=== PATIENT | male | born 1940 | race Caucasian/White ===

== ENCOUNTER 2016-12-21 03:40 | Observation (INO) ==
[2016-12-21 04:02] LABS: Basophils % 0.5 %; Eosinophils # 0.1 K/mcL (0.0-0.6); Eosinophils % 1.2 %; Hematocrit 36.8 % (37.5-50.1); Hemoglobin 12.2 g/dL (12.9-16.9); Immature Granulocytes % 0.6 % (0-4); Lymphocytes # 1.6 K/mcL (0.6-4.6); Lymphocytes % 24.6 %; Mean Corpuscular HGB Conc 33.2 g/dL (31.6-35.5); Mean Corpuscular Hemoglobin 31.5 pg (28.0-33.3); Mean Corpuscular Volume 95.1 fL (83.0-100.0); Monocytes # 0.8 K/mcL (0.0-1.3); Monocytes % 12.6 %; Neutrophils # 3.9 K/mcL (1.6-8.9); Platelet Count 134 K/mcL (140-400); Red Blood Count 3.87 M/mcL (4.19-5.50); Red Cell Distribution Width 14.2 % (11.5-14.5); Segmented Neutrophils % 60.5 %
[2016-12-21 04:11] LABS: INR 1.1; Prothrombin Time 11.8 Seconds (9.4-12.1)
[2016-12-21 04:13] LABS: Activated Partial Thrombo Time 36.5 Seconds (26.0-36.0)
--- NOTE | 2016-12-21 04:13 | Emergency Department Note ---
Disposition Clinical Impression: Elevated troponin, Seizure Hypertension Qualifiers: Hypertension type: unspecified secondary hypertension Qualified Code(s): I15.9 - Secondary hypertension, unspecified Disposition: Admitted As Inpatient Condition: Fair Referrals: NO,PCP [Primary Care Provider] - General Adult HPI - General Chief complaint: ED Fall Stated complaint: Fall Time Seen by Provider: 12/21/16 03:48 Source: patient, EMS Mode of arrival: EMS Limitations: no limitations Nursing Notes Reviewed: Yes Vital Signs Reviewed: Yes - History of Present Illness HPI Narrative: 76 y/o male reports he had a seizure and hit his head. Known history of seizures and is on depakote and keppra. He says he has been having some urinary problems. According to EMS he was altered on their arrival but it has improved. This has happened numerous times in the past. He denies pain. He was incontinent of urine. Radiation: non-radiation Pain Scale: 0 Consistency: constant Improves with: nothing Worsens with: nothing Associated symptoms: Reports: denies other symptoms Treatments Prior to Arrival: none - Related Data Home Medications Medication Instructions Recorded Confirmed Acetaminophen [Tylenol] 650 mg PO Q8H PRN 11/10/15 06/18/16 Carbidopa/Levodopa 25/100 [Sinemet] 1 tab PO BID 11/10/15 06/18/16 Citalopram [CeleXA] 40 mg PO DAILY 11/10/15 06/18/16 Divalproex Sodium [Depakote] 500 mg PO BID 05/06/16 06/18/16 Omeprazole [PriLOSEC] 20 mg PO BID 05/06/16 06/18/16 Docusate [Colace] 200 mg PO DAILY PRN 06/18/16 06/18/16 Previous Rx's Medication Instructions Recorded Amlodipine [Norvasc] 10 mg PO DAILY tablet 11/16/15 Folic Acid 1 mg PO DAILY tablet 11/16/15 HydrALAZINE 25 mg PO Q6HR tablet 11/16/15 LevETIRAcetam [Keppra] 500 mg PO Q12HR #60 tablet 11/16/15 Vitamin B Complex/Vit C/Vit E 1 each PO DAILY tablet 11/16/15 [Stresstab] HYDROcodone/Acet 5/325 mg [[place] 1 tab PO Q6H PRN #20 tablet 06/20/16 5-325 mg] Tamsulosin [Flomax] 0.8 mg PO DAILY #60 capsule 06/20/16 OxyCODONE/APAP 5/325 [Percocet 1 each PO Q6HR PRN #15 tablet 10/31/16 5/325] Allergies Allergy/AdvReac Type Severity Reaction Status Date / Time No Known Allergies Allergy Verified 09/11/15 01:08 All systems ED: reviewed and negative except as stated. Constitutional: Denies: fever ENT ED: Denies: throat pain Cardiovascular: Denies: chest pain Respiratory: Denies: cough Gastrointestinal: Denies: abdominal pain, nausea, vomiting Genitourinary: Reports: frequency Musculoskeletal: Denies: back pain Integumentary: Denies: rash Neurological: Denies: headache Past Medical History - Past Medical History Medical history: Reports: arthritis, COPD, CVA, dementia, GERD, hyperlipidemia, hypertension, osteoporosis, renal disease, seizures, syncope, TIA, other Surgical history: Reports: cataract, prostatectomy, other Psychiatric history: Reports: anxiety, depression - Social History Smoking Status: Former smoker Smokeless Tobacco Status: No Alcohol use: Reports: none Drug use: Reports: none Physical Exam - General Limitations: no limitations General appearance: alert - Head Head exam: atraumatic - Eye Eye exam: Present: normal appearance, PERRL, EOMI - ENT ENT exam: normal exam, normal oropharynx - Neck Neck exam: Present: normal inspection - Chest Chest inspection: Present: normal inspection - Respiratory Respiratory exam: Present: normal lung sounds bilaterally. Absent: respiratory distress - Cardiovascular Cardiovascular exam: Present: regular rate, normal rhythm - Abdominal Exam Abdominal exam: Present: soft, Non-Tender - Extremities Exam Extremities exam: Present: normal inspection - Neurological Exam Neurological exam: Present: alert, oriented X3, CN II-XII intact, reflexes normal. Absent: motor sensory deficit - Skin Skin exam: Present: warm, dry Course Course Narrative: He has some mild dementia but is oriented x3. He has no drift. He has some mild slurred speech but that appears to be chronic. He is in no distress. - Reevaluation(s) Reevaluation #1: Troponin elevated but no CP or dyspnea. Markedly hypertensive. Gave 20mg of labetalol which brought his pressure down to [address] deviation on EKG. Called for admission secondary to elevated troponin. Accepted by servando Vital Signs Temperature 99.5 F 12/21/16 03:42 Pulse Rate 66 12/21/16 03:42 Respiratory Rate 18 12/21/16 03:42 Blood Pressure 216/122 12/21/16 03:42 O2 Sat by Pulse Oximetry 96 12/21/16 03:42 Temperature 99.5 F 12/21/16 03:42 Pulse Rate 69 12/21/16 05:50 Respiratory Rate 16 12/21/16 05:50 Blood Pressure 192/115 12/21/16 05:50 O2 Sat by Pulse Oximetry 95 12/21/16 05:50 Oxygen Delivery Oxygen Delivery Room Air Medical Decision Making - Medical Records Medical records reviewed: Yes I reviewed the patient's medical records. - Lab Data Lab results reviewed: Yes I reviewed the patient's lab results. Result diagrams: 12/21/16 03:53 12/21/16 03:53 Lab Results 12/21/16 12/21/16 12/21/16 Range/Units 03:43 03:53 03:53 WBC 6.4 (4.3-11.1) K/mcL RBC 3.87 L (4.19-5.50) M/mcL Hgb 12.2 L (12.9-16.9) g/dL Hct 36.8 L (37.5-50.1) % MCV 95.1 (83.0-100.0) fL MCH 31.5 (28.0-33.3) pg MCHC 33.2 (31.6-35.5) g/dL RDW 14.2 (11.5-14.5) % Plt Count 134 L (140-400) K/mcL MPV 10.0 (9.4-12.4) fL Immature Gran % 0.6 (0-4) % Seg Neutrophils % 60.5 % Lymphocytes % 24.6 % Monocytes % 12.6 % Eosinophils % 1.2 % Basophils % 0.5 % Neutrophils # 3.9 (1.6-8.9) K/mcL Lymphocytes # 1.6 (0.6-4.6) K/mcL Monocytes # 0.8 (0.0-1.3) K/mcL Eosinophils # 0.1 (0.0-0.6) K/mcL Basophils # 0.0 (0.0-0.2) K/mcL PT 11.8 (9.4-12.1) Seconds INR 1.1 APTT 36.5 H (26.0-36.0) Seconds Sodium (136-145) mEq/L Potassium (3.5-4.5) mEq/L Chloride (98-109) mEq/L Carbon Dioxide (19-29) mEq/L BUN (8-26) mg/dL Creatinine (0.72-1.25) mg/dL Est GFR ( Amer) (> 60) Est GFR (Non-Af Amer) (> 60) BUN/Creatinine Ratio (6-26) Glucose (70-99) mg/dL POC Glucose 123 H (58-89) Calculated Osmolality (280-300) Calcium (8.6-10.8) mg/dL Total Bilirubin (0.2-1.2) mg/dL Direct Bilirubin (0.0-0.5) mg/dL Indirect Bilirubin (0.0-1.2) mg/dL AST (5-34) Units/L ALT (0-55) Units/L Alkaline Phosphatase (38-126) Units/L Ammonia (18-72) mcmol/L Troponin I (0-0.03) ng/mL Serum Total Protein (6.0-8.3) g/dL Albumin (3.5-5.0) g/dL Globulin (2.4-3.5) g/dL Albumin/Globulin Ratio (1.1-2.2) TSH (0.350-4.840) mcIU/mL Urine Color (Yellow) Urine Clarity (Clear) Urine pH (5.0-8.0) pH Units Ur Specific [place] (1.010-1.025) Urine Protein (Neg-Trace) mg/dL Urine Glucose (UA) (Normal) mg/dL Urine Ketones (Negative) mg/dL Urine Blood (Negative) Urine Nitrite (Negative) Urine Bilirubin (Negative) Urine Urobilinogen (Normal) mg/dL Ur Leukocyte Esterase (Negative) Urine Microscopic RBC (0-3) per hpf Urine Microscopic WBC (0-3) per hpf Ur Squamous Epith Cells (None-Few) per lpf Urine Bacteria (None-Few) per hpf Hyaline Casts (None-Few) per lpf Ur Culture Indicated? (NO) Urine Opiates Screen (Stjdse=280) ng/mL Ur Barbiturates Screen (Lfteow=737) ng/mL Ur Phencyclidine Scrn (Cutoff=25) ng/mL Ur Amphetamines Screen (Fdzptg=7730) ng/mL U Benzodiazepines Scrn (Xoadms=577) ng/mL Urine Cocaine Screen (Cutoff= 300) ng/mL U Marijuana (THC) Screen (Cutoff = 50) ng/mL Ethyl Alcohol (0-10) mg/dL 12/21/16 12/21/16 12/21/16 Range/Units 03:53 03:53 03:53 WBC (4.3-11.1) K/mcL RBC (4.19-5.50) M/mcL Hgb (12.9-16.9) g/dL Hct (37.5-50.1) % MCV (83.0-100.0) fL MCH (28.0-33.3) pg MCHC (31.6-35.5) g/dL RDW (11.5-14.5) % Plt Count (140-400) K/mcL MPV (9.4-12.4) fL Immature Gran % (0-4) % Seg Neutrophils % % Lymphocytes % % Monocytes % % Eosinophils % % Basophils % % Neutrophils # (1.6-8.9) K/mcL Lymphocytes # (0.6-4.6) K/mcL Monocytes # (0.0-1.3) K/mcL Eosinophils # (0.0-0.6) K/mcL Basophils # (0.0-0.2) K/mcL PT (9.4-12.1) Seconds INR APTT (26.0-36.0) Seconds Sodium 143 (136-145) mEq/L Potassium 3.6 (3.5-4.5) mEq/L Chloride 106 (98-109) mEq/L Carbon Dioxide 26 (19-29) mEq/L BUN 27 H (8-26) mg/dL Creatinine 1.33 H (0.72-1.25) mg/dL Est GFR ( Amer) > 60 (> 60) Est GFR (Non-Af Amer) 52 L (> 60) BUN/Creatinine Ratio 20 (6-26) Glucose 128 H (70-99) mg/dL POC Glucose (58-89) Calculated Osmolality 303 H (280-300) Calcium 9.6 (8.6-10.8) mg/dL Total Bilirubin 0.5 (0.2-1.2) mg/dL Direct Bilirubin 0.3 (0.0-0.5) mg/dL Indirect Bilirubin 0.2 (0.0-1.2) mg/dL AST 19 (5-34) Units/L ALT 7 (0-55) Units/L Alkaline Phosphatase 68 (38-126) Units/L Ammonia 13 L (18-72) mcmol/L Troponin I 0.07 H* (0-0.03) ng/mL Serum Total Protein 6.8 (6.0-8.3) g/dL Albumin 3.4 L (3.5-5.0) g/dL Globulin 3.4 (2.4-3.5) g/dL Albumin/Globulin Ratio 1.0 L (1.1-2.2) TSH 4.457 (0.350-4.840) mcIU/mL Urine Color (Yellow) Urine Clarity (Clear) Urine pH (5.0-8.0) pH Units Ur Specific [place] (1.010-1.025) Urine Protein (Neg-Trace) mg/dL Urine Glucose (UA) (Normal) mg/dL Urine Ketones (Negative) mg/dL Urine Blood (Negative) Urine Nitrite (Negative) Urine Bilirubin (Negative) Urine Urobilinogen (Normal) mg/dL Ur Leukocyte Esterase (Negative) Urine Microscopic RBC (0-3) per hpf Urine Microscopic WBC (0-3) per hpf Ur Squamous Epith Cells (None-Few) per lpf Urine Bacteria (None-Few) per hpf Hyaline Casts (None-Few) per lpf Ur Culture Indicated? (NO) Urine Opiates Screen (Mmuuje=346) ng/mL Ur Barbiturates Screen (Iruewm=618) ng/mL Ur Phencyclidine Scrn (Cutoff=25) ng/mL Ur Amphetamines Screen (Stdsxt=9001) ng/mL U Benzodiazepines Scrn (Cgzchx=684) ng/mL Urine Cocaine Screen (Cutoff= 300) ng/mL U Marijuana (THC) Screen (Cutoff = 50) ng/mL Ethyl Alcohol < 10 (0-10) mg/dL 12/21/16 12/21/16 Range/Units 05:10 05:10 WBC (4.3-11.1) K/mcL RBC (4.19-5.50) M/mcL Hgb (12.9-16.9) g/dL Hct (37.5-50.1) % MCV (83.0-100.0) fL MCH (28.0-33.3) pg MCHC (31.6-35.5) g/dL RDW (11.5-14.5) % Plt Count (140-400) K/mcL MPV (9.4-12.4) fL Immature Gran % (0-4) % Seg Neutrophils % % Lymphocytes % % Monocytes % % Eosinophils % % Basophils % % Neutrophils # (1.6-8.9) K/mcL Lymphocytes # (0.6-4.6) K/mcL Monocytes # (0.0-1.3) K/mcL Eosinophils # (0.0-0.6) K/mcL Basophils # (0.0-0.2) K/mcL PT (9.4-12.1) Seconds INR APTT (26.0-36.0) Seconds Sodium (136-145) mEq/L Potassium (3.5-4.5) mEq/L Chloride (98-109) mEq/L Carbon Dioxide (19-29) mEq/L BUN (8-26) mg/dL Creatinine (0.72-1.25) mg/dL Est GFR ( Amer) (> 60) Est GFR (Non-Af Amer) (> 60) BUN/Creatinine Ratio (6-26) Glucose (70-99) mg/dL POC Glucose (58-89) Calculated Osmolality (280-300) Calcium (8.6-10.8) mg/dL Total Bilirubin (0.2-1.2) mg/dL Direct Bilirubin (0.0-0.5) mg/dL Indirect Bilirubin (0.0-1.2) mg/dL AST (5-34) Units/L ALT (0-55) Units/L Alkaline Phosphatase (38-126) Units/L Ammonia (18-72) mcmol/L Troponin I (0-0.03) ng/mL Serum Total Protein (6.0-8.3) g/dL Albumin (3.5-5.0) g/dL Globulin (2.4-3.5) g/dL Albumin/Globulin Ratio (1.1-2.2) TSH (0.350-4.840) mcIU/mL Urine Color Yellow (Yellow) Urine Clarity Clear (Clear) Urine pH 6.0 (5.0-8.0) pH Units Ur Specific [place] 1.025 (1.010-1.025) Urine Protein Trace (Neg-Trace) mg/dL Urine Glucose (UA) Normal (Normal) mg/dL Urine Ketones Negative (Negative) mg/dL Urine Blood Negative (Negative) Urine Nitrite Negative (Negative) Urine Bilirubin Small H (Negative) Urine Urobilinogen Normal (Normal) mg/dL Ur Leukocyte Esterase Negative (Negative) Urine Microscopic RBC 3-5 H (0-3) per hpf Urine Microscopic WBC 3-5 H (0-3) per hpf Ur Squamous Epith Cells Many H (None-Few) per lpf Urine Bacteria None Seen (None-Few) per hpf Hyaline Casts None Seen (None-Few) per lpf Ur Culture Indicated? NO (NO) Urine Opiates Screen Negative (Xcgwti=099) ng/mL Ur Barbiturates Screen Negative (Eqtylt=468) ng/mL Ur Phencyclidine Scrn Negative (Cutoff=25) ng/mL Ur Amphetamines Screen Negative (Veekrf=4585) ng/mL U Benzodiazepines Scrn Negative (Wbcgtn=532) ng/mL Urine Cocaine Screen Negative (Cutoff= 300) ng/mL U Marijuana (THC) Screen Negative (Cutoff = 50) ng/mL Ethyl Alcohol (0-10) mg/dL - Radiology Data Radiology results reviewed: Yes I reviewed the patient's radiology results. Chest X-Ray 12/21/16 03:50 IMPRESSION: No acute disease. D/ / Matias Ybarra MD / Matias Ybarra MD Interpreting Provider: Matias Ybarra MD Head CT 12/21/16 03:51 IMPRESSION: No acute intracranial abnormality. D/ / Matias Ybarra MD / Matias Ybarra MD Interpreting Provider: Matias Ybarra MD - EKG Data EKG #1 EKG attestation: Yes I reviewed and interpreted this EKG. EKG shows normal: sinus rhythm Rate: normal Rhythm: NSR [place]/QRS: normal When compared to previous EKG there are: no significant changes Interpretation: no acute changes Attestation Statement - Attestation Attestation: I, Praveen Levine MD, personally performed a history and physical exam of the patient and discussed their management with the resident. I reviewed the resident's note and agree with the documented findings, medical decision making , and plan of care. 76-year-old male presents to the emergency department by ambulance from home after he fell and hit his head on the floor. Patient states that he thinks he may have had a seizure that he does remember falling. He does not think he was unconscious. He complains of some pain in the back of his head. He does have a history of seizure disorder and is on medication. He lives alone. On examination the patient is a well-developed well-nourished elderly male in no acute distress. He is alert and oriented 3. There is no cyanosis or diaphoresis. Some tenderness palpation over the occipital scalp. No large hematomas noted. Breath sounds are clear and equal bilaterally. Heart regular rate and rhythm. Abdomen soft and nontender with normal bowel sounds. No gross focal neurological deficits noted. Labs reviewed. Elevated troponin noted. Patient denies any chest pain. Chest x-ray negative. Head CT negative. No acute changes on EKG. The hospitalist, Dr. Lundberg, was consulted and accepted admission of the patient.
[2016-12-21 04:20] LABS: Alanine Aminotransferase 7 Units/L (0-55); Albumin 3.4 g/dL (3.5-5.0); Alkaline Phosphatase 68 Units/L (38-126); Aspartate Amino Transferase 19 Units/L (5-34); BUN/Creatinine Ratio 20 (6-26); Bilirubin,Direct 0.3 mg/dL (0.0-0.5); Bilirubin,Indirect 0.2 mg/dL (0.0-1.2); Bilirubin,Total 0.5 mg/dL (0.2-1.2); Blood Urea Nitrogen 27 mg/dL (8-26); Calcium 9.6 mg/dL (8.6-10.8); Carbon Dioxide 26 mEq/L (19-29); Chloride 106 mEq/L (98-109); Ethanol < 10 mg/dL (0-10); Globulin 3.4 g/dL (2.4-3.5); Glucose 128 mg/dL (70-99); Osmolality,Calculated 303 (280-300); Potassium 3.6 mEq/L (3.5-4.5); Sodium 143 mEq/L (136-145); Total Protein 6.8 g/dL (6.0-8.3); eGFR For African Americans > 60 (> 60); eGFR For Non-African Americans 52 (> 60)
[2016-12-21 04:41] LABS: Thyroid Stimulating Hormone 4.457 mcIU/mL (0.350-4.840)
[2016-12-21] MEDS ORDERED: *HR* Labetalol 20 MG/4 ML SYRINGE IVP ONE ×2 (04:47→05:12)
[2016-12-21] MEDS ORDERED: Aspirin 325 MG TABLET PO ONE (04:55)
[2016-12-21 05:19] LABS: Bilirubin,Urine Small (Negative); Blood,Urine Negative (Negative); Clarity,Urine Clear (Clear); Color,Urine Yellow (Yellow); Glucose,Urine (UA) Normal (Normal); Ketones,Urine Negative (Negative); Leukocyte Esterase,Urine Negative (Negative); Nitrite,Urine Negative (Negative); Protein,Urine Trace mg/dL (Neg-Trace); Specific Gravity,Urine 1.025 (1.010-1.025); Urobilinogen,Urine Normal (Normal)
[2016-12-21 05:22] LABS: Bacteria,Urine None Seen per hpf (None-Few); Hyaline Casts,Urine None Seen per lpf (None-Few); Squamous Epithelial Cell,Urine Many per lpf (None-Few)
[2016-12-21 05:24] LABS: Amphetamine Screen,Urine Negative ng/mL (Cutoff=1000); Barbiturate Screen,Urine Negative ng/mL (Cutoff=200); Benzodiazepines Screen,Urine Negative ng/mL (Cutoff=200); Cannabinoid Screen,Urine Negative ng/mL (Cutoff = 50); Cocaine Screen,Urine Negative ng/mL (Cutoff= 300); Opiate Screen,Urine Negative ng/mL (Cutoff=300); Phencyclidine Screen,Urine Negative ng/mL (Cutoff=25)
[2016-12-21] MEDS ORDERED: *HR* Morphine 2 MG/ML SYRINGE IVP PRN (07:54)
[2016-12-21] MEDS ORDERED: Ondansetron 4 MG/2 ML VIAL IVP PRN (07:54)
[2016-12-21] MEDS ORDERED: Naloxone 0.4 MG/ML INJ IVP PRN (07:54)
[2016-12-21] MEDS ORDERED: Acetaminophen 325 MG TABLET PO PRN (07:54)
[2016-12-21] MEDS ORDERED: *HR* HYDROcodone/Acet 5/325 mg TABLET PO PRN (07:59)
--- NOTE | 2016-12-21 08:04 | Internal Med History&Physical ---
Date of Encounter: 12/21/16 Time of Encounter: 08:01 Assessment and Plan (1) Seizure Current visit: Yes Status: Acute Nonspecific seizure disorder Unclear whether the patient had a seizure or syncopal episode Continue Depakote, increased dose of Keppra from 500mg twice a day up to 1000 mg twice a day Neurology consult, seizure and fall precautions (2) Elevated troponin Current visit: Yes Status: Acute Likely secondary to demand ischemia Check another troponin, and aspirin, check a lipid panel (3) Hypertension Current visit: Yes Status: Acute Accelerated hypertension Continue hydralazine, may add lisinopril Qualifiers: Hypertension type: essential hypertension Qualified Code(s): I10 - Essential (primary) hypertension (4) Complaint of debility and malaise Current visit: No Status: Acute (5) Depression Current visit: No Status: Chronic Qualifiers: Depression Type: unspecified Qualified Code(s): F32.9 - Major depressive disorder, single episode, unspecified (6) Dyslipidemia Current visit: No Status: Chronic The patient will be admitted for observation. Famotidine for GI prophylaxis and subcutaneous heparin for DVT prophylaxis. He is a full code. Time spent on this admission 40 minutes. He is high risk for falling Internal Medicine - H&P: HPI Chief complaint: Possible seizure Admitted From: Emergency Dept History of present illness: Mr. Kennedy is a 76 year old male with a past medical history of a seizure disorder currently on Depakote and Keppra, hypertension, COPD not oxygen dependent, dementia, CVA. Patient came to the emergency room after falling earlier just morning, he is not sure about the time or how it happened he says that he felt dizzy and weak and he thinks he had a seizure as he was incontinent for urine. This episode was unwitnessed. Upon admission his EKG did not show any abnormalities but his troponin is 0.07. CT scan of the head does not show any intracranial abnormality, chest x-ray is unremarkable. The patient's blood pressure was extremely elevated at 193/106 although he denies any headache at the moment. Denies any other complaint at the moment Past Med Surg Social Fam HX - Past Medical History Medical history: arthritis, COPD (Not oxygen dependent), CVA, dementia, GERD, hyperlipidemia, hypertension, osteoporosis, renal disease, seizures, syncope, TIA, other (Traumatic brain injury, urinary retention, seizure disorder on Depakote and Keppra, constipation, movement disorder nonspecific) Psychiatric history: anxiety, depression - Past Surgical History Surgical History: cataract, prostatectomy, other (Urethral surgeries, last echocardiogram showed 60-65% ejection fraction and mild diastolic dysfunction) - Social History Smoking Status: Former smoker Smokeless Tobacco Status: No Alcohol use: none Drug use: none - Family History Father Family Member Ethnicity: Non- Living Status: Mother Living Status: - Additional Family History Additional family history: Denies any family history Internal Medicine - H&P: Meds Acetaminophen [Tylenol] 650 mg PO Q8H PRN 11/10/15 [History] Carbidopa/Levodopa 25/100 [Sinemet] 1 tab PO BID 11/10/15 [History] Citalopram [CeleXA] 40 mg PO DAILY 11/10/15 [History] Amlodipine [Norvasc] 10 mg PO DAILY tablet 11/16/15 [Rx] Folic Acid 1 mg PO DAILY tablet 11/16/15 [Rx] HydrALAZINE 25 mg PO Q6HR tablet 11/16/15 [Rx] LevETIRAcetam [Keppra] 500 mg PO Q12HR #60 tablet 11/16/15 [Rx] Vitamin B Complex/Vit C/Vit E [Stresstab] 1 each PO DAILY tablet 11/16/15 [Rx] Divalproex Sodium [Depakote] 500 mg PO BID 05/06/16 [History] Omeprazole [PriLOSEC] 20 mg PO BID 05/06/16 [History] Docusate [Colace] 200 mg PO DAILY PRN 06/18/16 [History] HYDROcodone/Acet 5/325 mg [[place] 5-325 mg] 1 tab PO Q6H PRN #20 tablet 06/20/16 [Rx] Tamsulosin [Flomax] 0.8 mg PO DAILY #60 capsule 06/20/16 [Rx] OxyCODONE/APAP 5/325 [Percocet 5/325] 1 each PO Q6HR PRN #15 tablet 10/31/16 [Rx ] Allergies No Known Allergies Allergy (Verified 09/11/15 01:08) All Systems PM: A 10-system review of systems was performed and is negative for pertinent findings except as documented above in the HPI. Review of systems: Denies any chest pain or shortness of breath. The patient is very hard of hearing and is a very poor historian. Other systems out of the 10 reviewed were negative - Constitutional Vitals: Temp Pulse Resp BP Pulse Ox 97.6 F 62 16 185/99 97 12/21/16 06:45 12/21/16 06:45 12/21/16 06:45 12/21/16 06:45 12/21/16 06:45 General appearance: Present: A&O X 3 - Head Head exam: Present: atraumatic, normocephalic Additional comments: Possible essential tremors - Eye Eye exam: Present: PERRL, conjuntiva pink, sclera anicteric Pupils: Present: PERRL - Neck Neck exam general surgery: Present: supple, trachea midline. Absent: lymphadenopathy - Respiratory Respiratory exam: Present: decreased breath sounds, CTAB. Absent: accessory muscle use, rales, rhonchi, wheezes - Cardiovascular Cardiovascular exam: Present: RRR, +S1, +S2. Absent: diastolic murmur, gallop, rubs, systolic murmur - GI/Abdominal GI/Abdominal exam: Present: normal bowel sounds, soft, no peritoneal signs. Absent: distended, tenderness - Extremities Exam Extremities exam: Present: warm, radial pulses palpable and symetrical. Absent : calf tenderness, cyanotic, pedal edema - Neurological Exam Neurological exam: Present: abnormal gait, CN II-XII intact, oriented X3, no focal deficits. Absent: pronater drift, facial droop, speech deficit - Skin Skin exam: Present: dry, intact Internal Med - H&P Results - Labs CBC & Chem 7: 12/21/16 03:53 12/21/16 03:53
[2016-12-21] MEDS ORDERED: Ipratropium/Albuterol Neb 3 ML IH PRN (08:10)
[2016-12-21] MEDS ORDERED: Famotidine 20 MG TABLET PO SCH (09:00)
[2016-12-21] MEDS: Carbidopa/Levodopa 25/100 TABLET PO SCH ×2 (09:48→20:23)
[2016-12-21] MEDS: Divalproex (12 HR) 500 MG TABLET PO SCH ×2 (09:48→20:23)
[2016-12-21] MEDS: Folic Acid 1 MG TABLET PO SCH (09:49)
[2016-12-21] MEDS: Lisinopril 20 MG TABLET PO SCH (09:49)
[2016-12-21] MEDS: amLODIPine 5 MG TABLET PO SCH (09:49)
[2016-12-21] MEDS: Aspirin 81 MG TAB.CHEW PO SCH (09:49)
[2016-12-21] MEDS: levETIRAcetam 250 MG TABLET PO SCH ×2 (09:53→17:43)
[2016-12-21] MEDS: 0.9 % Sodium Chloride 1,000 ML IVC SCH ×2 (09:53→23:48)
[2016-12-21] MEDS: hydrALAZINE 25 MG TABLET PO SCH ×3 (13:14→23:48)
[2016-12-21] MEDS: *HR* Heparin 5,000 UNIT/ML VIAL SQ SCH ×2 (16:14→23:47)
--- NOTE | 2016-12-21 17:37 | Neurology - Consult Note ---
Date of Encounter: 12/21/16 Time of Encounter: 17:32 Assessment and Plan (1) Seizure Current Visit: Yes Status: Acute I am not certain whether this gentleman had a breakthrough seizure, or whether there is some other underlying organic problem resulting in his acute mental status change. His labs and neuroimaging are all unimpressive. He was mildly dehydrated. He does not appear to have a urinary tract infection. There is no evidence of a central nervous system infectious process or vascular process. This is all due to progressing dementia. His son informs me that there were recent changes made to his antiepileptic regimen. Apparently his Keppra dosage was changed. I simply recommend that we go back to Keppra 1000 mg twice a day and have him follow-up with Dr. Ritchie after discharge. Unfortunately [facility]W is not available today. I do not feel that an EEG would be particularly helpful because he normally has a history of seizures. It may not be a bad idea to get social worker health services involved to see whether or not this gentleman might be better off in an extended care facility. I will reassess him tomorrow History of Present Illness HPI: Mr. Kennedy is a 76 year old male who has a history of dementia, psychiatric illness and seizure disorder who was admitted multiple admissions over the last year for seizures and other chronic illnesses. His son informs me that apparently his father had an episode of seizure while at home alone. He must have triggered his med-alert because apparently came to his home and got him and took him to the hospital. When his son arrived home he found the house disheveled. Then he did not know that his father had been taken to the hospital. He states his father still somewhat confused. The patient at this time is not able to give a reliable history of his own medical count. He follows some simple commands but for the most part babbles nonsensically. The patient cannot tell me exactly what happened. However he knows that he is in [facility]. He thought the month was August however. His valproic acid level was therapeutic at 79 upon admission. His son states that he sees Dr. Ritchie as an outpatient for seizures. Apparently Dr. Ritchie made some recent adjustments to his anti-epileptic medication regimen. Past Med Surg Social Fam HX - Past Medical History Medical history: arthritis, COPD (Not oxygen dependent), CVA, dementia, GERD, hyperlipidemia, hypertension, osteoporosis, renal disease, seizures, syncope, TIA, other (Traumatic brain injury, urinary retention, seizure disorder on Depakote and Keppra, constipation, movement disorder nonspecific) Psychiatric history: anxiety, depression - Past Surgical History Surgical History: cataract, prostatectomy, other (Urethral surgeries, last echocardiogram showed 60-65% ejection fraction and mild diastolic dysfunction) - Social History Smoking Status: Former smoker Smokeless Tobacco Status: No Alcohol use: none Drug use: none - Family History Father Family Member Ethnicity: Non- Living Status: Mother Living Status: Medications and Allergies Carbidopa/Levodopa 25/100 [Sinemet] 1 tab PO BID 11/10/15 [History] Citalopram [CeleXA] 40 mg PO DAILY 11/10/15 [History] Amlodipine [Norvasc] 10 mg PO DAILY tablet 11/16/15 [Rx] Folic Acid 1 mg PO DAILY tablet 11/16/15 [Rx] HydrALAZINE 25 mg PO Q6HR tablet 11/16/15 [Rx] Divalproex Sodium [Depakote] 500 mg PO TID 05/06/16 [History] Omeprazole [PriLOSEC] 20 mg PO BID 05/06/16 [History] HYDROcodone/Acet 5/325 mg [[place] 5-325 mg] 1 tab PO Q6H PRN #20 tablet 06/20/16 [Rx] Lactulose [Generlac] 15 ml PO BID PRN 12/21/16 [History] Phenytoin ER [Dilantin ER] 100 mg PO TID 12/21/16 [History] Tamsulosin [Flomax] 0.4 mg PO DAILY 12/21/16 [History] Valsartan [Diovan] 160 mg PO DAILY 12/21/16 [History] Vitamin B Complex/Vit C/Vit E [Stresstab] 1 tab PO DAILY 12/21/16 [History] Vitamin E Mixed [Vitamin E] 1,000 unit PO DAILY 12/21/16 [History] Allergies No Known Allergies Allergy (Verified 09/11/15 01:08) ROS unobtainable: due to mental status All Systems: A 10-system review of systems was performed and is negative for pertinent findings except as documented above in the HPI. Physical Examination - Vital Signs Vital Signs: Initial Vital Signs Temp Pulse Resp BP Pulse Ox 99.5 F 66 18 216/122 96 12/21/16 03:42 12/21/16 03:42 12/21/16 03:42 12/21/16 03:42 12/21/16 03:42 - Neurologic Detailed motor examination: grossly full strength in all extremities (No focal or lateralized deficits identified. I am not able to examine him and test his strength in the normal traditional manner.), full strength in all major muscle groups Detailed sensory examination: other (He withdraws from pain bilaterally) Mental Status Examination: Mental status assessment finds that Mr. Kennedy is somewhat somnolent. He is arousable and does make eye contact. However he is confused, as well as hard of hearing. This makes for a very difficult exchange. He is not able to give a valid history. He follows some simple commands. Otherwise, his cognitive condition is consistent with dementia. Cranial nerve examination: PERRL, corneal reflexes brisk symmetrically, mastication intact Results - Laboratory Findings CBC and BMP: 12/21/16 03:53 12/21/16 03:53 Abnormal lab findings: Abnormal lab results RBC 3.87 M/mcL (4.19-5.50) L 12/21/16 03:53 Hgb 12.2 g/dL (12.9-16.9) L 12/21/16 03:53 Hct 36.8 % (37.5-50.1) L 12/21/16 03:53 Plt Count 134 K/mcL (140-400) L 12/21/16 03:53 APTT 36.5 Seconds (26.0-36.0) H 12/21/16 03:53 BUN 27 mg/dL (8-26) H 12/21/16 03:53 Creatinine 1.33 mg/dL (0.72-1.25) H 12/21/16 03:53 Est GFR (Non-Af Amer) 52 (> 60) L 12/21/16 03:53 Glucose 128 mg/dL (70-99) H 12/21/16 03:53 POC Glucose 123 (58-89) H 12/21/16 03:43 Calculated Osmolality 303 (280-300) H 12/21/16 03:53 Ammonia 13 mcmol/L (18-72) L 12/21/16 03:53 Troponin I 0.07 ng/mL (0-0.03) H* 12/21/16 08:10 Albumin 3.4 g/dL (3.5-5.0) L 12/21/16 03:53 Albumin/Globulin Ratio 1.0 (1.1-2.2) L 12/21/16 03:53 Urine Bilirubin Small (Negative) H 12/21/16 05:10 Urine Microscopic RBC 3-5 per hpf (0-3) H 12/21/16 05:10 Urine Microscopic WBC 3-5 per hpf (0-3) H 12/21/16 05:10 Ur Squamous Epith Cells Many per lpf (None-Few) H 12/21/16 05:10 Consult Discharge Plan - Plan Referrals: NO,PCP [Non-Partnered Physician] -
[2016-12-22] MEDS: levETIRAcetam 250 MG TABLET PO SCH ×2 (05:41→18:15)
[2016-12-22] MEDS: hydrALAZINE 25 MG TABLET PO SCH ×3 (05:41→18:15)
[2016-12-22 07:27] LABS: Triglycerides 88 mg/dL (< 150)
[2016-12-22 08:17] LABS: BUN/Creatinine Ratio 19 (6-26); Blood Urea Nitrogen 20 mg/dL (8-26); Calcium 8.6 mg/dL (8.6-10.8); Carbon Dioxide 24 mEq/L (19-29); Chloride 109 mEq/L (98-109); Chol/HDL Ratio 3.1 (0-4.9); Cholesterol 127 mg/dL (< 200); Glucose 87 mg/dL (70-99); HDL Cholesterol 41 mg/dL (40-59); LDL Cholesterol,Calculated 68 mg/dL (0-99); Osmolality,Calculated 298 (280-300); Potassium 3.4 mEq/L (3.5-4.5); Sodium 143 mEq/L (136-145); eGFR For African Americans > 60 (> 60); eGFR For Non-African Americans > 60 (> 60)
--- NOTE | 2016-12-22 08:42 | Internal Med Progress Note ---
<Brennan Mckinnon - Last Filed: 12/22/16 11:51> Date of Encounter: 12/22/16 Time of Encounter: 08:42 - Assessment and plan (1) Seizure Current Visit: Yes Status: Acute Assessment and plan: Hx of seizure, at home, he is on dilantin and depakote, neuro consulted, recommended that we go back to keppra 1000 mg BID, f/u with Dr. Ritchie as outpt, EEG might not help us much at this point, seizure/aspiration precaution, PT/OT consulted as he lives along, difficult to take care himself, might benefit by going to ECF/SNF. (2) SHELBI (acute kidney injury) Current Visit: No Status: Acute Assessment and plan: Likey from dehydation, after IV fluid, it improved. (3) Elevated troponin Current Visit: Yes Status: Acute Assessment and plan: Likely demand ischemia in a setting of seizure. (4) Hypertension Current Visit: Yes Status: Acute Assessment and plan: Con't norvasc. Qualifiers: Hypertension type: essential hypertension Qualified Code(s): I10 - Essential (primary) hypertension (5) DVT prophylaxis Current Visit: No Status: Acute Assessment and plan: Heparin SQ. - Subjective Interval history: Pt seen and examined, A and Ox2, not oriented to time, has baseline dementia, poor historian, but answer questions and follow commands. - Constitutional Vitals: Temp Pulse Resp BP Pulse Ox 97.6 F 60 15 136/81 97 12/22/16 07:33 12/22/16 07:33 12/22/16 07:33 12/22/16 07:33 12/22/16 07:33 General appearance: Present: cooperative, A&O X 2, no acute distress, answers questions appropriately (somewhat) - Head Head exam: Present: atraumatic, normocephalic - Eye Eye exam: Present: PERRL, conjuntiva pink, sclera anicteric Pupils: Present: PERRL - Neck Neck exam general surgery: Present: supple, trachea midline. Absent: lymphadenopathy - Respiratory Respiratory exam: Present: CTAB. Absent: accessory muscle use, rales, rhonchi, wheezes - Cardiovascular Cardiovascular exam: Present: RRR, +S1, +S2. Absent: diastolic murmur, gallop, rubs, systolic murmur - GI/Abdominal GI/Abdominal exam: Present: normal bowel sounds, soft, no peritoneal signs. Absent: distended, tenderness - Extremities Exam Extremities exam: Present: warm, radial pulses palpable and symetrical. Absent : calf tenderness, cyanotic, pedal edema - Neurological Exam Neurological exam: Present: CN II-XII intact, no focal deficits, strengths equal and symetr throughout. Absent: oriented X3, pronater drift, facial droop , speech deficit - Skin Skin exam: Present: dry, intact Internal Medicine: Result - Labs CBC & Chem 7: 12/21/16 03:53 12/22/16 07:00 Labs: BMP 12/22/16 07:00 Sodium 143 Potassium 3.4 L Chloride 109 Carbon Dioxide 24 BUN 20 Creatinine 1.03 Glucose 87 Calcium 8.6 Cardiac Enzymes 12/21/16 Range/Units 08:10 Troponin I 0.07 H* (0-0.03) ng/mL - ABG Interpretation ABG results: PT/INR, D-dimer PT 11.8 Seconds (9.4-12.1) 12/21/16 03:53 Consult Discharge Plan - Plan Referrals: NO,PCP [Non-Partnered Physician] - <Tripp Jane - Last Filed: 12/22/16 17:49> Date of Encounter: 12/22/16 - Assessment and plan (1) Acute metabolic encephalopathy Current Visit: Yes Status: Acute Assessment and plan: Seizure versus other. Seems to be slowly improving. (2) Seizure Current Visit: Yes Status: Acute (3) Hypertension Current Visit: Yes Status: Acute Qualifiers: Hypertension type: essential hypertension Qualified Code(s): I10 - Essential (primary) hypertension (4) COPD (chronic obstructive pulmonary disease) Current Visit: No Status: Chronic Qualifiers: COPD type: emphysema Emphysema type: panlobular Qualified Code(s): J43.1 - Panlobular emphysema - Constitutional Vitals: Temp Pulse Resp BP Pulse Ox 97.5 F L 63 15 135/89 97 12/22/16 16:35 12/22/16 16:35 12/22/16 16:35 12/22/16 16:35 12/22/16 16:35 Internal Medicine: Result - Labs CBC & Chem 7: 12/21/16 03:53 12/22/16 07:00 Labs: BMP 12/22/16 07:00 Sodium 143 Potassium 3.4 L Chloride 109 Carbon Dioxide 24 BUN 20 Creatinine 1.03 Glucose 87 Calcium 8.6 - ABG Interpretation ABG results: PT/INR, D-dimer PT 11.8 Seconds (9.4-12.1) 12/21/16 03:53 - Attending Attestation I examined this patient and my medical decision-making was reviewed with the Resident Physician on 12/22/16. I agree with the documented findings, disposition and treatment plan as described except to the extent set forth below. Mr. Kennedy is currently in observation for acute encephalopathy and presumptive seizure. He remains moderate risk due to potential for worsening neurologic status. Mr. Kennedy says he feels OK. He is alert and conversant with me but disoriented to time. He denies CP or SOB. No further seizure episode. No GI symptoms. Exam Alert. Comfortable Heart reg Lungs with scattered rhonchi Abd soft No edema I/P 1. Acute metabolic encephalopathy - ? seizure versus other. Seems to be improving. 2. Seizure - Keppra restarted 3. SHELBI - resolved 4. HTN Further diagnoses and plan as above.
[2016-12-22] MEDS: Famotidine 20 MG TABLET PO SCH (09:13)
[2016-12-22] MEDS: Carbidopa/Levodopa 25/100 TABLET PO SCH ×2 (09:13→20:21)
[2016-12-22] MEDS: *HR* Heparin 5,000 UNIT/ML VIAL SQ SCH ×2 (09:13→16:23)
[2016-12-22] MEDS: Aspirin 81 MG TAB.CHEW PO SCH (09:14)
[2016-12-22] MEDS: amLODIPine 5 MG TABLET PO SCH (09:14)
[2016-12-22] MEDS: Divalproex (12 HR) 500 MG TABLET PO SCH ×2 (09:14→20:21)
[2016-12-22] MEDS: Lisinopril 20 MG TABLET PO SCH (09:14)
[2016-12-22] MEDS: Folic Acid 1 MG TABLET PO SCH (09:14)
--- NOTE | 2016-12-22 19:45 | Electrocardiograph Report ---
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
[2016-12-23] MEDS: *HR* Heparin 5,000 UNIT/ML VIAL SQ SCH ×4 (01:05→23:47)
[2016-12-23] MEDS: hydrALAZINE 25 MG TABLET PO SCH ×5 (01:05→23:47)
[2016-12-23 04:45] LABS: Magnesium 1.4 mg/dL (1.6-2.6)
[2016-12-23] MEDS: levETIRAcetam 250 MG TABLET PO SCH ×2 (06:15→18:20)
[2016-12-23] MEDS: Carbidopa/Levodopa 25/100 TABLET PO SCH ×2 (08:40→20:32)
[2016-12-23] MEDS: Lisinopril 20 MG TABLET PO SCH (08:40)
[2016-12-23] MEDS: Folic Acid 1 MG TABLET PO SCH (08:40)
[2016-12-23] MEDS: Divalproex (12 HR) 500 MG TABLET PO SCH ×2 (08:40→20:31)
[2016-12-23] MEDS: amLODIPine 5 MG TABLET PO SCH (08:40)
[2016-12-23] MEDS: Aspirin 81 MG TAB.CHEW PO SCH (08:41)
[2016-12-23] MEDS: Famotidine 20 MG TABLET PO SCH (08:41)
--- NOTE | 2016-12-23 09:12 | Neurology Progress Note ---
Date of Encounter: 12/23/16 Time of Encounter: 09:09 Assessment and Plan (1) Seizure Current Visit: Yes Status: Acute As stated in my note, I believe that the intermittent changes in mental status that Mr. Kennedy is experiencing more than likely multifactorial. He has a history of epilepsy, he has been tried on multiple different antiepileptic regimens without significant improvement in his underlying seizure disorder. A has a history of dementia and Parkinson's disease. He is on multiple different medications. He also have other chronic illnesses that may be known to intermittently affect his mental status. I believe that he would probably thrive better in an assisted living environment or nursing care facility. For now we will maintain his Keppra at 1000 twice a day and I would also maintain his valproate 500 twice a day. I will recommend having this gentleman follow up with Dr. Ritchie as an outpatient for further recommendations regarding long-term management of his other neurologic conditions. His neuroimaging is unchanged, and currently his metabolic profile does not reveal any likely causes for mental status changes. We will reevaluate him at your request. Subjective Interval history: The chart was reviewed, and the patient was seen and examined. He is currently sitting up in his bed reviewing the menu for lunch. He is not in any acute distress he is holding the pencil out difficulty. He seems to be back to his normal baseline function. At this juncture truly believe that his intermittent mental status changes are multifactorial. I cannot be absolutely certain that he is having epileptic seizures particularly since he has failed multiple different regimens, and combinations of antiepileptic therapy. However on the other hand he may just have refractory epilepsy. I also think that there are factors according to his underlying dementia, and Parkinson's disease which commonly cause fluctuating mental status changes. There are multiple medications that he is taking daily which may also influence his mental status, and he also has other underlying chronic illnesses. Ultimately I feel that he would probably be best to be placed in extended care facility or assisted living environment. Perhaps if someone was there to actually administer his medications might get better effect. Objective - Constitutional Vitals: Temp Pulse Resp BP Pulse Ox 97.8 F 64 16 149/100 96 12/23/16 08:00 12/23/16 08:00 12/23/16 08:00 12/23/16 08:00 12/23/16 08:00 - Neurological Exam Motor Examination: Present: grossly full strength in all extremities (No focal or lateralized deficits identified. 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, and trouble with short-term memory.) Cranial nerve examination: Present: PERRL, corneal reflexes brisk symmetrically , mastication intact Results - Laboratory Findings CBC and BMP: 12/21/16 03:53 12/23/16 03:32 Abnormal lab findings: Abnormal lab results RBC 3.87 M/mcL (4.19-5.50) L 12/21/16 03:53 Hgb 12.2 g/dL (12.9-16.9) L 12/21/16 03:53 Hct 36.8 % (37.5-50.1) L 12/21/16 03:53 Plt Count 134 K/mcL (140-400) L 12/21/16 03:53 APTT 36.5 Seconds (26.0-36.0) H 12/21/16 03:53 POC Glucose 123 (58-89) H 12/21/16 03:43 Magnesium 1.4 mg/dL (1.6-2.6) L 12/23/16 03:32 Ammonia 13 mcmol/L (18-72) L 12/21/16 03:53 Troponin I 0.07 ng/mL (0-0.03) H* 12/21/16 08:10 Albumin 3.4 g/dL (3.5-5.0) L 12/21/16 03:53 Albumin/Globulin Ratio 1.0 (1.1-2.2) L 12/21/16 03:53 Urine Bilirubin Small (Negative) H 12/21/16 05:10 Urine Microscopic RBC 3-5 per hpf (0-3) H 12/21/16 05:10 Urine Microscopic WBC 3-5 per hpf (0-3) H 12/21/16 05:10 Ur Squamous Epith Cells Many per lpf (None-Few) H 12/21/16 05:10 Consult Discharge Plan - Plan Referrals: Dilip Byrd DO [Primary Care Provider] - 12/30/16 12:00 pm
[2016-12-23] MEDS: Magnesium Oxide 400 MG TABLET PO SCH ×2 (10:27→20:31)
--- NOTE | 2016-12-23 15:47 | Discharge Summary ---
<Brennan Mckinnon - Last Filed: 12/23/16 15:41> Date of Encounter: 12/23/16 Time of Encounter: 15:42 - Discharge Diagnosis (1) Seizure Priority: Primary Status: Acute (2) SHELBI (acute kidney injury) Priority: Secondary Status: Acute (3) Elevated troponin Priority: Secondary Status: Acute (4) Hypertension Priority: Secondary Status: Acute Qualifiers: Hypertension type: essential hypertension Qualified Code(s): I10 - Essential (primary) hypertension (5) DVT prophylaxis Priority: Secondary Status: Acute - Discharge Medications Prescriptions: LevETIRAcetam [Keppra] 1,000 mg PO Q12HR #30 tablet Divalproex (12 HR) [Depakote (12 HR)] 500 mg PO BID #30 tablet.dr Segura Medications: Carbidopa/Levodopa 25/100 [Sinemet] 1 tab PO BID 11/10/15 [History] Citalopram [CeleXA] 40 mg PO DAILY 11/10/15 [History] Amlodipine [Norvasc] 10 mg PO DAILY tablet 11/16/15 [Rx] Folic Acid 1 mg PO DAILY tablet 11/16/15 [Rx] HydrALAZINE 25 mg PO Q6HR tablet 11/16/15 [Rx] Omeprazole [PriLOSEC] 20 mg PO BID 05/06/16 [History] HYDROcodone/Acet 5/325 mg [[place] 5-325 mg] 1 tab PO Q6H PRN #20 tablet 06/20/16 [Rx] Lactulose [Generlac] 15 ml PO BID PRN 12/21/16 [History] Tamsulosin [Flomax] 0.4 mg PO DAILY 12/21/16 [History] Valsartan [Diovan] 160 mg PO DAILY 12/21/16 [History] Vitamin B Complex/Vit C/Vit E [Stresstab] 1 tab PO DAILY 12/21/16 [History] Vitamin E Mixed [Vitamin E] 1,000 unit PO DAILY 12/21/16 [History] Divalproex (12 HR) [Depakote (12 HR)] 500 mg PO BID #30 tablet. 12/23/16 [Rx] LevETIRAcetam [Keppra] 1,000 mg PO Q12HR #30 tablet 12/23/16 [Rx] Allergies/Adverse Reactions: Allergies No Known Allergies Allergy (Verified 09/11/15 01:08) Date of admission: 12/21/16 05:58 Primary care physician: Praveena Lopez Consults: 12/21/16 06:50 Consult to Nutrition [CONS] Routine Comment: Consulting Provider: NUTRITION Reason for Dietary Consult: Supplemental Nutrition Consult to Waste Recycler [CONS] Routine Reason for SW Consult: Patient lives home alone and is 76. 12/21/16 08:10 Consult to Neurology [CONS] Routine Consulting Provider: [facility] Reason for Consult: seizures Call Completed: Yes 12/22/16 08:41 Consult to Physical Therapy [CONS] Routine Comment: Evaluate, develop and implement POC OT [Consult to Occupational Therapy] [CONS] Routine Comment: Evaluate, develop and implement POC Discharging clinician: Brennan Mckinnon Anticipated date of discharge: 12/23/16 - Patient Status Disposition: Home Health Service Condition: Fair Overall status at discharge: patient is progressing back to baseline - Discharge Instructions Instructions: Epilepsy (DC) Follow Up With: Dilip Byrd DO [Primary Care Provider] - 12/30/16 12:00 pm (F/u in a week for hospital d/c f/u.) George Ritchie MD [Partnered Physician] - 01/01/17 8:00 am () - Diet and Activity Activity: as per physical therapy, resume usual activities as tolerated Diet: low fat, low cholesterol Hospital course: Mr. Kennedy is a 76 year old male with history of seizure and parkinson's disease, brought to the ER after he had seizure at home, admitted for same reason, he sees Dr Ritchie as outpt, recently there was med change took place and unsure if pt was compliant with new regimen, neuro was consulted and recommended to put him back on keppra 1000mg PO BID and con't depakote(12 hr) 500 mg PO BID. No seizure activity was observed during hospital stay and he was on seizure precaution. Pt's initial SHELBI resolved with NS IV fluid and elevated troponin was plateaued, 2/2 demand ischemia in a setting of seizure. PT/OT saw pt and recommended HH with PT. Pt will f/u with his PCP and neurologist as outpt. - Time Spent with Patient Total time spent providing and/or coordinating discharge services: - Constitutional Vitals: Temp Pulse Resp BP Pulse Ox 98.2 F 60 16 125/80 95 12/23/16 15:03 12/23/16 15:03 12/23/16 15:03 12/23/16 15:03 12/23/16 15:03 General appearance: Present: cooperative, A&O X 2, no acute distress, answers questions appropriately (somewhat) - Head Head exam: Present: atraumatic, normocephalic - Eye Eye exam: Present: PERRL, conjuntiva pink, sclera anicteric Pupils: Present: PERRL - Neck Neck exam general surgery: Present: supple, trachea midline. Absent: lymphadenopathy - Respiratory Respiratory exam: Present: CTAB. Absent: accessory muscle use, rales, rhonchi, wheezes - Cardiovascular Cardiovascular exam: Present: RRR, +S2. Absent: diastolic murmur, gallop, JVD ( x ), rubs, systolic murmur - GI/Abdominal GI/Abdominal exam: Present: normal bowel sounds, soft, no peritoneal signs. Absent: distended, tenderness - Extremities Exam Extremities exam: Present: warm, radial pulses palpable and symetrical. Absent : calf tenderness, cyanotic, pedal edema - Neurological Exam Neurological exam: Present: CN II-XII intact, oriented X3, no focal deficits. Absent: pronater drift, facial droop, speech deficit - Skin Skin exam: Present: dry, intact <Tripp Jane - Last Filed: 12/23/16 17:26> Date of Encounter: 12/23/16 - Discharge Diagnosis (1) Acute metabolic encephalopathy Status: Acute (2) Seizure Status: Acute (3) Hypertension Status: Acute Qualifiers: Hypertension type: essential hypertension Qualified Code(s): I10 - Essential (primary) hypertension (4) COPD (chronic obstructive pulmonary disease) Priority: Secondary Status: Chronic Qualifiers: COPD type: emphysema Emphysema type: panlobular Qualified Code(s): J43.1 - Panlobular emphysema Date of admission: 12/21/16 05:58 Primary care physician: Praveena Lopez Consults: 12/21/16 06:50 Consult to Nutrition [CONS] Routine Comment: Consulting Provider: NUTRITION Reason for Dietary Consult: Supplemental Nutrition Consult to Waste Recycler [CONS] Routine Reason for SW Consult: Patient lives home alone and is 76. 12/21/16 08:10 Consult to Neurology [CONS] Routine Consulting Provider: [facility] Reason for Consult: seizures Call Completed: Yes 12/22/16 08:41 Consult to Physical Therapy [CONS] Routine Comment: Evaluate, develop and implement POC OT [Consult to Occupational Therapy] [CONS] Routine Comment: Evaluate, develop and implement POC Hospital course: Mr. Kennedy is a 76 year old male - Time Spent with Patient Total time spent providing and/or coordinating discharge services: 38min - Constitutional Vitals: Temp Pulse Resp BP Pulse Ox 98.2 F 60 16 125/80 95 12/23/16 15:03 12/23/16 15:03 12/23/16 15:03 12/23/16 15:03 12/23/16 15:03 - Attending Attestation I examined this patient and my medical decision-making was reviewed with the Resident Physician on 12/23/16. I agree with the documented findings, disposition and treatment plan as described except to the extent set forth below. Mr. Kennedy feels OK at this time. He has had no further episodes. PT/OT recommend home health care. Exam Alert. Comfortable. Heart reg Lungs clear at this time No edema Plan D/C home with [facility] Meds as per neuro recommendations Follow up with Dr. Ritchie and PCP as arranged.
--- NOTE | 2016-12-23 16:00 | Physician Discharge Referral ---
Home Health/Hosp Referral Info Transfer to: Home Health Attending Provider: Dr. Jane Provider in Charge Post Discharge: PCP - Diagnosis (1) Seizure Priority: Primary Status: Acute (2) SHELBI (acute kidney injury) Status: Acute (3) Elevated troponin Status: Acute (4) Hypertension Status: Acute (5) DVT prophylaxis Status: Acute - Respiratory Orders None Smoking Cessation: Smoking cessation has been advised. For more information, call the [employer] Quit Line at 5-095-KEAO-NOW. - Diet/Nutrition Diet/Nutrition Orders: Regular - Activity Activity Orders: Walker (fall precaution) - Services Needed Following services are medically necessary services: Nursing, Home Health Aide, Physical Therapy, Occupational Therapy - Transfer Medications Prescriptions: LevETIRAcetam [Keppra] 1,000 mg PO Q12HR #30 tablet Divalproex (12 HR) [Depakote (12 HR)] 500 mg PO BID #30 tablet.[address] Segura Medications: Carbidopa/Levodopa 25/100 [Sinemet] 1 tab PO BID 11/10/15 [History] Citalopram [CeleXA] 40 mg PO DAILY 11/10/15 [History] Amlodipine [Norvasc] 10 mg PO DAILY tablet 11/16/15 [Rx] Folic Acid 1 mg PO DAILY tablet 11/16/15 [Rx] HydrALAZINE 25 mg PO Q6HR tablet 11/16/15 [Rx] Omeprazole [PriLOSEC] 20 mg PO BID 05/06/16 [History] HYDROcodone/Acet 5/325 mg [[place] 5-325 mg] 1 tab PO Q6H PRN #20 tablet 06/20/16 [Rx] Lactulose [Generlac] 15 ml PO BID PRN 12/21/16 [History] Tamsulosin [Flomax] 0.4 mg PO DAILY 12/21/16 [History] Valsartan [Diovan] 160 mg PO DAILY 12/21/16 [History] Vitamin B Complex/Vit C/Vit E [Stresstab] 1 tab PO DAILY 12/21/16 [History] Vitamin E Mixed [Vitamin E] 1,000 unit PO DAILY 12/21/16 [History] Divalproex (12 HR) [Depakote (12 HR)] 500 mg PO BID #30 tablet. 12/23/16 [Rx] LevETIRAcetam [Keppra] 1,000 mg PO Q12HR #30 tablet 12/23/16 [Rx] Allergies/Adverse Reactions: Allergies No Known Allergies Allergy (Verified 09/11/15 01:08) Certification: Further, I certify that my clinical findings support that this patient is homebound (i.e. absences from home require considerable and taxing effort and are for medical reasons or taoist services or infrequently or short duration when for other reasons) because: pt having difficulty getting in/out of vehicle. Homebound Reason: Leaving home requires considerable and taxing effort due to condition Attestation: My signature below is to certify that this patient is under my care and that I, or nurse practitioner, or a physician's care management assistant working with me, has a face-to -face encounter with this patient.
[2016-12-24] MEDS: levETIRAcetam 250 MG TABLET PO SCH (05:46)
[2016-12-24] MEDS: hydrALAZINE 25 MG TABLET PO SCH (05:47)
--- NOTE | 2016-12-24 08:19 | Internal Med Progress Note ---
<Brennan Mckinnon - Last Filed: 12/24/16 13:51> Date of Encounter: 12/24/16 Time of Encounter: 08:19 - Assessment and plan (1) Seizure Status: Acute Assessment and plan: Hx of seizure, at home, he is on dilantin and depakote, neuro consulted, recommended that we go back to keppra 1000 mg BID, f/u with Dr. Ritchie as outpt, EEG might not help us much at this point, seizure/aspiration precaution, PT/OT consulted, recommended HH with PT, d/c to home today. (2) SHELBI (acute kidney injury) Status: Acute Assessment and plan: Likey from dehydation, after IV fluid, it improved. (3) Elevated troponin Status: Acute Assessment and plan: Likely demand ischemia in a setting of seizure. (4) Hypertension Status: Acute Assessment and plan: Con't norvasc. Qualifiers: Hypertension type: essential hypertension Qualified Code(s): I10 - Essential (primary) hypertension (5) DVT prophylaxis Status: Acute Assessment and plan: Heparin SQ. - Subjective Interval history: Pt seen and examined, A and Ox2, not oriented to time, has baseline dementia, poor historian, but answer questions and follow commands, he will go home today. - Constitutional Vitals: Temp Pulse Resp BP Pulse Ox 98.1 F 72 18 165/97 93 L 12/24/16 04:00 12/24/16 04:00 12/24/16 04:00 12/24/16 04:00 12/24/16 07:33 General appearance: Present: cooperative, A&O X 2, no acute distress, answers questions appropriately (somewhat) - Head Head exam: Present: atraumatic, normocephalic - Eye Eye exam: Present: PERRL, conjuntiva pink, sclera anicteric Pupils: Present: PERRL - Neck Neck exam general surgery: Present: supple, trachea midline. Absent: lymphadenopathy - Respiratory Respiratory exam: Present: CTAB. Absent: accessory muscle use, rales, rhonchi, wheezes - Cardiovascular Cardiovascular exam: Present: RRR, +S1, +S2. Absent: diastolic murmur, gallop, rubs, systolic murmur - GI/Abdominal GI/Abdominal exam: Present: normal bowel sounds, soft, no peritoneal signs. Absent: distended, tenderness - Extremities Exam Extremities exam: Present: warm, radial pulses palpable and symetrical. Absent : calf tenderness, cyanotic, pedal edema - Neurological Exam Neurological exam: Present: CN II-XII intact, oriented X3, no focal deficits. Absent: pronater drift, facial droop, speech deficit - Skin Skin exam: Present: dry, intact Internal Medicine: Result - Labs CBC & Chem 7: 12/21/16 03:53 12/23/16 03:32 - ABG Interpretation ABG results: PT/INR, D-dimer PT 11.8 Seconds (9.4-12.1) 12/21/16 03:53 Consult Discharge Plan - Plan Instructions: Epilepsy (DC) Referrals: Dilip Byrd DO [Primary Care Provider] - 12/30/16 12:00 pm (F/u in a week for hospital d/c f/u.) George Ritchie MD [Partnered Physician] - 01/01/17 8:00 am () Prescriptions: LevETIRAcetam [Keppra] 1,000 mg PO Q12HR #30 tablet Divalproex (12 HR) [Depakote (12 HR)] 500 mg PO BID #30 tablet. <Tripp Jane - Last Filed: 12/24/16 16:59> Date of Encounter: 12/24/16 - Assessment and plan (1) Acute metabolic encephalopathy Status: Acute (2) Seizure Status: Acute (3) Hypertension Status: Acute Qualifiers: Hypertension type: essential hypertension Qualified Code(s): I10 - Essential (primary) hypertension (4) COPD (chronic obstructive pulmonary disease) Status: Chronic Qualifiers: COPD type: emphysema Emphysema type: panlobular Qualified Code(s): J43.1 - Panlobular emphysema - Constitutional Vitals: Temp Pulse Resp BP Pulse Ox 97.6 F 66 18 111/75 95 12/24/16 08:21 12/24/16 08:21 12/24/16 08:21 12/24/16 08:21 12/24/16 08:21 Internal Medicine: Result - Labs CBC & Chem 7: 12/21/16 03:53 12/23/16 03:32 - ABG Interpretation ABG results: PT/INR, D-dimer PT 11.8 Seconds (9.4-12.1) 12/21/16 03:53 - Attending Attestation I examined this patient and my medical decision-making was reviewed with the Resident Physician on 12/24/16. I agree with the documented findings, disposition and treatment plan as described except to the extent set forth below. Mr. Kennedy did not have a ride home yesterday. He is doing OK and is ready to go home. Exam Alert. Comfortable Heart reg Lungs clear Abd soft Plan D/C this AM Follow up as arranged.
[2016-12-24 08:22] VITALS: BP 111/75
== END 2016-12-24 08:58 | disposition home health service (06) ==
LOC: 2NENU 03:40 → EMEROO 03:40 → 2NENU 06:25
PROVIDERS: ADMIT Pediatrics; ATTEND Internal Medicine

== ENCOUNTER 2017-03-07 13:58 | Observation (INO) ==
[2017-03-07 14:55] LABS: Basophils % 0.5 %; Eosinophils # 0.1 K/mcL (0.0-0.6); Eosinophils % 1.8 %; Hemoglobin 12.6 g/dL (12.9-16.9); Immature Granulocytes % 0.5 % (0-4); Immature Platelets 3.9 % (1.1-6.1); Lymphocytes # 1.8 K/mcL (0.6-4.6); Lymphocytes % 26.3 %; Mean Corpuscular HGB Conc 33.2 g/dL (31.6-35.5); Mean Corpuscular Hemoglobin 31.2 pg (28.0-33.3); Mean Corpuscular Volume 94.1 fL (83.0-100.0); Mean Platelet Volume 9.9 fL (9.4-12.4); Monocytes # 0.7 K/mcL (0.0-1.3); Monocytes % 10.2 %; Platelet Count 163 K/mcL (140-400); Red Blood Count 4.04 M/mcL (4.19-5.50); Red Cell Distribution Width 13.6 % (11.5-14.5); Segmented Neutrophils % 60.7 %
[2017-03-07 15:07] LABS: BUN/Creatinine Ratio 21 (6-26); Blood Urea Nitrogen 21 mg/dL (8-26); Calcium 9.4 mg/dL (8.6-10.8); Carbon Dioxide 26 mEq/L (19-29); Chloride 105 mEq/L (98-109); Glucose 91 mg/dL (70-99); Osmolality,Calculated 295 (280-300); Sodium 141 mEq/L (136-145); eGFR For African Americans > 60 (> 60); eGFR For Non-African Americans > 60 (> 60)
--- NOTE | 2017-03-07 15:09 | Emergency Department Note ---
Disposition Clinical Impression: Hypertensive urgency, Generalized weakness Disposition: Admitted As Inpatient Condition: Fair Time of Disposition: 19:17 Weakness HPI - General Chief complaint: ED Weakness Stated complaint: weak Source: patient Limitations: no limitations Nursing Notes Reviewed: Yes Vital Signs Reviewed: Yes - History of Present Illness HPI Narrative: Patient is a 76-year-old male complains of Pain Scale: 5 - Related Data Home Medications Medication Instructions Recorded Confirmed Carbidopa/Levodopa 25/100 [Sinemet] 1 tab PO BID 11/10/15 03/07/17 Citalopram [CeleXA] 40 mg PO DAILY 11/10/15 03/07/17 Omeprazole [PriLOSEC] 20 mg PO BID 05/06/16 03/07/17 Lactulose [Generlac] 15 ml PO BID PRN 12/21/16 03/07/17 Tamsulosin [Flomax] 0.4 mg PO DAILY 12/21/16 03/07/17 Valsartan [Diovan] 160 mg PO DAILY 12/21/16 03/07/17 Vitamin B Complex/Vit C/Vit E 1 tab PO DAILY 12/21/16 03/07/17 [Stresstab] Vitamin E Mixed [Vitamin E] 1,000 unit PO DAILY 12/21/16 03/07/17 Previous Rx's Medication Instructions Recorded Amlodipine [Norvasc] 10 mg PO DAILY tablet 11/16/15 Folic Acid 1 mg PO DAILY tablet 11/16/15 HydrALAZINE 25 mg PO Q6HR tablet 11/16/15 HYDROcodone/Acet 5/325 mg [[place] 1 tab PO Q6H PRN #20 tablet 06/20/16 5-325 mg] Divalproex (12 HR) [Depakote (12 500 mg PO BID #30 tablet. 12/23/16 HR)] LevETIRAcetam [Keppra] 1,000 mg PO Q12HR #30 tablet 12/23/16 Allergies Allergy/AdvReac Type Severity Reaction Status Date / Time No Known Allergies Allergy Verified 09/11/15 01:08 Past Medical History - Past Medical History Attestation: Yes The following information was validated with the patient. Source: patient Medical history: Reports: arthritis, COPD, CVA, dementia, GERD, hyperlipidemia, hypertension, osteoporosis, renal disease, seizures, syncope, TIA, other Surgical history: Reports: cataract, prostatectomy, other (Urethral surgeries, last echocardiogram showed 60-65% ejection fraction and mild diastolic dysfunction) Psychiatric history: Reports: anxiety, depression - Social History Smoking Status: Former smoker Smokeless Tobacco Status: No Alcohol use: Reports: none Drug use: Reports: none Physical Exam - General Limitations: no limitations General appearance: alert Course - Reevaluation(s) Reevaluation #1: Assessment: Subarachnoid hemorrhage, Hypertensive emergency, UTI, NPH, Exacerbation of chronic weakness symptoms, heart failure, acute exacerbation of renal disease. CT head, CT cervical, CBC, BMP, troponin, and chest x-ray, EKG, UA Time: 14:18 Reevaluation #2: Patient is having difficulty producing urine and agrees to straight catheter Time: 15:32 Reevaluation #3: ED evaluation complete: Patient's labs and urine are unremarkable for signs of infection or other abnormalities. Imaging of head neck and chest were unremarkable. Patient's blood pressure still elevated but patient states he has taken all of his medications as morning. Recheck blood pressure 197/131 with a MAP of 153. Patient's pulse 59. Mr. IV bolus of normal saline and hydralazine 10 mg. will recheck BP in 10 minutes Patient's been accepted for admission for hypertensive urgency. Time: 17:07 Additional Reevaluation(s): 1734, recheck blood pressure 198/110. ordered hydralazine 10mg redose 1804 hrs: 182/108, map = 133, patient received recent dose of hydralazine 10 mg 5 minutes ago. Updated Sade BURLAPPER about the administration of hydralazine and patient's current blood pressure levels. Patient is having up to floor for further evaluation and treatment. - Consultations Consultation #1: Dr. Brizuela has accepted for admission 1655 hrs Time: 16:55 Vital Signs Temperature 98.1 F 03/07/17 13:59 Pulse Rate 65 03/07/17 13:59 Respiratory Rate 18 03/07/17 13:59 Blood Pressure 209/126 03/07/17 13:59 O2 Sat by Pulse Oximetry 95 03/07/17 13:59 Temperature 97.8 F 03/09/17 07:10 Pulse Rate 68 03/09/17 07:10 Respiratory Rate 18 03/09/17 07:10 Blood Pressure 137/79 03/09/17 07:10 O2 Sat by Pulse Oximetry 99 03/09/17 07:10 Weakness - Medical Records Medical records reviewed: Yes I reviewed the patient's medical records. - Lab Data Lab results reviewed: Yes I reviewed the patient's lab results. Lab results narrative: Short CBC 03/07/17 Range/Units 14:47 WBC 6.7 (4.3-11.1) K/mcL Hgb 12.6 L (12.9-16.9) g/dL Hct 38.0 (37.5-50.1) % Plt Count 163 (140-400) K/mcL Neutrophils # 4.0 (1.6-8.9) K/mcL BMP 03/07/17 Range/Units 14:47 Sodium 141 (136-145) mEq/L Potassium 4.0 (3.5-4.5) mEq/L Chloride 105 (98-109) mEq/L Carbon Dioxide 26 (19-29) mEq/L BUN 21 (8-26) mg/dL Creatinine 1.02 (0.72-1.25) mg/dL Glucose 91 (70-99) mg/dL Calcium 9.4 (8.6-10.8) mg/dL Cardiac Enzymes 03/07/17 Range/Units 14:47 Troponin I 0.03 (0-0.03) ng/mL Urine 03/07/17 Range/Units 16:01 Urine Color Yellow (Yellow) Urine Clarity Clear (Clear) Urine pH 6.5 (5.0-8.0) pH Units Ur Specific [place] 1.023 (1.010-1.025) Urine Protein Negative (Neg-Trace) mg/dL Urine Glucose (UA) Normal (Normal) mg/dL Result diagrams: 03/09/17 03:46 03/09/17 03:46 Lab Results 03/07/17 03/07/17 03/07/17 Range/Units 14:47 14:47 14:47 WBC 6.7 (4.3-11.1) K/mcL RBC 4.04 L (4.19-5.50) M/mcL Hgb 12.6 L (12.9-16.9) g/dL Hct 38.0 (37.5-50.1) % MCV 94.1 (83.0-100.0) fL MCH 31.2 (28.0-33.3) pg MCHC 33.2 (31.6-35.5) g/dL RDW 13.6 (11.5-14.5) % Plt Count 163 (140-400) K/mcL MPV 9.9 (9.4-12.4) fL Immature Gran % 0.5 (0-4) % Seg Neutrophils % 60.7 % Lymphocytes % 26.3 % Monocytes % 10.2 % Eosinophils % 1.8 % Basophils % 0.5 % Neutrophils # 4.0 (1.6-8.9) K/mcL Lymphocytes # 1.8 (0.6-4.6) K/mcL Monocytes # 0.7 (0.0-1.3) K/mcL Eosinophils # 0.1 (0.0-0.6) K/mcL Basophils # 0.0 (0.0-0.2) K/mcL Immature Plt Fraction 3.9 (1.1-6.1) % Sodium 141 (136-145) mEq/L Potassium 4.0 (3.5-4.5) mEq/L Chloride 105 (98-109) mEq/L Carbon Dioxide 26 (19-29) mEq/L BUN 21 (8-26) mg/dL Creatinine 1.02 (0.72-1.25) mg/dL Est GFR ( Amer) > 60 (> 60) Est GFR (Non-Af Amer) > 60 (> 60) BUN/Creatinine Ratio 21 (6-26) Glucose 91 (70-99) mg/dL Calculated Osmolality 295 (280-300) Calcium 9.4 (8.6-10.8) mg/dL Troponin I 0.03 (0-0.03) ng/mL Urine Color (Yellow) Urine Clarity (Clear) Urine pH (5.0-8.0) pH Units Ur Specific [place] (1.010-1.025) Urine Protein (Neg-Trace) mg/dL Urine Glucose (UA) (Normal) mg/dL Urine Ketones (Negative) mg/dL Urine Blood (Negative) Urine Nitrite (Negative) Urine Bilirubin (Negative) Urine Urobilinogen (Normal) mg/dL Ur Leukocyte Esterase (Negative) Ur Culture Indicated? (NO) 03/07/17 Range/Units 16:01 WBC (4.3-11.1) K/mcL RBC (4.19-5.50) M/mcL Hgb (12.9-16.9) g/dL Hct (37.5-50.1) % MCV (83.0-100.0) fL MCH (28.0-33.3) pg MCHC (31.6-35.5) g/dL RDW (11.5-14.5) % Plt Count (140-400) K/mcL MPV (9.4-12.4) fL Immature Gran % (0-4) % Seg Neutrophils % % Lymphocytes % % Monocytes % % Eosinophils % % Basophils % % Neutrophils # (1.6-8.9) K/mcL Lymphocytes # (0.6-4.6) K/mcL Monocytes # (0.0-1.3) K/mcL Eosinophils # (0.0-0.6) K/mcL Basophils # (0.0-0.2) K/mcL Immature Plt Fraction (1.1-6.1) % Sodium (136-145) mEq/L Potassium (3.5-4.5) mEq/L Chloride (98-109) mEq/L Carbon Dioxide (19-29) mEq/L BUN (8-26) mg/dL Creatinine (0.72-1.25) mg/dL Est GFR ( Amer) (> 60) Est GFR (Non-Af Amer) (> 60) BUN/Creatinine Ratio (6-26) Glucose (70-99) mg/dL Calculated Osmolality (280-300) Calcium (8.6-10.8) mg/dL Troponin I (0-0.03) ng/mL Urine Color Yellow (Yellow) Urine Clarity Clear (Clear) Urine pH 6.5 (5.0-8.0) pH Units Ur Specific [place] 1.023 (1.010-1.025) Urine Protein Negative (Neg-Trace) mg/dL Urine Glucose (UA) Normal (Normal) mg/dL Urine Ketones Negative (Negative) mg/dL Urine Blood Negative (Negative) Urine Nitrite Negative (Negative) Urine Bilirubin Negative (Negative) Urine Urobilinogen Normal (Normal) mg/dL Ur Leukocyte Esterase Negative (Negative) Ur Culture Indicated? NO (NO) - Radiology Data Radiology results reviewed: Yes I reviewed the patient's radiology results. Chest X-Ray 03/07/17 14:19 IMPRESSION: No acute process. D/ / Malik Gaming MD / Malik Gaming MD Interpreting Provider: Malik Gaming MD Cervical Spine CT 03/07/17 14:26 IMPRESSION: No acute abnormality of the cervical spine. Diffuse degenerative changes of the cervical spine are again noted with minimal change compared to prior study. D/ / Alvarez Reich MD / Alvarez Reich MD Interpreting Provider: Alvarez Reich MD Head CT 03/07/17 14:26 IMPRESSION: No acute intracranial abnormality. D/ / Gopal Cho MD / Gopal Cho MD Interpreting Provider: Gopal Cho MD - EKG Data EKG attestation: Yes I reviewed and interpreted this EKG. EKG results narrative: EKG taken 03/07/2017 at 1412 hrs. shows a sinus rhythm at a rate of 60 beats a minute with no acute ST elevations or depressions, no QRS widening or QT prolongation. Attestation Statement - Attestation Attestation: I personally interviewed and examined this patient and my medical decision- making was reviewed with the ED Resident Physician, Dr. Abarca. I agree with the documented findings, disposition and treatment plan as described except to the extent set forth below. Pt is a 76 yo wm, who presents to the ER with c/o grad worsening gen weakness and frequent falls. Pt expressing concerns that he is unable to care for himself at home due to this gen weakness. Pt also c/o mild gen 2/10 LEONE, grad in onset, and not assocd with any visual changes, no focal weakness/numbness, no N/ V, no F/C, no other assocd sxs. Pt with elev BP on arrival, takes diovan for BP control. Pt states he is compliant with his meds. Pt placed on air sampling and monitoring, neuro exam wnl, no deificts appreciated. Speech clear. Workup initiated, and pt sent for CT brain. Upon return from CT, pt with ongoing 2/10 [place], stable neuro exam over time, and no worsening symptoms. Will attempt hydralazine for improvement of BP. Notified hospitalist regarding admission for HTN urgency and gen weakness. Otherwise labs and imaging unremarkable.
[2017-03-07 16:09] LABS: Bilirubin,Urine Negative (Negative); Blood,Urine Negative (Negative); Clarity,Urine Clear (Clear); Color,Urine Yellow (Yellow); Glucose,Urine (UA) Normal (Normal); Ketones,Urine Negative (Negative); Leukocyte Esterase,Urine Negative (Negative); Nitrite,Urine Negative (Negative); PH,Urine 6.5 pH Units (5.0-8.0); Protein,Urine Negative (Neg-Trace); Specific Gravity,Urine 1.023 (1.010-1.025); Urobilinogen,Urine Normal (Normal)
[2017-03-07] MEDS ORDERED: 0.9 % Sodium Chloride 1,000 ML IVC ONE (16:38)
[2017-03-07] MEDS ORDERED: Naloxone 0.4 MG/ML INJ IVP PRN (20:42)
[2017-03-07] MEDS ORDERED: Acetaminophen 325 MG TABLET PO PRN (20:42)
[2017-03-07] MEDS ORDERED: *HR* HYDROcodone/Acet 5/325 mg TABLET PO PRN (20:44)
[2017-03-07] MEDS ORDERED: Lactulose Oral Soln 20 GM/30 ML UDC PO PRN (20:44)
--- NOTE | 2017-03-07 20:54 | Internal Med History&Physical ---
Date of Encounter: 03/07/17 Time of Encounter: 20:51 Assessment and Plan (1) Hypertensive urgency Current visit: Yes Status: Acute 1 patient presented with blood pressure 200 systolic or diastolic. States he has been taking his medications. He was given hydralazine decrease in blood pressure. We will continue with hydralazine when necessary for systolic greater than 180 2 account with home medications cholestyramine maintain systolic less than 140 (2) Generalized weakness Current visit: Yes Status: Acute 1 patient has been experiencing increasing weakness and inability performing ADLs. Patient does have history of Parkinson's which could contribute to his weakened state he also has a history of epilepsy which she could be experiencing seizure activity., Seizure precautions He does use a walker to ambulate. We will have PT and OT evaluation 2 we will consult neurology concerning management Parkinson/seizure medications 3. Fall Precautions (3) Parkinson disease Current visit: Yes Status: Acute 1 we will continue with Parkinson's medications consult neurology 2 fall precautions 3 PT OT 4 consult surgery services for possible ECF placement (4) COPD (chronic obstructive pulmonary disease) Current visit: Yes Status: Chronic 1 presently not in exacerbation. Oxygen as needed to maintain Isabel grad 19% 2 bronchodilators as needed Qualifiers: COPD type: emphysema Emphysema type: unspecified Qualified Code(s): J43.9 - Emphysema, unspecified (5) Seizure disorder Current visit: No Status: Chronic 1. Patient unsure last seizure. We will place on seizure precautions 2 we will continue with Keppra and Depakote 3 Will obtain EEG 4 consult neurology (6) DVT prophylaxis Current visit: No Status: Acute 1 [facility] Internal Medicine - H&P: HPI Chief complaint: weakness Admitted From: Emergency Dept Plans for Post Hospital Care: Home History of present illness: Mr. Kennedy is a 76 year old male has not a history of epilepsy CK D hypertension Parkinson's COPD obstructive sleep apnea. According to patient he has been experiencing increasing weakness which is chronic however past few days he has felt more weak than usual. His also had a headache over the past few days in the occipital region she described as aching .He lives alone his son prepares his medications daily he does have a home health nurse that checks on him and he has physical therapy weekly. He denies any recent falls question about seizure activity he said I am not sure. Question with last seizure occurred again states I do not know. He denies any fevers chills nausea vomiting diarrhea chest pain. He presented to the ER above complaint. According to ER records CT of head was negative CT of neck with negative. Chest x-ray with no acute court-appointed process. Lab work was unremarkable. Upon arrival with the patient's blood pressure systolic 200 diastolic over 100. Patient was given hydralazine 3 times as well as IV fluid eventually did bring down patient's blood pressure. He was admitted for further work up evaluation. Presently patient denies any chest pain or shortness of breath. Presently denies any headache he is hemodynamically stable blood pressure is 160 /80 lungs sounds are clear heart sounds S1 and S2 no clicks rubs gallops murmurs noted. No seizure activity noted to no tremoring of hands I reviewed this case with who agrees with plan Past Med Surg Social Fam HX - Past Medical History Medical history: arthritis, COPD, CVA, dementia, GERD, hyperlipidemia, hypertension, osteoporosis, renal disease, seizures, syncope, TIA, other Psychiatric history: anxiety, depression - Past Surgical History Surgical History: cataract, prostatectomy, other (Urethral surgeries, last echocardiogram showed 60-65% ejection fraction and mild diastolic dysfunction) - Social History Smoking Status: Former smoker Smokeless Tobacco Status: No Alcohol use: none Drug use: none - Family History Father Family Member Ethnicity: Non- Living Status: Mother Living Status: Internal Medicine - H&P: Meds Carbidopa/Levodopa 25/100 [Sinemet] 1 tab PO BID 11/10/15 [History] Citalopram [CeleXA] 40 mg PO DAILY 11/10/15 [History] Amlodipine [Norvasc] 10 mg PO DAILY tablet 11/16/15 [Rx] Folic Acid 1 mg PO DAILY tablet 11/16/15 [Rx] HydrALAZINE 25 mg PO Q6HR tablet 11/16/15 [Rx] Omeprazole [PriLOSEC] 20 mg PO BID 05/06/16 [History] HYDROcodone/Acet 5/325 mg [[place] 5-325 mg] 1 tab PO Q6H PRN #20 tablet 06/20/16 [Rx] Lactulose [Generlac] 15 ml PO BID PRN 12/21/16 [History] Tamsulosin [Flomax] 0.4 mg PO DAILY 12/21/16 [History] Valsartan [Diovan] 160 mg PO DAILY 12/21/16 [History] Vitamin B Complex/Vit C/Vit E [Stresstab] 1 tab PO DAILY 12/21/16 [History] Vitamin E Mixed [Vitamin E] 1,000 unit PO DAILY 12/21/16 [History] Divalproex (12 HR) [Depakote (12 HR)] 500 mg PO BID #30 tablet. 12/23/16 [Rx] LevETIRAcetam [Keppra] 1,000 mg PO Q12HR #30 tablet 12/23/16 [Rx] Allergies No Known Allergies Allergy (Verified 09/11/15 01:08) All Systems PM: A 10-system review of systems was performed and is negative for pertinent findings except as documented above in the HPI. - Constitutional Constitutional: fatigue, weakness - EENT Eyes: blurry vision - Cardiovascular Cardiovascular ROS IM: no chest pain, no diaphoresis, no dyspnea, no lightheadedness, no palpitations, no syncope - Respiratory Respiratory: no cough, no dyspnea, no wheezing, no excessive phlegm production - Gastrointestinal Gastrointestinal: no abdominal pain, no diarrhea, no hematemesis, no hematochezia, no melena, no nausea, no vomiting - Musculoskeletal Musculoskeletal ROS IM: no numbness, no tingling - Integumentary Integumentary IM: no rash, no unusual bruising - Neurological Neurological ROS: no confusion, no convulsions, no focal weakness, no numbness, no tingling, no tremor(s) - Constitutional Vitals: Temp Pulse Resp BP Pulse Ox 97.6 F 78 15 161/98 93 03/07/17 19:34 03/07/17 19:34 03/07/17 19:34 03/07/17 19:34 03/07/17 19:34 General appearance: Present: A&O X 3, answers questions appropriately - Head Head exam: Present: atraumatic, normocephalic - Eye Eye exam: Present: PERRL, conjuntiva pink, sclera anicteric Pupils: Present: PERRL - Neck Neck exam general surgery: Present: supple, trachea midline. Absent: lymphadenopathy - Respiratory Respiratory exam: Present: CTAB. Absent: accessory muscle use, rales, rhonchi, wheezes - Cardiovascular Cardiovascular exam: Present: RRR, +S1, +S2. Absent: diastolic murmur, gallop, rubs, systolic murmur - GI/Abdominal GI/Abdominal exam: Present: normal bowel sounds, soft, no peritoneal signs. Absent: distended, tenderness - Extremities Exam Extremities exam: Present: warm, radial pulses palpable and symetrical. Absent : calf tenderness, cyanotic, pedal edema - Neurological Exam Neurological exam: Present: CN II-XII intact, oriented X3, no focal deficits. Absent: pronater drift, facial droop, speech deficit - Skin Skin exam: Present: dry, intact Internal Med - H&P Results - Labs CBC & Chem 7: 03/07/17 14:47 03/07/17 14:47 - Diagnostic Studies Other Images Additional comments: Chest X-Ray 03/07/17 14:19 IMPRESSION: No acute process. D/ / Malik Gaming MD / Malik Gaming MD Interpreting Provider: Malik Gaming MD Cervical Spine CT 03/07/17 14:26 IMPRESSION: No acute abnormality of the cervical spine. Diffuse degenerative changes of the cervical spine are again noted with minimal change compared to prior study. D/ / Alvarez Reich MD / Alvarez Reich MD Interpreting Provider: Alvarez Reich MD Head CT 03/07/17 14:26 IMPRESSION: No acute intracranial abnormality. D/ / Gopal Cho MD / Gopal Cho MD Interpreting Provider: Gopal Cho MD
[2017-03-07] MEDS: hydrALAZINE 25 MG TABLET PO SCH (22:09)
[2017-03-07] MEDS: Carbidopa/Levodopa 25/100 TABLET PO SCH (22:09)
[2017-03-07] MEDS: Divalproex (12 HR) 500 MG TABLET PO SCH (22:09)
[2017-03-07] MEDS ORDERED: *HR* Labetalol 20 MG/4 ML SYRINGE IVP ONE (23:58)
[2017-03-08] MEDS ORDERED: hydrALAZINE 25 MG TABLET PO SCH
[2017-03-08 03:48] LABS: Hematocrit 35.6 % (37.5-50.1); Hemoglobin 12.1 g/dL (12.9-16.9); Immature Granulocytes % 0.3 % (0-4); Lymphocytes % 27.5 %; Mean Corpuscular Volume 94.2 fL (83.0-100.0); Mean Platelet Volume 10.9 fL (9.4-12.4); Platelet Count 156 K/mcL (140-400); Red Blood Count 3.78 M/mcL (4.19-5.50); Segmented Neutrophils % 61.1 %
[2017-03-08 03:49] LABS: Basophils % 0.3 %; Eosinophils % 0.6 %; Lymphocytes # 1.8 K/mcL (0.6-4.6); Monocytes # 0.7 K/mcL (0.0-1.3); Monocytes % 10.2 %; Neutrophils # 4.1 K/mcL (1.6-8.9)
[2017-03-08 04:03] LABS: Magnesium 1.4 mg/dL (1.6-2.6)
[2017-03-08 04:08] LABS: BUN/Creatinine Ratio 17 (6-26); Blood Urea Nitrogen 20 mg/dL (8-26); Calcium 8.9 mg/dL (8.6-10.8); Carbon Dioxide 25 mEq/L (19-29); Chloride 105 mEq/L (98-109); Glucose 109 mg/dL (70-99); Osmolality,Calculated 293 (280-300); Potassium 3.6 mEq/L (3.5-4.5); Sodium 140 mEq/L (136-145); eGFR For African Americans > 60 (> 60); eGFR For Non-African Americans > 60 (> 60)
[2017-03-08 04:29] LABS: Thyroid Stimulating Hormone 4.632 mcIU/mL (0.350-4.840)
[2017-03-08] MEDS: levETIRAcetam 250 MG TABLET PO SCH ×2 (05:09→17:47)
[2017-03-08] MEDS: hydrALAZINE 25 MG TABLET PO SCH ×3 (05:09→17:44)
[2017-03-08] MEDS: *HR* Enoxaparin 40 MG/0.4 ML SYRINGE SQ SCH (05:11)
[2017-03-08] MEDS: Vitamin B Complex/Vit C/Vit E 1 EACH TABLET PO SCH (07:33)
[2017-03-08] MEDS: Valsartan 160 MG TABLET PO SCH (07:33)
[2017-03-08] MEDS: Carbidopa/Levodopa 25/100 TABLET PO SCH ×2 (07:33→22:00)
[2017-03-08] MEDS: Divalproex (12 HR) 500 MG TABLET PO SCH ×2 (07:34→22:00)
[2017-03-08] MEDS: Folic Acid 1 MG TABLET PO SCH (07:34)
[2017-03-08] MEDS: amLODIPine 5 MG TABLET PO SCH (07:34)
--- NOTE | 2017-03-08 11:46 | Neurology - Consult Note ---
Date of Encounter: 03/08/17 Time of Encounter: 11:44 Assessment and Plan (1) Debility Current Visit: No Status: Chronic This gentleman is unfortunately debilitated by several chronic conditions which include seizure disorder, and Parkinson's disease. I also suspect that there is an underlying dementia. CT scan of his head does reveal significant atrophy with compensatory ventricular dilatation. However he last saw Dr. Ritchie in his office on 02/14/2017. Dr. Nunes's note suggested at that time that he wanted to stop the Keppra and start him on phenytoin 100mg 3 times a day as well as maintain valproic acid 1,000 mg twice a day. We will therefore check labs on both of these and adjust his medications accordingly. Maintain sinemet at its current dosing. I see no evidence of any acute cerebral infarct or any other acute neurologic process. This gentleman stated that he lives alone. I would recommend social service technician consultation to investigate his home situation. The documentation in the history of HPI and plan were at least partially created by [employer] voice recognition technology by Dr. Smith. Errors in grammar, wording or other phrases may exist. If errors are found after the documentation signed, they will be addressed individually in the addendum section of this document when appropriate. History of Present Illness HPI: Mr. Kennedy is a 76 year old male who has a known history of seizures as well as Parkinson's disease is seen for neurologic examination secondary to "weakness " he is under the care of Dr. Ritchie my associate for both of these conditions. He was last seen by Dr. Ritchie in our office on 02/14/2017. At that time his note reflects that he wished to stop the Keppra, and maintain valproic acid as well as start phenytoin 100 mg 3 times a day. He is admitted through the ED with hypertensive emergency due to systolic blood pressures of greater than 200. Currently he is awake and alert mildly confused just probably his baseline. He is able to follow simple commands and answer simple questions but is not able to give explicit details surrounding the circumstances of his admission. He states that he does live alone. Past Med Surg Social Fam HX - Past Medical History Medical history: arthritis, COPD, CVA, dementia, GERD, hyperlipidemia, hypertension, osteoporosis, renal disease, seizures, syncope, TIA, other Psychiatric history: anxiety, depression - Past Surgical History Surgical History: cataract, prostatectomy, other - Social History Smoking Status: Former smoker Smokeless Tobacco Status: No Alcohol use: none Drug use: none - Family History Father History Unknown: Yes Family Member Ethnicity: Non- Living Status: Mother History Unknown: Yes Living Status: Medications and Allergies Carbidopa/Levodopa 25/100 [Sinemet] 1 tab PO BID 11/10/15 [History] Citalopram [CeleXA] 40 mg PO DAILY 11/10/15 [History] Amlodipine [Norvasc] 10 mg PO DAILY tablet 11/16/15 [Rx] Folic Acid 1 mg PO DAILY tablet 11/16/15 [Rx] HydrALAZINE 25 mg PO Q6HR tablet 11/16/15 [Rx] Omeprazole [PriLOSEC] 20 mg PO BID 05/06/16 [History] HYDROcodone/Acet 5/325 mg [[place] 5-325 mg] 1 tab PO Q6H PRN #20 tablet 06/20/16 [Rx] Lactulose [Generlac] 15 ml PO BID PRN 12/21/16 [History] Tamsulosin [Flomax] 0.4 mg PO DAILY 12/21/16 [History] Valsartan [Diovan] 160 mg PO DAILY 12/21/16 [History] Vitamin B Complex/Vit C/Vit E [Stresstab] 1 tab PO DAILY 12/21/16 [History] Vitamin E Mixed [Vitamin E] 1,000 unit PO DAILY 12/21/16 [History] Divalproex (12 HR) [Depakote (12 HR)] 500 mg PO BID #30 tablet. 12/23/16 [Rx] LevETIRAcetam [Keppra] 1,000 mg PO Q12HR #30 tablet 12/23/16 [Rx] Allergies No Known Allergies Allergy (Verified 09/11/15 01:08) All Systems: A 10-system review of systems was performed and is negative for pertinent findings except as documented above in the HPI. Review of Systems: A 10 point review of systems is consistent with a history of present illness, and otherwise negative. Physical Examination - Vital Signs Vital Signs: Initial Vital Signs Temp Pulse Resp BP Pulse Ox 98.1 F 65 18 209/126 95 03/07/17 13:59 03/07/17 13:59 03/07/17 13:59 03/07/17 13:59 04/07/17 13:59 - Exam Exam: Neurologic examination is performed and find follows. Cerebral-he is awake and alert. He is conversant. He follows simple commands and answer simple questions without difficulty. He is aware of the year, his location, he thought today was Friday but is actually Friday. He does know that he sees Dr. Ritchie. He has mild confusion which is probably his baseline. He is not encephalopathic. There is no nausea or aphasia. Cranial nerves-pupils are equal and reactive to light and accommodation, extraocular motility is intact, sensory to face is intact, mastication is intact , there is no facial asymmetry. Speech is somewhat stuttering. His voice is hypophonic. He is hard of hearing. Tongue protrudes midline. Motor exam-he has normal strength and bulk of the upper and lower extremities throughout. He does have resting tremors of both upper extremities. He does have mask facies. No focal or lateralized deficits are identified. Sensory exam-light touch and deep touch are symmetric throughout. Deep tendon reflexes-diminished throughout. No long tract signs are identified. Results - Laboratory Findings CBC and BMP: 03/08/17 03:16 03/08/17 03:16 Abnormal lab findings: Abnormal lab results RBC 3.78 M/mcL (4.19-5.50) L 03/08/17 03:16 Hgb 12.1 g/dL (12.9-16.9) L 03/08/17 03:16 Hct 35.6 % (37.5-50.1) L 03/08/17 03:16 Glucose 109 mg/dL (70-99) H 03/08/17 03:16 Magnesium 1.4 mg/dL (1.6-2.6) L 03/08/17 03:16 Troponin I 0.04 ng/mL (0-0.03) H* 03/08/17 03:16 Consult Discharge Plan - Plan Referrals: NO,PCP [Primary Care Provider] -
[2017-03-08 13:36] LABS: Valproate 56.44 mcg/mL (50-100)
[2017-03-08 14:04] LABS: Phenytoin (Dilantin) < 0.5 mcg/mL (10-20)
[2017-03-08] MEDS ORDERED: Magnesium Sulfate 2 GM in D5% in Water 100 ML IVPB ONE (15:14)
--- NOTE | 2017-03-08 15:18 | Internal Med Progress Note ---
Date of Encounter: 03/08/17 Time of Encounter: 10:45 - Assessment and plan (1) Hypertensive urgency Current Visit: No Status: Resolved Assessment and plan: -Resolved -Repeat BP:135/80 -currently asymptomatic will closely monitor BP and adjust medications as needed (2) Complaint of debility and malaise Current Visit: No Status: Acute Assessment and plan: Neurology consultation noted will adjust seizure medications as per their recommendation physical therapy eval requested oncology social work eval requested for placement (3) Electrolyte abnormality Current Visit: Yes Status: Acute Assessment and plan: hypomagnesemia Mg supplemented continue to monitor electrolytes and replace as needed (4) Seizure disorder Current Visit: No Status: Chronic Assessment and plan: plan as listed above (5) Parkinson disease Current Visit: Yes Status: Chronic Assessment and plan: continue home medications (6) DVT prophylaxis Current Visit: No Status: Acute Assessment and plan: Lovenox SQ (7) COPD (chronic obstructive pulmonary disease) Current Visit: Yes Status: Chronic Assessment and plan: not in acute exacerbation continue bronchodilator support as needed O2 supplementation as needed Qualifiers: COPD type: emphysema Emphysema type: unspecified Qualified Code(s): J43.9 - Emphysema, unspecified - Subjective Interval history: Patient seen and examined at bedside. Resting comfortably in bed and reports of having no discomfort at this time. - Constitutional Vitals: Temp Pulse Resp BP Pulse Ox 98.2 F 65 18 144/133 96 03/08/17 12:00 03/08/17 12:00 03/08/17 12:00 03/08/17 12:00 03/08/17 12:00 General appearance: Present: A&O X 3, answers questions appropriately - Head Head exam: Present: atraumatic, normocephalic - Eye Eye exam: Present: PERRL, conjuntiva pink, sclera anicteric - Respiratory Respiratory exam: Present: CTAB. Absent: accessory muscle use, rales, rhonchi, wheezes - Cardiovascular Cardiovascular exam: Present: RRR, +S1, +S2. Absent: diastolic murmur, gallop, rubs, systolic murmur - GI/Abdominal GI/Abdominal exam: Present: normal bowel sounds, soft, no peritoneal signs. Absent: distended, tenderness - Extremities Exam Extremities exam: Present: warm, radial pulses palpable and symetrical. Absent : calf tenderness, cyanotic, pedal edema - Neurological Exam Neurological exam: Present: alert, oriented X3 - Psychiatric Psychiatric exam: Present: normal affect, normal mood Internal Medicine: Result - Labs CBC & Chem 7: 03/08/17 03:16 03/08/17 03:16 Labs: Short CBC 03/08/17 Range/Units 03:16 WBC 6.7 (4.3-11.1) K/mcL Hgb 12.1 L (12.9-16.9) g/dL Hct 35.6 L (37.5-50.1) % Plt Count 156 (140-400) K/mcL Neutrophils # 4.1 (1.6-8.9) K/mcL BMP 03/08/17 03:16 Sodium 140 Potassium 3.6 Chloride 105 Carbon Dioxide 25 BUN 20 Creatinine 1.15 Glucose 109 H Calcium 8.9 Cardiac Enzymes 03/07/17 03/08/17 Range/Units 23:06 03:16 Troponin I 0.03 0.04 H* (0-0.03) ng/mL - VTE Documentation of Mechanical Device: Intermittent pneumatic compression device Consult Discharge Plan - Plan Referrals: NO,PCP [Primary Care Provider] -
[2017-03-08] MEDS ORDERED: Phenytoin 1,000 MG in SYRINGE 1 EACH IVPB ONE (21:17)
[2017-03-09] MEDS: hydrALAZINE 25 MG TABLET PO SCH ×5 (01:03→23:23)
[2017-03-09 04:50] LABS: Basophils % 0.3 %; Eosinophils % 0.3 %; Hematocrit 34.1 % (37.5-50.1); Hemoglobin 11.4 g/dL (12.9-16.9); Immature Granulocytes % 0.5 % (0-4); Lymphocytes # 1.6 K/mcL (0.6-4.6); Lymphocytes % 21.1 %; Mean Corpuscular HGB Conc 33.4 g/dL (31.6-35.5); Mean Corpuscular Hemoglobin 31.9 pg (28.0-33.3); Mean Corpuscular Volume 95.5 fL (83.0-100.0); Mean Platelet Volume 11.5 fL (9.4-12.4); Monocytes # 0.7 K/mcL (0.0-1.3); Monocytes % 8.8 %; Neutrophils # 5.1 K/mcL (1.6-8.9); Platelet Count 148 K/mcL (140-400); Red Blood Count 3.57 M/mcL (4.19-5.50); Red Cell Distribution Width 13.9 % (11.5-14.5)
[2017-03-09 05:04] LABS: BUN/Creatinine Ratio 20 (6-26); Blood Urea Nitrogen 26 mg/dL (8-26); Carbon Dioxide 28 mEq/L (19-29); Chloride 104 mEq/L (98-109); Glucose 121 mg/dL (70-99); Osmolality,Calculated 296 (280-300); Phosphorous 3.7 mg/dL (2.3-4.7); Potassium 4.3 mEq/L (3.5-4.5); Sodium 140 mEq/L (136-145); eGFR For African Americans > 60 (> 60); eGFR For Non-African Americans 54 (> 60)
[2017-03-09 05:12] LABS: Phenytoin (Dilantin) 7.1 mcg/mL (10-20)
[2017-03-09] MEDS: levETIRAcetam 250 MG TABLET PO SCH ×2 (06:02→17:30)
[2017-03-09] MEDS: Valsartan 160 MG TABLET PO SCH (07:44)
[2017-03-09] MEDS: Carbidopa/Levodopa 25/100 TABLET PO SCH ×2 (07:44→19:31)
[2017-03-09] MEDS: amLODIPine 5 MG TABLET PO SCH (07:45)
[2017-03-09] MEDS: Vitamin B Complex/Vit C/Vit E 1 EACH TABLET PO SCH (07:45)
[2017-03-09] MEDS: Folic Acid 1 MG TABLET PO SCH (07:45)
[2017-03-09] MEDS: Divalproex (12 HR) 500 MG TABLET PO SCH ×2 (07:45→19:30)
[2017-03-09] MEDS: *HR* Enoxaparin 40 MG/0.4 ML SYRINGE SQ SCH (07:45)
--- NOTE | 2017-03-09 13:15 | Internal Med Progress Note ---
Date of Encounter: 03/09/17 Time of Encounter: 12:35 - Assessment and plan (1) Hypertensive urgency Current Visit: No Status: Resolved Assessment and plan: -Resolved -currently asymptomatic will closely monitor BP and adjust medications as needed (2) Complaint of debility and malaise Current Visit: No Status: Acute Assessment and plan: Neurology consultation noted will adjust seizure medications as per their recommendation physical therapy eval requested social welfare clerk eval requested for placement (3) Electrolyte abnormality Current Visit: Yes Status: Acute Assessment and plan: resolved continue to monitor electrolytes and replace as needed (4) Seizure disorder Current Visit: No Status: Chronic Assessment and plan: plan as listed above (5) Parkinson disease Current Visit: Yes Status: Chronic Assessment and plan: continue home medications (6) DVT prophylaxis Current Visit: No Status: Acute Assessment and plan: Lovenox SQ (7) COPD (chronic obstructive pulmonary disease) Current Visit: Yes Status: Chronic Assessment and plan: not in acute exacerbation continue bronchodilator support as needed O2 supplementation as needed Qualifiers: COPD type: emphysema Emphysema type: unspecified Qualified Code(s): J43.9 - Emphysema, unspecified - Subjective Interval history: Patient seen and examined at bedside. Resting comfortably in bed and reports of having no discomfort at this time. Discharge pending PT eval and social work administrator consultation Given patient's chronic co-morbidities, patient is not a safe discharge to home as he lives alone. - Constitutional Vitals: Temp Pulse Resp BP Pulse Ox 97.6 F 68 18 144/78 96 03/09/17 11:55 03/09/17 11:55 03/09/17 11:55 03/09/17 11:55 03/09/17 11:55 General appearance: Present: A&O X 3, no acute distress, answers questions appropriately - Head Head exam: Present: atraumatic, normocephalic - Eye Eye exam: Present: normal appearance, conjuntiva pink, sclera anicteric - Respiratory Respiratory exam: Present: CTAB. Absent: accessory muscle use, rales, rhonchi, wheezes - Cardiovascular Cardiovascular exam: Present: RRR, +S1, +S2. Absent: diastolic murmur, gallop, rubs, systolic murmur - GI/Abdominal GI/Abdominal exam: Present: normal bowel sounds, soft, no peritoneal signs. Absent: distended, tenderness - Extremities Exam Extremities exam: Present: warm, radial pulses palpable and symetrical. Absent : calf tenderness, cyanotic, pedal edema - Neurological Exam Neurological exam: Present: alert, oriented X3 - Psychiatric Psychiatric exam: Present: normal affect, normal mood Internal Medicine: Result - Labs CBC & Chem 7: 03/09/17 03:46 03/09/17 03:46 Labs: Short CBC 03/09/17 Range/Units 03:46 WBC 7.4 (4.3-11.1) K/mcL Hgb 11.4 L (12.9-16.9) g/dL Hct 34.1 L (37.5-50.1) % Plt Count 148 (140-400) K/mcL Neutrophils # 5.1 (1.6-8.9) K/mcL BMP 03/09/17 03:46 Sodium 140 Potassium 4.3 Chloride 104 Carbon Dioxide 28 BUN 26 Creatinine 1.30 H Glucose 121 H Calcium 9.0 - VTE Documentation of Mechanical Device: Intermittent pneumatic compression device Consult Discharge Plan - Plan Referrals: NO,PCP [Primary Care Provider] -
--- NOTE | 2017-03-09 13:44 | Neurology Progress Note ---
Date of Encounter: 03/09/17 Time of Encounter: 13:41 Assessment and Plan (1) Debility Current Visit: No Status: Chronic As mentioned in my previous note Mr. Kennedy is debilitated by 2 chronic conditions from a neurologic perspective. He has seizure disorder, as well as Parkinson's disease with dementia. At this juncture however he is neurologically stable. I recommend maintaining his Dilantin at 100 mg 3 times a day, he will maintain his Sinemet and the valproate as they are currently. He should follow with Dr. Ritchie in his office after discharge. Reevaluate him at your request. Subjective Interval history: The chart was seen, patient was seen and examined. No further episodes of confusion or seizure activity. Apparently he became nauseated after the Dilantin infusion yesterday. His morning level was still a bit low at 7.1. However this should come up to normal with his maintenance dose. His valproate levels were normal. His neurologic examination is back to his baseline. He is currently awake and alert, follows commands and answers questions appropriately. He is in no acute distress. Objective - Constitutional Vitals: Temp Pulse Resp BP Pulse Ox 97.6 F 68 18 144/78 96 03/09/17 11:55 03/09/17 11:55 03/09/17 11:55 03/09/17 11:55 03/09/17 11:55 - Neurological Exam Additional comments: His back to his normal neurologic baseline. He does have some signs of parkinsonism. He is alert and oriented follows commands in that questions appropriately. No focal or lateralized deficit present on neurologic exam. No encephalopathy today. - VTE Documentation of Mechanical Device: Intermittent pneumatic compression device Results - Laboratory Findings CBC and BMP: 03/09/17 03:46 03/09/17 03:46 Abnormal lab findings: Abnormal lab results RBC 3.57 M/mcL (4.19-5.50) L 03/09/17 03:46 Hgb 11.4 g/dL (12.9-16.9) L 03/09/17 03:46 Hct 34.1 % (37.5-50.1) L 03/09/17 03:46 Creatinine 1.30 mg/dL (0.72-1.25) H 03/09/17 03:46 Est GFR (Non-Af Amer) 54 (> 60) L 03/09/17 03:46 Glucose 121 mg/dL (70-99) H 03/09/17 03:46 POC Glucose 112 (58-89) H 03/08/17 23:07 Troponin I 0.04 ng/mL (0-0.03) H* 03/08/17 03:16 Phenytoin 7.1 mcg/mL (10-20) L 03/09/17 03:46 Consult Discharge Plan - Plan Referrals: NO,PCP [Primary Care Provider] -
[2017-03-10] MEDS: hydrALAZINE 25 MG TABLET PO SCH ×2 (06:22→11:21)
[2017-03-10] MEDS: *HR* Enoxaparin 40 MG/0.4 ML SYRINGE SQ SCH (06:22)
[2017-03-10] MEDS: levETIRAcetam 250 MG TABLET PO SCH (06:22)
[2017-03-10] MEDS: Divalproex (12 HR) 500 MG TABLET PO SCH (07:55)
[2017-03-10] MEDS: amLODIPine 5 MG TABLET PO SCH (07:55)
[2017-03-10] MEDS: Valsartan 160 MG TABLET PO SCH (07:55)
[2017-03-10] MEDS: Vitamin B Complex/Vit C/Vit E 1 EACH TABLET PO SCH (07:55)
[2017-03-10] MEDS: Carbidopa/Levodopa 25/100 TABLET PO SCH (07:55)
[2017-03-10] MEDS: Folic Acid 1 MG TABLET PO SCH (07:56)
[2017-03-10 08:45] LABS: Basophils % 0.4 %; Eosinophils # 0.1 K/mcL (0.0-0.6); Eosinophils % 0.8 %; Hematocrit 37.1 % (37.5-50.1); Hemoglobin 11.9 g/dL (12.9-16.9); Immature Granulocytes % 0.4 % (0-4); Lymphocytes # 2.5 K/mcL (0.6-4.6); Lymphocytes % 28.9 %; Mean Corpuscular HGB Conc 32.1 g/dL (31.6-35.5); Mean Corpuscular Hemoglobin 30.7 pg (28.0-33.3); Mean Corpuscular Volume 95.6 fL (83.0-100.0); Mean Platelet Volume 10.6 fL (9.4-12.4); Monocytes # 0.8 K/mcL (0.0-1.3); Neutrophils # 5.2 K/mcL (1.6-8.9); Platelet Count 161 K/mcL (140-400); Red Blood Count 3.88 M/mcL (4.19-5.50); Red Cell Distribution Width 13.8 % (11.5-14.5); Segmented Neutrophils % 60.5 %
--- NOTE | 2017-03-10 08:49 | Electrocardiograph Report ---
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
[2017-03-10 08:52] LABS: BUN/Creatinine Ratio 19 (6-26); Blood Urea Nitrogen 22 mg/dL (8-26); Calcium 9.5 mg/dL (8.6-10.8); Carbon Dioxide 25 mEq/L (19-29); Chloride 103 mEq/L (98-109); Glucose 117 mg/dL (70-99); Magnesium 1.9 mg/dL (1.6-2.6); Osmolality,Calculated 290 (280-300); Phosphorous 2.4 mg/dL (2.3-4.7); Potassium 4.6 mEq/L (3.5-4.5); Sodium 138 mEq/L (136-145); eGFR For African Americans > 60 (> 60); eGFR For Non-African Americans > 60 (> 60)
[2017-03-10 11:38] VITALS: BP 130/85
--- NOTE | 2017-03-10 11:59 | Discharge Summary ---
Date of Encounter: 03/10/17 Time of Encounter: 11:57 - Discharge Diagnosis (1) Hypertensive urgency Priority: Primary Status: Resolved (2) Complaint of debility and malaise Priority: Primary Status: Acute (3) Electrolyte abnormality Priority: Secondary Status: Resolved (4) Seizure disorder Priority: Secondary Status: Chronic (5) Parkinson disease Priority: Secondary Status: Chronic (6) DVT prophylaxis Priority: Secondary Status: Acute (7) COPD (chronic obstructive pulmonary disease) Priority: Secondary Status: Chronic Qualifiers: COPD type: emphysema Emphysema type: unspecified Qualified Code(s): J43.9 - Emphysema, unspecified - Discharge Medications Prescriptions: Phenytoin [Dilantin] 100 mg PO Q8HR #60 tab.chew HYDROcodone/Acet 5/325 mg [[place] 5-325 mg] 1 tab PO Q6H PRN #20 tablet PRN Reason: Pain Home Medications: Carbidopa/Levodopa 25/100 [Sinemet] 1 tab PO BID 11/10/15 [History] Citalopram [CeleXA] 40 mg PO DAILY 11/10/15 [History] Amlodipine [Norvasc] 10 mg PO DAILY tablet 11/16/15 [Rx] Folic Acid 1 mg PO DAILY tablet 11/16/15 [Rx] HydrALAZINE 25 mg PO Q6HR tablet 11/16/15 [Rx] Omeprazole [PriLOSEC] 20 mg PO BID 05/06/16 [History] Lactulose [Generlac] 15 ml PO BID PRN 12/21/16 [History] Tamsulosin [Flomax] 0.4 mg PO DAILY 12/21/16 [History] Valsartan [Diovan] 160 mg PO DAILY 12/21/16 [History] Vitamin B Complex/Vit C/Vit E [Stresstab] 1 tab PO DAILY 12/21/16 [History] Vitamin E Mixed [Vitamin E] 1,000 unit PO DAILY 12/21/16 [History] Divalproex (12 HR) [Depakote (12 HR)] 500 mg PO BID #30 tablet. 12/23/16 [Rx] LevETIRAcetam [Keppra] 1,000 mg PO Q12HR #30 tablet 12/23/16 [Rx] HYDROcodone/Acet 5/325 mg [[place] 5-325 mg] 1 tab PO Q6H PRN #20 tablet 03/10/17 [Rx] Phenytoin [Dilantin] 100 mg PO Q8HR #60 tab.chew 03/10/17 [Rx] Allergies/Adverse Reactions: Allergies No Known Allergies Allergy (Verified 09/11/15 01:08) Date of admission: 03/07/17 18:00 Primary care physician: Praveena Lopez Consults: 03/07/17 20:44 Consult to Filament Tester [CONS] Routine Reason for SW Consult: discharge planning possible ECF placement 03/07/17 21:07 Consult to Neurology [CONS] Routine Consulting Provider: Neurology [facility] Reason for Consult: weakness, hx of parkinson,seizure Time Notified: 21:08 Call Completed: No 03/07/17 21:08 Consult to Physical Therapy [CONS] Routine Comment: Evaluate, develop and implement POC 03/07/17 21:09 Consult to Occupational Therapy [CONS] Routine Comment: Evaluate, develop and implement POC 03/10/17 10:20 Consult to Interpret Exam [CONS] Routine Consulting Provider: George Ritchie Consult to Interpret Exam: Interpret EEG Discharging clinician: Mojgan Bunch Anticipated date of discharge: 03/10/17 - Patient Status Disposition: Transfer SNF Condition: Good Functional capacity at discharge: uses cane/walker Overall status at discharge: patient is back to baseline - Discharge Instructions Instructions: Chronic Obstructive Pulmonary Disease (DC), Hypertensive Crisis ( DC) Follow Up With: NO,PCP [Non-Partnered Physician] - Dilip Byrd DO [Primary Care Provider] - (PT IS GOING TO ECF NO PCP APPOINTMENT IS NEEDED) Additional Instructions: Please follow up with neurology within 1 week after discharge from the hospital. Please follow up with your primary care physician within one week after discharge from the hospital. Phenytoin has been added to your home medications, please take this medication as prescribed. Please closely monitor your blood pressure and continue to take all medications as prescribed. Please resume all medications as prescribed by your primary care physician. - Diet and Activity Activity: as per physical therapy Diet: low salt diet Hospital course: Mr. Kennedy is a 76 year old male with past medical history of epilepsy, CKD, hypertension, Parkinson's disease, COPD who was admitted for generalized weakness and hypertensive urgency. It was unclear if patient was compliant with his home medication and given his debilitated status clinical social work therapist services were consulted for possible rehabilitation placement. Patient responded well to IV medications for his blood pressure control and then was restarted on his home medications for BP control. He was also followed by neurology and his home medications were reevaluated. Phenytoin was added to his home medications. Patient responded well to therapy and his blood pressure remained under appropriate controlled with his home medications. Physical therapy and social sciences professor were consulted. Patient has been accepted to rehabilitation facility. Patient is currently hemodynamically stable with blood pressure under control. He will be discharged to rehabilitation today with follow-up with his primary care physician and neurologist. Patient and family demonstrated understanding of his diagnoses and agreed with discharge care plan. - Time Spent with Patient Total time spent providing and/or coordinating discharge services: Less than 30 minutes - Constitutional Vitals: Temp Pulse Resp BP Pulse Ox 97.9 F 67 16 130/85 98 03/10/17 11:14 03/10/17 11:14 03/10/17 11:23 03/10/17 11:14 03/10/17 11:23 General appearance: Present: A&O X 3, no acute distress, answers questions appropriately - Head Head exam: Present: atraumatic, normocephalic - Eye Eye exam: Present: normal appearance, conjuntiva pink, sclera anicteric - Respiratory Respiratory exam: Present: CTAB. Absent: accessory muscle use, rales, rhonchi, wheezes - Cardiovascular Cardiovascular exam: Present: RRR, +S1, +S2. Absent: diastolic murmur, gallop, rubs, systolic murmur - GI/Abdominal GI/Abdominal exam: Present: normal bowel sounds, soft, no peritoneal signs. Absent: distended, tenderness - Extremities Exam Extremities exam: Present: warm, radial pulses palpable and symetrical. Absent : calf tenderness, cyanotic, pedal edema - Neurological Exam Neurological exam: Present: alert, oriented X3 - Psychiatric Psychiatric exam: Present: normal affect, normal mood - VTE Documentation of Mechanical Device: Intermittent pneumatic compression device
--- NOTE | 2017-03-10 12:05 | Physician Discharge Referral ---
ExtendedCare Referral Info Transfer To: F Provider in Charge after Transfer: PCP - Diagnosis (1) Hypertensive urgency Priority: Primary Status: Resolved (2) Complaint of debility and malaise Priority: Primary Status: Acute (3) Electrolyte abnormality Priority: Secondary Status: Resolved (4) Seizure disorder Priority: Secondary Status: Chronic (5) Parkinson disease Priority: Secondary Status: Chronic (6) DVT prophylaxis Priority: Secondary Status: Acute (7) COPD (chronic obstructive pulmonary disease) Priority: Secondary Status: Chronic - Transfer Medications Prescriptions: Phenytoin [Dilantin] 100 mg PO Q8HR #60 tab.chew HYDROcodone/Acet 5/325 mg [[place] 5-325 mg] 1 tab PO Q6H PRN #20 tablet PRN Reason: Pain Home Medications: Carbidopa/Levodopa 25/100 [Sinemet] 1 tab PO BID 11/10/15 [History] Citalopram [CeleXA] 40 mg PO DAILY 11/10/15 [History] Amlodipine [Norvasc] 10 mg PO DAILY tablet 11/16/15 [Rx] Folic Acid 1 mg PO DAILY tablet 11/16/15 [Rx] HydrALAZINE 25 mg PO Q6HR tablet 11/16/15 [Rx] Omeprazole [PriLOSEC] 20 mg PO BID 05/06/16 [History] Lactulose [Generlac] 15 ml PO BID PRN 12/21/16 [History] Tamsulosin [Flomax] 0.4 mg PO DAILY 12/21/16 [History] Valsartan [Diovan] 160 mg PO DAILY 12/21/16 [History] Vitamin B Complex/Vit C/Vit E [Stresstab] 1 tab PO DAILY 12/21/16 [History] Vitamin E Mixed [Vitamin E] 1,000 unit PO DAILY 12/21/16 [History] Divalproex (12 HR) [Depakote (12 HR)] 500 mg PO BID #30 tablet. 12/23/16 [Rx] LevETIRAcetam [Keppra] 1,000 mg PO Q12HR #30 tablet 12/23/16 [Rx] HYDROcodone/Acet 5/325 mg [[place] 5-325 mg] 1 tab PO Q6H PRN #20 tablet 03/10/17 [Rx] Phenytoin [Dilantin] 100 mg PO Q8HR #60 tab.chew 04/10/17 [Rx] Allergies/Adverse Reactions: Allergies No Known Allergies Allergy (Verified 09/11/15 01:08) - Respiratory Orders Smoking Cessation: Smoking cessation has been advised. For more information, call the [place] Tobacco Quit Line at 1-869-CVKE-NOW. - Treatments List/Other: Please follow up with neurology within 1 week after discharge from the hospital. Please follow up with your primary care physician within one week after discharge from the hospital. Phenytoin has been added to your home medications, please take this medication as prescribed. Please closely monitor your blood pressure and continue to take all medications as prescribed. Please resume all medications as prescribed by your primary care physician. CERTIFICATION: I certify that the transfer of the above named patient to an Extended Care Facility is necessary for the continuing treatment of the diagnosis listed. The above information is true and accurate reflection of patient's current condition. Confidential - Redisclosure prohibited without a patient's written consent.
--- NOTE | 2017-03-10 16:35 | EEG/EMG/Oth Biometrics Report ---
EEG Procedure Report Date of procedure: 03/10/17 EEG Procedure: Routine EEG Procedure Note: This is a report of a 21 channel bipolar and referential montage EEG. A posterior dominant rhythm of 7 Hz moderately low voltage theta frequency is identified symmetrically in the posterior head regions. This rhythm attenuates symmetrically with eye opening. Hyperventilation is not performed during recording. There is no sleep activity identified during the recording. Photic stimulation is performed and does not produce a driving response. The EKG rhythm strip reveals normal sinus rhythm at 66 beats per minute. Impressions: This EEG recording is abnormal and is reflective of a mild generalized encephalopathy. There is no evidence of epileptiform activity identified during the study. Comment: Etiologies to explain this interpretation might include toxic, metabolic, postictal, degenerative. Please correlate clinically. The documentation in the history of HPI and plan were at least partially created by [employer] voice recognition technology by Dr. Smith. Errors in grammar, wording or other phrases may exist. If errors are found after the documentation signed, they will be addressed individually in the addendum section of this document when appropriate.
== END 2017-03-10 13:12 ==
LOC: 3BNU 13:58 → EMEROO 13:58 → SUATTDRO 18:00 → 2NNU 18:15
PROVIDERS: ADMIT Internal Medicine; ATTEND Internal Medicine

== ENCOUNTER 2017-05-19 19:43 | Observation (INO) ==
--- NOTE | 2017-05-19 21:06 | Emergency Department Note ---
Disposition Clinical Impression: Inability to ambulate due to hip Hip pain Qualifiers: Laterality: left Qualified Code(s): M25.552 - Pain in left hip Disposition: Admitted As Inpatient Condition: Good General Adult HPI - General Chief complaint: ED Fall Stated complaint: left hip pain from possible fall x 3 days ago Time Seen by Provider: 05/19/17 20:54 Source: patient Mode of arrival: ambulatory Limitations: no limitations Nursing Notes Reviewed: Yes Vital Signs Reviewed: Yes - History of Present Illness HPI Narrative: 76-year-old male who reports that 3 days ago he had a mechanical fall while walking with his walker. He fell onto his left side. He denies hitting his head and had no loss of consciousness. A neighbor helped him get up and at that time he had no pain. He had no pain until today where he has had some intermittent shooting pain that has gone down his left leg. he denies any pain at the present time. He has been able to ambulate but occasionally has the shooting pain that goes down his left leg. He has a past medical history of seizure disorder, Parkinson's disease, depression, chronic pain, GERD, hypertension. He cannot find anything that makes the pain come on. Radiation: extremity Pain Severity: severe Pain Scale: 10 Consistency: now resolved Improves with: nothing Worsens with: nothing Associated symptoms: Reports: denies other symptoms Treatments Prior to Arrival: none - Related Data Home Medications Medication Instructions Recorded Confirmed Carbidopa/Levodopa 25/100 [Sinemet] 1 tab PO BID 11/10/15 05/19/17 Omeprazole [PriLOSEC] 20 mg PO BID 05/06/16 05/19/17 Tamsulosin [Flomax] 0.4 mg PO DAILY 12/21/16 05/19/17 Valsartan [Diovan] 160 mg PO DAILY 12/21/16 05/19/17 Vitamin B Complex/Vit C/Vit E 1 tab PO DAILY 12/21/16 05/19/17 [Stresstab] Vitamin E Mixed [Vitamin E] 1,000 unit PO DAILY 12/21/16 05/19/17 Acetaminophen [Tylenol Arthritis] 650 mg PO Q8H PRN 05/19/17 05/19/17 Divalproex (12 HR) [Depakote (12 1,000 mg PO BID 05/19/17 05/19/17 HR)] FLUoxetine HCl [Prozac] 40 mg PO DAILY 05/19/17 05/19/17 HydrALAZINE 25 mg PO TID 05/19/17 05/19/17 Previous Rx's Medication Instructions Recorded Amlodipine [Norvasc] 10 mg PO DAILY tablet 11/16/15 Folic Acid 1 mg PO DAILY tablet 11/16/15 levETIRAcetam [Keppra] 1,000 mg PO Q12HR #30 tablet 12/23/16 HYDROcodone/Acet 5/325 mg [[place] 1 tab PO Q6H PRN #20 tablet 03/10/17 5-325 mg] Phenytoin [Dilantin] 100 mg PO Q8HR #60 tab.chew 03/10/17 Allergies Allergy/AdvReac Type Severity Reaction Status Date / Time No Known Allergies Allergy Verified 09/11/15 01:08 All systems ED: reviewed and negative except as stated. Constitutional: Denies: fever Eyes: Denies: vision change ENT ED: Denies: throat pain Cardiovascular: Denies: chest pain Gastrointestinal: Denies: abdominal pain, nausea, vomiting Genitourinary: Denies: dysuria Musculoskeletal: Denies: back pain Integumentary: Denies: rash Neurological: Denies: headache Endocrine: Denies: fatigue Past Medical History - Past Medical History Medical history: Reports: arthritis, COPD, CVA, dementia, GERD, hyperlipidemia, hypertension, osteoporosis, renal disease, seizures, syncope, TIA, other Surgical history: Reports: cataract, prostatectomy, other (Urethral surgeries, last echocardiogram showed 60-65% ejection fraction and mild diastolic dysfunction) Psychiatric history: Reports: anxiety, depression - Social History Smoking Status: Former smoker Smokeless Tobacco Status: No Alcohol use: Reports: none Drug use: Reports: none Physical Exam - General Limitations: no limitations General appearance: alert, in no apparent distress - Head Head exam: atraumatic - Eye Eye exam: Present: normal appearance, PERRL - ENT ENT exam: normal exam, normal oropharynx - Neck Neck exam: Present: normal inspection - Chest Chest inspection: Present: normal inspection - Respiratory Respiratory exam: Present: normal lung sounds bilaterally. Absent: respiratory distress - Cardiovascular Cardiovascular exam: Present: regular rate, normal rhythm - Abdominal Exam Abdominal exam: Present: soft, Non-Tender - Extremities Exam Extremities exam: Present: normal inspection. Absent: tenderness, pedal edema - Neurological Exam Neurological exam: Present: alert - Skin Skin exam: Present: warm, dry Course Course Narrative: 76-year-old male with mechanical fall complaining of intermittent left hip pain. When he points to the pain appears to be more in the buttocks. There is no signs of trauma that I can find. He has no pain on palpation and he is unable to reproduce the pain. He is unable to ambulate. Negative straight leg raise. He has no pain on palpation of the lumbar spine. He has no saddle anesthesia. DTRs are intact in the lowers bilaterally. He has full sensation in bilateral legs and full muscle strength. He is not having any abdominal pain or shortness of breath. Pain on external/internal rotation of the hip. Xray is negative. Due to inability to ambulate, will admit. Accepted by Melinda Vital Signs Temperature 97.3 F L 05/19/17 19:45 Pulse Rate 97 05/19/17 19:45 Respiratory Rate 18 05/19/17 19:45 Blood Pressure 136/87 05/19/17 19:45 O2 Sat by Pulse Oximetry 97 05/19/17 19:45 Temperature 97.3 F L 05/19/17 19:45 Pulse Rate 97 05/19/17 19:45 Respiratory Rate 18 05/19/17 23:20 Blood Pressure 142/90 05/19/17 23:20 O2 Sat by Pulse Oximetry 97 05/19/17 19:45 Oxygen Delivery Oxygen Delivery Room Air Medical Decision Making - Medical Records Medical records reviewed: Yes I reviewed the patient's medical records. - Radiology Data Radiology results reviewed: Yes I reviewed the patient's radiology results. Attestation Statement - Attestation Attestation: I examined this patient and my medical decision-making was reviewed with the Resident Physician. I agree with the documented findings, disposition and treatment plan as described except to the extent set forth below. No shortening or rotational deformity of the hip. Internal and external rotation do not cause pain, but I can reproduce his severe pain with flexion of the left hip. Patient to be admitted for further evaluation including MRI, PT/ OT assessment, and analgesia.
[2017-05-19] MEDS ORDERED: *HR* OxyCODONE/APAP 5/325 TABLET PO ONE (21:10)
[2017-05-20] MEDS ORDERED: Naloxone 0.4 MG/ML INJ IVP PRN (03:50)
[2017-05-20] MEDS ORDERED: *HR* HYDROmorphone (PF) 1 MG/ML SYRINGE IVP PRN (03:50)
[2017-05-20] MEDS ORDERED: Acetaminophen 325 MG TABLET PO PRN (03:50)
--- NOTE | 2017-05-20 04:10 | Internal Med History&Physical ---
Date of Encounter: 05/20/17 Time of Encounter: 04:09 Assessment and Plan (1) Ambulatory dysfunction Current visit: Yes Status: Acute Likely due to pain in hte left hip / labral tear / tendinosis of the left gluteus medius. Will obtain orthopedic consultation / PT consult (2) Tendinopathy of left gluteus medius Current visit: Yes Status: Acute Pain relief; orthopedic consultation (3) Labral tear of left hip joint Current visit: Yes Status: Acute Orthopedic consultation; pain relief; rest Qualifiers: Encounter type: initial encounter Qualified Code(s): S73.192A - Other sprain of left hip, initial encounter (4) Avascular necrosis of bones of both hips Current visit: Yes Status: Chronic Orthopedic consultation (5) Seizure disorder Current visit: Yes Status: Chronic Continue home medications (6) Hypertension Current visit: Yes Status: Chronic Continue home medications Qualifiers: Hypertension type: essential hypertension Qualified Code(s): I10 - Essential (primary) hypertension (7) Parkinson disease Current visit: Yes Status: Chronic Continue home medications (8) Hip pain Current visit: Yes Status: Acute Possibly due to anterior superior left hip labral tear. Pain relief; Ortho consult Qualifiers: Laterality: left Qualified Code(s): M25.552 - Pain in left hip (9) DVT prophylaxis Current visit: Yes Status: Acute Heparin Internal Medicine - H&P: HPI Chief complaint: Left hip pain Admitted From: Emergency Dept Plans for Post Hospital Care: Home History of present illness: Mr. Kennedy is a 76 year old male With h/o COPD, Parkinsons disease, CVA, dementia, GERD, hypertension, osteoporosis, seizure disorder, s/p prostatectomy , prior echocardiogram showed 60-65% ejection fraction and mild diastolic dysfunction. 3 days ago apparently he lost balance and the fell backwards and landed on the left hip, from standing position. He denies loss of consciousness. Neighbor helped him and was feeling OK. He reports intermittent pain in the left hip/buttock area, which is sharp, moderate and worse on weight bearing and has difficulty ambulating. He denies chest pain, shortness of breath, palpitations, abdominal pain, nausea, vomiting. He has voiding problems , which is chronic. Denies hematuria, or bowel problems. He was evaluated in the emergency department and the extent of the left hip was negative for fracture. MRI of the left hip was done which showed avascular necrosis of both femoral heads; anterior superior left hip labral tear and left gluteus medius tendinosis. He is admitted to the hospitalist service for further management. Past Med Surg Social Fam HX - Past Medical History Medical history: arthritis, COPD, CVA, dementia, GERD, hyperlipidemia, hypertension, osteoporosis, renal disease, seizures, syncope, TIA, other Psychiatric history: anxiety, depression - Past Surgical History Surgical History: cataract, prostatectomy, other - Social History Smoking Status: Former smoker Smokeless Tobacco Status: No Alcohol use: none Drug use: none - Family History Father Family Member Ethnicity: Non- Living Status: Mother Living Status: Internal Medicine - H&P: Meds Carbidopa/Levodopa 25/100 [Sinemet] 1 tab PO BID 11/10/15 [History] Amlodipine [Norvasc] 10 mg PO DAILY tablet 11/16/15 [Rx] Folic Acid 1 mg PO DAILY tablet 11/16/15 [Rx] Omeprazole [PriLOSEC] 20 mg PO BID 05/06/16 [History] Tamsulosin [Flomax] 0.4 mg PO DAILY 12/21/16 [History] Valsartan [Diovan] 160 mg PO DAILY 12/21/16 [History] Vitamin B Complex/Vit C/Vit E [Stresstab] 1 tab PO DAILY 12/21/16 [History] Vitamin E Mixed [Vitamin E] 1,000 unit PO DAILY 12/21/16 [History] levETIRAcetam [Keppra] 1,000 mg PO Q12HR #30 tablet 12/23/16 [Rx] HYDROcodone/Acet 5/325 mg [[place] 5-325 mg] 1 tab PO Q6H PRN #20 tablet 03/10/17 [Rx] Phenytoin [Dilantin] 100 mg PO Q8HR #60 tab.chew 03/10/17 [Rx] Acetaminophen [Tylenol Arthritis] 650 mg PO Q8H PRN 05/19/17 [History] Divalproex (12 HR) [Depakote (12 HR)] 1,000 mg PO BID 05/19/17 [History] FLUoxetine HCl [Prozac] 40 mg PO DAILY 05/19/17 [History] HydrALAZINE 25 mg PO TID 05/19/17 [History] Allergies No Known Allergies Allergy (Verified 09/11/15 01:08) All Systems PM: A 10-system review of systems was performed and is negative for pertinent findings except as documented above in the HPI. - Constitutional Vitals: Temp Pulse Resp BP Pulse Ox 97.6 F 64 18 153/91 95 05/20/17 02:29 05/20/17 02:29 05/20/17 02:29 05/20/17 02:29 05/20/17 02:29 Exam: General: Not in acute distress at the time of my evaluation HEENT: Oral mucosa is moist. No conjunctival palor or scleral icterus. Lost vision in the right eye Neck: No obvious neck swellings Lungs: Clear to auscultation Cardiac: Regular rate and rhythm. No significant murmurs Abdomen: Soft, non tender. Bowel sounds present Genitourinary: No russell catheter Neurological: Alert and oriented. No gross localizing deficits Psych: Not aggressive or agitated Extremities: Tenderness in the left gluteal / lower lumbar area. no significant leg edema Skin: No generalized rash Internal Med - H&P Results - Impressions ITS Impressions Hip X-Ray 05/19/17 21:00 IMPRESSION: No acute osseous injury to the left hip. Degenerative disc and joint disease lower lumbar spine. D/ / 05/19/2017 21:47:59 Goldy Padilla MD / adal Interpreting Provider: Goldy Padilla MD Hip MRI 05/19/17 22:03 IMPRESSION: Evidence of chronic AVN of the bilateral hips, right greater than left. No significant marrow edema to suggest acute inflammatory process. No joint effusion. Mild left hip osteoarthritis with degeneration of the left hip were labrum as well as in the anterior superior left hip labral tear. No paralabral cyst. No acute fracture or dislocation of the left hip. Mild left hip gluteus medius tendinosis. D/ / Caleb Woodard MD / Caleb Woodard MD Interpreting Provider: Caleb Woodard MD
[2017-05-20 05:16] LABS: Hemoglobin 11.3 g/dL (12.9-16.9); Mean Corpuscular HGB Conc 34.2 g/dL (31.6-35.5); Mean Corpuscular Hemoglobin 31.5 pg (28.0-33.3); Mean Corpuscular Volume 91.9 fL (83.0-100.0); Mean Platelet Volume 10.3 fL (9.4-12.4); Platelet Count 179 K/mcL (140-400); Red Blood Count 3.59 M/mcL (4.19-5.50); Red Cell Distribution Width 13.7 % (11.5-14.5)
[2017-05-20 05:32] LABS: Alanine Aminotransferase 6 Units/L (0-55); Albumin 3.2 g/dL (3.5-5.0); Alkaline Phosphatase 81 Units/L (38-126); Aspartate Amino Transferase 21 Units/L (5-34); BUN/Creatinine Ratio 23 (6-26); Bilirubin,Total 0.3 mg/dL (0.2-1.2); Blood Urea Nitrogen 21 mg/dL (8-26); Calcium 8.7 mg/dL (8.6-10.8); Carbon Dioxide 28 mEq/L (19-29); Chloride 108 mEq/L (98-109); Globulin 3.2 g/dL (2.4-3.5); Glucose 170 mg/dL (70-99); Osmolality,Calculated 303 (280-300); Phosphorous 2.3 mg/dL (2.3-4.7); Sodium 143 mEq/L (136-145); Total Protein 6.4 g/dL (6.0-8.3); eGFR For African Americans > 60 (> 60); eGFR For Non-African Americans > 60 (> 60)
[2017-05-20] MEDS: levETIRAcetam 250 MG TABLET PO SCH ×2 (05:57→16:41)
[2017-05-20] MEDS: FLUoxetine 20 MG CAPSULE PO SCH (08:11)
[2017-05-20] MEDS: Vitamin B Complex/Vit C/Vit E 1 EACH TABLET PO SCH (08:11)
[2017-05-20] MEDS: amLODIPine 5 MG TABLET PO SCH (08:12)
[2017-05-20] MEDS: Carbidopa/Levodopa 25/100 TABLET PO SCH ×2 (08:12→20:11)
[2017-05-20] MEDS: Valsartan 160 MG TABLET PO SCH (08:13)
[2017-05-20] MEDS: Divalproex (12 HR) 500 MG TABLET PO SCH ×2 (08:13→20:11)
[2017-05-20] MEDS: Folic Acid 1 MG TABLET PO SCH (08:13)
[2017-05-20] MEDS: hydrALAZINE 25 MG TABLET PO SCH ×3 (08:13→20:10)
--- NOTE | 2017-05-20 11:03 | Event Note ---
Date of Encounter: 05/20/17 Time of Encounter: 09:05 Pt was seen and assessed at 0905 a.m. Pt is alert and oriented, [place]. He states that he fell at home due to "I lost my balance" at home 2 days prior to arrival. He denies SOB, dizziness, CP, syncope, states he simply lost his balance. Denies recent falls other than this episode. Pt states that he gets PT at home, but does not have home health, and states that he cannot get around without a walker. He states that his mobility has decreased and become more painful since fall and that he feels like he cannot get around at home. He states that he lives alone and relies on his son for transportation. Son works irregular hours and the pt states that he will be at his mercy for getting to and from appointments. I have consulted PT/OT and SS. I am concerned for his ability to get around, get meals, and get to and from the bathroom and bed without falling or increasing pain. I spoke with Dr. Pires who states that pt will need to follow up outpatient, an appointment has been made. Pt is aware. Pt is alert and oriented, interactive, pleasant, skin is p/w//d, resps are unlabored. S1S2 are heard, no murmurs, gallops, or clicks, Lungs are clear ant and post, without rales, ronchi, or wheezing. Abd is soft, rounded and non- tender. Pt has no pedal or ankle edema, peripheral pulses are present and +2 in ble and bue. Pt does have pain with extension of L leg. He feels that his pain is adequately controlled. Pt's side rails are padded. His VS are WNL and we will continue current pain medications and home medications as ordered. PT and OT consults are pending and will wait for recommendations.
[2017-05-20] MEDS: *HR* HYDROcodone/Acet 5/325 mg TABLET PO PRN (16:46)
[2017-05-20 23:10] LABS: Bilirubin,Urine Negative (Negative); Blood,Urine Negative (Negative); Clarity,Urine Clear (Clear); Color,Urine Yellow (Yellow); Glucose,Urine (UA) Normal (Normal); Ketones,Urine Negative (Negative); Leukocyte Esterase,Urine Negative (Negative); Nitrite,Urine Negative (Negative); Protein,Urine Negative (Neg-Trace); Specific Gravity,Urine 1.024 (1.010-1.025); Urobilinogen,Urine Normal (Normal)
[2017-05-20] MEDS ORDERED: Potassium Chloride 20 MEQ, Lidocaine 1% 2 ML in D5% in Water 250 ML IVPB ONE (23:42)
[2017-05-21] MEDS: levETIRAcetam 250 MG TABLET PO SCH ×2 (05:36→16:21)
[2017-05-21 05:52] LABS: Basophils % 0.6 %; Eosinophils # 0.1 K/mcL (0.0-0.6); Eosinophils % 2.3 %; Hematocrit 35.6 % (37.5-50.1); Immature Granulocytes % 0.4 % (0-4); Lymphocytes # 1.7 K/mcL (0.6-4.6); Lymphocytes % 35.7 %; Mean Corpuscular HGB Conc 33.7 g/dL (31.6-35.5); Mean Corpuscular Hemoglobin 31.4 pg (28.0-33.3); Mean Corpuscular Volume 93.2 fL (83.0-100.0); Mean Platelet Volume 10.4 fL (9.4-12.4); Monocytes # 0.5 K/mcL (0.0-1.3); Monocytes % 9.6 %; Neutrophils # 2.5 K/mcL (1.6-8.9); Platelet Count 205 K/mcL (140-400); Red Blood Count 3.82 M/mcL (4.19-5.50); Red Cell Distribution Width 13.9 % (11.5-14.5); Segmented Neutrophils % 51.4 %
[2017-05-21 05:58] LABS: BUN/Creatinine Ratio 21 (6-26); Blood Urea Nitrogen 19 mg/dL (8-26); Carbon Dioxide 25 mEq/L (19-29); Chloride 106 mEq/L (98-109); Glucose 149 mg/dL (70-99); Osmolality,Calculated 299 (280-300); Sodium 142 mEq/L (136-145); eGFR For African Americans > 60 (> 60); eGFR For Non-African Americans > 60 (> 60)
[2017-05-21 06:05] LABS: Potassium 3.1 mEq/L (3.5-4.5)
[2017-05-21] MEDS: *HR* HYDROcodone/Acet 5/325 mg TABLET PO PRN (06:36)
[2017-05-21] MEDS: Divalproex (12 HR) 500 MG TABLET PO SCH (08:51)
[2017-05-21] MEDS: Folic Acid 1 MG TABLET PO SCH (08:52)
[2017-05-21] MEDS: amLODIPine 5 MG TABLET PO SCH (08:52)
[2017-05-21] MEDS: hydrALAZINE 25 MG TABLET PO SCH ×2 (08:52→16:21)
[2017-05-21] MEDS: Valsartan 160 MG TABLET PO SCH (08:52)
[2017-05-21] MEDS: Vitamin B Complex/Vit C/Vit E 1 EACH TABLET PO SCH (08:53)
[2017-05-21] MEDS: Carbidopa/Levodopa 25/100 TABLET PO SCH (08:53)
[2017-05-21] MEDS: FLUoxetine 20 MG CAPSULE PO SCH (08:54)
[2017-05-21] MEDS ORDERED: Fluticasone Propionate Nasal 50 MCG/SPRAY BOTTLE NS SCH (09:00)
[2017-05-21] MEDS ORDERED: Loratadine 10 MG TABLET PO SCH (09:00)
[2017-05-21 15:40] VITALS: BP 155/86
--- NOTE | 2017-05-21 16:20 | Discharge Summary ---
Date of Encounter: 05/21/17 Time of Encounter: 08:30 - Discharge Diagnosis (1) Ambulatory dysfunction Priority: Primary Status: Acute Comments: Patient fell 3 days prior to arrival. He states that he lost his balance and fell backwards, landing on his left hip from a standing position. He reports intermittent pain in left hip buttock area which is sharp, moderate and worse with walking. He says he does have a walker that he uses at home. He also has home health and physical therapy at home. Patient had left hip MRI without contrast that showed evidence of chronic AVN bilateral hips. There is no significant marrow edema to suggest acute inflammatory process. He also has mild left hip with a generation as well as in the anterior superior left hip labral tear. There is no acute fracture or location of the left hip. Was also found to be mild left hip gluteus medius tendinosis. He was evaluated by PT and was recommended that the patient be discharged home with home health services with PT and OT services as well. Patient states that his son lives near him and he is completely reliant on his son for transportation and assistance. (2) Tendinopathy of left gluteus medius Priority: Secondary Status: Acute Comments: Plan as above. 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 Right greater than left. Continue PT/OT, ambulate with walker. (4) Labral tear of left hip joint Priority: Primary Status: Acute Comments: Plan as above. Qualifiers: Encounter type: initial encounter Qualified Code(s): S73.192A - Other sprain of left hip, initial encounter (5) DVT prophylaxis Priority: Secondary Status: Acute Comments: Heparin subcutaneous daily. - Discharge Medications Prescriptions: Docusate [Colace] 100 mg PO BID #60 capsule Loratadine [Claritin] 10 mg PO DAILY #30 tablet Polyethylene Glycol 3350 [MiraLAX Powder Bulk 17.9 Oz] 1 scoop PO DAILY #510 gm Home Medications: Carbidopa/Levodopa 25/100 [Sinemet] 1 tab PO BID 11/10/15 [History] Amlodipine [Norvasc] 10 mg PO DAILY tablet 11/16/15 [Rx] Folic Acid 1 mg PO DAILY tablet 11/16/15 [Rx] Omeprazole [PriLOSEC] 20 mg PO BID 06/06/16 [History] Tamsulosin [Flomax] 0.4 mg PO DAILY 12/21/16 [History] Valsartan [Diovan] 160 mg PO DAILY 12/21/16 [History] Vitamin B Complex/Vit C/Vit E [Stresstab] 1 tab PO DAILY 12/21/16 [History] Vitamin E Mixed [Vitamin E] 1,000 unit PO DAILY 12/21/16 [History] levETIRAcetam [Keppra] 1,000 mg PO Q12HR #30 tablet 12/23/16 [Rx] HYDROcodone/Acet 5/325 mg [[place] 5-325 mg] 1 tab PO Q6H PRN #20 tablet 03/10/17 [Rx] Phenytoin [Dilantin] 100 mg PO Q8HR #60 tab.chew 03/10/17 [Rx] Acetaminophen [Tylenol Arthritis] 650 mg PO Q8H PRN 05/19/17 [History] Divalproex (12 HR) [Depakote (12 HR)] 1,000 mg PO BID 05/19/17 [History] FLUoxetine HCl [Prozac] 40 mg PO DAILY 05/19/17 [History] HydrALAZINE 25 mg PO TID 05/19/17 [History] Docusate [Colace] 100 mg PO BID #60 capsule 05/21/17 [Rx] Loratadine [Claritin] 10 mg PO DAILY #30 tablet 05/21/17 [Rx] Polyethylene Glycol 3350 [MiraLAX Powder Bulk 17.9 Oz] 1 scoop PO DAILY #510 gm 05/21/17 [Rx] Allergies/Adverse Reactions: Allergies No Known Allergies Allergy (Verified 09/11/15 01:08) Date of admission: 05/19/17 22:55 Primary care physician: Praveena Lopez Consults: 05/20/17 04:14 Consult to Orthopedic Surgery [CONS] Routine Consulting Provider: Orthopedic and Sports Medicine Reason for Consult: anterior superior left hip labral tear; B/L AVN of hips Call Completed: No 05/20/17 10:57 Consult to Occupational Therapy [CONS] Routine Comment: Evaluate, develop and implement POC Reason for Consult: Evaluation Consult to Physical Therapy [CONS] Routine Comment: Evaluate, develop and implement POC Reason for Consult: Pt unable to walk without walker, does get home PT. Pt is unable to care for himself at home after recent fall and injury. Consult to Associate Property Manager [CONS] Routine Reason for SW Consult: discharge planning. Discharging clinician: Shannon Purcell Anticipated date of discharge: 05/21/17 - Patient Status Disposition: Home, Self-Care Functional capacity at discharge: independent ambulation Overall status at discharge: patient is back to baseline - Discharge Instructions Follow Up With: Brennan Alba DO [Partnered Physician] - 05/27/17 8:50 am Dilip Byrd DO [Primary Care Provider] - 05/27/17 3:30 pm Additional Instructions: Follow-up with her primary care physician in the next week to 10 days. Continue home health and physical therapy at home Continue your normal medications at home I have sent her prescriptions to your designated pharmacy Return to the emergency department as needed for any other problems or concerns Mixture the usual walker at home that you have assistance for safe transfer - Diet and Activity Activity: ambulate only with your walker, increase activity as tolerated Diet: advance to your usual diet Hospital course: Mr. Kennedy is a 76 year old male who presented to the emergency department on May 19 with complaint of left hip pain. He has a prior medical history of Parkinson's, hypertension, and seizure disorder. Patient states that he fell at home from standing onto his left hip. Since that time he has had pain. He reports that he lives alone and that he is totally dependent on his son for transportation and assistance around the home. Later in the visit it was discovered that he does have home health and he does have PT at home. These will be continued on discharge. Patient had an MRI of the left hip that showed evidence of chronic AVN bilateral hips, right greater than left. No suggestion of an acute inflammatory process with no joint effusion. He also has mild left hip OA with degeneration of left hip labrum and anterior superior left hip labral tear. There is no acute fracture or dislocation of left hip. It was also noted there is mild left hip gluteus medius tendinosis. Patient will go home with physical therapy and home health. Patient has been mildly hypokalemic. Potassium is 3.1. He has been getting 40 mEq of potassium by mouth daily. I will write an order for home health to recheck levels in 2 days. When I entered patient's room this morning, he was tearful and reported that he cannot breathe. He said that he put his call light on multiple times and no one has come to see him. He also reported that he had not had a bowel movement for 4-5 days. I gave him Claritin, which seemed to help his breathing. I will also send him a prescription for that. He also had a small loose bowel movement. I will send him home with Colace and MiraLAX. She states that he is feeling better. Vital signs are within normal limits. He is stable and appropriate for discharge. - Time Spent with Patient Total time spent providing and/or coordinating discharge services: Less than 30 minutes - Constitutional Vitals: Temp Pulse Resp BP Pulse Ox 97.8 F 73 14 155/86 96 05/21/17 15:37 05/21/17 15:37 05/21/17 15:37 05/21/17 15:37 05/21/17 15:37 General appearance: Present: A&O X 3, pleasant, no acute distress, answers questions appropriately - Head Head exam: Present: normal inspection - Eye Eye exam: Present: normal appearance, conjuntiva pink - ENT ENT exam: Present: mucous membranes moist, normal exam - Neck Neck exam general surgery: Present: normal inspection. Absent: lymphadenopathy , tenderness - Respiratory Respiratory exam: Present: CTAB. Absent: rales, rhonchi, stridor, wheezes - Cardiovascular Cardiovascular exam: Present: RRR, +S1, +S2. Absent: clicks, diastolic murmur, gallop, systolic murmur - GI/Abdominal GI/Abdominal exam: Present: normal bowel sounds, soft. Absent: distended, hepatomegaly, tenderness - Extremities Exam Extremities exam: Present: normal capillary refill, normal inspection, warm, radial pulses palpable and symetrical. Absent: pedal edema, tenderness - Neurological Exam Neurological exam: Present: alert, oriented X3, no focal deficits. Absent: facial droop, speech deficit - Skin Skin exam: Present: dry, intact, normal color, warm
--- NOTE | 2017-05-21 16:39 | Physician Discharge Referral ---
Home Health/Hosp Referral Info Provider in Charge Post Discharge: PCP - Diagnosis (1) Ambulatory dysfunction Priority: Primary Status: Acute (2) Tendinopathy of left gluteus medius Priority: Secondary Status: Acute (3) Avascular necrosis of bones of both hips Priority: Secondary Status: Chronic (4) Labral tear of left hip joint Priority: Secondary Status: Acute (5) DVT prophylaxis Priority: Secondary Status: Acute - Respiratory Orders Smoking Cessation: Smoking cessation has been advised. For more information, call the [place] Tobacco Quit Line at 7-060-ACFD-NOW. - Diet/Nutrition Diet/Nutrition Orders: Regular - Activity Activity Orders: Up ad mode, Walker Activity: List: Up ad mode with assistance and walker. - Services Needed Following services are medically necessary services: Nursing, Home Health Aide, Physical Therapy, Occupational Therapy Other Treatments: Pt will need a repeat potassium level drawn in 2-3 days. - Transfer Medications Prescriptions: Docusate [Colace] 100 mg PO BID #60 capsule Loratadine [Claritin] 10 mg PO DAILY #30 tablet Polyethylene Glycol 3350 [MiraLAX Powder Bulk 17.9 Oz] 1 scoop PO DAILY #510 gm Home Medications: Carbidopa/Levodopa 25/100 [Sinemet] 1 tab PO BID 11/10/15 [History] Amlodipine [Norvasc] 10 mg PO DAILY tablet 11/16/15 [Rx] Folic Acid 1 mg PO DAILY tablet 11/16/15 [Rx] Omeprazole [PriLOSEC] 20 mg PO BID 05/06/16 [History] Tamsulosin [Flomax] 0.4 mg PO DAILY 12/21/16 [History] Valsartan [Diovan] 160 mg PO DAILY 12/21/16 [History] Vitamin B Complex/Vit C/Vit E [Stresstab] 1 tab PO DAILY 12/21/16 [History] Vitamin E Mixed [Vitamin E] 1,000 unit PO DAILY 12/21/16 [History] levETIRAcetam [Keppra] 1,000 mg PO Q12HR #30 tablet 12/23/16 [Rx] HYDROcodone/Acet 5/325 mg [[place] 5-325 mg] 1 tab PO Q6H PRN #20 tablet 03/10/17 [Rx] Phenytoin [Dilantin] 100 mg PO Q8HR #60 tab.chew 03/10/17 [Rx] Acetaminophen [Tylenol Arthritis] 650 mg PO Q8H PRN 05/19/17 [History] Divalproex (12 HR) [Depakote (12 HR)] 1,000 mg PO BID 05/19/17 [History] FLUoxetine HCl [Prozac] 40 mg PO DAILY 05/19/17 [History] HydrALAZINE 25 mg PO TID 05/19/17 [History] Docusate [Colace] 100 mg PO BID #60 capsule 05/21/17 [Rx] Loratadine [Claritin] 10 mg PO DAILY #30 tablet 05/21/17 [Rx] Polyethylene Glycol 3350 [MiraLAX Powder Bulk 17.9 Oz] 1 scoop PO DAILY #510 gm 05/21/17 [Rx] Allergies/Adverse Reactions: Allergies No Known Allergies Allergy (Verified 09/11/15 01:08) Certification: Further, I certify that my clinical findings support that this patient is homebound (i.e. absences from home require considerable and taxing effort and are for medical reasons or shinto services or infrequently or short duration when for other reasons) because: Homebound Reason: Patient requires assistance of a person or device to safely leave home, Leaving home requires considerable and taxing effort due to condition Attestation: My signature below is to certify that this patient is under my care and that I, or nurse practitioner, or a physician's lpn or medical assistant working with me, has a face-to -face encounter with this patient.
== END 2017-05-21 17:30 | disposition home health service (06) ==
LOC: EMEROO 19:43 → 3BNU 19:43
PROVIDERS: ADMIT Nurse Practitioner Family; ATTEND Registered Nurse

== ENCOUNTER 2017-07-16 14:22 | Observation (INO) ==
--- NOTE | 2017-07-16 14:24 | Emergency Department Note ---
Disposition Clinical Impression: Constipation Disposition: Home, Self-Care Condition: Good Instructions: Constipation (ED), High Fiber Diet (ED) Reasons to Return/Additional Instructions: Please continue all medications as previously prescribed. Please eat a diet high in fiber. Please return to the ER if worsening of her symptoms or any concerns. Referrals: NONE,PCP [Primary Care Provider] - Forms: Work/School Release, ED Satisfaction Letter General Adult HPI - General Chief complaint: ED General Medical Stated complaint: constipation - Related Data Home Medications Medication Instructions Recorded Confirmed Carbidopa/Levodopa 25/100 [Sinemet] 1 tab PO BID 11/10/15 05/19/17 Omeprazole [PriLOSEC] 20 mg PO BID 05/06/16 05/19/17 Tamsulosin [Flomax] 0.4 mg PO DAILY 12/21/16 05/19/17 Valsartan [Diovan] 160 mg PO DAILY 12/21/16 05/19/17 Vitamin B Complex/Vit C/Vit E 1 tab PO DAILY 12/21/16 05/19/17 [Stresstab] Vitamin E Mixed [Vitamin E] 1,000 unit PO DAILY 12/21/16 05/19/17 Acetaminophen [Tylenol Arthritis] 650 mg PO Q8H PRN 05/19/17 05/19/17 Divalproex (12 HR) [Depakote (12 1,000 mg PO BID 05/19/17 05/19/17 HR)] FLUoxetine HCl [Prozac] 40 mg PO DAILY 05/19/17 05/19/17 HydrALAZINE 25 mg PO TID 05/19/17 05/19/17 Previous Rx's Medication Instructions Recorded Amlodipine [Norvasc] 10 mg PO DAILY tablet 11/16/15 Folic Acid 1 mg PO DAILY tablet 11/16/15 levETIRAcetam [Keppra] 1,000 mg PO Q12HR #30 tablet 12/23/16 HYDROcodone/Acet 5/325 mg [[place] 1 tab PO Q6H PRN #20 tablet 03/10/17 5-325 mg] Phenytoin [Dilantin] 100 mg PO Q8HR #60 tab.chew 03/10/17 Docusate [Colace] 100 mg PO BID #60 capsule 05/21/17 Loratadine [Claritin] 10 mg PO DAILY #30 tablet 05/21/17 Polyethylene Glycol 3350 [MiraLAX 1 scoop PO DAILY #510 gm 05/21/17 Powder Bulk 17.9 Oz] Allergies Allergy/AdvReac Type Severity Reaction Status Date / Time No Known Allergies Allergy Verified 07/16/17 14:23 Past Medical History - Past Medical History Medical history: Reports: arthritis, COPD, CVA, dementia, GERD, hyperlipidemia, hypertension, osteoporosis, renal disease, seizures, syncope, TIA, other Surgical history: Reports: cataract, prostatectomy, other Psychiatric history: Reports: anxiety, depression - Social History Smoking Status: Former smoker Smokeless Tobacco Status: No Alcohol use: Reports: none Drug use: Reports: none Course Vital Signs Temperature 97.8 F 07/16/17 14:33 Pulse Rate 62 07/16/17 14:33 Respiratory Rate 15 07/16/17 14:33 Blood Pressure 141/81 07/16/17 14:33 O2 Sat by Pulse Oximetry 93 07/16/17 14:33 Temperature 97.8 F 07/16/17 14:33 Pulse Rate 66 07/16/17 16:08 Respiratory Rate 16 07/16/17 16:15 Blood Pressure 174/101 07/16/17 16:15 O2 Sat by Pulse Oximetry 94 07/16/17 16:08 Oxygen Delivery Oxygen Delivery Room Air Attestation Statement - Attestation Attestation: I examined this patient and my medical decision-making was reviewed with the Resident Physician. I agree with the documented findings, disposition and treatment plan as described except to the extent set forth below. [id number] time provided Patient arrives from home by EMS. He is a somewhat poor historian. He complains of constipation. He also complains of urinary retention although he does have an indwelling Cisneros catheter with leg bag. Urine is evident within the leg bag collection appliance. 16:54: Social service has evaluated the patient and is concerned about his fall risk and home situation. This was prior to his discharge. The patient has some resources at home including a walker, home health care 2 days a week for bathing needs. We are awaiting the arrival of his son to discuss the patient's options
--- NOTE | 2017-07-16 14:28 | Emergency Department Note ---
Disposition Clinical Impression: Constipation Qualifiers: Constipation type: unspecified constipation type Qualified Code(s): K59.00 - Constipation, unspecified Disposition: Home, Self-Care Condition: Good Instructions: Constipation (ED), High Fiber Diet (ED) Reasons to Return/Additional Instructions: Please continue all medications as previously prescribed. Please eat a diet high in fiber. Please return to the ER if worsening of her symptoms or any concerns. Referrals: NONE,PCP [Primary Care Provider] - Forms: ED Satisfaction Letter, Work/School Release Time of Disposition: 15:47 General Adult HPI - General Chief complaint: ED General Medical Stated complaint: constipation Time Seen by Provider: 07/16/17 14:27 Source: patient, EMS Mode of arrival: EMS Limitations: no limitations Nursing Notes Reviewed: Yes Vital Signs Reviewed: Yes - History of Present Illness HPI Narrative: 76-year-old male presents to the ER via EMS with a chief complaint of constipation and urinary retention. Patient states that he has not had a normal bowel movement for several days. He does state that he did use the bathroom this morning. Prior history of constipation in the past. No history of obstruction that he is aware of. He also reports urinary retention although he does have a Cisneros catheter with urine in the collecting bag. Denies fevers nausea vomiting diarrhea or abdominal pain. Pt Subjective Complaint: Constipation Onset (ago): day(s) Radiation: non-radiation Improves with: nothing Worsens with: nothing Associated symptoms: Denies: chest pain, fever/chills, nausea/vomiting Treatments Prior to Arrival: none - Related Data Home Medications Medication Instructions Recorded Confirmed Carbidopa/Levodopa 25/100 [Sinemet] 1 tab PO BID 11/10/15 05/19/17 Omeprazole [PriLOSEC] 20 mg PO BID 05/06/16 05/19/17 Tamsulosin [Flomax] 0.4 mg PO DAILY 12/21/16 05/19/17 Valsartan [Diovan] 160 mg PO DAILY 12/21/16 05/19/17 Vitamin B Complex/Vit C/Vit E 1 tab PO DAILY 12/21/16 05/19/17 [Stresstab] Vitamin E Mixed [Vitamin E] 1,000 unit PO DAILY 12/21/16 05/19/17 Acetaminophen [Tylenol Arthritis] 650 mg PO Q8H PRN 05/19/17 05/19/17 Divalproex (12 HR) [Depakote (12 1,000 mg PO BID 05/19/17 05/19/17 HR)] FLUoxetine HCl [Prozac] 40 mg PO DAILY 05/19/17 05/19/17 HydrALAZINE 25 mg PO TID 05/19/17 05/19/17 Previous Rx's Medication Instructions Recorded Amlodipine [Norvasc] 10 mg PO DAILY tablet 11/16/15 Folic Acid 1 mg PO DAILY tablet 11/16/15 levETIRAcetam [Keppra] 1,000 mg PO Q12HR #30 tablet 12/23/16 HYDROcodone/Acet 5/325 mg [[place] 1 tab PO Q6H PRN #20 tablet 03/10/17 5-325 mg] Phenytoin [Dilantin] 100 mg PO Q8HR #60 tab.chew 03/10/17 Docusate [Colace] 100 mg PO BID #60 capsule 05/21/17 Loratadine [Claritin] 10 mg PO DAILY #30 tablet 05/21/17 Polyethylene Glycol 3350 [MiraLAX 1 scoop PO DAILY #510 gm 05/21/17 Powder Bulk 17.9 Oz] Allergies Allergy/AdvReac Type Severity Reaction Status Date / Time No Known Allergies Allergy Verified 07/16/17 14:23 All systems ED: reviewed and negative except as stated. Constitutional: Denies: fever Cardiovascular: Denies: chest pain Respiratory: Denies: dyspnea Gastrointestinal: Reports: constipation. Denies: abdominal pain, nausea, vomiting, diarrhea Genitourinary: Denies: dysuria, hematuria Past Medical History - Past Medical History Attestation: Yes The following information was validated with the patient. Source: patient Medical history: Reports: arthritis, COPD, CVA, dementia, GERD, hyperlipidemia, hypertension, osteoporosis, renal disease, seizures, syncope, TIA, other Surgical history: Reports: cataract, prostatectomy, other Psychiatric history: Reports: anxiety, depression - Social History Smoking Status: Former smoker Smokeless Tobacco Status: No Alcohol use: Reports: none Drug use: Reports: none Physical Exam - General Limitations: no limitations General appearance: alert, in no apparent distress - Head Head exam: atraumatic, normocephalic, normal inspection - Eye Eye exam: Present: normal appearance, EOMI - ENT ENT exam: normal exam - Neck Neck exam: Present: normal inspection, full ROM - Chest Chest inspection: Present: normal inspection, symmetric chest wall rise - Respiratory Respiratory exam: Present: normal lung sounds bilaterally - Cardiovascular Cardiovascular exam: Present: regular rate, normal rhythm, normal heart sounds - Abdominal Exam Abdominal exam: Present: soft, Non-Tender. Absent: tenderness, distention, guarding, rigidity - Extremities Exam Extremities exam: Present: normal inspection, full ROM - Expanded Upper Extremity Exam Shoulder exam: Present: normal inspection, full ROM Arm exam: Present: normal inspection, full ROM Elbow exam: Present: normal inspection, full ROM Forearm/Wrist exam: Present: normal inspection, full ROM Hand exam: Present: normal inspection, full ROM - Expanded Lower Extremity Exam Hip/Pelvis exam: Present: normal inspection, full ROM Upper leg exam: Present: normal inspection, full ROM Knee exam: Present: normal inspection, full ROM Lower leg exam: Present: normal inspection, full ROM Ankle exam: Present: normal inspection, full ROM Foot/toe exam: Present: normal inspection, full ROM - Neurological Exam Neurological exam: Present: alert, other (GCS 15. Nonfocal neurologic exam.) - Psychiatric Psychiatric exam: Present: normal affect, normal mood - Skin Skin exam: Present: warm, dry, intact, normal color Course Course Narrative: Patient seen and examined. Vital signs reviewed. He has urine in his Cisneros bag. Bedside ultrasound demonstrates his Cisneros is in his bladder. We will get an acute abdominal series for his constipation. - Reevaluation(s) Reevaluation #1: Patient's acute abdominal series does not demonstrate a large stool burden. Bedside ultrasound demonstrates appropriate placement of the Cisneros catheter. Vital Signs Temperature 97.8 F 07/16/17 14:33 Pulse Rate 62 07/16/17 14:33 Respiratory Rate 15 07/16/17 14:33 Blood Pressure 141/81 07/16/17 14:33 O2 Sat by Pulse Oximetry 93 07/16/17 14:33 Temperature 97.8 F 07/16/17 14:33 Pulse Rate 63 07/16/17 14:39 Respiratory Rate 15 07/16/17 14:39 Blood Pressure 141/87 07/16/17 14:39 O2 Sat by Pulse Oximetry 94 07/16/17 14:39 Oxygen Delivery Oxygen Delivery Room Air Medical Decision Making - [facility] Narrative Medical decision making narrative: 76-year-old male presents to the ER due to constipation and urinary retention. His Cisneros is in place and is draining urine. Acute abdominal series does not show any acute abnormality. Patient will be discharged home with follow-up with PCP as needed. - Radiology Data Radiology results reviewed: Yes I reviewed the patient's radiology results. Chest/Abdomen X-ray 07/16/17 14:27 IMPRESSION: Negative examination. No acute abnormality of the chest or abdomen. D/ / Herson Gordon MD / Herson Gordon MD Interpreting Provider: Herson Gordon MD
[2017-07-16] MEDS ORDERED: *HR* HYDROcodone/Acet 5/325 mg TABLET PO PRN (18:06)
[2017-07-16] MEDS ORDERED: Ondansetron 4 MG/2 ML VIAL IVP PRN (18:09)
[2017-07-16] MEDS ORDERED: *HR* Morphine 2 MG/ML SYRINGE IVP PRN (18:09)
[2017-07-16] MEDS ORDERED: Naloxone 0.4 MG/ML INJ IVP PRN (18:09)
[2017-07-16] MEDS ORDERED: Acetaminophen 325 MG TABLET PO PRN (18:09)
--- NOTE | 2017-07-16 18:15 | Internal Med History&Physical ---
Date of Encounter: 07/16/17 Time of Encounter: 18:13 Assessment and Plan (1) Complaint of debility and malaise Current visit: No Status: Acute Failure to thrive, severe generalized weakness CBC and complete metabolic panel pending, valproic acid level pending Order a UA, fall precautions Omeprazole for GI prophylaxis and subcutaneous heparin for DVT prophylaxis. The patient will be admitted for observation. Full code. Time spent on this admission 40 minutes. (2) Depression Current visit: No Status: Chronic Continue SSRI Qualifiers: Depression Type: major depressive disorder Active/Remission status: remission status unspecified Qualified Code(s): F32.9 - Major depressive disorder, single episode, unspecified (3) Constipation Current visit: No Status: Chronic Continue Colace, may use lactulose as needed Qualifiers: Constipation type: unspecified constipation type Qualified Code(s): K59.00 - Constipation, unspecified (4) Hypertensive urgency Current visit: No Status: Resolved Continue amlodipine and hydralazine Order hydralazine IV as needed, may add lisinopril (5) Seizure disorder Current visit: No Status: Chronic Continue Depakote and Keppra, confirm doses, possibly taking phenytoin, check phenytoin level (6) Memory loss or impairment Current visit: No Status: Chronic (7) COPD (chronic obstructive pulmonary disease) Current visit: No Status: Chronic No exacerbation Qualifiers: COPD type: emphysema Emphysema type: unspecified Qualified Code(s): J43.9 - Emphysema, unspecified (8) H/O traumatic brain injury Current visit: No Status: Chronic Internal Medicine - H&P: HPI Chief complaint: Severe weakness Admitted From: Emergency Dept History of present illness: Mr. Kennedy is a 76 year old male with a past medical history of seizure disorder apparently on Keppra, Depakote and possibly phenytoin, depression, COPD not oxygen dependent, CVA, diastolic dysfunction, the patient came to the emergency room complaining of constipation and urinary retention. He had a Cisneros catheter placed that was showing urine. X-ray and chest x-ray were taking did not show any acute cardiopulmonary disease or abnormalities/ constipation. The patient was going to be discharged by the ER physician but he was unable to walk due to severe weakness. No labs have been done yet, Depakote level was ordered and is pending. His blood pressure was 174/101. No urinalysis has been done either. Past Med Surg Social Fam HX - Past Medical History Medical history: arthritis, COPD (Not oxygen dependent), CVA, dementia, GERD, hyperlipidemia, hypertension, osteoporosis, renal disease, seizures (On Keppra, Depakote and possibly phenytoin), syncope, TIA, other (Urinary retention, movement disorder, diastolic CHF, bilateral avascular necrosis, osteoporosis, syncope, traumatic brain injury) Psychiatric history: anxiety, depression - Past Surgical History Surgical History: cataract, prostatectomy, other (Urethral surgery, last electrocardiogram shows an ejection fraction of 60-65% with mild diastolic dysfunction) - Social History Smoking Status: Former smoker Smokeless Tobacco Status: No Alcohol use: none Drug use: none - Family History Father Family Member Ethnicity: Non- Living Status: Mother Living Status: - Additional Family History Additional family history: The patient says he was adopted Internal Medicine - H&P: Meds Carbidopa/Levodopa 25/100 [Sinemet] 1 tab PO BID 11/10/15 [History] Amlodipine [Norvasc] 10 mg PO DAILY tablet 11/16/15 [Rx] Folic Acid 1 mg PO DAILY tablet 11/16/15 [Rx] Omeprazole [PriLOSEC] 20 mg PO BID 05/06/16 [History] Tamsulosin [Flomax] 0.4 mg PO DAILY 12/21/16 [History] Valsartan [Diovan] 160 mg PO DAILY 12/21/16 [History] Vitamin B Complex/Vit C/Vit E [Stresstab] 1 tab PO DAILY 12/21/16 [History] Vitamin E Mixed [Vitamin E] 1,000 unit PO DAILY 12/21/16 [History] levETIRAcetam [Keppra] 1,000 mg PO Q12HR #30 tablet 12/23/16 [Rx] HYDROcodone/Acet 5/325 mg [[place] 5-325 mg] 1 tab PO Q6H PRN #20 tablet 03/10/17 [Rx] Phenytoin [Dilantin] 100 mg PO Q8HR #60 tab.chew 03/10/17 [Rx] Acetaminophen [Tylenol Arthritis] 650 mg PO Q8H PRN 05/19/17 [History] Divalproex (12 HR) [Depakote (12 HR)] 1,000 mg PO BID 05/19/17 [History] FLUoxetine HCl [Prozac] 40 mg PO DAILY 05/19/17 [History] HydrALAZINE 25 mg PO TID 05/19/17 [History] Docusate [Colace] 100 mg PO BID #60 capsule 05/21/17 [Rx] Loratadine [Claritin] 10 mg PO DAILY #30 tablet 05/21/17 [Rx] Polyethylene Glycol 3350 [MiraLAX Powder Bulk 17.9 Oz] 1 scoop PO DAILY #510 gm 05/21/17 [Rx] No Known Allergies Allergy (Verified 07/16/17 14:23) All Systems PM: A 10-system review of systems was performed and is negative for pertinent findings except as documented above in the HPI. Review of systems: The patient is a very poor historian and is very hard of hearing. His son was present during the examination. Complains of severe weakness and lack of appetite at times. Other systems out of 10 reviewed were negative. Cramps at times - Constitutional Vitals: Temp Pulse Resp BP Pulse Ox 97.8 F 59 16 195/104 95 07/16/17 14:33 07/16/17 17:49 07/16/17 16:15 07/16/17 17:49 07/16/17 17:49 General appearance: Present: A&O X 3 - Head Head exam: Present: atraumatic, normocephalic Additional comments: Severe generalized weakness - Eye Eye exam: Present: PERRL, conjuntiva pink, sclera anicteric Pupils: Present: PERRL - Neck Neck exam general surgery: Present: supple, trachea midline. Absent: lymphadenopathy - Respiratory Respiratory exam: Present: CTAB. Absent: accessory muscle use, rales, rhonchi, wheezes - Cardiovascular Cardiovascular exam: Present: RRR, +S1, +S2. Absent: diastolic murmur, gallop, rubs, systolic murmur - GI/Abdominal GI/Abdominal exam: Present: normal bowel sounds, soft, no peritoneal signs. Absent: distended, tenderness - Extremities Exam Extremities exam: Present: warm, radial pulses palpable and symmetrical. Absent : calf tenderness, cyanotic, pedal edema - Neurological Exam Neurological exam: Present: CN II-XII intact, oriented X3, no focal deficits. Absent: pronater drift, facial droop, speech deficit - Skin Skin exam: Present: dry, intact Internal Med - H&P Results - Labs Labs: Labs pending - Impressions ITS Impressions Chest/Abdomen X-ray 07/16/17 14:27 IMPRESSION: Negative examination. No acute abnormality of the chest or abdomen. D/ / Herson Gordon MD / Herson Gordon MD Interpreting Provider: Herson Gordon MD
[2017-07-16] MEDS ORDERED: Ipratropium/Albuterol Neb 3 ML IH PRN (18:20)
[2017-07-16 18:31] LABS: Basophils % 0.6 %; Eosinophils # 0.1 K/mcL (0.0-0.6); Eosinophils % 1.9 %; Hematocrit 37.3 % (37.5-50.1); Hemoglobin 12.3 g/dL (12.9-16.9); Immature Granulocytes % 0.4 % (0-4); Lymphocytes # 1.6 K/mcL (0.6-4.6); Lymphocytes % 32.7 %; Mean Corpuscular Hemoglobin 31.3 pg (28.0-33.3); Mean Corpuscular Volume 94.9 fL (83.0-100.0); Monocytes # 0.5 K/mcL (0.0-1.3); Monocytes % 10.1 %; Neutrophils # 2.6 K/mcL (1.6-8.9); Platelet Count 175 K/mcL (140-400); Red Blood Count 3.93 M/mcL (4.19-5.50); Red Cell Distribution Width 13.2 % (11.5-14.5); Segmented Neutrophils % 54.3 %
[2017-07-16 18:44] LABS: Alanine Aminotransferase 8 Units/L (0-55); Albumin 3.2 g/dL (3.5-5.0); Alkaline Phosphatase 84 Units/L (38-126); Aspartate Amino Transferase 14 Units/L (5-34); BUN/Creatinine Ratio 30 (6-26); Bilirubin,Total 0.3 mg/dL (0.2-1.2); Blood Urea Nitrogen 25 mg/dL (8-26); Calcium 9.3 mg/dL (8.6-10.8); Carbon Dioxide 30 mEq/L (19-29); Chloride 102 mEq/L (98-109); Globulin 3.3 g/dL (2.4-3.5); Glucose 110 mg/dL (70-99); Osmolality,Calculated 293 (280-300); Sodium 139 mEq/L (136-145); Total Protein 6.5 g/dL (6.0-8.3); eGFR For African Americans > 60 (> 60); eGFR For Non-African Americans > 60 (> 60)
[2017-07-16 18:51] LABS: Phenytoin (Dilantin) 16.6 mcg/mL (10-20)
[2017-07-16 19:15] LABS: Valproate 34.55 mcg/mL (50-100)
[2017-07-16] MEDS ORDERED: Lactulose Oral Soln 20 GM/30 ML UDC PO SCH (21:00)
[2017-07-16] MEDS: Divalproex (12 HR) 500 MG TABLET PO SCH (21:30)
[2017-07-16] MEDS: Carbidopa/Levodopa 25/100 TABLET PO SCH (21:30)
[2017-07-16] MEDS: hydrALAZINE 25 MG TABLET PO SCH (21:30)
[2017-07-16] MEDS: 0.9 % Sodium Chloride 1,000 ML IVC SCH (21:31)
[2017-07-16] MEDS: *HR* Heparin 5,000 UNIT/ML VIAL SQ SCH (21:35)
[2017-07-16 23:09] LABS: Bilirubin,Urine Negative (Negative); Blood,Urine Moderate (Negative); Clarity,Urine Clear (Clear); Color,Urine Yellow (Yellow); Glucose,Urine (UA) Normal (Normal); Ketones,Urine Negative (Negative); Leukocyte Esterase,Urine Moderate (Negative); Nitrite,Urine Negative (Negative); PH,Urine 6.5 pH Units (5.0-8.0); Protein,Urine 30 mg/dL (Neg-Trace); Specific Gravity,Urine 1.025 (1.010-1.025); Urobilinogen,Urine Normal (Normal)
[2017-07-16 23:18] LABS: Bacteria,Urine None Seen per hpf (None-Few); Hyaline Casts,Urine None Seen per lpf (None-Few); Squamous Epithelial Cell,Urine Many per lpf (None-Few)
[2017-07-16] MEDS: Valsartan 160 MG TABLET PO SCH (23:35)
[2017-07-16] MEDS: amLODIPine 5 MG TABLET PO SCH (23:35)
[2017-07-17] MEDS: levETIRAcetam 250 MG TABLET PO SCH ×2 (05:21→16:38)
[2017-07-17] MEDS: *HR* Heparin 5,000 UNIT/ML VIAL SQ SCH ×3 (05:21→21:15)
[2017-07-17 05:26] LABS: Basophils % 0.6 %; Eosinophils # 0.2 K/mcL (0.0-0.6); Eosinophils % 3.1 %; Hematocrit 37.9 % (37.5-50.1); Hemoglobin 12.5 g/dL (12.9-16.9); Immature Granulocytes % 0.8 % (0-4); Immature Platelets 3.5 % (1.1-6.1); Lymphocytes # 1.8 K/mcL (0.6-4.6); Mean Corpuscular Hemoglobin 31.2 pg (28.0-33.3); Mean Corpuscular Volume 94.5 fL (83.0-100.0); Mean Platelet Volume 10.4 fL (9.4-12.4); Monocytes # 0.5 K/mcL (0.0-1.3); Monocytes % 8.9 %; Neutrophils # 2.7 K/mcL (1.6-8.9); Platelet Count 191 K/mcL (140-400); Red Blood Count 4.01 M/mcL (4.19-5.50); Red Cell Distribution Width 13.2 % (11.5-14.5); Segmented Neutrophils % 52.6 %
[2017-07-17 05:50] LABS: BUN/Creatinine Ratio 32 (6-26); Blood Urea Nitrogen 25 mg/dL (8-26); Carbon Dioxide 26 mEq/L (19-29); Chloride 103 mEq/L (98-109); Glucose 90 mg/dL (70-99); Magnesium 1.5 mg/dL (1.6-2.6); Osmolality,Calculated 288 (280-300); Phosphorous 2.8 mg/dL (2.3-4.7); Sodium 137 mEq/L (136-145); eGFR For African Americans > 60 (> 60); eGFR For Non-African Americans > 60 (> 60)
[2017-07-17 06:05] LABS: Potassium 3.7 mEq/L (3.5-4.5)
[2017-07-17] MEDS: Divalproex (12 HR) 500 MG TABLET PO SCH ×2 (08:17→21:14)
[2017-07-17] MEDS: Folic Acid 1 MG TABLET PO SCH (08:17)
[2017-07-17] MEDS: Magnesium Oxide 400 MG TABLET PO SCH ×2 (08:18→21:14)
[2017-07-17] MEDS: hydrALAZINE 25 MG TABLET PO SCH ×3 (08:18→21:14)
[2017-07-17] MEDS: amLODIPine 5 MG TABLET PO SCH (08:19)
[2017-07-17] MEDS: Valsartan 160 MG TABLET PO SCH (08:19)
[2017-07-17] MEDS: FLUoxetine 20 MG CAPSULE PO SCH (08:19)
[2017-07-17] MEDS: Carbidopa/Levodopa 25/100 TABLET PO SCH ×2 (08:20→21:14)
--- NOTE | 2017-07-17 08:23 | Internal Med Progress Note ---
Date of Encounter: 07/17/17 Time of Encounter: 08:21 - Assessment and plan (1) UTI (urinary tract infection) Current Visit: No Status: Ruled-out Assessment and plan: Severe Generalized weakness likely secondary to urinary tract infection Start Rocephin Await culture report Qualifiers: Urinary tract infection type: site unspecified Hematuria presence: with hematuria Qualified Code(s): N39.0 - Urinary tract infection, site not specified; R31.9 - Hematuria, unspecified (2) Accelerated hypertension Current Visit: Yes Status: Acute (3) Complaint of debility and malaise Current Visit: No Status: Acute Assessment and plan: Physical therapy evaluation, may benefit from rehabilitation (4) Depression Current Visit: No Status: Chronic Assessment and plan: Continue Prozac Qualifiers: Depression Type: major depressive disorder Active/Remission status: remission status unspecified Qualified Code(s): F32.9 - Major depressive disorder, single episode, unspecified (5) Constipation Current Visit: No Status: Chronic Assessment and plan: May add lactulose Qualifiers: Constipation type: unspecified constipation type Qualified Code(s): K59.00 - Constipation, unspecified (6) Seizure disorder Current Visit: No Status: Chronic Assessment and plan: Encouraged compliance with phenytoin, Keppra and valproic acid (7) Memory loss or impairment Current Visit: No Status: Chronic (8) COPD (chronic obstructive pulmonary disease) Current Visit: No Status: Chronic Assessment and plan: No exacerbation Qualifiers: COPD type: emphysema Emphysema type: unspecified Qualified Code(s): J43.9 - Emphysema, unspecified (9) H/O traumatic brain injury Current Visit: No Status: Chronic - Subjective Interval history: Still feeling very weak, denies any chest pain, shortness of breath, no abdominal pain, feels constipated. No fevers, no headaches - Constitutional Vitals: Temp Pulse Resp BP Pulse Ox 97.6 F 64 12 160/106 96 07/17/17 08:12 07/17/17 08:12 07/17/17 08:12 07/17/17 08:12 07/17/17 08:12 General appearance: Present: A&O X 3 Exam: Generalized weakness - Head Head exam: Present: atraumatic, normocephalic - Eye Eye exam: Present: PERRL, conjuntiva pink, sclera anicteric Pupils: Present: PERRL - Neck Neck exam general surgery: Present: supple, trachea midline. Absent: lymphadenopathy - Respiratory Respiratory exam: Present: decreased breath sounds, CTAB. Absent: accessory muscle use, rales, rhonchi, wheezes - Cardiovascular Cardiovascular exam: Present: RRR, +S1, +S2. Absent: diastolic murmur, gallop, rubs, systolic murmur - GI/Abdominal GI/Abdominal exam: Present: normal bowel sounds, soft, no peritoneal signs. Absent: distended, tenderness - Extremities Exam Extremities exam: Present: warm, radial pulses palpable and symmetrical. Absent : calf tenderness, cyanotic, pedal edema Additional comments: Cisneros catheter in place - Neurological Exam Neurological exam: Present: CN II-XII intact, oriented X3, no focal deficits. Absent: pronater drift, facial droop, speech deficit - Skin Skin exam: Present: dry, intact Internal Medicine: Result - Labs CBC & Chem 7: 07/17/17 04:20 07/17/17 04:20 Labs: Short CBC 07/17/17 Range/Units 04:20 WBC 5.2 (4.3-11.1) K/mcL Hgb 12.5 L (12.9-16.9) g/dL Hct 37.9 (37.5-50.1) % Plt Count 191 (140-400) K/mcL Neutrophils # 2.7 (1.6-8.9) K/mcL BMP 07/17/17 04:20 Sodium 137 Potassium 3.7 Chloride 103 Carbon Dioxide 26 BUN 25 Creatinine 0.79 Glucose 90 Calcium 9.0 Urine 07/16/17 Range/Units 22:58 Urine Color Yellow (Yellow) Urine Clarity Clear (Clear) Urine pH 6.5 (5.0-8.0) pH Units Ur Specific [place] 1.025 (1.010-1.025) Urine Protein 30 H (Neg-Trace) mg/dL Urine Glucose (UA) Normal (Normal) mg/dL Consult Discharge Plan - Plan Referrals: Dilip Byrd DO [Primary Care Provider] -
[2017-07-17] MEDS: Aspirin Enteric Coated 81 MG Tablet PO SCH (08:38)
[2017-07-17] MEDS: Lactulose Oral Soln 20 GM/30 ML UDC PO SCH (08:40)
[2017-07-17] MEDS ORDERED: *HR* LORazepam 0.5 MG TABLET PO PRN (15:20)
--- NOTE | 2017-07-17 15:26 | Electrocardiograph Report ---
[address] [address] Test Date: 2017-07-16 Pat Name: Mejia Kennedy Department: 104 Room: 3B41 Gender: M Education Director: : 1940 Requested By: Rafi Moulton Order Number: [id number] Reading MD: Kodi Sierra MD Measurements Intervals [place] Rate: 60 P: -9 DC: 165 QRS: -47 QRSD: 108 T: -4 QT: 420 QTc: 420 Interpretive Statements SINUS RHYTHM LEFT ANTERIOR FASCICULAR BLOCK Electronically Signed On 07-17-2017 15:24:20 EDT by Kodi Sierra MD
[2017-07-17] MEDS ORDERED: Lactulose Oral Soln 20 GM/30 ML UDC PO ONE (16:07)
[2017-07-17] MEDS: 0.9 % Sodium Chloride 1,000 ML IVC SCH (16:37)
[2017-07-18] MEDS: levETIRAcetam 250 MG TABLET PO SCH ×2 (05:41→17:25)
[2017-07-18] MEDS: *HR* Heparin 5,000 UNIT/ML VIAL SQ SCH ×3 (05:41→22:16)
--- NOTE | 2017-07-18 07:43 | Internal Med Progress Note ---
Date of Encounter: 07/18/17 Time of Encounter: 07:41 - Assessment and plan (1) UTI (urinary tract infection) Current Visit: No Status: Ruled-out Assessment and plan: Severe Generalized weakness likely secondary to urinary tract infection, culture is growing enterococcus Discontinue Rocephin and start ampicillin and sulbactam Await culture final report with sensitivity Qualifiers: Urinary tract infection type: site unspecified Hematuria presence: with hematuria Qualified Code(s): N39.0 - Urinary tract infection, site not specified; R31.9 - Hematuria, unspecified (2) Accelerated hypertension Current Visit: Yes Status: Acute Assessment and plan: Continue lisinopril, hydralazine, amlodipine Continue hydralazine IV as needed (3) Complaint of debility and malaise Current Visit: No Status: Acute Assessment and plan: Physical therapy evaluation, may benefit from rehabilitation (4) Depression Current Visit: No Status: Chronic Assessment and plan: Continue Prozac Qualifiers: Depression Type: major depressive disorder Active/Remission status: remission status unspecified Qualified Code(s): F32.9 - Major depressive disorder, single episode, unspecified (5) Constipation Current Visit: No Status: Chronic Assessment and plan: lactulose Qualifiers: Constipation type: unspecified constipation type Qualified Code(s): K59.00 - Constipation, unspecified (6) Seizure disorder Current Visit: No Status: Chronic Assessment and plan: Encouraged compliance with phenytoin, Keppra and valproic acid (7) Memory loss or impairment Current Visit: No Status: Chronic (8) COPD (chronic obstructive pulmonary disease) Current Visit: No Status: Chronic Assessment and plan: No exacerbation Qualifiers: COPD type: emphysema Emphysema type: unspecified Qualified Code(s): J43.9 - Emphysema, unspecified (9) H/O traumatic brain injury Current Visit: No Status: Chronic - Subjective Interval history: Feeling less weak, denies any chest pain, shortness of breath, no abdominal pain , feels constipated. 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 Absent: lymphadenopathy - Respiratory Respiratory exam: Present: CTAB. Absent: accessory muscle use, rales, rhonchi, wheezes - Cardiovascular Cardiovascular exam: Present: RRR, +S1, +S2. Absent: diastolic murmur, gallop, rubs, systolic murmur - GI/Abdominal GI/Abdominal exam: Present: normal bowel sounds, soft, no peritoneal signs. Absent: distended, tenderness - Extremities Exam Extremities exam: Present: warm, radial pulses palpable and symmetrical. Absent : calf tenderness, cyanotic, pedal edema Additional comments: Cisneros catheter in place - Neurological Exam Neurological exam: Present: CN II-XII intact, oriented X3, no focal deficits. Absent: pronater drift, facial droop, speech deficit - Skin Skin exam: Present: dry, intact Internal Medicine: Result - Labs CBC & Chem 7: 07/17/17 04:20 07/17/17 04:20 Consult Discharge Plan - Plan Referrals: Dilip Byrd DO [Primary Care Provider] - 07/25/17 12:00 pm
[2017-07-18] MEDS: Lactulose Oral Soln 20 GM/30 ML UDC PO SCH (08:11)
[2017-07-18] MEDS: hydrALAZINE 25 MG TABLET PO SCH ×3 (08:11→19:52)
[2017-07-18] MEDS: Valsartan 160 MG TABLET PO SCH (08:11)
[2017-07-18] MEDS: Carbidopa/Levodopa 25/100 TABLET PO SCH ×2 (08:12→19:52)
[2017-07-18] MEDS: Aspirin Enteric Coated 81 MG Tablet PO SCH (08:12)
[2017-07-18] MEDS: amLODIPine 5 MG TABLET PO SCH (08:12)
[2017-07-18] MEDS: Folic Acid 1 MG TABLET PO SCH (08:13)
[2017-07-18] MEDS: FLUoxetine 20 MG CAPSULE PO SCH (08:13)
[2017-07-18] MEDS: Divalproex (12 HR) 500 MG TABLET PO SCH ×2 (08:13→19:51)
[2017-07-18] MEDS: Magnesium Oxide 400 MG TABLET PO SCH ×2 (08:13→19:52)
[2017-07-18] MEDS: Ampicillin/Sulbactam 1,500 MG in 0.9 % Sodium Chloride Mini Bag 100 ML IVPB SCH ×3 (08:14→19:51)
[2017-07-18] MEDS: 0.9 % Sodium Chloride 1,000 ML IVC SCH ×2 (08:15→10:27)
[2017-07-18] MEDS ORDERED: Lactulose Oral Soln 20 GM/30 ML UDC PO ONE (18:32)
[2017-07-19] MEDS: Ampicillin/Sulbactam 1,500 MG in 0.9 % Sodium Chloride Mini Bag 100 ML IVPB SCH ×2 (00:29→06:21)
[2017-07-19] MEDS: *HR* Heparin 5,000 UNIT/ML VIAL SQ SCH (06:20)
[2017-07-19] MEDS: levETIRAcetam 250 MG TABLET PO SCH (06:20)
[2017-07-19] MEDS: 0.9 % Sodium Chloride 1,000 ML IVC SCH (06:20)
--- NOTE | 2017-07-19 07:40 | Discharge Summary ---
Date of Encounter: 07/19/17 Time of Encounter: 07:34 - Discharge Diagnosis (1) UTI (urinary tract infection) Priority: Primary Status: Ruled-out Comments: Severe Generalized weakness likely secondary to urinary tract infection with enterococcus Qualifiers: Urinary tract infection type: site unspecified Hematuria presence: with hematuria Qualified Code(s): N39.0 - Urinary tract infection, site not specified; R31.9 - Hematuria, unspecified (2) Accelerated hypertension Priority: Secondary Status: Acute (3) Complaint of debility and malaise Priority: Secondary Status: Acute (4) Depression Priority: Secondary Status: Chronic Qualifiers: Depression Type: major depressive disorder Active/Remission status: remission status unspecified Qualified Code(s): F32.9 - Major depressive disorder, single episode, unspecified (5) Constipation Priority: Secondary Status: Chronic Qualifiers: Constipation type: unspecified constipation type Qualified Code(s): K59.00 - Constipation, unspecified (6) Seizure disorder Priority: Secondary Status: Chronic (7) Memory loss or impairment Priority: Secondary Status: Chronic (8) COPD (chronic obstructive pulmonary disease) Priority: Secondary Status: Chronic Qualifiers: COPD type: emphysema Emphysema type: unspecified Qualified Code(s): J43.9 - Emphysema, unspecified (9) H/O traumatic brain injury Priority: Secondary Status: Chronic - Discharge Medications Prescriptions: Amoxicillin [Amoxil] 500 mg PO TID #18 capsule diazePAM [Valium] 5 mg PO BID PRN #20 PRN Reason: Anxiety HYDROcodone/Acet 5/325 mg [[place] 5-325 mg] 1 tab PO Q6H PRN #20 tablet PRN Reason: Pain Lactulose 20 gm PO DAILY 30 Days Home Medications: Carbidopa/Levodopa 25/100 [Sinemet] 1 tab PO BID 11/10/15 [History] Amlodipine [Norvasc] 10 mg PO DAILY tablet 11/16/15 [Rx] Folic Acid 1 mg PO DAILY tablet 11/16/15 [Rx] Omeprazole [PriLOSEC] 20 mg PO BID 05/06/16 [History] Tamsulosin [Flomax] 0.4 mg PO DAILY 12/21/16 [History] Valsartan [Diovan] 160 mg PO DAILY 12/21/16 [History] Vitamin B Complex/Vit C/Vit E [Stresstab] 1 tab PO DAILY 12/21/16 [History] Vitamin E Mixed [Vitamin E] 1,000 unit PO DAILY 12/21/16 [History] levETIRAcetam [Keppra] 1,000 mg PO Q12HR #30 tablet 12/23/16 [Rx] Phenytoin [Dilantin] 100 mg PO Q8HR #60 tab.chew 03/10/17 [Rx] Acetaminophen [Tylenol Arthritis] 650 mg PO Q8H PRN 05/19/17 [History] Divalproex (12 HR) [Depakote (12 HR)] 1,000 mg PO BID 05/19/17 [History] FLUoxetine HCl [Prozac] 40 mg PO DAILY 05/19/17 [History] HydrALAZINE 25 mg PO TID 05/19/17 [History] Loratadine [Claritin] 10 mg PO DAILY #30 tablet 05/21/17 [Rx] Polyethylene Glycol 3350 [MiraLAX Powder Bulk 17.9 Oz] 17 gm PO DAILY PRN [History] Sennosides [Senna] 8.6 mg PO BID PRN 07/16/17 [History] Amoxicillin [Amoxil] 500 mg PO TID #18 capsule 07/19/17 [Rx] Docusate [Colace] 100 mg PO BID 07/19/17 [Rx] HYDROcodone/Acet 5/325 mg [[place] 5-325 mg] 1 tab PO Q6H PRN #20 tablet 07/19/17 [Rx] Lactulose 20 gm PO DAILY 30 Days 07/19/17 [Rx] Lisinopril [Zestril] 10 mg PO DAILY #0 tab 07/19/17 [Rx] diazePAM [Valium] 5 mg PO BID PRN #20 07/19/17 [Rx] Allergies/Adverse Reactions: 3 Allergy/AdvReac Type Severity Reaction Status Date / Time No Known Allergies Allergy Verified 07/16/17 14:23 Date of admission: 07/16/17 18:52 Primary care physician: Praveena Lopez - Patient Status Disposition: Transfer SNF Condition: Fair - Discharge Instructions Follow Up With: Dilip Byrd DO [Primary Care Provider] - 07/25/17 12:00 pm Additional Instructions: Follow-up with primary care physician within the next 7 days, complete 6 more days of amoxicillin. Be compliant with anti-seizure medications - Diet and Activity Activity: increase activity as tolerated Diet: low fat, low cholesterol Hospital course: Mr. Kennedy is a 76 year old male with a past medical history of COPD (Not oxygen dependent), CVA, dementia, GERD, hyperlipidemia, hypertension, osteoporosis, renal disease, seizures (On Keppra, Depakote and possibly phenytoin), syncope, TIA, (Urinary retention, movement disorder, diastolic CHF , bilateral avascular necrosis, osteoporosis, syncope, traumatic brain injury), the patient came to the emergency room complaining of constipation and urinary retention. He had a Cisneros catheter placed that was showing dark urine. X-ray of the abdomen and chest x-ray were taken did not show any acute cardiopulmonary disease or abnormalities/ or constipation. The patient was going to be discharged by the ER physician but he was unable to walk due to severe weakness. His blood pressure was 174/101. Was found to have a UTI after being admitted to the floor and was started on Rocephin. Grew pansensitive enterococcus. Was switches to Ampicillin and sulbactam after enterococcus was found. 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 Absent: lymphadenopathy - Respiratory Respiratory exam: Present: CTAB. Absent: accessory muscle use, rales, rhonchi, wheezes - Cardiovascular Cardiovascular exam: Present: RRR, +S1, +S2. Absent: diastolic murmur, gallop, rubs, systolic murmur - GI/Abdominal GI/Abdominal exam: Present: normal bowel sounds, soft, no peritoneal signs. Absent: distended, tenderness - Extremities Exam Extremities exam: Present: warm, radial pulses palpable and symmetrical. Absent : calf tenderness, cyanotic, pedal edema Additional comments: Cisneros catheter in place - Neurological Exam Neurological exam: Present: CN II-XII intact, oriented X3, no focal deficits. Absent: pronater drift, facial droop, speech deficit - Skin Skin exam: Present: dry, intact
--- NOTE | 2017-07-19 07:53 | Physician Discharge Referral ---
[facility] Referral Info Transfer To: ECF Provider in Charge after Transfer: PCP Institutional Level of Care: Skilled - Diagnosis (1) UTI (urinary tract infection) Status: Ruled-out (2) Accelerated hypertension Status: Acute (3) Complaint of debility and malaise Status: Acute (4) Depression Status: Chronic (5) Constipation Status: Chronic (6) Seizure disorder Status: Chronic (7) Memory loss or impairment Status: Chronic (8) COPD (chronic obstructive pulmonary disease) Status: Chronic (9) H/O traumatic brain injury Status: Chronic - Transfer Medications Prescriptions: Amoxicillin [Amoxil] 500 mg PO TID #18 capsule diazePAM [Valium] 5 mg PO BID PRN #20 PRN Reason: Anxiety HYDROcodone/Acet 5/325 mg [[place] 5-325 mg] 1 tab PO Q6H PRN #20 tablet PRN Reason: Pain Lactulose 20 gm PO DAILY 30 Days Home Medications: Carbidopa/Levodopa 25/100 [Sinemet] 1 tab PO BID 11/10/15 [History] Amlodipine [Norvasc] 10 mg PO DAILY tablet 11/16/15 [Rx] Folic Acid 1 mg PO DAILY tablet 11/16/15 [Rx] Omeprazole [PriLOSEC] 20 mg PO BID 05/06/16 [History] Tamsulosin [Flomax] 0.4 mg PO DAILY 12/21/16 [History] Valsartan [Diovan] 160 mg PO DAILY 12/21/16 [History] Vitamin B Complex/Vit C/Vit E [Stresstab] 1 tab PO DAILY 12/21/16 [History] Vitamin E Mixed [Vitamin E] 1,000 unit PO DAILY 12/21/16 [History] levETIRAcetam [Keppra] 1,000 mg PO Q12HR #30 tablet 12/23/16 [Rx] Phenytoin [Dilantin] 100 mg PO Q8HR #60 tab.chew 03/10/17 [Rx] Acetaminophen [Tylenol Arthritis] 650 mg PO Q8H PRN 05/19/17 [History] Divalproex (12 HR) [Depakote (12 HR)] 1,000 mg PO BID 05/19/17 [History] FLUoxetine HCl [Prozac] 40 mg PO DAILY 05/19/17 [History] HydrALAZINE 25 mg PO TID 05/19/17 [History] Loratadine [Claritin] 10 mg PO DAILY #30 tablet 05/21/17 [Rx] Polyethylene Glycol 3350 [MiraLAX Powder Bulk 17.9 Oz] 17 gm PO DAILY PRN [History] Sennosides [Senna] 8.6 mg PO BID PRN 07/16/17 [History] Amoxicillin [Amoxil] 500 mg PO TID #18 capsule 07/19/17 [Rx] Docusate [Colace] 100 mg PO BID 07/19/17 [Rx] HYDROcodone/Acet 5/325 mg [[place] 5-325 mg] 1 tab PO Q6H PRN #20 tablet 07/19/17 [Rx] Lactulose 20 gm PO DAILY 30 Days 07/19/17 [Rx] Lisinopril [Zestril] 10 mg PO DAILY #0 tab 07/19/17 [Rx] diazePAM [Valium] 5 mg PO BID PRN #20 07/19/17 [Rx] Allergies/Adverse Reactions: 3 Allergy/AdvReac Type Severity Reaction Status Date / Time No Known Allergies Allergy Verified 07/16/17 14:23 - Respiratory Orders Smoking Cessation: Smoking cessation has been advised. For more information, call the [place] Tobacco Quit Line at 5-200-IJTQ-NOW. - Advance Directives Code Status: Full Code - Diet Orders Regular House Supplement per Dietary: Follow-up with primary care physician within the next 7 days, complete 6 more days of amoxicillin. Be compliant with anti-seizure medications CERTIFICATION: I certify that the transfer of the above named patient to an Extended Care Facility is necessary for the continuing treatment of the diagnosis listed. The above information is true and accurate reflection of patient's current condition. Confidential - Redisclosure prohibited without a patient's written consent.
[2017-07-19] MEDS: Divalproex (12 HR) 500 MG TABLET PO SCH (09:18)
[2017-07-19] MEDS: amLODIPine 5 MG TABLET PO SCH (09:25)
[2017-07-19] MEDS: Carbidopa/Levodopa 25/100 TABLET PO SCH (09:25)
[2017-07-19] MEDS: hydrALAZINE 25 MG TABLET PO SCH (09:25)
[2017-07-19] MEDS: Aspirin Enteric Coated 81 MG Tablet PO SCH (09:26)
[2017-07-19] MEDS: Magnesium Oxide 400 MG TABLET PO SCH (09:26)
[2017-07-19] MEDS: FLUoxetine 20 MG CAPSULE PO SCH (09:26)
[2017-07-19] MEDS: Lactulose Oral Soln 20 GM/30 ML UDC PO SCH (09:27)
[2017-07-19] MEDS: Folic Acid 1 MG TABLET PO SCH (09:27)
[2017-07-19] MEDS: Valsartan 160 MG TABLET PO SCH (09:27)
[2017-07-19 11:46] VITALS: BP 162/89
== END 2017-07-19 12:30 ==
LOC: EMEROO 14:22 → 3BNU 14:22
PROVIDERS: ADMIT Internal Medicine; ATTEND Internal Medicine

== ENCOUNTER 2018-01-14 13:41 | Observation (INO) ==
[2018-01-14] MEDS ORDERED: 0.9 % Sodium Chloride 1,000 ML IVC ONE (13:47)
--- NOTE | 2018-01-14 13:51 | Emergency Department Note ---
Disposition Clinical Impression: History of seizure Altered mental status Qualifiers: Altered mental status type: unspecified Qualified Code(s): R41.82 - Altered mental status, unspecified Fall Qualifiers: Encounter type: initial encounter Qualified Code(s): W19.XXXA - Unspecified fall, initial encounter UTI (urinary tract infection) Qualifiers: Urinary tract infection type: site unspecified Hematuria presence: without hematuria Qualified Code(s): N39.0 - Urinary tract infection, site not specified Disposition: Admitted As Inpatient Condition: Fair Referrals: Dilip Byrd DO [Primary Care Provider] - Forms: ED Satisfaction Letter Time of Disposition: 16:50 General Adult HPI - General Chief complaint: ED Fall Stated complaint: fall Time Seen by Provider: 01/14/18 13:45 Source: patient Mode of arrival: ambulatory Limitations: no limitations Nursing Notes Reviewed: Yes Vital Signs Reviewed: Yes - History of Present Illness HPI Narrative: 77-year-old male presents for evaluation from a nursing facility to altered mental status. Patient history is limited. Per EMS states that the patient had possible fall or seizure-like activity. Patient does have a history of seizures. She does not recall any events. Patient also has a history of dementia. Patient is denying any pain. Patient denying any nausea vomiting. No chest pain. Pain Scale: 0 - Related Data Home Medications Medication Instructions Recorded Confirmed Carbidopa/Levodopa 25/100 [Sinemet] 1 tab PO BID 11/10/15 01/14/18 Omeprazole [PriLOSEC] 20 mg PO DAILY 05/06/16 01/14/18 Tamsulosin [Flomax] 0.4 mg PO DAILY 12/21/16 01/14/18 Vitamin B Complex/Vit C/Vit E 1 tab PO DAILY 12/21/16 01/14/18 [Stresstab] Vitamin E Mixed [Vitamin E] 1,000 unit PO DAILY 12/21/16 01/14/18 Divalproex (12 HR) [Depakote (12 1,000 mg PO BID 05/19/17 01/14/18 HR)] FLUoxetine HCl [Prozac] 40 mg PO DAILY 05/19/17 01/14/18 HydrALAZINE 25 mg PO TID 05/19/17 01/14/18 Polyethylene Glycol 3350 [MiraLAX 17 gm PO DAILY PRN 07/16/17 01/14/18 Powder Bulk 17.9 Oz] Sennosides [Senna] 8.6 mg PO BID PRN 07/16/17 01/14/18 Acetaminophen [Tylenol] 650 mg PO Q8H PRN 01/14/18 01/14/18 DiphenhydraMINE [Benadryl] 50 mg IM Q6H PRN 01/14/18 01/14/18 LevETIRAcetam [Keppra] 1,000 mg PO Q12H 01/14/18 01/14/18 Lisinopril [Zestril] 20 mg PO DAILY 01/14/18 01/14/18 Losartan Potassium [Cozaar] 100 mg PO DAILY 01/14/18 01/14/18 MOM Conc [Milk of Magnesia Conc] 30 ml PO Q72H PRN 01/14/18 01/14/18 Previous Rx's Medication Instructions Recorded Amlodipine [Norvasc] 10 mg PO DAILY tablet 11/16/15 Folic Acid 1 mg PO DAILY tablet 11/16/15 Phenytoin [Dilantin] 100 mg PO Q8HR #60 tab.chew 03/10/17 Loratadine [Claritin] 10 mg PO DAILY #30 tablet 05/21/17 Docusate [Colace] 100 mg PO BID 07/19/17 HYDROcodone/Acet 5/325 mg [[place] 1 tab PO Q6H PRN #20 tablet 07/19/17 5-325 mg] Allergies Allergy/AdvReac Type Severity Reaction Status Date / Time No Known Allergies Allergy Verified 01/14/18 13:46 Limitations: ROS unobtainable due to patients medical condition Past Medical History - Past Medical History Source: patient Medical history: Reports: arthritis, COPD, CVA, dementia, GERD, hyperlipidemia, hypertension, osteoporosis, renal disease, seizures, syncope, TIA, other Surgical history: Reports: cataract, prostatectomy, other Psychiatric history: Reports: anxiety, depression - Social History Smoking Status: Former smoker Smokeless Tobacco Status: No Alcohol use: Reports: none Drug use: Reports: none Physical Exam - General Limitations: no limitations General appearance: alert, in no apparent distress - Head Head exam: atraumatic, normocephalic, normal inspection - Eye Eye exam: Present: normal appearance, PERRL, EOMI - ENT ENT exam: normal exam, mucous membranes moist - Neck Neck exam: Present: normal inspection, trachea midline - Chest Chest inspection: Present: normal inspection, symmetric chest wall rise - Respiratory Respiratory exam: Present: normal lung sounds bilaterally - Cardiovascular Cardiovascular exam: Present: regular rate, normal rhythm. Absent: systolic murmur - Abdominal Exam Abdominal exam: Present: soft, Non-Tender - Extremities Exam Extremities exam: Present: normal inspection - Back Exam Back exam: Present: normal inspection - Neurological Exam Neurological exam: Present: alert, CN II-XII intact. Absent: oriented X3 - Skin Skin exam: Present: warm, dry, intact, normal color Course Course Narrative: Seen and examined. Patient will get his labwork CT of the head and neck. Cardiopulmonary evaluation. Vital Signs Temperature 98.3 F 01/14/18 13:43 Pulse Rate 82 01/14/18 13:43 Respiratory Rate 20 01/14/18 13:43 Blood Pressure 177/117 01/14/18 13:43 O2 Sat by Pulse Oximetry 95 01/14/18 13:43 Temperature 98.3 F 01/14/18 13:43 Pulse Rate 78 01/14/18 16:03 Respiratory Rate 20 01/14/18 16:03 Blood Pressure 205/112 01/14/18 16:03 O2 Sat by Pulse Oximetry 98 01/14/18 16:03 Oxygen Delivery Oxygen Delivery Room Air Medical Decision Making - [facility] Narrative Medical decision making narrative: Patient presented from nursing facility after altered mental status. Patient possibly had an unwitnessed fall. Patient states he possibly had a seizure. Nursing staff report the patient was found lying in bed. Patient did have altered mental status. No witnessed seizures prehospital or during his emergency department stay. Patient is on several seizure medications. Patient does have a history dementia however uncertain of how progress the patient's dementia actually is. Patient had a nonfocal exam. Patient had CT of the head and neck which showed no acute abnormalities. Patient's labs also reveal no acute abnormalities. Patient is chronically anemic. Patient EKG and troponin shows no acute abnormality. Patient also was found to have a urinary tract infection. Patient was started on Rocephin. - Lab Data Lab results reviewed: Yes I reviewed the patient's lab results. Result diagrams: 01/14/18 14:00 01/14/18 14:00 Lab Results 02/14/18 02/14/18 02/14/18 Range/Units 13:51 13:51 14:00 WBC 7.1 (4.3-11.1) K/mcL RBC 3.78 L (4.19-5.50) M/mcL Hgb 11.9 L (12.9-16.9) g/dL Hct 36.3 L (37.5-50.1) % MCV 96.0 (83.0-100.0) fL MCH 31.5 (28.0-33.3) pg MCHC 32.8 (31.6-35.5) g/dL RDW 13.4 (11.5-14.5) % Plt Count 200 (140-400) K/mcL MPV 10.0 (9.4-12.4) fL Immature Gran % 0.3 (0-4) % Seg Neutrophils % 68.1 % Lymphocytes % 21.4 % Monocytes % 9.5 % Eosinophils % 0.1 % Basophils % 0.6 % Neutrophils # 4.8 (1.6-8.9) K/mcL Lymphocytes # 1.5 (0.6-4.6) K/mcL Monocytes # 0.7 (0.0-1.3) K/mcL Eosinophils # 0.0 (0.0-0.6) K/mcL Basophils # 0.0 (0.0-0.2) K/mcL PT (9.4-12.1) Seconds INR APTT (26.0-36.0) Seconds Carboxyhemoglobin (0-5) % Sodium (136-145) mEq/L Potassium (3.5-5.1) mEq/L Chloride (98-107) mEq/L Carbon Dioxide (23-29) mEq/L BUN (8-23) mg/dL Creatinine (0.70-1.30) mg/dL Est GFR ( Amer) (> 60) Est GFR (Non-Af Amer) (> 60) BUN/Creatinine Ratio (6-26) Glucose (70-105) mg/dL Calculated Osmolality (280-300) Lactic Acid (0.5-2.2) mmol/L Calcium (8.6-10.3) mg/dL Total Bilirubin (0.3-1.0) mg/dL Direct Bilirubin (0.0-0.2) mg/dL Indirect Bilirubin (0.0-1.2) mg/dL AST (13-39) Units/L ALT (7-52) Units/L Alkaline Phosphatase (34-104) Units/L Ammonia (16-53) mcmol/L Creatine Kinase (30-223) Units/L Troponin I (< 0.04) ng/mL Serum Total Protein (6.4-8.9) g/dL Albumin (3.5-5.7) g/dL Globulin (2.4-3.5) g/dL Albumin/Globulin Ratio (1.1-2.2) Ur Specimen Adequacy Urine Color [place] A (Yellow) Urine Clarity Cloudy A (Clear) Urine pH 5.5 (5.0-8.0) pH Units Ur Specific [place] 1.022 (1.010-1.025) Urine Protein 100 H (Neg-Trace) mg/dL Urine Glucose (UA) Normal (Normal) mg/dL Urine Ketones 15 H (Negative) mg/dL Urine Blood Negative (Negative) Urine Nitrite Negative (Negative) Urine Bilirubin Large H (Negative) Urine Urobilinogen 2.0 H (Normal) mg/dL Ur Leukocyte Esterase Moderate H (Negative) Urine Microscopic RBC 50-100 H (0-3) per hpf Urine Microscopic WBC TNTC H (0-3) per hpf Urine Bacteria Few (None-Few) per hpf Ur Culture Indicated? YES A (NO) Urine Opiates Screen Negative (Ditise=002) ng/mL Ur Barbiturates Screen Negative (Tntffp=485) ng/mL Phenytoin (10.0-20.0) mcg/mL Ur Phencyclidine Scrn Negative (Cutoff=25) ng/mL Ur Amphetamines Screen Negative (Ouquwq=4733) ng/mL U Benzodiazepines Scrn Negative (Wjktjs=914) ng/mL Urine Cocaine Screen Negative (Cutoff= 300) ng/mL U Marijuana (THC) Screen Negative (Cutoff = 50) ng/mL 01/14/18 01/14/18 01/14/18 Range/Units 14:00 14:00 14:00 WBC (4.3-11.1) K/mcL RBC (4.19-5.50) M/mcL Hgb (12.9-16.9) g/dL Hct (37.5-50.1) % MCV (83.0-100.0) fL MCH (28.0-33.3) pg MCHC (31.6-35.5) g/dL RDW (11.5-14.5) % Plt Count (140-400) K/mcL MPV (9.4-12.4) fL Immature Gran % (0-4) % Seg Neutrophils % % Lymphocytes % % Monocytes % % Eosinophils % % Basophils % % Neutrophils # (1.6-8.9) K/mcL Lymphocytes # (0.6-4.6) K/mcL Monocytes # (0.0-1.3) K/mcL Eosinophils # (0.0-0.6) K/mcL Basophils # (0.0-0.2) K/mcL PT 11.8 (9.4-12.1) Seconds INR 1.1 APTT 36.0 (26.0-36.0) Seconds Carboxyhemoglobin (0-5) % Sodium 141 (136-145) mEq/L Potassium 4.6 (3.5-5.1) mEq/L Chloride 104 (98-107) mEq/L Carbon Dioxide 26 (23-29) mEq/L BUN 40 H (8-23) mg/dL Creatinine 1.26 (0.70-1.30) mg/dL Est GFR ( Amer) > 60 (> 60) Est GFR (Non-Af Amer) 56 L (> 60) BUN/Creatinine Ratio 32 H (6-26) Glucose 113 H (70-105) mg/dL Calculated Osmolality 303 H (280-300) Lactic Acid (0.5-2.2) mmol/L Calcium 9.5 (8.6-10.3) mg/dL Total Bilirubin 0.5 (0.3-1.0) mg/dL Direct Bilirubin 0.2 (0.0-0.2) mg/dL Indirect Bilirubin 0.3 (0.0-1.2) mg/dL AST 33 (13-39) Units/L ALT 32 (7-52) Units/L Alkaline Phosphatase 80 (34-104) Units/L Ammonia (16-53) mcmol/L Creatine Kinase 104 (30-223) Units/L Troponin I < 0.03 (< 0.04) ng/mL Serum Total Protein 7.0 (6.4-8.9) g/dL Albumin 3.8 (3.5-5.7) g/dL Globulin 3.2 (2.4-3.5) g/dL Albumin/Globulin Ratio 1.2 (1.1-2.2) Ur Specimen Adequacy Urine Color (Yellow) Urine Clarity (Clear) Urine pH (5.0-8.0) pH Units Ur Specific [place] (1.010-1.025) Urine Protein (Neg-Trace) mg/dL Urine Glucose (UA) (Normal) mg/dL Urine Ketones (Negative) mg/dL Urine Blood (Negative) Urine Nitrite (Negative) Urine Bilirubin (Negative) Urine Urobilinogen (Normal) mg/dL Ur Leukocyte Esterase (Negative) Urine Microscopic RBC (0-3) per hpf Urine Microscopic WBC (0-3) per hpf Urine Bacteria (None-Few) per hpf Ur Culture Indicated? (NO) Urine Opiates Screen (Zyyqsf=858) ng/mL Ur Barbiturates Screen (Wiiljc=438) ng/mL Phenytoin 10.6 (10.0-20.0) mcg/mL Ur Phencyclidine Scrn (Cutoff=25) ng/mL Ur Amphetamines Screen (Kvcopv=2804) ng/mL U Benzodiazepines Scrn (Wxkrkq=508) ng/mL Urine Cocaine Screen (Cutoff= 300) ng/mL U Marijuana (THC) Screen (Cutoff = 50) ng/mL 01/14/18 01/14/18 01/14/18 Range/Units 14:00 15:35 17:01 WBC (4.3-11.1) K/mcL RBC (4.19-5.50) M/mcL Hgb (12.9-16.9) g/dL Hct (37.5-50.1) % MCV (83.0-100.0) fL MCH (28.0-33.3) pg MCHC (31.6-35.5) g/dL RDW (11.5-14.5) % Plt Count (140-400) K/mcL MPV (9.4-12.4) fL Immature Gran % (0-4) % Seg Neutrophils % % Lymphocytes % % Monocytes % % Eosinophils % % Basophils % % Neutrophils # (1.6-8.9) K/mcL Lymphocytes # (0.6-4.6) K/mcL Monocytes # (0.0-1.3) K/mcL Eosinophils # (0.0-0.6) K/mcL Basophils # (0.0-0.2) K/mcL PT (9.4-12.1) Seconds INR APTT (26.0-36.0) Seconds Carboxyhemoglobin 1.7 (0-5) % Sodium (136-145) mEq/L Potassium (3.5-5.1) mEq/L Chloride (98-107) mEq/L Carbon Dioxide (23-29) mEq/L BUN (8-23) mg/dL Creatinine (0.70-1.30) mg/dL Est GFR ( Amer) (> 60) Est GFR (Non-Af Amer) (> 60) BUN/Creatinine Ratio (6-26) Glucose (70-105) mg/dL Calculated Osmolality (280-300) Lactic Acid 0.6 (0.5-2.2) mmol/L Calcium (8.6-10.3) mg/dL Total Bilirubin (0.3-1.0) mg/dL Direct Bilirubin (0.0-0.2) mg/dL Indirect Bilirubin (0.0-1.2) mg/dL AST (13-39) Units/L ALT (7-52) Units/L Alkaline Phosphatase (34-104) Units/L Ammonia 35 (16-53) mcmol/L Creatine Kinase (30-223) Units/L Troponin I (< 0.04) ng/mL Serum Total Protein (6.4-8.9) g/dL Albumin (3.5-5.7) g/dL Globulin (2.4-3.5) g/dL Albumin/Globulin Ratio (1.1-2.2) Ur Specimen Adequacy Urine Color (Yellow) Urine Clarity (Clear) Urine pH (5.0-8.0) pH Units Ur Specific [place] (1.010-1.025) Urine Protein (Neg-Trace) mg/dL Urine Glucose (UA) (Normal) mg/dL Urine Ketones (Negative) mg/dL Urine Blood (Negative) Urine Nitrite (Negative) Urine Bilirubin (Negative) Urine Urobilinogen (Normal) mg/dL Ur Leukocyte Esterase (Negative) Urine Microscopic RBC (0-3) per hpf Urine Microscopic WBC (0-3) per hpf Urine Bacteria (None-Few) per hpf Ur Culture Indicated? (NO) Urine Opiates Screen (Edpobz=587) ng/mL Ur Barbiturates Screen (Msyapw=174) ng/mL Phenytoin (10.0-20.0) mcg/mL Ur Phencyclidine Scrn (Cutoff=25) ng/mL Ur Amphetamines Screen (Xqtfmg=7636) ng/mL U Benzodiazepines Scrn (Alhvmd=920) ng/mL Urine Cocaine Screen (Cutoff= 300) ng/mL U Marijuana (THC) Screen (Cutoff = 50) ng/mL - Radiology Data Radiology results reviewed: Yes I reviewed the patient's radiology results. Chest X-Ray 01/14/18 13:47 IMPRESSION: No evidence of acute cardiopulmonary disease. D/ / Herson Gordon MD / Herson Gordon MD Interpreting Provider: Herson Gordon MD Head CT 01/14/18 13:48 IMPRESSION: 1. No acute intracranial abnormality. 2. Global parenchymal volume loss with chronic microvascular ischemic change. 3. Atherosclerosis. D/ / Alec Fofana MD / Alec Fofana MD Interpreting Provider: Alec Fofana MD Cervical Spine CT 01/14/18 13:49 IMPRESSION: Multilevel degenerative changes most pronounced at C3-4, C4-5 and C5-6 with no evidence for fracture. D/ / 01/14/2018 14:43:12 Naz[facility] Mcguire MD [facility] Interpreting Provider: Nazario Mcguire MD - EKG Data EKG #1 EKG attestation: Yes I reviewed and interpreted this EKG. EKG shows normal: sinus rhythm Rate: normal Rhythm: NSR [place]/QRS: left axis deviation T wave inversions noted in: aVR Interpretation: no acute changes, nonspecific ST-T wave changes S.B.A.R. - S.B.A.R. Situation: Demographics Background: Presenting Complaint Assessment: Vital Signs, Course and respsone to treatment, Patient/Family Expectation Recommendation: Barrier(s) to disposition, Recommendation based on pending studies, treatments, or consults S.B.A.R. Report Given to: Dilip Strickland Repor Time: 17:38 Attestation Statement - Attestation Attestation: I examined this patient and my medical decision-making was reviewed with the Resident Physician. I agree with the documented findings, disposition and treatment plan as described except to the extent set forth below. Patient to the ED with a chief complaint of fall. Patient was an unwitnessed fall per alf. Family floor. Confused. His mental status is improving. They thought perhaps he had had a seizure and was postictal. He does have a history of a seizure disorder. On examination he is awake alert. Oriented to self and place. Moving everything. In no distress. Plan. Altered mental status workup. CT head. CT head unremarkable. He does have a UTI which we will treat. Admit to medicine.
[2018-01-14 14:11] LABS: Amphetamine Screen,Urine Negative ng/mL (Cutoff=1000); Barbiturate Screen,Urine Negative ng/mL (Cutoff=200); Benzodiazepines Screen,Urine Negative ng/mL (Cutoff=200); Cannabinoid Screen,Urine Negative ng/mL (Cutoff = 50); Cocaine Screen,Urine Negative ng/mL (Cutoff= 300); Opiate Screen,Urine Negative ng/mL (Cutoff=300); Phencyclidine Screen,Urine Negative ng/mL (Cutoff=25)
[2018-01-14 14:12] LABS: Bilirubin,Urine Large (Negative); Blood,Urine Negative (Negative); Clarity,Urine Cloudy (Clear); Glucose,Urine (UA) Normal (Normal); Ketones,Urine 15 mg/dL (Negative); Leukocyte Esterase,Urine Moderate (Negative); Nitrite,Urine Negative (Negative); PH,Urine 5.5 pH Units (5.0-8.0); Protein,Urine 100 mg/dL (Neg-Trace); Specific Gravity,Urine 1.022 (1.010-1.025)
[2018-01-14 14:19] LABS: Basophils % 0.6 %; Eosinophils % 0.1 %; Hematocrit 36.3 % (37.5-50.1); Hemoglobin 11.9 g/dL (12.9-16.9); Immature Granulocytes % 0.3 % (0-4); Lymphocytes # 1.5 K/mcL (0.6-4.6); Lymphocytes % 21.4 %; Mean Corpuscular HGB Conc 32.8 g/dL (31.6-35.5); Mean Corpuscular Hemoglobin 31.5 pg (28.0-33.3); Monocytes # 0.7 K/mcL (0.0-1.3); Monocytes % 9.5 %; Neutrophils # 4.8 K/mcL (1.6-8.9); Platelet Count 200 K/mcL (140-400); Red Blood Count 3.78 M/mcL (4.19-5.50); Red Cell Distribution Width 13.4 % (11.5-14.5); Segmented Neutrophils % 68.1 %
[2018-01-14 14:24] LABS: INR 1.1; Prothrombin Time 11.8 Seconds (9.4-12.1)
[2018-01-14 14:39] LABS: Alanine Aminotransferase 32 Units/L (7-52); Albumin 3.8 g/dL (3.5-5.7); Albumin/Globulin Ratio 1.2 (1.1-2.2); Alkaline Phosphatase 80 Units/L (34-104); Aspartate Amino Transferase 33 Units/L (13-39); BUN/Creatinine Ratio 32 (6-26); Bilirubin,Direct 0.2 mg/dL (0.0-0.2); Bilirubin,Indirect 0.3 mg/dL (0.0-1.2); Bilirubin,Total 0.5 mg/dL (0.3-1.0); Blood Urea Nitrogen 40 mg/dL (8-23); Calcium 9.5 mg/dL (8.6-10.3); Carbon Dioxide 26 mEq/L (23-29); Chloride 104 mEq/L (98-107); Creatine Kinase 104 Units/L (30-223); Globulin 3.2 g/dL (2.4-3.5); Glucose 113 mg/dL (70-105); Osmolality,Calculated 303 (280-300); Potassium 4.6 mEq/L (3.5-5.1); Sodium 141 mEq/L (136-145); eGFR For African Americans > 60 (> 60); eGFR For Non-African Americans 56 (> 60)
[2018-01-14 16:23] LABS: Phenytoin (Dilantin) 10.6 mcg/mL (10.0-20.0)
[2018-01-14 16:49] LABS: Color,Urine Orange (Yellow)
[2018-01-14 17:03] LABS: Bacteria,Urine Few per hpf (None-Few); RBC,Urine 50-100 per hpf (0-3); WBC,Urine TNTC per hpf (0-3)
[2018-01-14] MEDS ORDERED: cefTRIAXone 1,000 MG in Water for inj. (sterile) 20 ML 10 ML IVP ONE (17:21)
--- NOTE | 2018-01-14 20:46 | Internal Med History&Physical ---
<Kyaw Gardner - Last Filed: 01/14/18 22:44> Date of Encounter: 01/14/18 Time of Encounter: 08:00 Assessment and Plan (1) Altered mental status Current visit: Yes Status: Acute Patient with AMS not at baseline per halfway. at baseline patient is AxO x 3 although has history of dementia. likely secondary to UTI. see UTI section. Qualifiers: Altered mental status type: delirium Qualified Code(s): R41.0 - Disorientation, unspecified (2) UTI (urinary tract infection) Current visit: Yes Status: Acute Patient found to have UTI based on UA TNTC WBCs, moderate leukesterase, few bacteria patient given Ceftriaxone in ED. Continue ceftriaxone. Last UTI in July was pansensitive. UCx pending. Qualifiers: Urinary tract infection type: site unspecified Hematuria presence: without hematuria Qualified Code(s): N39.0 - Urinary tract infection, site not specified (3) Fall Current visit: Yes Status: Acute Patient had unwitnessed fall at halfway, no apparent seizure activity. CT head and neck no acute process. Likely secondary to UTI patient denies any current pain. Qualifiers: Encounter type: initial encounter Qualified Code(s): W19.XXXA - Unspecified fall, initial encounter (4) Hypertension Current visit: No Status: Chronic Patient with Hx of HTN patient appears to be on multiple blood pressure medications per his records. currently ranging from 205-129 SBP since admission per records on norvasc, hydralazine, lisinopril, and losartan. Restarted hydralazine and lisinopril not sure if patient was truly on an KATHERYN and an ARB but both appear to have been filled recently. will add back norvasc if needs more control. Qualifiers: Hypertension type: essential hypertension Qualified Code(s): I10 - Essential (primary) hypertension (5) Dementia arising in the senium and presenium Current visit: No Status: Chronic Hx of Dementia Baselien per longterm is alert and oriented x 3. (6) Parkinson disease Current visit: No Status: Chronic continue home sinemet (7) History of seizure Current visit: Yes Status: Acute Does not appear to have had a seizure today. Drug levels within therapeutic window. continue home seizure medications. (8) Depression Current visit: No Status: Chronic Continue home meds Qualifiers: Depression Type: major depressive disorder Major depression recurrence: single episode Active/Remission status: remission status unspecified Qualified Code(s): F32.9 - Major depressive disorder, single episode, unspecified (9) Constipation Current visit: No Status: Chronic Continue home constipation medication regimen Qualifiers: Constipation type: unspecified constipation type Qualified Code(s): K59.00 - Constipation, unspecified Internal Medicine - H&P: HPI Chief complaint: AMS Admitted From: Emergency Dept Plans for Post Hospital Care: Transfer Welfare Interviewer Care History of present illness: Mr. Kennedy is a 77 year old male c PMHx of dementia, seizures, CVA, parkinsons , COPD, HTN, HLD, arthritis, GERD, renal disease, anxiety and depression who was brought into the [facility] ED for concerns of AMS x 1 day. Per reports patient lives at [facility] and became altered today. Patient's baseline is AxOx3 per reprot from halfway. Patient had a possible fall at halfway today but they report no seizure activity. Patient is AxO x ) here but is pleasant. He does not consistently answer questions appropriately. Mostly just says yes to everything you ask. Patient denies pain. Patient unable to tell me what happened today or why he is here. Patient had CT of head and neck which showed no acute pathology. Patient's labratory work up was significant for a dirty urine that showed cloudy urine, with 100 protein, moderate leuk esterase, TNTC WBCs and few bacteria. Urine Cx is pending. Phenetytoin level within therapeutic range, Utox negative. No elevated WBC, afebrile, no tachycardia or tachypnea. Past Med Surg Social Fam HX - Past Medical History Medical history: arthritis, COPD, CVA, dementia, GERD, hyperlipidemia, hypertension, osteoporosis, renal disease, seizures, syncope, TIA, other Psychiatric history: anxiety, depression - Past Surgical History Surgical History: cataract, prostatectomy, other - Social History Smoking Status: Former smoker Smokeless Tobacco Status: No Alcohol use: none Drug use: none - Family History Father Adopted: Yes Family Member Ethnicity: Non- Living Status: Mother Adopted: Yes Living Status: Internal Medicine - H&P: Meds Carbidopa/Levodopa 25/100 [Sinemet] 1 tab PO BID 11/10/15 [History] Amlodipine [Norvasc] 10 mg PO DAILY tablet 11/16/15 [Rx] Folic Acid 1 mg PO DAILY tablet 11/16/15 [Rx] Omeprazole [PriLOSEC] 20 mg PO DAILY 05/06/16 [History] Tamsulosin [Flomax] 0.4 mg PO DAILY 12/21/16 [History] Vitamin B Complex/Vit C/Vit E [Stresstab] 1 tab PO DAILY 12/21/16 [History] Vitamin E Mixed [Vitamin E] 1,000 unit PO DAILY 12/21/16 [History] Phenytoin [Dilantin] 100 mg PO Q8HR #60 tab.chew 03/10/17 [Rx] Divalproex (12 HR) [Depakote (12 HR)] 1,000 mg PO BID 05/19/17 [History] FLUoxetine HCl [Prozac] 40 mg PO DAILY 05/19/17 [History] HydrALAZINE 25 mg PO TID 05/19/17 [History] Loratadine [Claritin] 10 mg PO DAILY #30 tablet 05/21/17 [Rx] Polyethylene Glycol 3350 [MiraLAX Powder Bulk 17.9 Oz] 17 gm PO DAILY PRN [History] Sennosides [Senna] 8.6 mg PO BID PRN 07/16/17 [History] Docusate [Colace] 100 mg PO BID 07/19/17 [Rx] HYDROcodone/Acet 5/325 mg [[place] 5-325 mg] 1 tab PO Q6H PRN #20 tablet 07/19/17 [Rx] Acetaminophen [Tylenol] 650 mg PO Q8H PRN 01/14/18 [History] DiphenhydraMINE [Benadryl] 50 mg IM Q6H PRN 01/14/18 [History] LevETIRAcetam [Keppra] 1,000 mg PO Q12H 01/14/18 [History] Lisinopril [Zestril] 20 mg PO DAILY 01/14/18 [History] Losartan Potassium [Cozaar] 100 mg PO DAILY 01/14/18 [History] MOM Conc [Milk of Magnesia Conc] 30 ml PO Q72H PRN 01/14/18 [History] 3 Allergy/AdvReac Type Severity Reaction Status Date / Time No Known Allergies Allergy Verified 01/14/18 13:46 ROS unobtainable: due to mental status All Systems PM: A 10-system review of systems was performed and is negative for pertinent findings except as documented above in the HPI. - Constitutional Vitals: Temp Pulse Resp BP Pulse Ox 98.3 F 86 18 156/84 94 01/14/18 13:43 01/14/18 18:35 01/14/18 20:24 01/14/18 20:24 01/14/18 18:35 General appearance: Present: A&O X 0, pleasant, no acute distress. Absent: answers questions appropriately - Head Head exam: Present: atraumatic, normocephalic - Eye Eye exam: Present: PERRL, conjuntiva pink, sclera anicteric Pupils: Present: PERRL - Neck Neck exam general surgery: Present: supple, trachea midline. Absent: lymphadenopathy - Respiratory Respiratory exam: Present: CTAB. Absent: accessory muscle use, rales, rhonchi, wheezes - Cardiovascular Cardiovascular exam: Present: RRR, +S1, +S2. Absent: diastolic murmur, gallop, rubs, systolic murmur - GI/Abdominal GI/Abdominal exam: Present: normal bowel sounds, soft, no peritoneal signs. Absent: distended, tenderness - Extremities Exam Extremities exam: Present: warm, radial pulses palpable and symmetrical. Absent : calf tenderness, cyanotic, pedal edema - Neurological Exam Additional comments: Patient unable to participate in exam. Patient not answering questions appropriately. Just saying yes to every question. noticeable tremor. - Skin Skin exam: Present: dry, intact Internal Med - H&P Results - Labs CBC & Chem 7: 01/14/18 14:00 01/14/18 14:00 <Mathew Goodwin P - Last Filed: 01/15/18 05:32> Date of Encounter: 01/15/18 Internal Medicine - H&P: HPI History of present illness: Mr. Kennedy is a 77 year old male All Systems PM: A 10-system review of systems was performed and is negative for pertinent findings except as documented above in the HPI. - Constitutional Vitals: Temp Pulse Resp BP Pulse Ox 99.0 F 96 18 170/94 93 01/15/18 03:27 01/15/18 03:27 01/15/18 03:27 01/15/18 03:27 01/15/18 03:27 Internal Med - H&P Results - Labs CBC & Chem 7: 01/14/18 14:00 01/14/18 14:00 - Attending Attestation I examined this patient and my medical decision-making was reviewed with the Resident Physician. I agree with the documented findings, disposition and treatment plan as described except to the extent set forth below. I have seen and examined this patient on 01/15/2018. I agree with the assessment and plan bronchitis resident physician. Precipitating factor for seizure activity likely secondary to infection. Close monitoring of the neurological status and please consider neurology if needed.
[2018-01-14] MEDS ORDERED: Sennosides 8.6 MG TABLET PO PRN (20:53)
[2018-01-14] MEDS ORDERED: Acetaminophen 325 MG TABLET PO PRN (21:01)
[2018-01-14] MEDS: Carbidopa/Levodopa 25/100 TABLET PO SCH ×2 (21:58→22:25)
[2018-01-14] MEDS: Lisinopril 20 MG TABLET PO SCH ×2 (21:58→22:31)
[2018-01-14] MEDS: Divalproex (12 HR) 500 MG TABLET PO SCH ×2 (21:58→22:24)
[2018-01-15] MEDS: hydrALAZINE 25 MG TABLET PO SCH ×3 (00:28→16:21)
[2018-01-15] MEDS: levETIRAcetam 250 MG TABLET PO SCH ×2 (06:22→16:21)
[2018-01-15] MEDS: *HR* Enoxaparin 40 MG/0.4 ML SYRINGE SQ SCH (06:22)
[2018-01-15 06:49] LABS: Basophils % 0.4 %; Eosinophils % 0.1 %; Hematocrit 35.5 % (37.5-50.1); Hemoglobin 11.5 g/dL (12.9-16.9); Immature Granulocytes % 0.4 % (0-4); Lymphocytes # 1.7 K/mcL (0.6-4.6); Lymphocytes % 18.7 %; Mean Corpuscular HGB Conc 32.4 g/dL (31.6-35.5); Mean Corpuscular Hemoglobin 30.9 pg (28.0-33.3); Mean Corpuscular Volume 95.4 fL (83.0-100.0); Monocytes # 0.9 K/mcL (0.0-1.3); Monocytes % 10.1 %; Neutrophils # 6.3 K/mcL (1.6-8.9); Platelet Count 202 K/mcL (140-400); Red Blood Count 3.72 M/mcL (4.19-5.50); Red Cell Distribution Width 13.3 % (11.5-14.5); Segmented Neutrophils % 70.3 %
[2018-01-15 07:23] LABS: BUN/Creatinine Ratio 36 (6-26); Blood Urea Nitrogen 35 mg/dL (8-23); Calcium 9.4 mg/dL (8.6-10.3); Carbon Dioxide 21 mEq/L (23-29); Chloride 105 mEq/L (98-107); Glucose 103 mg/dL (70-105); Osmolality,Calculated 300 (280-300); Potassium 4.1 mEq/L (3.5-5.1); Sodium 141 mEq/L (136-145); eGFR For African Americans > 60 (> 60); eGFR For Non-African Americans > 60 (> 60)
--- NOTE | 2018-01-15 09:17 | Internal Med Progress Note ---
Date of Encounter: 01/15/18 Time of Encounter: 09:13 - Assessment and plan (1) Acute metabolic encephalopathy Current Visit: No Status: Acute Assessment and plan: hx dementia. Discussed with F staff and baseline mentation is A&OX3 with periods of confusion. Alert to self only at this time. Suspect multifactorial with known dementia and UTI. He does have hx CVA, brain MRI pending. Supportive care, encourage sleep/wake cycle. (2) History of seizure Current Visit: Yes Status: Acute Assessment and plan: per hx. Details unclear but apparently concern for seizure activity at [facility]. [facility] Per [facility] staff, he appeared to be in a postictal state when found. Dilantin level therapeutic. Cont home AEDs. Depakote, keppra level pending. Consult Neurology if needed (3) UTI (urinary tract infection) Current Visit: Yes Status: Acute Assessment and plan: UA indicative of UTI; TNTC WBCs, moderate leukesterase, few bacteria. 07/2017 urine cx pansensitive. Cont ceftriaxone (day 2). UCx pending. Qualifiers: Urinary tract infection type: site unspecified Hematuria presence: without hematuria Qualified Code(s): N39.0 - Urinary tract infection, site not specified (4) Asymptomatic hypertensive urgency Current Visit: Yes Status: Acute Assessment and plan: hx HTN. On multiple blood pressure medications per [facility] records (norvasc, hydralazine, lisinopril, and losartan). Unclear if truly on an KATHERYN and an ARB. BP uncontrolled on arrival with SBPs in 200s. Cont home lisinopril, hydralazine and Norvasc. Monitor BP and titrate PRN (5) Fall Current Visit: Yes Status: Acute Assessment and plan: [facility], no apparent seizure activity. UDS negative. Head/neck CT non-acute. Suspect multifactorial with known Parkinson's, fragility and UTI. Qualifiers: Encounter type: initial encounter Qualified Code(s): W19.XXXA - Unspecified fall, initial encounter (6) Parkinson disease Current Visit: No Status: Chronic Assessment and plan: per hx. Cont home carbidopa/levodopa (7) DVT prophylaxis Current Visit: No Status: Acute Assessment and plan: lovenox - Subjective Interval history: Seen and examind at bedside. Patient is new to me. Information obtained from chart review and patent report although patient is confused and poor historian. Sitting up in bed eating breakfast, teraful during exam. Does not provide any meaningful information. - Constitutional Vitals: Temp Pulse Resp BP Pulse Ox 99.3 F 90 18 168/87 98 01/15/18 06:31 01/15/18 06:31 01/15/18 06:31 01/15/18 06:31 01/15/18 09:05 General appearance: Present: A&O X 1, pleasant, no acute distress. Absent: answers questions appropriately - Head Head exam: Present: atraumatic, normocephalic - Eye Eye exam: Present: PERRL, conjuntiva pink, sclera anicteric Pupils: Present: PERRL - Neck Neck exam general surgery: Present: supple, trachea midline. Absent: lymphadenopathy - Respiratory Respiratory exam: Present: CTAB. Absent: accessory muscle use, rales, rhonchi, wheezes - Cardiovascular Cardiovascular exam: Present: RRR, +S1, +S2. Absent: diastolic murmur, gallop, rubs, systolic murmur - GI/Abdominal GI/Abdominal exam: Present: normal bowel sounds, soft, no peritoneal signs. Absent: distended, tenderness - Extremities Exam Extremities exam: Present: warm, radial pulses palpable and symmetrical. Absent : calf tenderness, cyanotic, pedal edema - Neurological Exam Neurological exam: Present: CN II-XII intact, oriented X3, no focal deficits. Absent: pronater drift, facial droop, speech deficit - Skin Skin exam: Present: dry, intact Internal Medicine: Result - Labs CBC & Chem 7: 01/15/18 06:26 01/15/18 06:26 Labs: Short CBC 01/15/18 Range/Units 06:26 WBC 9.0 (4.3-11.1) K/mcL Hgb 11.5 L (12.9-16.9) g/dL Hct 35.5 L (37.5-50.1) % Plt Count 202 (140-400) K/mcL Neutrophils # 6.3 (1.6-8.9) K/mcL BMP 01/15/18 06:26 Sodium 141 Potassium 4.1 Chloride 105 Carbon Dioxide 21 L BUN 35 H Creatinine 0.96 Glucose 103 Calcium 9.4 - ABG Interpretation ABG results: PT/INR, D-dimer PT 11.8 Seconds (9.4-12.1) 01/14/18 14:00 Consult Discharge Plan - Plan Referrals: Marcelo Lobo MD [Partnered Physician] - 01/19/18 2:00 pm
[2018-01-15] MEDS: Divalproex (12 HR) 500 MG TABLET PO SCH ×2 (10:04→20:11)
[2018-01-15] MEDS: Folic Acid 1 MG TABLET PO SCH (10:05)
[2018-01-15] MEDS: Carbidopa/Levodopa 25/100 TABLET PO SCH ×2 (10:05→20:11)
[2018-01-15] MEDS: FLUoxetine 20 MG CAPSULE PO SCH (10:05)
[2018-01-15] MEDS: amLODIPine 5 MG TABLET PO SCH (10:05)
[2018-01-15] MEDS: Lisinopril 20 MG TABLET PO SCH (10:06)
[2018-01-15] MEDS: cefTRIAXone 1,000 MG in Water for inj. (sterile) 20 ML 10 ML IVPB SCH (16:21)
[2018-01-16] MEDS: hydrALAZINE 25 MG TABLET PO SCH ×3 (00:25→17:11)
[2018-01-16] MEDS: *HR* Enoxaparin 40 MG/0.4 ML SYRINGE SQ SCH (05:12)
[2018-01-16] MEDS: levETIRAcetam 250 MG TABLET PO SCH ×2 (05:12→17:11)
[2018-01-16 07:29] LABS: Basophils % 0.6 %; Eosinophils % 0.2 %; Hemoglobin 11.5 g/dL (12.9-16.9); Immature Granulocytes % 0.4 % (0-4); Lymphocytes # 0.9 K/mcL (0.6-4.6); Lymphocytes % 19.2 %; Mean Corpuscular HGB Conc 33.8 g/dL (31.6-35.5); Mean Corpuscular Hemoglobin 31.4 pg (28.0-33.3); Mean Corpuscular Volume 92.9 fL (83.0-100.0); Mean Platelet Volume 10.1 fL (9.4-12.4); Monocytes # 0.6 K/mcL (0.0-1.3); Monocytes % 11.6 %; Neutrophils # 3.2 K/mcL (1.6-8.9); Platelet Count 162 K/mcL (140-400); Red Blood Count 3.66 M/mcL (4.19-5.50); Red Cell Distribution Width 13.2 % (11.5-14.5)
[2018-01-16 08:09] LABS: BUN/Creatinine Ratio 30 (6-26); Blood Urea Nitrogen 28 mg/dL (8-23); Calcium 8.8 mg/dL (8.6-10.3); Carbon Dioxide 26 mEq/L (23-29); Chloride 104 mEq/L (98-107); Glucose 118 mg/dL (70-105); Osmolality,Calculated 293 (280-300); Potassium 3.6 mEq/L (3.5-5.1); Sodium 138 mEq/L (136-145); eGFR For African Americans > 60 (> 60); eGFR For Non-African Americans > 60 (> 60)
[2018-01-16] MEDS: Lisinopril 20 MG TABLET PO SCH (08:15)
[2018-01-16] MEDS: FLUoxetine 20 MG CAPSULE PO SCH (08:15)
[2018-01-16] MEDS: Divalproex (12 HR) 500 MG TABLET PO SCH ×2 (08:15→20:06)
[2018-01-16] MEDS: Folic Acid 1 MG TABLET PO SCH (08:15)
[2018-01-16] MEDS: Carbidopa/Levodopa 25/100 TABLET PO SCH ×2 (08:15→20:06)
[2018-01-16] MEDS: amLODIPine 5 MG TABLET PO SCH (08:15)
[2018-01-16] MEDS: cefTRIAXone 1,000 MG in Water for inj. (sterile) 20 ML 10 ML IVPB SCH (17:10)
--- NOTE | 2018-01-16 18:40 | Internal Med Progress Note ---
Date of Encounter: 01/16/18 Time of Encounter: 10:30 (0) - Assessment and plan (1) Altered mental status Current Visit: Yes Status: Acute Qualifiers: Altered mental status type: delirium Qualified Code(s): R41.0 - Disorientation, unspecified (2) Fall Current Visit: Yes Status: Acute Assessment and plan: unwitnessed fall at skilled nursing, no apparent seizure activity. CT negative.. Suspect multifactorial with known Parkinson's, fragility and UTI. Continue to monitor for fall precautions and safety. Qualifiers: Encounter type: initial encounter Qualified Code(s): W19.XXXA - Unspecified fall, initial encounter (3) History of seizure Current Visit: Yes Status: Acute Assessment and plan: History of seizures. Dilantin level therapeutic. Cont home AEDs. Depakote, keppra level pending. Consult Neurology if needed seizure precautions in place. (4) DVT prophylaxis Current Visit: No Status: Acute Assessment and plan: Lovenox subcutaneous. (5) COPD (chronic obstructive pulmonary disease) Current Visit: Yes Status: Chronic Assessment and plan: No acute exacerbation. Clear diminished. Continue to titrate oxygen as needed to maintain sats greater than 92%. Continue home medications. Nebulizer treatments. Qualifiers: COPD type: emphysema Emphysema type: unspecified Qualified Code(s): J43.9 - Emphysema, unspecified (6) Dementia arising in the senium and presenium Current Visit: Yes Status: Chronic Assessment and plan: Chronic. Patient's normal baseline is alert and oriented 3. He has not returned to this level. We are continuing to monitor for possible metabolic encephalopathy due to UTI. Continue to monitor for safety. (7) Depression Current Visit: Yes Status: Chronic Assessment and plan: Chronic. Continue medications. Qualifiers: Depression Type: major depressive disorder Major depression recurrence: single episode Active/Remission status: remission status unspecified Qualified Code(s): F32.9 - Major depressive disorder, single episode, unspecified (8) Hypertension Current Visit: Yes Status: Chronic Assessment and plan: Chronic. Continue to monitor vital signs. Continue home medications. Qualifiers: Hypertension type: essential hypertension Qualified Code(s): I10 - Essential (primary) hypertension (9) Parkinson disease Current Visit: No Status: Chronic Assessment and plan: Per history. Cont home carbidopa/levodopa (10) Seizure disorder Current Visit: Yes Status: Chronic Assessment and plan: Patient when history of seizure disorder. Phenytoin level is low today. Continue home dose of medications. Continue Keppra, Dilantin, and Depakote. (11) Acute metabolic encephalopathy Current Visit: No Status: Acute Assessment and plan: Patient with prior history of dementia. Discussed with F staff and baseline mentation is A&OX3 with periods of confusion. Patient remains Alert to self only at this time. Suspect multifactorial with known dementia and UTI. He does have hx CVA, Supportive care, encourage sleep/wake cycle. Melatonin 3 mg ordered nightly. Chest CT negative for cardiopulmonary disease. Head CT negative for acute, there is global volume loss with chronic microvascular ischemic change. Brain MRI negative for acute infarct. Urine indicative of UTI, initial culture shows gram-positive cocci. Patient is being treated with Rocephin 1 g daily. We will narrow antibiotic after final culture and sensitivity are available. Chest X-Ray 01/14/18 13:47 IMPRESSION: No evidence of acute cardiopulmonary disease. D/ / Herson Gordon MD / Herson Gordon MD Interpreting Provider: Herson Gordon MD Head CT 01/14/18 13:48 IMPRESSION: 1. No acute intracranial abnormality. 2. Global parenchymal volume loss with chronic microvascular ischemic change. 3. Atherosclerosis. 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 D/ / Brennan العراقي / Brennan العراقي Interpreting Provider: Brennan العراقي - Time Spent With Patient less than 15 minutes - Subjective Interval history: Patient was seen and assessed bedside at 10:30 AM. He was drowsy, arouses easily to verbal stimuli. Patient is alert to name only. He denies any headache or blurred vision, he denies chest pain or shortness of breath. He denies abdominal pain, nausea, vomiting, diarrhea. - Constitutional Vitals: Temp Pulse Resp BP Pulse Ox 97.0 F L 73 17 124/81 97 01/16/18 15:57 01/16/18 15:57 01/16/18 15:57 01/16/18 15:57 01/16/18 15:57 General appearance: Present: cooperative, A&O X 1, pleasant, no acute distress. Absent: answers questions appropriately - Head Head exam: Present: atraumatic, normal inspection, normocephalic - Eye Eye exam: Present: normal appearance, conjuntiva pink, sclera anicteric - Neck Neck exam general surgery: Present: supple, trachea midline. Absent: lymphadenopathy - Respiratory Respiratory exam: Present: CTAB. Absent: accessory muscle use, rales, rhonchi, wheezes - Cardiovascular Cardiovascular exam: Present: RRR, +S1, +S2. Absent: bradycardia, diastolic murmur, gallop, rubs, systolic murmur - GI/Abdominal GI/Abdominal exam: Present: hepatomegaly, normal bowel sounds, soft. Absent: distended, tenderness - Extremities Exam Extremities exam: Present: normal capillary refill, warm, radial pulses palpable and symmetrical. Absent: calf tenderness, cyanotic, pedal edema - Neurological Exam Neurological exam: Present: alert, altered, no focal deficits. Absent: oriented X3, facial droop, speech deficit - Skin Skin exam: Present: dry, intact, normal color, warm. Absent: rash Internal Medicine: Result - Labs CBC & Chem 7: 01/16/18 06:21 01/16/18 06:21 Labs: Short CBC 01/16/18 Range/Units 06:21 WBC 4.7 (4.3-11.1) K/mcL Hgb 11.5 L (12.9-16.9) g/dL Hct 34.0 L (37.5-50.1) % Plt Count 162 (140-400) K/mcL Neutrophils # 3.2 (1.6-8.9) K/mcL BMP 01/16/18 06:21 Sodium 138 Potassium 3.6 Chloride 104 Carbon Dioxide 26 BUN 28 H Creatinine 0.92 Glucose 118 H Calcium 8.8 - ABG Interpretation ABG results: PT/INR, D-dimer PT 11.8 Seconds (9.4-12.1) 01/14/18 14:00 - Impressions Impressions Brain MRI 01/15/18 10:07 IMPRESSION: Multifocal small-vessel ischemic change and multiple old infarcts No acute infarct. D/ / Brennan العراقي / Brennan العراقي Interpreting Provider: Brennan العرقاي Consult Discharge Plan - Plan Referrals: Marcelo Lobo MD [Partnered Physician] - 01/19/18 2:00 pm
--- NOTE | 2018-01-16 21:56 | Electrocardiograph Report ---
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
[2018-01-17] MEDS: hydrALAZINE 25 MG TABLET PO SCH ×3 (01:04→14:33)
[2018-01-17] MEDS: *HR* HYDROcodone/Acet 5/325 mg TABLET PO PRN ×2 (04:11→14:12)
[2018-01-17] MEDS: levETIRAcetam 250 MG TABLET PO SCH ×2 (05:44→18:23)
[2018-01-17] MEDS: *HR* Enoxaparin 40 MG/0.4 ML SYRINGE SQ SCH (05:44)
[2018-01-17] MEDS: Haloperidol Lactate 5 MG/ML VIAL IVP PRN ×2 (05:45→14:13)
[2018-01-17] MEDS: amLODIPine 5 MG TABLET PO SCH (08:01)
[2018-01-17] MEDS: Lisinopril 20 MG TABLET PO SCH (08:01)
[2018-01-17] MEDS: Divalproex (12 HR) 500 MG TABLET PO SCH ×2 (08:01→20:34)
[2018-01-17] MEDS: Folic Acid 1 MG TABLET PO SCH (08:01)
[2018-01-17] MEDS: Carbidopa/Levodopa 25/100 TABLET PO SCH ×2 (08:01→20:34)
[2018-01-17] MEDS: FLUoxetine 20 MG CAPSULE PO SCH (08:01)
--- NOTE | 2018-01-17 12:44 | Internal Med Progress Note ---
Date of Encounter: 01/17/18 Time of Encounter: 09:15 - Assessment and plan (1) Altered mental status Current Visit: Yes Status: Acute Assessment and plan: Pt with baseline dementia, also presents with metabolic encephalopathy most likely due to UTI. Pt appears to be improving today, is able to state that he is at the hospital and state his name. He is not aware of the time or president. Improving. No pneumonia noted on CXR, Head CT and MRI non acute. Continue IV antibiotics and IVF prn. Monitor for safety, fall precautions and bed alarm. Chest X-Ray 01/14/18 13:47 IMPRESSION: No evidence of acute cardiopulmonary disease. D/ / Herson Gordon MD / Herson Gordon MD Interpreting Provider: Herson Gordon MD Head CT 01/14/18 13:48 IMPRESSION: 1. No acute intracranial abnormality. 2. Global parenchymal volume loss with chronic microvascular ischemic change. 3. Atherosclerosis. 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 D/ / Brennan العراقي / Brennan العراقي Interpreting Provider: Brennan العراقي Qualifiers: Altered mental status type: delirium Qualified Code(s): R41.0 - Disorientation, unspecified (2) Fall Current Visit: Yes Status: Acute Assessment and plan: Unwitnessed fall at senior living, no apparent seizure activity. CT Head and MRI brain negative. Suspect multifactorial with known Parkinson's, fragility and UTI. Continue to monitor for fall precautions and safety. Qualifiers: Encounter type: initial encounter Qualified Code(s): W19.XXXA - Unspecified fall, initial encounter (3) History of seizure Current Visit: Yes Status: Acute Assessment and plan: History of seizures. Dilantin level subtherapeutic, will increase dose. Cont home AEDs. Depakote, keppra level 19. Consult Neurology if needed Continue seizure precautions. (4) COPD (chronic obstructive pulmonary disease) Current Visit: Yes Status: Chronic Assessment and plan: No acute exacerbation. Lungs are clear and diminished throughout, no wheezing, rales, ronchi, or respiratory distress. Continue to titrate oxygen as needed to maintain sats greater than 92%. Continue home medications. Continue scheduled nebulizer treatments. Qualifiers: COPD type: emphysema Emphysema type: unspecified Qualified Code(s): J43.9 - Emphysema, unspecified (5) Dementia arising in the senium and presenium Current Visit: Yes Status: Chronic Assessment and plan: Chronic. Patient's normal baseline is alert and oriented 3 per ECF staff. He has not returned to this level, but is improving. We are continuing to monitor labs for metabolic encephalopathy due to UTI. Continue to monitor for safety. (6) Depression Current Visit: Yes Status: Chronic Assessment and plan: Chronic. Continue medications. Qualifiers: Depression Type: major depressive disorder Major depression recurrence: single episode Active/Remission status: remission status unspecified Qualified Code(s): F32.9 - Major depressive disorder, single episode, unspecified (7) Hypertension Current Visit: Yes Status: Chronic Assessment and plan: Chroinc. Monitor vitals per admission order. Continue home medications. Qualifiers: Hypertension type: essential hypertension Qualified Code(s): I10 - Essential (primary) hypertension (8) Parkinson disease Current Visit: Yes Status: Chronic Assessment and plan: Per history. Cont home carbidopa/levodopa (9) Seizure disorder Current Visit: Yes Status: Chronic Assessment and plan: Plan as above for history of seizures. (10) Acute metabolic encephalopathy Current Visit: No Status: Acute Assessment and plan: Plan as above for AMS Chest X-Ray 01/14/18 13:47 IMPRESSION: No evidence of acute cardiopulmonary disease. D/ / Herson Gordon MD / Herson Gordon MD Interpreting Provider: Herson Gordon MD Head CT 01/14/18 13:48 IMPRESSION: 1. No acute intracranial abnormality. 2. Global parenchymal volume loss with chronic microvascular ischemic change. 3. Atherosclerosis. 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 D/ / Brennan العراقي / Brennan العراقي Interpreting Provider: Brennan العراقي (11) DVT prophylaxis Current Visit: No Status: Acute Assessment and plan: Lovenox subcutaneous qd (12) UTI (urinary tract infection) Current Visit: Yes Status: Acute Assessment and plan: UA indicative of UTI, Pt has been treated with Rocephin 1 gram IV daily and appears to be improving. Preliminary culture Gram + Cocci. Final reveals Aerococcus species and sensitivity is pending. Qualifiers: Urinary tract infection type: site unspecified Hematuria presence: without hematuria Qualified Code(s): N39.0 - Urinary tract infection, site not specified (13) Urinary retention Current Visit: Yes Status: Acute Assessment and plan: Pt reports that he cannot urinate this a.m. 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 Bladder scan shows 224ml urine in bladder post void. Nursing attempting Cisneros insertion. Will continue to monitor. - Time Spent With Patient less than 15 minutes - Subjective Interval history: Patient was seen and assessed bedside at 0915 AM. He was drowsy, arouses easily to verbal stimuli. Patient is alert and appears to answer questions appropriately. He is oriented to name and place only today. He denies any headache or blurred vision, he denies chest pain or shortness of breath. He denies abdominal pain, nausea, vomiting, diarrhea.He states that he can not urinate. Bladder scan ordered. - Constitutional Vitals: Temp Pulse Resp BP Pulse Ox 97.6 F 76 16 120/77 96 01/17/18 11:51 01/17/18 11:51 01/17/18 11:51 01/17/18 11:51 01/17/18 11:51 General appearance: Present: cooperative, A&O X 1, A&O X 2, pleasant, no acute distress. Absent: answers questions appropriately - Head Head exam: Present: atraumatic, normal inspection, normocephalic - Eye Eye exam: Present: normal appearance, conjuntiva pink, sclera anicteric - Neck Neck exam general surgery: Present: supple, trachea midline. Absent: lymphadenopathy, tenderness - Respiratory Respiratory exam: Present: CTAB. Absent: accessory muscle use, chest wall tenderness, rales, respiratory distress, rhonchi, wheezes - Cardiovascular Cardiovascular exam: Present: RRR, +S1, +S2. Absent: diastolic murmur, gallop, rubs, systolic murmur - GI/Abdominal GI/Abdominal exam: Present: normal bowel sounds, soft. Absent: distended, hepatomegaly, tenderness - Extremities Exam Extremities exam: Present: normal capillary refill, normal inspection, warm, radial pulses palpable and symmetrical. Absent: calf tenderness, cyanotic, pedal edema, tenderness - Neurological Exam Neurological exam: Present: alert, altered, no focal deficits. Absent: oriented X3, facial droop, speech deficit - Skin Skin exam: Present: dry, intact, normal color, warm. Absent: rash Internal Medicine: Result - Labs CBC & Chem 7: 01/16/18 06:21 01/16/18 06:21 - ABG Interpretation ABG results: PT/INR, D-dimer PT 11.8 Seconds (9.4-12.1) 01/14/18 14:00 Consult Discharge Plan - Plan Referrals: Marcelo Lobo MD [Partnered Physician] - 01/19/18 2:00 pm
[2018-01-17] MEDS: cefTRIAXone 1,000 MG in Water for inj. (sterile) 20 ML 10 ML IVPB SCH (18:23)
[2018-01-17 22:19] LABS: Valproate Free <7 ug/mL (7-23)
[2018-01-18] MEDS: *HR* HYDROcodone/Acet 5/325 mg TABLET PO PRN ×3 (00:30→16:56)
[2018-01-18] MEDS: Haloperidol Lactate 5 MG/ML VIAL IVP PRN ×2 (05:09→16:57)
[2018-01-18] MEDS: *HR* Enoxaparin 40 MG/0.4 ML SYRINGE SQ SCH (05:13)
[2018-01-18] MEDS: levETIRAcetam 250 MG TABLET PO SCH ×2 (05:14→16:52)
[2018-01-18] MEDS ORDERED: Sennosides 8.6 MG TABLET PO PRN (07:42)
[2018-01-18] MEDS: Carbidopa/Levodopa 25/100 TABLET PO SCH ×4 (07:48→22:10)
[2018-01-18] MEDS: amLODIPine 5 MG TABLET PO SCH (07:48)
[2018-01-18] MEDS: FLUoxetine 20 MG CAPSULE PO SCH ×2 (07:48→08:13)
[2018-01-18] MEDS: Divalproex (12 HR) 500 MG TABLET PO SCH ×2 (07:48→22:10)
[2018-01-18] MEDS: Folic Acid 1 MG TABLET PO SCH ×2 (07:48→08:11)
[2018-01-18] MEDS: Lisinopril 20 MG TABLET PO SCH ×2 (07:49→08:11)
[2018-01-18] MEDS: Loratadine 10 MG TABLET PO SCH (08:17)
[2018-01-18] MEDS: Vitamin B Complex/Vit C/Vit E 1 EACH TABLET PO SCH (08:17)
[2018-01-18] MEDS ORDERED: Haloperidol Lactate 5 MG/ML VIAL IVP ONE (09:23)
--- NOTE | 2018-01-18 12:42 | Internal Med Progress Note ---
Date of Encounter: 01/18/18 Time of Encounter: 08:55 - Assessment and plan (1) Altered mental status Current Visit: Yes Status: Acute Assessment and plan: Pt with baseline dementia, also presents with metabolic encephalopathy most likely due to UTI. Patient appears to be more confused and agitated than he was yesterday. Is requiring a sitter. Patient slept most of the day yesterday, was awake all night, melatonin ordered for tonight. No pneumonia noted on CXR, Head CT and MRI non acute. Continue IV antibiotics and IVF prn. Monitor for safety, fall precautions and bed alarm. Haldol ordered when necessary for agitation. Chest X-Ray 01/14/18 13:47 IMPRESSION: No evidence of acute cardiopulmonary disease. D/ / Herson Gordon MD / Herson Gordon MD Interpreting Provider: Herson Gordon MD Head CT 01/14/18 13:48 IMPRESSION: 1. No acute intracranial abnormality. 2. Global parenchymal volume loss with chronic microvascular ischemic change. 3. Atherosclerosis. 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 D/ / Brennan العراقي / Brennan العراقي Interpreting Provider: Brennan العراقي Qualifiers: Altered mental status type: delirium Qualified Code(s): R41.0 - Disorientation, unspecified (2) Fall Current Visit: Yes Status: Acute Assessment and plan: Unwitnessed fall at alf, no apparent seizure activity. CT Head and MRI brain negative. Suspect multifactorial with known Parkinson's, fragility and UTI, metabolic encephalopathy Continue to monitor for fall precautions and safety. Qualifiers: Encounter type: initial encounter Qualified Code(s): W19.XXXA - Unspecified fall, initial encounter (3) History of seizure Current Visit: Yes Status: Acute Assessment and plan: History of seizures. Dilantin level subtherapeutic, will increase dose. Albumin ordered and pending. Cont home AEDs. Depakote, keppra level 19. Consult Neurology if needed Continue seizure precautions. (4) COPD (chronic obstructive pulmonary disease) Current Visit: Yes Status: Chronic Assessment and plan: No acute exacerbation. Lungs are clear and diminished throughout, no wheezing, rales, ronchi, or respiratory distress. Continue to titrate oxygen as needed to maintain sats greater than 92%. Continue home medications. Continue scheduled nebulizer treatments. Qualifiers: COPD type: emphysema Emphysema type: unspecified Qualified Code(s): J43.9 - Emphysema, unspecified (5) Dementia arising in the senium and presenium Current Visit: Yes Status: Chronic Assessment and plan: Chronic. Patient's normal baseline is alert and oriented 3 per ECF staff. He has not returned to this level, suspect delirium. I have ordered Melatonin 3mg qhs for sleep to help with sleep/wake cycle. We are continuing to monitor labs for metabolic encephalopathy due to UTI. Continue to monitor for safety. (6) Depression Current Visit: Yes Status: Chronic Assessment and plan: Chronic. Continue medications. Qualifiers: Depression Type: major depressive disorder Major depression recurrence: single episode Active/Remission status: remission status unspecified Qualified Code(s): F32.9 - Major depressive disorder, single episode, unspecified (7) Hypertension Current Visit: Yes Status: Chronic Assessment and plan: Chroinc. Monitor vitals per admission order. Well controlled. Hydralazine 10mg IVP q6h prn Continue home medications. Qualifiers: Hypertension type: essential hypertension Qualified Code(s): I10 - Essential (primary) hypertension (8) Parkinson disease Current Visit: Yes Status: Chronic Assessment and plan: Per history. Cont home carbidopa/levodopa (9) Seizure disorder Current Visit: Yes Status: Chronic Assessment and plan: Plan as above for history of seizures. (10) Acute metabolic encephalopathy Current Visit: No Status: Acute Assessment and plan: Plan as above for AMS. Pt agitated today, required sitter. Suspect delirium after disruption of sleep/wake cycle. Continue to monitor labs, sitter prn Chest X-Ray 01/14/18 13:47 IMPRESSION: No evidence of acute cardiopulmonary disease. D/ / Herson Gordon MD / Herson Gordon MD Interpreting Provider: Herson Gordon MD Head CT 01/14/18 13:48 IMPRESSION: 1. No acute intracranial abnormality. 2. Global parenchymal volume loss with chronic microvascular ischemic change. 3. Atherosclerosis. 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 D/ / Brennan العراقي / Brennan العراقي Interpreting Provider: Brennan العراقي (11) DVT prophylaxis Current Visit: No Status: Acute Assessment and plan: Lovenox subcutaneous qd. Pt has been up to bedside today, encourage pt out of bed. (12) UTI (urinary tract infection) Current Visit: Yes Status: Acute Qualifiers: Urinary tract infection type: site unspecified Hematuria presence: without hematuria Qualified Code(s): N39.0 - Urinary tract infection, site not specified (13) Urinary retention Current Visit: Yes Status: Acute - Subjective Interval history: Patient was seen and assessed bedside at 0855 AM. He was agitated and requiring a sitter. Patient was attempting to grab and hit staff. Redirection was not working. Patient denied pain anywhere, however could not answer questions appropriately. He denies any headache or blurred vision, he denies chest pain or shortness of breath. He denies abdominal pain, nausea, vomiting, diarrhea. he did indicate that his catheter was bothering him, will attempt a voiding trial when patient is more stable and alert. - Constitutional Vitals: Temp Pulse Resp BP Pulse Ox 97.6 F 90 16 171/96 96 01/18/18 12:35 01/18/18 12:35 01/18/18 12:35 01/18/18 12:35 01/18/18 12:35 General appearance: Present: cooperative, A&O X 1, pleasant, no acute distress. Absent: answers questions appropriately - Head Head exam: Present: atraumatic, normal inspection, normocephalic - Eye Eye exam: Present: normal appearance, conjuntiva pink, sclera anicteric - Neck Neck exam general surgery: Present: supple, trachea midline. Absent: lymphadenopathy - Respiratory Respiratory exam: Present: CTAB. Absent: accessory muscle use, rales, respiratory distress, rhonchi, wheezes - Cardiovascular Cardiovascular exam: Present: RRR, +S1, +S2. Absent: diastolic murmur, gallop, rubs, systolic murmur - GI/Abdominal GI/Abdominal exam: Present: normal bowel sounds, soft, no peritoneal signs. Absent: distended, hepatomegaly, tenderness - Extremities Exam Extremities exam: Present: normal capillary refill, normal inspection, warm, radial pulses palpable and symmetrical. Absent: calf tenderness, cyanotic, pedal edema - Neurological Exam Neurological exam: Present: alert, altered, no focal deficits. Absent: oriented X3, facial droop, speech deficit - Skin Skin exam: Present: dry, intact, normal color, warm. Absent: rash Internal Medicine: Result - Labs CBC & Chem 7: 01/16/18 06:21 01/16/18 06:21 - ABG Interpretation ABG results: PT/INR, D-dimer PT 11.8 Seconds (9.4-12.1) 01/14/18 14:00 Consult Discharge Plan - Plan Referrals: Marcelo Lobo MD [Partnered Physician] - 01/19/18 2:00 pm
[2018-01-18] MEDS ORDERED: Ipratropium/Albuterol Neb 3 ML IH PRN (12:50)
[2018-01-18] MEDS: cefTRIAXone 1,000 MG in Water for inj. (sterile) 20 ML 10 ML IVPB SCH (16:52)
[2018-01-18] MEDS ORDERED: Melatonin 3 MG TABLET PO SCH (21:00)
[2018-01-18] MEDS: hydrALAZINE 25 MG TABLET PO SCH (23:02)
[2018-01-19] MEDS: *HR* Enoxaparin 40 MG/0.4 ML SYRINGE SQ SCH (05:24)
[2018-01-19] MEDS: levETIRAcetam 250 MG TABLET PO SCH (05:25)
[2018-01-19 07:00] LABS: Basophils % 0.2 %; Eosinophils # 0.2 K/mcL (0.0-0.6); Eosinophils % 3.2 %; Hematocrit 32.9 % (37.5-50.1); Hemoglobin 11.2 g/dL (12.9-16.9); Immature Granulocytes % 0.2 % (0-4); Lymphocytes # 1.3 K/mcL (0.6-4.6); Lymphocytes % 28.4 %; Mean Corpuscular Hemoglobin 31.1 pg (28.0-33.3); Mean Corpuscular Volume 91.4 fL (83.0-100.0); Mean Platelet Volume 10.6 fL (9.4-12.4); Monocytes # 0.6 K/mcL (0.0-1.3); Monocytes % 13.4 %; Neutrophils # 2.6 K/mcL (1.6-8.9); Platelet Count 168 K/mcL (140-400); Red Cell Distribution Width 13.6 % (11.5-14.5); Segmented Neutrophils % 54.6 %
[2018-01-19 07:17] LABS: BUN/Creatinine Ratio 21 (6-26); Blood Urea Nitrogen 18 mg/dL (8-23); Calcium 8.6 mg/dL (8.6-10.3); Carbon Dioxide 26 mEq/L (23-29); Chloride 103 mEq/L (98-107); Glucose 117 mg/dL (70-105); Osmolality,Calculated 289 (280-300); Potassium 3.2 mEq/L (3.5-5.1); Sodium 138 mEq/L (136-145); eGFR For African Americans > 60 (> 60); eGFR For Non-African Americans > 60 (> 60)
[2018-01-19 07:24] LABS: Valproate Total <7 ug/mL (50-125)
[2018-01-19 07:26] LABS: Phenytoin (Dilantin) Free 1.4 ug/mL (1.0-2.5)
[2018-01-19] MEDS: Lisinopril 20 MG TABLET PO SCH (08:52)
[2018-01-19] MEDS: Carbidopa/Levodopa 25/100 TABLET PO SCH ×2 (08:53→08:54)
[2018-01-19] MEDS: Loratadine 10 MG TABLET PO SCH (08:53)
[2018-01-19] MEDS: FLUoxetine 20 MG CAPSULE PO SCH (08:53)
[2018-01-19] MEDS: Divalproex (12 HR) 500 MG TABLET PO SCH (08:53)
[2018-01-19] MEDS: amLODIPine 5 MG TABLET PO SCH (08:53)
[2018-01-19] MEDS: Vitamin B Complex/Vit C/Vit E 1 EACH TABLET PO SCH (08:54)
[2018-01-19] MEDS: Folic Acid 1 MG TABLET PO SCH (08:54)
[2018-01-19] MEDS: hydrALAZINE 25 MG TABLET PO SCH (08:54)
--- NOTE | 2018-01-19 11:35 | Discharge Summary ---
Date of Encounter: 01/19/18 Time of Encounter: 08:25 - Discharge Diagnosis (1) Altered mental status Priority: Primary Status: Acute Comments: Pt with baseline dementia, also presented with metabolic encephalopathy, has resolved. Pt has improved since yesterday, answers questions appropriately and is alert and oriented x 2 and can state his birthday today, which he has not been able to do previously. Encourage normal sleep/wake schedule. Pt was given Haldol yesterday for agitation and rested well. Suggest Melatonin for sleep at night. Pt without leukocytosis , labs are stable and WNL. Likely due to UTI, aggravated by acute delirium while here. Has returned to baseline. Qualifiers: Altered mental status type: delirium Qualified Code(s): R41.0 - Disorientation, unspecified (2) Fall Priority: Secondary Status: Acute Comments: Unwitnessed fall at senior care, no apparent seizure activity. CT Head and MRI brain negative. Suspect multifactorial with known Parkinson's, fragility and UTI, metabolic encephalopathy Continue to monitor for fall precautions and safety. Qualifiers: Encounter type: initial encounter Qualified Code(s): W19.XXXA - Unspecified fall, initial encounter (3) History of seizure Priority: Secondary Status: Acute Comments: History of seizures. Dilantin level subtherapeutic, will increase dose. Albumin 3.3 low Cont home AEDs. Depakote, keppra level 19. Continue seizure precautions. (4) COPD (chronic obstructive pulmonary disease) Priority: Secondary Status: Chronic Comments: No acute exacerbation. Lungs are clear and diminished throughout, no wheezing, rales, ronchi, or respiratory distress. Continue 02 prn Continue home medications. Continue scheduled nebulizer treatments. Qualifiers: COPD type: emphysema Emphysema type: unspecified Qualified Code(s): J43.9 - Emphysema, unspecified (5) Dementia arising in the senium and presenium Priority: Secondary Status: Chronic Comments: Chronic. I have ordered Melatonin 3mg qhs for sleep to help with sleep/wake cycle. Pt has significantly improved since admission. Continue to monitor for safety. (6) Depression Priority: Secondary Status: Chronic Comments: Chronic. Continue home medications. Qualifiers: Depression Type: major depressive disorder Major depression recurrence: single episode Active/Remission status: remission status unspecified Qualified Code(s): F32.9 - Major depressive disorder, single episode, unspecified (7) Hypertension Priority: Secondary Status: Chronic Comments: Chroinc. Monitor vitals per admission order. Well controlled. Continue home medications. Qualifiers: Hypertension type: essential hypertension Qualified Code(s): I10 - Essential (primary) hypertension (8) Parkinson disease Priority: Secondary Status: Chronic Comments: Per history. Continue Carbidopa-Levodopa (9) Seizure disorder Priority: Secondary Status: Chronic Comments: Plan as above for history of seizures. (10) Acute metabolic encephalopathy Priority: Secondary Status: Acute Comments: Improved. Pts labs and vitals stable and mentation is more clear. Chest X-Ray 01/14/18 13:47 IMPRESSION: No evidence of acute cardiopulmonary disease. D/ / Herson Gordon MD / Herson Gordon MD Interpreting Provider: Herson Gordon MD Head CT 01/14/18 13:48 IMPRESSION: 1. No acute intracranial abnormality. 2. Global parenchymal volume loss with chronic microvascular ischemic change. 3. Atherosclerosis. 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 D/ / Brennan العراقي / Brennan العراقي Interpreting Provider: Brennan العراقي (11) DVT prophylaxis Priority: Secondary Status: Acute Comments: Lovenox SQ (12) UTI (urinary tract infection) Priority: Secondary Status: Acute Comments: UA indicative of UTI. Pt has been treated with Rocephin 1 gram IV daily and has improved. Pt has no leukocytosis, no fever, no tachycardia. Metabolic encephalopathy has improved and he is more alert and oriented than previosly throughout exam. Culture grew Aerococcus species. Qualifiers: Urinary tract infection type: site unspecified Hematuria presence: without hematuria Qualified Code(s): N39.0 - Urinary tract infection, site not specified (13) Urinary retention Status: Acute - Discharge Medications Home Medications: Carbidopa/Levodopa 25/100 [Sinemet] 1 tab PO BID 11/10/15 [History] Amlodipine [Norvasc] 10 mg PO DAILY tablet 11/16/15 [Rx] Folic Acid 1 mg PO DAILY tablet 11/16/15 [Rx] Omeprazole [PriLOSEC] 20 mg PO DAILY 05/06/16 [History] Tamsulosin [Flomax] 0.4 mg PO DAILY 12/21/16 [History] Vitamin B Complex/Vit C/Vit E [Stresstab] 1 tab PO DAILY 12/21/16 [History] Vitamin E Mixed [Vitamin E] 1,000 unit PO DAILY 12/21/16 [History] Phenytoin [Dilantin] 100 mg PO Q8HR #60 tab.chew 03/10/17 [Rx] Divalproex (12 HR) [Depakote (12 HR)] 1,000 mg PO BID 05/19/17 [History] FLUoxetine HCl [Prozac] 40 mg PO DAILY 05/19/17 [History] HydrALAZINE 25 mg PO TID 05/19/17 [History] Loratadine [Claritin] 10 mg PO DAILY #30 tablet 05/21/17 [Rx] Polyethylene Glycol 3350 [MiraLAX Powder Bulk 17.9 Oz] 17 gm PO DAILY PRN [History] Sennosides [Senna] 8.6 mg PO BID PRN 07/16/17 [History] Docusate [Colace] 100 mg PO BID 07/19/17 [Rx] HYDROcodone/Acet 5/325 mg [[place] 5-325 mg] 1 tab PO Q6H PRN #20 tablet 07/19/17 [Rx] Acetaminophen [Tylenol] 650 mg PO Q8H PRN 01/14/18 [History] DiphenhydraMINE [Benadryl] 50 mg IM Q6H PRN 01/14/18 [History] LevETIRAcetam [Keppra] 1,000 mg PO Q12H 01/14/18 [History] Lisinopril [Zestril] 20 mg PO DAILY 01/14/18 [History] Losartan Potassium [Cozaar] 100 mg PO DAILY 01/14/18 [History] MOM Conc [Milk of Magnesia Conc] 30 ml PO Q72H PRN 01/14/18 [History] Allergies/Adverse Reactions: 3 Allergy/AdvReac Type Severity Reaction Status Date / Time No Known Allergies Allergy Verified 01/14/18 13:46 Date of admission: 01/14/18 19:54 Primary care physician: Praveena Lopez Discharging clinician: Shannon Purcell Anticipated date of discharge: 01/19/18 - Patient Status Condition: Fair - Discharge Instructions Follow Up With: Marcelo Lobo MD [Partnered Physician] - 01/19/18 2:00 pm Hospital course: Mr. Kennedy is a 77 year old male - Time Spent with Patient Total time spent providing and/or coordinating discharge services: - Constitutional Vitals: Temp Pulse Resp BP Pulse Ox 98.6 F 73 18 137/81 95 01/19/18 07:26 01/19/18 07:26 01/19/18 07:26 01/19/18 07:26 01/19/18 08:50 General appearance: Present: cooperative, A&O X 1, pleasant, no acute distress. Absent: answers questions appropriately
[2018-01-19 15:32] VITALS: BP 146/82
--- NOTE | 2018-01-19 16:28 | Discharge Summary ---
Date of Encounter: 01/19/18 Time of Encounter: 08:25 - Discharge Diagnosis (1) Altered mental status Priority: Primary Status: Acute Comments: Pt with baseline dementia, also presented with metabolic encephalopathy most likely due to UTI. Resolved. Pt has improved significantly and is alert and awake, answers questions more appropriately and is calm. Recommend continued Melatonin qhs for rest Transitiion to po abx Monitor for safety, fall precautions and bed alarm. Haldol ordered when necessary for agitation, recommend continue at ECF . Qualifiers: Altered mental status type: delirium Qualified Code(s): R41.0 - Disorientation, unspecified (2) Fall Priority: Secondary Status: Acute Comments: Unwitnessed fall at [facility], no apparent seizure activity. CT Head and MRI brain negative. Suspect multifactorial with known Parkinson's, fragility and UTI, metabolic encephalopathy Continue to monitor for fall precautions and safety. Qualifiers: Encounter type: initial encounter Qualified Code(s): W19.XXXA - Unspecified fall, initial encounter (3) History of seizure Priority: Secondary Status: Chronic (4) COPD (chronic obstructive pulmonary disease) Priority: Secondary Status: Chronic Comments: No acute exacerbation. His lungs within clear diminished throughout without any wheezing, rales, rhonchi. Patient is in no distress. Oxygen as needed to maintain sats greater than 92%. Continue home medications. Qualifiers: COPD type: emphysema Emphysema type: unspecified Qualified Code(s): J43.9 - Emphysema, unspecified (5) Dementia arising in the senium and presenium Priority: Secondary Status: Chronic Comments: Plan as above for AMS (6) Depression Priority: Secondary Status: Chronic Comments: Chronic. Continue medications. Qualifiers: Depression Type: major depressive disorder Major depression recurrence: single episode Active/Remission status: remission status unspecified Qualified Code(s): F32.9 - Major depressive disorder, single episode, unspecified (7) Hypertension Priority: Secondary Status: Chronic Comments: Chronic. Well controlled. Continue home medication. Qualifiers: Hypertension type: essential hypertension Qualified Code(s): I10 - Essential (primary) hypertension (8) Parkinson disease Priority: Secondary Status: Chronic Comments: Chronic. Continue home medication. (9) Seizure disorder Priority: Secondary Status: Chronic Comments: History. Patient with decreased phenytoin level. We will add 100 mg to daily regimen. Patient will take 100 mg every 6 hours. The patient will need to have redraw in 3 days to avoid toxicity. (10) Acute metabolic encephalopathy Priority: Secondary Status: Acute Comments: Plan as above for AMS. Patient has improved significantly. He is alert, pleasant, answers questions appropriately. (11) DVT prophylaxis Priority: Secondary Status: Acute Comments: lovenox SQ daily (12) UTI (urinary tract infection) Priority: Secondary Status: Acute Comments: Patient presented with altered mental status, acute metabolic encephalopathy, with baseline dementia. Urine indicative of UTI. Final culture revealed enterococcus species. Patient has been treated with Rocephin 1 g IV daily. We will continue Omnicef 300 mg twice daily for 3 days after discharge. Patient is afebrile, no back Pain and no leukocytosis. Qualifiers: Urinary tract infection type: site unspecified Hematuria presence: without hematuria Qualified Code(s): N39.0 - Urinary tract infection, site not specified (13) Urinary retention Priority: Secondary Status: Acute Comments: Maintain Cisneros catheter. Patient will need to have voiding trial after discharge. - Discharge Medications Prescriptions: Cefdinir [Omnicef] 300 mg PO BID #6 capsule Phenytoin [Dilantin] 100 mg PO Q6H #60 tab.chew Home Medications: Carbidopa/Levodopa 25/100 [Sinemet] 1 tab PO BID 11/10/15 [History] Amlodipine [Norvasc] 10 mg PO DAILY tablet 11/16/15 [Rx] Folic Acid 1 mg PO DAILY tablet 11/16/15 [Rx] Omeprazole [PriLOSEC] 20 mg PO DAILY 05/06/16 [History] Tamsulosin [Flomax] 0.4 mg PO DAILY 12/21/16 [History] Vitamin B Complex/Vit C/Vit E [Stresstab] 1 tab PO DAILY 12/21/16 [History] Vitamin E Mixed [Vitamin E] 1,000 unit PO DAILY 12/21/16 [History] Divalproex (12 HR) [Depakote (12 HR)] 1,000 mg PO BID 05/19/17 [History] FLUoxetine HCl [Prozac] 40 mg PO DAILY 05/19/17 [History] HydrALAZINE 25 mg PO TID 05/19/17 [History] Loratadine [Claritin] 10 mg PO DAILY #30 tablet 05/21/17 [Rx] Polyethylene Glycol 3350 [MiraLAX Powder Bulk 17.9 Oz] 17 gm PO DAILY PRN [History] Sennosides [Senna] 8.6 mg PO BID PRN 07/16/17 [History] Docusate [Colace] 100 mg PO BID 07/19/17 [Rx] HYDROcodone/Acet 5/325 mg [[place] 5-325 mg] 1 tab PO Q6H PRN #20 tablet 07/19/17 [Rx] Acetaminophen [Tylenol] 650 mg PO Q8H PRN 01/14/18 [History] DiphenhydraMINE [Benadryl] 50 mg IM Q6H PRN 01/14/18 [History] LevETIRAcetam [Keppra] 1,000 mg PO Q12H 01/14/18 [History] Lisinopril [Zestril] 20 mg PO DAILY 01/14/18 [History] Losartan Potassium [Cozaar] 100 mg PO DAILY 01/14/18 [History] MOM Conc [MILK OF MAGNESIA conc] 30 ml PO Q72H PRN 01/14/18 [History] Cefdinir [Omnicef] 300 mg PO BID #6 capsule 01/19/18 [Rx] Docusate [Colace] 100 mg PO BID capsule 01/19/18 [Rx] Melatonin 3 mg PO HS tablet 01/19/18 [Rx] Phenytoin [Dilantin] 100 mg PO Q6H #60 tab.chew 01/19/18 [Rx] levETIRAcetam [Keppra] 1,000 mg PO Q12HR tablet 01/19/18 [Rx] Allergies/Adverse Reactions: 3 Allergy/AdvReac Type Severity Reaction Status Date / Time No Known Allergies Allergy Verified 01/14/18 13:46 Date of admission: 01/14/18 19:54 Primary care physician: Praveena Lopez Discharging clinician: Shannon Purcell Anticipated date of discharge: 01/19/18 - Patient Status Disposition: Transfer SNF Condition: Good Functional capacity at discharge: wheelchair bound Overall status at discharge: patient is progressing back to baseline - Discharge Instructions Follow Up With: Marcelo Lobo MD [Partnered Physician] - 01/19/18 2:00 pm Additional Instructions: Pt will need to have Phenytoin level drawn in 3 days Change dose of Phenytoin to 300mg po 4x/day until level is WNL. - Diet and Activity Activity: increase activity as tolerated Diet: advance to your usual diet Hospital course: Mr. Kennedy is a 77 year old male - Time Spent with Patient Total time spent providing and/or coordinating discharge services: - Constitutional Vitals: Temp Pulse Resp BP Pulse Ox 98.7 F 77 18 146/82 94 01/19/18 15:31 01/19/18 15:31 01/19/18 15:31 01/19/18 15:31 01/19/18 15:31 General appearance: Present: cooperative, A&O X 2, pleasant, no acute distress, answers questions appropriately - Head Head exam: Present: atraumatic, normal inspection, normocephalic - Eye Eye exam: Present: normal appearance, conjuntiva pink, sclera anicteric - Neck Neck exam general surgery: Present: supple, trachea midline. Absent: lymphadenopathy - Respiratory Respiratory exam: Present: CTAB. Absent: accessory muscle use, rales, rhonchi, wheezes - Cardiovascular Cardiovascular exam: Present: RRR, +S1, +S2. Absent: diastolic murmur, gallop, rubs, systolic murmur - GI/Abdominal GI/Abdominal exam: Present: normal bowel sounds, soft. Absent: distended, hepatomegaly, tenderness - Extremities Exam Extremities exam: Present: normal capillary refill, normal inspection, warm, radial pulses palpable and symmetrical. Absent: calf tenderness, cyanotic, pedal edema - Neurological Exam Neurological exam: Present: alert, oriented X3, no focal deficits. Absent: facial droop, speech deficit - Skin Skin exam: Present: dry, intact, warm. Absent: rash
--- NOTE | 2018-01-19 17:24 | Physician Discharge Referral ---
ExtendedCare Referral Info Transfer To: [place] [facility] Provider in Charge after Transfer: PCP Institutional Level of Care: Intermediate - Diagnosis (1) Altered mental status Priority: Primary Status: Acute (2) Fall Priority: Secondary Status: Acute (3) History of seizure Priority: Secondary Status: Chronic (4) COPD (chronic obstructive pulmonary disease) Priority: Secondary Status: Chronic (5) Dementia arising in the senium and presenium Priority: Secondary Status: Chronic (6) Depression Priority: Secondary Status: Chronic (7) Hypertension Priority: Secondary Status: Chronic (8) Parkinson disease Priority: Secondary Status: Chronic (9) Seizure disorder Priority: Secondary Status: Chronic (10) Acute metabolic encephalopathy Priority: Secondary Status: Acute (11) DVT prophylaxis Priority: Secondary Status: Acute (12) UTI (urinary tract infection) Priority: Secondary Status: Acute (13) Urinary retention Priority: Secondary Status: Acute Prognosis: Good - Transfer Medications Prescriptions: Cefdinir [Omnicef] 300 mg PO BID #6 capsule Phenytoin [Dilantin] 100 mg PO Q6H #60 tab.chew Home Medications: Carbidopa/Levodopa 25/100 [Sinemet] 1 tab PO BID 11/10/15 [History] Amlodipine [Norvasc] 10 mg PO DAILY tablet 11/16/15 [Rx] Folic Acid 1 mg PO DAILY tablet 11/16/15 [Rx] Omeprazole [PriLOSEC] 20 mg PO DAILY 05/06/16 [History] Tamsulosin [Flomax] 0.4 mg PO DAILY 12/21/16 [History] Vitamin B Complex/Vit C/Vit E [Stresstab] 1 tab PO DAILY 12/21/16 [History] Vitamin E Mixed [Vitamin E] 1,000 unit PO DAILY 12/21/16 [History] Divalproex (12 HR) [Depakote (12 HR)] 1,000 mg PO BID 05/19/17 [History] FLUoxetine HCl [Prozac] 40 mg PO DAILY 05/19/17 [History] HydrALAZINE 25 mg PO TID 05/19/17 [History] Loratadine [Claritin] 10 mg PO DAILY #30 tablet 05/21/17 [Rx] Polyethylene Glycol 3350 [MiraLAX Powder Bulk 17.9 Oz] 17 gm PO DAILY PRN [History] Sennosides [Senna] 8.6 mg PO BID PRN 07/16/17 [History] Docusate [Colace] 100 mg PO BID 07/19/17 [Rx] HYDROcodone/Acet 5/325 mg [[place] 5-325 mg] 1 tab PO Q6H PRN #20 tablet 07/19/17 [Rx] Acetaminophen [Tylenol] 650 mg PO Q8H PRN 01/14/18 [History] DiphenhydraMINE [Benadryl] 50 mg IM Q6H PRN 01/14/18 [History] LevETIRAcetam [Keppra] 1,000 mg PO Q12H 01/14/18 [History] Lisinopril [Zestril] 20 mg PO DAILY 01/14/18 [History] Losartan Potassium [Cozaar] 100 mg PO DAILY 01/14/18 [History] MOM Conc [MILK OF MAGNESIA conc] 30 ml PO Q72H PRN 01/14/18 [History] Cefdinir [Omnicef] 300 mg PO BID #6 capsule 01/19/18 [Rx] Docusate [Colace] 100 mg PO BID capsule 01/19/18 [Rx] Melatonin 3 mg PO HS tablet 01/19/18 [Rx] Phenytoin [Dilantin] 100 mg PO Q6H #60 tab.chew 01/19/18 [Rx] levETIRAcetam [Keppra] 1,000 mg PO Q12HR tablet 01/19/18 [Rx] Allergies/Adverse Reactions: 3 Allergy/AdvReac Type Severity Reaction Status Date / Time No Known Allergies Allergy Verified 01/14/18 13:46 - Respiratory Orders Smoking Cessation: Smoking cessation has been advised. For more information, call the [place] Tobacco Quit Line at 8-442-IYXJ-NOW. - Lab Orders Lab Orders: 2 Step Mantoux Test per State regulation, CBC, U/A, Bal 17 - Ancillary Orders May use pressure relief devices daily prn, May consult with Dentist, Rn Bone Marrow Transplant, [employer] PRN - Advance Directives Code Status: Full Code (PT will need Dilantin level drawn in 3 days for recheck of level) CERTIFICATION: I certify that the transfer of the above named patient to an Extended Care Facility is necessary for the continuing treatment of the diagnosis listed. The above information is true and accurate reflection of patient's current condition. Confidential - Redisclosure prohibited without a patient's written consent.
== END 2018-01-19 18:05 ==
LOC: 3BNU 13:41 → EMEROO 13:41 → 3BNU 20:35
PROVIDERS: ADMIT Nurse Practitioner Family; ATTEND Registered Nurse

== ENCOUNTER 2018-07-26 21:42 | Observation (INO) ==
--- NOTE | 2018-07-26 22:19 | Emergency Department Note ---
Disposition Clinical Impression: Fatigue, Elevated troponin, Acute electrocardiogram changes, Tortuous aorta Disposition: Admitted As Inpatient Condition: Fair Referrals: Cristian Horta MD [Primary Care Provider] - Forms: ED Satisfaction Letter Time of Disposition: 00:01 General Adult HPI - General Chief complaint: ED Altered Mental Status Stated complaint: less responsive Time Seen by Provider: 07/26/18 22:00 Source: EMS Nursing Notes Reviewed: Yes Vital Signs Reviewed: Yes - History of Present Illness HPI Narrative: 77-year-old male presents from [facility] where staff reported him to be decreased in responsiveness. The patient's nurse told EMS that he has a history of playing, "possum," but this is different to her. EMS is otherwise unable to clarify. Patient has history of recurrent UTI, history of urinary retention. He had an indwelling Cisneros removed one month ago. Patient is only complaint at this time is general ill feeling and burning with urination. PMH: COPD, history CVA, GERD, hypertension, hyperlipidemia, chronic kidney disease, history of dementia. ROS: positive: As above Negative: Fever, chills, chest pains, palpitations, dyspnea, diaphoresis, abdominal pain, nausea, vomiting, change in bowel habits Pain Scale: 2 - Related Data Home Medications Medication Instructions Recorded Confirmed Carbidopa/Levodopa 25/100 [Sinemet] 1 tab PO BID 11/10/15 01/14/18 Omeprazole [PriLOSEC] 20 mg PO DAILY 05/06/16 01/14/18 Tamsulosin [Flomax] 0.4 mg PO DAILY 12/21/16 01/14/18 Vitamin B Complex/Vit C/Vit E 1 tab PO DAILY 12/21/16 01/14/18 [Stresstab] Vitamin E Mixed [Vitamin E] 1,000 unit PO DAILY 12/21/16 01/14/18 Divalproex (12 HR) [Depakote (12 1,000 mg PO BID 05/19/17 01/14/18 HR)] FLUoxetine HCl [Prozac] 40 mg PO DAILY 05/19/17 01/14/18 HydrALAZINE 25 mg PO TID 05/19/17 01/14/18 Polyethylene Glycol 3350 [MiraLAX 17 gm PO DAILY PRN 07/16/17 01/14/18 Powder Bulk 17.9 Oz] Sennosides [Senna] 8.6 mg PO BID PRN 07/16/17 01/14/18 Acetaminophen [Tylenol] 650 mg PO Q8H PRN 01/14/18 01/14/18 DiphenhydraMINE [Benadryl] 50 mg IM Q6H PRN 01/14/18 01/14/18 LevETIRAcetam [Keppra] 1,000 mg PO Q12H 01/14/18 01/14/18 Lisinopril [Zestril] 20 mg PO DAILY 01/14/18 01/14/18 Losartan Potassium [Cozaar] 100 mg PO DAILY 01/14/18 01/14/18 MOM Conc [MILK OF MAGNESIA conc] 30 ml PO Q72H PRN 01/14/18 01/14/18 Previous Rx's Medication Instructions Recorded Amlodipine [Norvasc] 10 mg PO DAILY tablet 11/16/15 Folic Acid 1 mg PO DAILY tablet 11/16/15 Loratadine [Claritin] 10 mg PO DAILY #30 tablet 05/21/17 Docusate [Colace] 100 mg PO BID 07/19/17 HYDROcodone/Acet 5/325 mg [[place] 1 tab PO Q6H PRN #20 tablet 07/19/17 5-325 mg] Cefdinir [Omnicef] 300 mg PO BID #6 capsule 01/19/18 Docusate [Colace] 100 mg PO BID capsule 01/19/18 Melatonin 3 mg PO HS tablet 01/19/18 Phenytoin [Dilantin] 100 mg PO Q6H #60 tab.chew 01/19/18 levETIRAcetam [Keppra] 1,000 mg PO Q12HR tablet 01/19/18 Allergies Allergy/AdvReac Type Severity Reaction Status Date / Time No Known Allergies Allergy Verified 07/26/18 21:53 All systems ED: reviewed and negative except as stated. Review of Systems: As Per HPI Past Medical History - Past Medical History Medical history: Reports: arthritis, COPD, CVA, dementia, GERD, hyperlipidemia, hypertension, osteoporosis, renal disease, seizures, syncope, TIA, other Surgical history: Reports: cataract, prostatectomy, other Psychiatric history: Reports: anxiety, depression - Social History Smoking Status: Former smoker Smokeless Tobacco Status: No Alcohol use: Reports: none Drug use: Reports: none Physical Exam Vital Signs Reviewed General: Patient is alert, oriented, and in no acute distress. Head: atraumatic, normocephalic Eye: normal appearance, no scleral icterus, no conjunctival injection ENT: mucous membranes moist, normal external ear exam Neck: normal inspection, trachea midline, full ROM Chest: normal inspection, symmetric chest rise Respiratory: Poor respiratory effort. Bilateral breath sounds are clear without wheezing, crackles, or rhonchi. Cardiovascular: Regular rate and rhythm. No clicks, rubs, gallops, or murmors. Normal heart sounds. Abdomen: Bowel sounds present normoactive x-4 quadrants. Abdomen is soft, nondistended, and nontender. No guarding or rebound. No organomegaly noted. Musculoskeletal: Spontaneously moving all extremities. Skin: warm, dry, intact. Neuro: GCS 15. Alert and oriented x4 - oriented to name, location, month, year. Sensation light touch intact and equal bilateral lower extremities. Psych: Patient's affect is appropriate for situation. - General General appearance: alert, in no apparent distress Course Course Narrative: EKG dated 07/26/18 at 21:55 interpreted as sinus rhythm with rate of 93. CT 211. QTC 509. Widened QRS. Left bundle branch block that is appropriately discordant. Left axis. Nonspecific ST-T changes. Compared to previous EKG dated 01/14/2018 showing bundle branch block is new; no acute ischemic changes or comparison. 23:20 Patient was discussed with [facility] - recommendation of CTA chest given tortuous aorta. Serum hematology is unremarkable. Serum chemistry shows normal renal function. Slight elevation in troponin above the patient's baseline. Patient denies any chest pain. He does, however , have generalized weakness as well as EKG changes. I discussed the above with the admitting hospitalist, , who agrees to accept the patient for cycling of his troponins. CTA chest is pending. Chest X-Ray 07/26/18 22:12 IMPRESSION: Progressive tortuosity of the thoracic aorta since 2017. Recommend further evaluation with dedicated CTA chest. D/ / Miles Uribe / Miles Uribe Interpreting Provider: Miles Uribe Vital Signs Temperature 99.0 F 07/26/18 21:45 Pulse Rate 95 07/26/18 21:45 Respiratory Rate 16 07/26/18 21:45 Blood Pressure 148/108 07/26/18 21:45 O2 Sat by Pulse Oximetry 97 07/26/18 21:45 Temperature 99.0 F 07/26/18 21:45 Pulse Rate 92 07/26/18 22:02 Respiratory Rate 16 07/26/18 22:02 Blood Pressure 175/113 07/26/18 22:02 O2 Sat by Pulse Oximetry 95 07/26/18 22:02 Oxygen Delivery Oxygen Delivery Room Air Medical Decision Making - Lab Data Result diagrams: 07/26/18 22:27 07/26/18 22:27 Lab Results 07/26/18 07/26/18 07/26/18 Range/Units 22:23 22:27 22:27 WBC 7.8 (4.3-11.1) K/mcL RBC 4.06 L (4.19-5.50) M/mcL Hgb 13.1 (12.9-16.9) g/dL Hct 40.1 (37.5-50.1) % MCV 98.8 (83.0-100.0) fL MCH 32.3 (28.0-33.3) pg MCHC 32.7 (31.6-35.5) g/dL RDW 13.8 (11.5-14.5) % Plt Count 253 (140-400) K/mcL MPV 9.6 (9.4-12.4) fL Immature Gran % 0.3 (0-4) % Seg Neutrophils % 65.5 % Lymphocytes % 23.4 % Monocytes % 9.8 % Eosinophils % 0.5 % Basophils % 0.5 % Neutrophils # 5.1 (1.6-8.9) K/mcL Lymphocytes # 1.8 (0.6-4.6) K/mcL Monocytes # 0.8 (0.0-1.3) K/mcL Eosinophils # 0.0 (0.0-0.6) K/mcL Basophils # 0.0 (0.0-0.2) K/mcL Sodium 136 (136-145) mEq/L Potassium 3.8 (3.5-5.1) mEq/L Chloride 111 H (98-107) mEq/L Carbon Dioxide 28 (23-29) mEq/L BUN 27 H (8-23) mg/dL Creatinine 0.84 (0.70-1.30) mg/dL Est GFR ( Amer) > 60 (> 60) Est GFR (Non-Af Amer) > 60 (> 60) BUN/Creatinine Ratio 32 H (6-26) Glucose 133 H (70-105) mg/dL Calculated Osmolality 289 (280-300) Lactic Acid (0.5-2.2) mmol/L Calcium 9.3 (8.6-10.3) mg/dL Troponin I 0.05 H* (< 0.04) ng/mL Urine Color Yellow (Yellow) Urine Clarity Clear (Clear) Urine pH 6.0 (5.0-8.0) pH Units Ur Specific [place] 1.022 (1.010-1.025) Urine Protein Trace (Neg-Trace) mg/dL Urine Glucose (UA) Normal (Normal) mg/dL Urine Ketones Negative (Negative) mg/dL Urine Blood Negative (Negative) Urine Nitrite Negative (Negative) Urine Bilirubin Small H (Negative) Urine Urobilinogen Normal (Normal) mg/dL Ur Leukocyte Esterase Negative (Negative) Urine Microscopic RBC 0-3 (0-3) per hpf Urine Microscopic WBC 0-3 (0-3) per hpf Ur Squamous Epith Cells Moderate H (None-Few) per lpf Urine Bacteria None Seen (None-Few) per hpf Hyaline Casts None Seen (None-Few) per lpf Ur Culture Indicated? NO (NO) 07/26/18 Range/Units 22:27 WBC (4.3-11.1) K/mcL RBC (4.19-5.50) M/mcL Hgb (12.9-16.9) g/dL Hct (37.5-50.1) % MCV (83.0-100.0) fL MCH (28.0-33.3) pg MCHC (31.6-35.5) g/dL RDW (11.5-14.5) % Plt Count (140-400) K/mcL MPV (9.4-12.4) fL Immature Gran % (0-4) % Seg Neutrophils % % Lymphocytes % % Monocytes % % Eosinophils % % Basophils % % Neutrophils # (1.6-8.9) K/mcL Lymphocytes # (0.6-4.6) K/mcL Monocytes # (0.0-1.3) K/mcL Eosinophils # (0.0-0.6) K/mcL Basophils # (0.0-0.2) K/mcL Sodium (136-145) mEq/L Potassium (3.5-5.1) mEq/L Chloride (98-107) mEq/L Carbon Dioxide (23-29) mEq/L BUN (8-23) mg/dL Creatinine (0.70-1.30) mg/dL Est GFR ( Amer) (> 60) Est GFR (Non-Af Amer) (> 60) BUN/Creatinine Ratio (6-26) Glucose (70-105) mg/dL Calculated Osmolality (280-300) Lactic Acid 1.3 (0.5-2.2) mmol/L Calcium (8.6-10.3) mg/dL Troponin I (< 0.04) ng/mL Urine Color (Yellow) Urine Clarity (Clear) Urine pH (5.0-8.0) pH Units Ur Specific [place] (1.010-1.025) Urine Protein (Neg-Trace) mg/dL Urine Glucose (UA) (Normal) mg/dL Urine Ketones (Negative) mg/dL Urine Blood (Negative) Urine Nitrite (Negative) Urine Bilirubin (Negative) Urine Urobilinogen (Normal) mg/dL Ur Leukocyte Esterase (Negative) Urine Microscopic RBC (0-3) per hpf Urine Microscopic WBC (0-3) per hpf Ur Squamous Epith Cells (None-Few) per lpf Urine Bacteria (None-Few) per hpf Hyaline Casts (None-Few) per lpf Ur Culture Indicated? (NO)
[2018-07-26 22:33] LABS: Bilirubin,Urine Small (Negative); Blood,Urine Negative (Negative); Clarity,Urine Clear (Clear); Color,Urine Yellow (Yellow); Glucose,Urine (UA) Normal (Normal); Ketones,Urine Negative (Negative); Leukocyte Esterase,Urine Negative (Negative); Nitrite,Urine Negative (Negative); Protein,Urine Trace mg/dL (Neg-Trace); Specific Gravity,Urine 1.022 (1.010-1.025); Urobilinogen,Urine Normal (Normal)
[2018-07-26 22:35] LABS: Bacteria,Urine None Seen per hpf (None-Few); Hyaline Casts,Urine None Seen per lpf (None-Few); RBC,Urine 0-3 per hpf (0-3); Squamous Epithelial Cell,Urine Moderate per lpf (None-Few); WBC,Urine 0-3 per hpf (0-3)
[2018-07-26 22:36] LABS: Basophils % 0.5 %; Eosinophils % 0.5 %; Hematocrit 40.1 % (37.5-50.1); Hemoglobin 13.1 g/dL (12.9-16.9); Immature Granulocytes % 0.3 % (0-4); Lymphocytes # 1.8 K/mcL (0.6-4.6); Lymphocytes % 23.4 %; Mean Corpuscular HGB Conc 32.7 g/dL (31.6-35.5); Mean Corpuscular Hemoglobin 32.3 pg (28.0-33.3); Mean Corpuscular Volume 98.8 fL (83.0-100.0); Mean Platelet Volume 9.6 fL (9.4-12.4); Monocytes # 0.8 K/mcL (0.0-1.3); Monocytes % 9.8 %; Neutrophils # 5.1 K/mcL (1.6-8.9); Platelet Count 253 K/mcL (140-400); Red Blood Count 4.06 M/mcL (4.19-5.50); Red Cell Distribution Width 13.8 % (11.5-14.5); Segmented Neutrophils % 65.5 %
[2018-07-26 22:57] LABS: BUN/Creatinine Ratio 32 (6-26); Blood Urea Nitrogen 27 mg/dL (8-23); Calcium 9.3 mg/dL (8.6-10.3); Carbon Dioxide 28 mEq/L (23-29); Chloride 111 mEq/L (98-107); Glucose 133 mg/dL (70-105); Osmolality,Calculated 289 (280-300); Potassium 3.8 mEq/L (3.5-5.1); Sodium 136 mEq/L (136-145); eGFR For Non-African Americans > 60 (> 60)
[2018-07-26 23:01] LABS: Troponin I 0.05 ng/mL (< 0.04)
--- NOTE | 2018-07-26 23:03 | Emergency Department Note ---
Disposition Clinical Impression: Fatigue Disposition: Still a Patient Forms: ED Satisfaction Letter General Adult HPI - General Chief complaint: ED Altered Mental Status Stated complaint: less responsive Time Seen by Provider: 07/26/18 22:00 Source: EMS - History of Present Illness Pain Scale: 2 - Related Data Home Medications Medication Instructions Recorded Confirmed Carbidopa/Levodopa 25/100 [Sinemet] 1 tab PO BID 11/10/15 01/14/18 Omeprazole [PriLOSEC] 20 mg PO DAILY 05/06/16 01/14/18 Tamsulosin [Flomax] 0.4 mg PO DAILY 12/21/16 01/14/18 Vitamin B Complex/Vit C/Vit E 1 tab PO DAILY 12/21/16 01/14/18 [Stresstab] Vitamin E Mixed [Vitamin E] 1,000 unit PO DAILY 12/21/16 01/14/18 Divalproex (12 HR) [Depakote (12 1,000 mg PO BID 05/19/17 01/14/18 HR)] FLUoxetine HCl [Prozac] 40 mg PO DAILY 05/19/17 01/14/18 HydrALAZINE 25 mg PO TID 05/19/17 01/14/18 Polyethylene Glycol 3350 [MiraLAX 17 gm PO DAILY PRN 07/16/17 01/14/18 Powder Bulk 17.9 Oz] Sennosides [Senna] 8.6 mg PO BID PRN 07/16/17 01/14/18 Acetaminophen [Tylenol] 650 mg PO Q8H PRN 01/14/18 01/14/18 DiphenhydraMINE [Benadryl] 50 mg IM Q6H PRN 01/14/18 01/14/18 LevETIRAcetam [Keppra] 1,000 mg PO Q12H 01/14/18 01/14/18 Lisinopril [Zestril] 20 mg PO DAILY 01/14/18 01/14/18 Losartan Potassium [Cozaar] 100 mg PO DAILY 01/14/18 01/14/18 MOM Conc [MILK OF MAGNESIA conc] 30 ml PO Q72H PRN 01/14/18 01/14/18 Previous Rx's Medication Instructions Recorded Amlodipine [Norvasc] 10 mg PO DAILY tablet 11/16/15 Folic Acid 1 mg PO DAILY tablet 11/16/15 Loratadine [Claritin] 10 mg PO DAILY #30 tablet 05/21/17 Docusate [Colace] 100 mg PO BID 07/19/17 HYDROcodone/Acet 5/325 mg [[place] 1 tab PO Q6H PRN #20 tablet 07/19/17 5-325 mg] Cefdinir [Omnicef] 300 mg PO BID #6 capsule 01/19/18 Docusate [Colace] 100 mg PO BID capsule 01/19/18 Melatonin 3 mg PO HS tablet 01/19/18 Phenytoin [Dilantin] 100 mg PO Q6H #60 tab.chew 01/19/18 levETIRAcetam [Keppra] 1,000 mg PO Q12HR tablet 01/19/18 Allergies Allergy/AdvReac Type Severity Reaction Status Date / Time No Known Allergies Allergy Verified 07/26/18 21:53 Past Medical History - Past Medical History Medical history: Reports: arthritis, COPD, CVA, dementia, GERD, hyperlipidemia, hypertension, osteoporosis, renal disease, seizures, syncope, TIA, other Surgical history: Reports: cataract, prostatectomy, other Psychiatric history: Reports: anxiety, depression - Social History Smoking Status: Former smoker Smokeless Tobacco Status: No Alcohol use: Reports: none Drug use: Reports: none Physical Exam - General General appearance: alert, in no apparent distress Course Vital Signs Temperature 99.0 F 07/26/18 21:45 Pulse Rate 95 07/26/18 21:45 Respiratory Rate 16 07/26/18 21:45 Blood Pressure 148/108 07/26/18 21:45 O2 Sat by Pulse Oximetry 97 07/26/18 21:45 Temperature 99.0 F 07/26/18 21:45 Pulse Rate 92 07/26/18 22:02 Respiratory Rate 16 07/26/18 22:02 Blood Pressure 175/113 07/26/18 22:02 O2 Sat by Pulse Oximetry 95 07/26/18 22:02 Oxygen Delivery Oxygen Delivery Room Air Medical Decision Making - Lab Data Result diagrams: 07/26/18 22:27 07/26/18 22:27 Lab Results 07/26/18 07/26/18 07/26/18 Range/Units 22:23 22:27 22:27 WBC 7.8 (4.3-11.1) K/mcL RBC 4.06 L (4.19-5.50) M/mcL Hgb 13.1 (12.9-16.9) g/dL Hct 40.1 (37.5-50.1) % MCV 98.8 (83.0-100.0) fL MCH 32.3 (28.0-33.3) pg MCHC 32.7 (31.6-35.5) g/dL RDW 13.8 (11.5-14.5) % Plt Count 253 (140-400) K/mcL MPV 9.6 (9.4-12.4) fL Immature Gran % 0.3 (0-4) % Seg Neutrophils % 65.5 % Lymphocytes % 23.4 % Monocytes % 9.8 % Eosinophils % 0.5 % Basophils % 0.5 % Neutrophils # 5.1 (1.6-8.9) K/mcL Lymphocytes # 1.8 (0.6-4.6) K/mcL Monocytes # 0.8 (0.0-1.3) K/mcL Eosinophils # 0.0 (0.0-0.6) K/mcL Basophils # 0.0 (0.0-0.2) K/mcL Sodium 136 (136-145) mEq/L Potassium 3.8 (3.5-5.1) mEq/L Chloride 111 H (98-107) mEq/L Carbon Dioxide 28 (23-29) mEq/L BUN 27 H (8-23) mg/dL Creatinine 0.84 (0.70-1.30) mg/dL Est GFR ( Amer) > 60 (> 60) Est GFR (Non-Af Amer) > 60 (> 60) BUN/Creatinine Ratio 32 H (6-26) Glucose 133 H (70-105) mg/dL Calculated Osmolality 289 (280-300) Lactic Acid (0.5-2.2) mmol/L Calcium 9.3 (8.6-10.3) mg/dL Urine Color Yellow (Yellow) Urine Clarity Clear (Clear) Urine pH 6.0 (5.0-8.0) pH Units Ur Specific [place] 1.022 (1.010-1.025) Urine Protein Trace (Neg-Trace) mg/dL Urine Glucose (UA) Normal (Normal) mg/dL Urine Ketones Negative (Negative) mg/dL Urine Blood Negative (Negative) Urine Nitrite Negative (Negative) Urine Bilirubin Small H (Negative) Urine Urobilinogen Normal (Normal) mg/dL Ur Leukocyte Esterase Negative (Negative) Urine Microscopic RBC 0-3 (0-3) per hpf Urine Microscopic WBC 0-3 (0-3) per hpf Ur Squamous Epith Cells Moderate H (None-Few) per lpf Urine Bacteria None Seen (None-Few) per hpf Hyaline Casts None Seen (None-Few) per lpf Ur Culture Indicated? NO (NO) 07/26/18 Range/Units 22:27 WBC (4.3-11.1) K/mcL RBC (4.19-5.50) M/mcL Hgb (12.9-16.9) g/dL Hct (37.5-50.1) % MCV (83.0-100.0) fL MCH (28.0-33.3) pg MCHC (31.6-35.5) g/dL RDW (11.5-14.5) % Plt Count (140-400) K/mcL MPV (9.4-12.4) fL Immature Gran % (0-4) % Seg Neutrophils % % Lymphocytes % % Monocytes % % Eosinophils % % Basophils % % Neutrophils # (1.6-8.9) K/mcL Lymphocytes # (0.6-4.6) K/mcL Monocytes # (0.0-1.3) K/mcL Eosinophils # (0.0-0.6) K/mcL Basophils # (0.0-0.2) K/mcL Sodium (136-145) mEq/L Potassium (3.5-5.1) mEq/L Chloride (98-107) mEq/L Carbon Dioxide (23-29) mEq/L BUN (8-23) mg/dL Creatinine (0.70-1.30) mg/dL Est GFR ( Amer) (> 60) Est GFR (Non-Af Amer) (> 60) BUN/Creatinine Ratio (6-26) Glucose (70-105) mg/dL Calculated Osmolality (280-300) Lactic Acid 1.3 (0.5-2.2) mmol/L Calcium (8.6-10.3) mg/dL Urine Color (Yellow) Urine Clarity (Clear) Urine pH (5.0-8.0) pH Units Ur Specific [place] (1.010-1.025) Urine Protein (Neg-Trace) mg/dL Urine Glucose (UA) (Normal) mg/dL Urine Ketones (Negative) mg/dL Urine Blood (Negative) Urine Nitrite (Negative) Urine Bilirubin (Negative) Urine Urobilinogen (Normal) mg/dL Ur Leukocyte Esterase (Negative) Urine Microscopic RBC (0-3) per hpf Urine Microscopic WBC (0-3) per hpf Ur Squamous Epith Cells (None-Few) per lpf Urine Bacteria (None-Few) per hpf Hyaline Casts (None-Few) per lpf Ur Culture Indicated? (NO) Attestation Statement - Attestation Attestation: I examined this patient and my medical decision-making was reviewed with the Resident Physician. I agree with the documented findings, disposition and treatment plan as described except to the extent set forth below. 77-year-old male presents emergency room from a local nursing facility for what the halfway felt was decreased level of consciousness. It that he seemed more sleepy today status I did send him to the emergency room around 11 PM at night when he has been like this all day. He states he feels fine other than he does feel slightly fatigued but he is alert and oriented 3 and has no focal pain complaints. He states he did not really eat or drink much today due to poor appetite. He denies any chest pain or shortness of breath. He does admit to one loose stool today. Check some screening lab work and a chest x-ray to evaluate for any possible pneumonia. His urinalysis thus far is negative. No white count. Normal CBC and basic metabolic panel. His vitals are stable. Afebrile.
[2018-07-26] MEDS ORDERED: 0.9 % Sodium Chloride 1,000 ML IVC ONE (23:08)
[2018-07-26] MEDS ORDERED: Isovue-370 500 ML INFUS..BTL IV ONE (23:22)
[2018-07-27] MEDS ORDERED: Acetaminophen 325 MG TABLET PO PRN (04:35)
[2018-07-27] MEDS ORDERED: Naloxone 0.4 MG/ML INJ IVP PRN (04:35)
[2018-07-27] MEDS ORDERED: *HR* HYDROcodone/Acet 5/325 mg TABLET PO PRN (04:39)
[2018-07-27] MEDS ORDERED: Sennosides 8.6 MG TABLET PO PRN (04:39)
--- NOTE | 2018-07-27 04:55 | Internal Med History&Physical ---
Date of Encounter: 07/27/18 Time of Encounter: 03:45 Internal Medicine - H&P: HPI Chief complaint: SOB; altered mental status Admitted From: Emergency Dept Plans for Post Hospital Care: Transfer Snf Facility History of present illness: Mr. Kennedy is a 77 year old male who presents to the ER tonight from his local ECF where he was noted to be somnolent and difficult to arouse initially. However, upon arrival to the ER, he is awake and alert and in no distress. There was concerns that he might have had an UTI but urinalysis was unremarkable. Routine labs were performed and he was noted to have positive troponin elevation, hypertension, and left bundle-branch block. He was therefore admitted to hospitalist service. Upon my assessment of the patient, he is sleeping but easily arousable. He is alert and oriented 3. He denies any chest pain or palpitations. He does complain of some mild shortness of breath, however. He has no fevers, cough, congestion, vomiting, or diarrhea. He denies any dysuria or hematuria. He has chronic prostate problems and has some difficulty emptying his bladder. He has a history of dementia and Parkinson's disease, but he appears to be alert and oriented on initial assessment and exam. Patient denies any prior cardiac history. He is FULL CODE. Past Med Surg Social Fam HX - Past Medical History Attestation: Yes The following information was validated with the patient. 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 pressure released from brain - Social History Smoking Status: Former smoker Smokeless Tobacco Status: No Alcohol use: none Drug use: none Current living situation: [facility] Recent Out of Country Travel Within the Last 8 Weeks: No - Family History Father Adopted: Yes Family Member Ethnicity: Non- Living Status: Mother Adopted: Yes Living Status: Internal Medicine - H&P: Meds Carbidopa/Levodopa 25/100 [Sinemet] 1 tab PO BID 11/10/15 [History] Amlodipine [Norvasc] 10 mg PO DAILY tablet 11/16/15 [Rx] Folic Acid 1 mg PO DAILY tablet 11/16/15 [Rx] Omeprazole [PriLOSEC] 20 mg PO DAILY 05/06/16 [History] Tamsulosin [Flomax] 0.4 mg PO DAILY 12/21/16 [History] Vitamin B Complex/Vit C/Vit E [Stresstab] 1 tab PO DAILY 12/21/16 [History] Vitamin E Mixed [Vitamin E] 800 unit PO DAILY 12/21/16 [History] Divalproex (12 HR) [Depakote (12 HR)] 1,000 mg PO BID 05/19/17 [History] FLUoxetine HCl [Prozac] 40 mg PO DAILY 05/19/17 [History] HydrALAZINE 25 mg PO TID 05/19/17 [History] Loratadine [Claritin] 10 mg PO DAILY #30 tablet 05/21/17 [Rx] Polyethylene Glycol 3350 [MiraLAX Powder Bulk 17.9 Oz] 17 gm PO DAILY PRN [History] Sennosides [Senna] 8.6 mg PO BID PRN 07/16/17 [History] Docusate [Colace] 100 mg PO BID 07/19/17 [Rx] HYDROcodone/Acet 5/325 mg [[place] 5-325 mg] 1 tab PO Q6H PRN #20 tablet 07/19/17 [Rx] Acetaminophen [Tylenol] 650 mg PO Q8H PRN 01/14/18 [History] DiphenhydraMINE [Benadryl] 50 mg IM Q6H PRN 01/14/18 [History] LevETIRAcetam [Keppra] 1,000 mg PO Q12H 01/14/18 [History] Lisinopril [Zestril] 20 mg PO DAILY 01/14/18 [History] Losartan Potassium [Cozaar] 100 mg PO DAILY 01/14/18 [History] MOM Conc [MILK OF MAGNESIA conc] 30 ml PO Q72H PRN 01/14/18 [History] Cefdinir [Omnicef] 300 mg PO BID #6 capsule 01/19/18 [Rx] Docusate [Colace] 100 mg PO BID capsule 01/19/18 [Rx] Melatonin 3 mg PO HS tablet 01/19/18 [Rx] Phenytoin [Dilantin] 100 mg PO Q6H #60 tab.chew 01/19/18 [Rx] Finasteride [Proscar] 5 mg PO DAILY 07/27/18 [History] Oxybutynin Chloride [Ditropan Xl] 5 mg PO BID 07/27/18 [History] Quetiapine Fumarate [SEROquel] 25 mg PO HS 07/27/18 [History] Venlafaxine [Effexor] 75 mg PO BID 07/27/18 [History] levETIRAcetam [Keppra] 500 mg PO BID 07/27/18 [History] 3 Allergy/AdvReac Type Severity Reaction Status Date / Time No Known Allergies Allergy Verified 07/26/18 21:53 - Constitutional Constitutional: no chills, no fatigue, no fever(s), no night sweats - EENT Eyes: no blurry vision, no change in vision Additional comments: chronic vision loss right eye Ears: no ear pain, no tinnitus Nose, mouth and throat: no nasal congestion, no sinus pressure, no sore throat - Cardiovascular Cardiovascular ROS IM: dyspnea, no chest pain, no diaphoresis, no lightheadedness, no orthopnea, no palpitations, no paroxysmal nocturnal dyspnea , no syncope - Respiratory Respiratory: no cough, no hemoptysis, no chest congestion, no excessive phlegm production, no change in phlegm color - Gastrointestinal Gastrointestinal: no abdominal pain, no diarrhea, no hematemesis, no hematochezia, no melena, no vomiting - Genitourinary Genitourinary ROS male: urinary hesitancy, urinary urgency, no dysuria, no flank pain, no hematuria - Musculoskeletal Musculoskeletal ROS IM: no atrophy, no back pain - Integumentary Integumentary IM: no rash, no jaundice - Neurological Neurological ROS: no convulsions, no disequilibrium, no dizziness, no focal weakness, no frequent falls, no headache(s) - Psychiatric Psychiatric: no anxiety, no depression - Endocrine Endocrine IM: no polydipsia, no polyuria - Allergic/Immunologic Allergic/Immunologic: no GI upset with certain foods - Constitutional Vitals: Temp Pulse Resp BP Pulse Ox 96.8 F L 74 15 181/100 97 07/27/18 01:37 07/27/18 01:37 07/27/18 01:37 07/27/18 02:10 07/27/18 01:37 General appearance: Present: cooperative, A&O X 3, pleasant, no acute distress, answers questions appropriately Exam: see below - Head Head exam: Present: atraumatic, normal inspection - Eye Eye exam: Present: EOMI. Absent: scleral icterus Pupils: Present: normal accommodation - ENT ENT exam: Present: mucous membranes dry, normal exam, normal oropharynx - Neck Neck exam general surgery: Present: full ROM, supple. Absent: tenderness, nuchal rigidity, thyromegaly - Respiratory Respiratory exam: Present: CTAB. Absent: chest wall tenderness, rales, rhonchi , wheezes - Cardiovascular Cardiovascular exam: Present: RRR, +S1, +S2. Absent: diastolic murmur, systolic murmur - GI/Abdominal GI/Abdominal exam: Present: normal bowel sounds, soft. Absent: guarding, hepatomegaly, mass, rebound, splenomegaly, tenderness - Extremities Exam Extremities exam: Present: full ROM, normal capillary refill, warm, radial pulses palpable and symmetrical. Absent: calf tenderness, joint swelling, pedal edema, tenderness - Back Exam Back exam: Absent: CVA tenderness (L), CVA tenderness (R) - Neurological Exam Neurological exam: Present: alert, CN II-XII intact, oriented X3, no focal deficits Additional comments: blind right eye; no pill rolling-tremor appreciated - Psychiatric Psychiatric exam: Present: normal affect, normal mood - Skin Skin exam: Present: dry, warm. Absent: rash Internal Med - H&P Results - Labs CBC & Chem 7: 07/26/18 22:27 07/26/18 22:27 - EKG Data -: EKG Interpreted by Myself - EKG Data Prior EKG available for review: yes EKG comments: 07/27/18 04:59 new LBBB; old EKG w LAFB - Diagnostic Studies Chest x-ray Status: image reviewed by me (tortuous aorta; CTA performed -- negative other than tortuous aorta) - Assessment and plan (1) Elevated troponin Current Visit: Yes Status: Acute Assessment and plan: 1. Will trend troponins, EKG's, order ECHO. 2. Will place on ASA and STATIN. 3. Consult cardiology, especially given new LBBB. (2) Uncontrolled hypertension Current Visit: Yes Status: Acute Assessment and plan: 1. Resume home meds as appropriate. 2. Will order hydralazine PRN for SBP > 160. 3. Monitor and adjust home meds as needed. (3) Altered mental status Current Visit: Yes Status: Resolved Assessment and plan: 1. Based upon my assessment and exam, patient is alert and oriented x 3 -- confirmed with RN. 2. Monitor and reassess as needed. Qualifiers: Altered mental status type: somnolence Qualified Code(s): R40.0 - Somnolence (4) DVT prophylaxis Current Visit: Yes Status: Acute Assessment and plan: 1. Heparin SQ.
[2018-07-27] MEDS: *HR* Heparin 5,000 UNIT/ML VIAL SQ SCH ×2 (05:36→18:05)
--- NOTE | 2018-07-27 08:02 | Cardiology Consult Note ---
Date of Encounter: 07/27/18 Time of Encounter: 09:03 Assessment and Plan (1) Acute electrocardiogram changes Current Visit: Yes Status: Acute Possible new LBBB compared with ECG from January 2018. No known cardiac history Clinically less concern for acute ischemic heart disease Troponin 0.05-->0.04 Adynamic Do not recommend catheterization at this time May consider stress test pending ECHO results (2) Elevated troponin Current Visit: Yes Status: Acute Adynamic troponins with multiple comorbidities Continue to monitor May consider stress test pending ECHO results (3) Uncontrolled hypertension Current Visit: Yes Status: Acute BP noted to be elevated in 160s systolic Noted to remain elevated after administration of morning medications Will monitor for afternoon bp measurements Continue ASA, Statin, CCB May consider increasing Hydralazine or adding beta-rom if refractory to current management (4) DVT prophylaxis Current Visit: Yes Status: Acute SC Heparin Discussion w patient/family: The assessment and plan as outlined above was discussed with the patient and/or family members who expressed understanding and agreement. All questions were answered. Thank you for involving us in the care of your patient. Please call with any questions. History of Present Illness Consult date: 07/27/18 Requesting physician: Hernán Ovalle Consult reason: New LBBB on ECG Chief complaint: Somnolence History of present illness: Mr. Kennedy is a 77 year old male with a history of CVA, HTN, CKD, recurrent UTIs, COPD, GERD, and Dementia who presented from [facility] due to decreased responsiveness according to nursing staff. Although the patient is awake and oriented to self and year but is is unaware of what hospital he is in or why he was brought here. Therefore, the history is mostly obtained from chart review. He was found to have a new LBBB on his initial EKG with no reported cardiac history. The patient is awake and lying comfortably in bed upon exam, but he is unable to provide a history or reliably report symptoms due to possible confusion. Unsure of the patient's baseline. 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 pressure released from brain - Social History Smoking Status: Former smoker Smokeless Tobacco Status: No Alcohol use: none Drug use: none - Family History Father Adopted: Yes Family Member Ethnicity: Non- Living Status: Mother Adopted: Yes Living Status: Medications and Allergies Tamsulosin [Flomax] 0.4 mg PO DAILY 12/21/16 [History] Vitamin E Mixed [Vitamin E] 800 unit PO DAILY 12/21/16 [History] Divalproex (12 HR) [Depakote (12 HR)] 1,000 mg PO BID 05/19/17 [History] Loratadine [Claritin] 10 mg PO DAILY #30 tablet 05/21/17 [Rx] Sennosides [Senna] 17.2 mg PO BID 07/16/17 [History] Losartan Potassium [Cozaar] 100 mg PO DAILY 01/14/18 [History] Amlodipine Besylate [Amlodipine Besylate] 10 mg PO DAILY 07/27/18 [History] Calcium Carbonate/Vitamin D3 [Calcium 250+D Tablet] 1 tab PO DAILY 07/27/18 [ History] Carbidopa/Levodopa [Carbidopa-Levodopa 25-100 Tab] 1 tab PO BID 07/27/18 [ History] Finasteride [Proscar] 5 mg PO DAILY 07/27/18 [History] Folic Acid 1 mg PO DAILY 07/27/18 [History] Omeprazole [PriLOSEC] 20 mg PO DAILY 07/27/18 [History] OxyCODONE Immed Rel [Roxicodone 10 MG] 10 mg PO Q6H 07/27/18 [History] Oxybutynin [Ditropan] 5 mg PO BID 07/27/18 [History] Oxycodone HCl [Oxycodone HCl] 5 mg PO Q4H PRN 07/27/18 [History] Phenytoin ER [Dilantin ER] 100 mg PO Q6H 07/27/18 [History] Quetiapine Fumarate [SEROquel] 25 mg PO HS 07/27/18 [History] Venlafaxine [Effexor] 75 mg PO BID 07/27/18 [History] hydrALAZINE [HydrALAZINE] 25 mg PO Q8HR 07/27/18 [History] levETIRAcetam [Keppra] 500 mg PO BID 07/27/18 [History] 3 Allergy/AdvReac Type Severity Reaction Status Date / Time No Known Allergies Allergy Verified 07/27/18 10:25 ROS unobtainable: due to mental status All Systems Review: The remainder of the systems were reviewed and are negative Physical Examination Vital Signs, Last 4 Hours Temp Pulse Resp BP Pulse Ox 07/27/18 06:46 98.8 F 76 16 165/95 92 07/27/18 04:43 80 183/97 General: Conversant, Other (alert and oriented x2 (self & year, not location)) Cardiac: Reg Rate and Rhythm, Normal S1 and S2, No Murmur, Other (distant heart sounds) Lungs: Normal Breath Sounds, No Wheeze, Rales, Rhonchi Neuro: Alert and responsive Abdomen: Soft, Non-Tender Skin: No rashes noted on visualized skin Musculoskeletal: No Chest Wall Tenderness Extremities: No Clubbing, No Edema Results 07/27/18 08:17 07/27/18 08:17 Lab Results 07/27/18 04:52 Troponin I 0.04 H* Consult Discharge Plan - Plan Referrals: Cristian Horta MD [Primary Care Provider] -
[2018-07-27 08:36] LABS: Basophils % 0.4 %; Eosinophils # 0.1 K/mcL (0.0-0.6); Eosinophils % 1.1 %; Hematocrit 32.9 % (37.5-50.1); Immature Granulocytes % 0.3 % (0-4); Lymphocytes # 2.2 K/mcL (0.6-4.6); Lymphocytes % 30.9 %; Mean Corpuscular HGB Conc 33.1 g/dL (31.6-35.5); Mean Corpuscular Hemoglobin 31.9 pg (28.0-33.3); Mean Corpuscular Volume 96.2 fL (83.0-100.0); Mean Platelet Volume 9.8 fL (9.4-12.4); Monocytes # 0.7 K/mcL (0.0-1.3); Monocytes % 10.2 %; Platelet Count 218 K/mcL (140-400); Red Blood Count 3.42 M/mcL (4.19-5.50); Red Cell Distribution Width 14.1 % (11.5-14.5); Segmented Neutrophils % 57.1 %
[2018-07-27 08:42] LABS: Hemoglobin 10.9 g/dL (12.9-16.9)
--- NOTE | 2018-07-27 08:53 | Event Note ---
<Hernán Ovalle - Last Filed: 07/27/18 16:37> Date of Encounter: 07/27/18 Time of Encounter: 10:15 Subjective/interval history: Mr. 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 Labs obtained during admission shows +trop of 0.5 which has downtrended to 0.4-> 0.3, patient denying dyspnea/chest discomfort, radiating pain. ECG did show new onset LBBB and LAFB. Cardiology has since been consulted. At time of my evaluation, patient remains without diaphoresis, dyspnea, chest discomfort, leg swelling on ROS. He is able to tell me his name, the month, and where he is. O: Alert and oriented to name, month, and location. Resp: CTAB, no rales, rhonchi, wheeze CV: RRR, +S1, +S2 Neuro: no slurring of speech, no facial asymmetry MSK/skin: non-edematous, no venous stasis A/P: 1) Elevated troponin adynamic at 0.5->0.4->0.3 Cardiology consulted Coags, mag ordered 2) Uncontrolled hypertension Resume home meds as appropriate. Continuing Norvasc home med and hydralazine PRN for SBP > 160. 3) Altered mental status Serial checks, currently conversant, answering questions appropriately, above to report name, month, and specific location 4) Hx seizures DDx postictal, while less likely, will order Phenytoin and Keppra level 5) DVT prophylaxis Heparin SQ <Alen Brizuela - Last Filed: 07/27/18 16:50> Date of Encounter: 07/27/18 I have personally seen and examined this patient on 07/27/18 and reviewed her chart and labs, including medications, I have discussed plan of care with the resident physician, whose documentation reflect our plan of care. With the additions/exceptions set forth below.
[2018-07-27 08:56] LABS: Alanine Aminotransferase 33 Units/L (7-52); Albumin 3.3 g/dL (3.5-5.7); Albumin/Globulin Ratio 1.1 (1.1-2.2); Alkaline Phosphatase 113 Units/L (34-104); Aspartate Amino Transferase 32 Units/L (13-39); BUN/Creatinine Ratio 40 (6-26); Bilirubin,Total 0.4 mg/dL (0.3-1.0); Blood Urea Nitrogen 29 mg/dL (8-23); Calcium 8.9 mg/dL (8.6-10.3); Carbon Dioxide 25 mEq/L (23-29); Chloride 108 mEq/L (98-107); Globulin 2.9 g/dL (2.4-3.5); Glucose 117 mg/dL (70-105); Magnesium 1.7 mg/dL (1.6-2.6); Osmolality,Calculated 297 (280-300); Potassium 3.7 mEq/L (3.5-5.1); Sodium 140 mEq/L (136-145); Total Protein 6.2 g/dL (6.4-8.9); eGFR For Non-African Americans > 60 (> 60)
[2018-07-27 08:57] LABS: INR 1.1; Prothrombin Time 12.6 Seconds (9.4-12.1)
[2018-07-27 09:00] LABS: Activated Partial Thrombo Time 35.7 Seconds (26.0-36.0)
--- NOTE | 2018-07-27 09:23 | Event Note ---
Date of Encounter: 07/27/18 CC: Altered mental status HPI: Mejia Kennedy is a 77 yr old male who presented to the ED on 07/26 with decreased responsiveness. Pt. is complaining of a headache on the right side by his ear that started during the night. States that he gets headaches a lot. Pt unsure of why he is in the hospital. Complains that he is feeling bloated. Past Med Hsx: COPD, hsx of CVA, GERD, HTN, hyperlipidemia, chronic kidney disease, hsx of dementia Meds: Carbidopa/Levodopa 25/100 1 tab PO BID, Omeprazole 20 mg PO DAILY, Tamsulosin .4 mg PO DAILY, Vitamin B Complex/Vit C/Vit E 1 tab PO DAILY, Vitamin E Mixed 1,000 unit PO DAILY, Divalproex (12 HR) 1,000 mg PO BID, Fluoxetine HCl 40 mg PO DAILY, Hydralazine 25 mg PO TID, Polyethylene Glycol 3350 17 gm PO DAILY PRN, Sennosides 8.6 mg PO BID PRN, Acetaminopen 650 mg PO Q8H PRN, Diphenhydramine 50 mg IM Q6H PRN, Levetiracetam 1,000 mg PO Q12H, Lisinopril 20 mg PO DAILY, Losartan Potassium 100 mg PO DAILY, MOM Conc 30 ml PO Q72H PRN Allergies: NKDA Vitals: Temp 98.8F, Pulse 76, Resp 16, BP 165/95, Pulse Ox 92 ROS: General appearance: alert, in distress due to headache Resp: CTAB, no wheezes, rales, rhonci CV: RRR, +S1, +S2, no murmurs, gallops, or rubs Extremities: no pedal edema A&P: 1.troponin elevated adynamic at 0.5->0.4->0.3 Cardiology consulted EKG 07/26/18- sinus rhythm with rate of 93. OR 211. QT 509. Widened QRS. Left bundle branch block that is appropriately discordant. Left axis. Nonspecific ST- T changes. Compares to previous EKG dates 01/14/2018 showing bundle branch block is new; no acute ischemic changes or comparison. Pt discussed with [facility]- recommendation of CTA chest given tortuous aorta. 2. Uncontrolled HTN Continue home meds Continuing Norvasc home med and hydralazine PRN for SBP > 160. 3) Altered mental status Serial checks, currently conversant, answering questions appropriately, above to report name, month, and specific location 4) Hx seizures DDx postictal, while less likely, will order Phenytoin and Keppra level 5) DVT prophylaxis Heparin SQ
[2018-07-27] MEDS: Folic Acid 1 MG TABLET PO SCH (09:46)
[2018-07-27] MEDS: Divalproex (12 HR) 500 MG TABLET PO SCH ×2 (09:46→22:42)
[2018-07-27] MEDS: Carbidopa/Levodopa 25/100 TABLET PO SCH ×2 (09:46→22:42)
[2018-07-27] MEDS: amLODIPine 5 MG TABLET PO SCH (09:46)
[2018-07-27] MEDS: Loratadine 10 MG TABLET PO SCH (09:46)
[2018-07-27] MEDS: Aspirin 81 MG TAB.CHEW PO SCH (09:46)
[2018-07-27] MEDS: hydrALAZINE 25 MG TABLET PO SCH ×3 (09:46→22:44)
[2018-07-27] MEDS: levETIRAcetam 250 MG TABLET PO SCH ×2 (09:46→22:42)
[2018-07-27] MEDS: Finasteride 5 MG TABLET PO SCH (09:46)
[2018-07-28 05:10] LABS: Basophils # 0.1 K/mcL (0.0-0.2); Basophils % 0.6 %; Eosinophils # 0.2 K/mcL (0.0-0.6); Eosinophils % 2.6 %; Hematocrit 31.8 % (37.5-50.1); Hemoglobin 10.5 g/dL (12.9-16.9); Immature Granulocytes % 0.2 % (0-4); Lymphocytes # 2.2 K/mcL (0.6-4.6); Mean Corpuscular Hemoglobin 31.7 pg (28.0-33.3); Mean Corpuscular Volume 96.1 fL (83.0-100.0); Mean Platelet Volume 10.2 fL (9.4-12.4); Monocytes # 0.7 K/mcL (0.0-1.3); Monocytes % 8.8 %; Neutrophils # 5.2 K/mcL (1.6-8.9); Platelet Count 206 K/mcL (140-400); Red Blood Count 3.31 M/mcL (4.19-5.50); Red Cell Distribution Width 14.1 % (11.5-14.5); Segmented Neutrophils % 61.8 %
[2018-07-28 05:21] LABS: Prothrombin Time 11.8 Seconds (9.4-12.1)
[2018-07-28 05:23] LABS: Activated Partial Thrombo Time 33.8 Seconds (26.0-36.0)
[2018-07-28 05:25] LABS: Alanine Aminotransferase 5 Units/L (7-52); Albumin 3.2 g/dL (3.5-5.7); Albumin/Globulin Ratio 1.1 (1.1-2.2); Alkaline Phosphatase 106 Units/L (34-104); Aspartate Amino Transferase 26 Units/L (13-39); BUN/Creatinine Ratio 43 (6-26); Bilirubin,Total 0.3 mg/dL (0.3-1.0); Blood Urea Nitrogen 37 mg/dL (8-23); Calcium 8.9 mg/dL (8.6-10.3); Carbon Dioxide 26 mEq/L (23-29); Chloride 107 mEq/L (98-107); Chol/HDL Ratio 3.1 (0-4.9); Cholesterol 149 mg/dL (< 200); Globulin 2.8 g/dL (2.4-3.5); Glucose 103 mg/dL (70-105); HDL Cholesterol 48 mg/dL (40-59); LDL Cholesterol,Calculated 83 mg/dL (0-99); Magnesium 1.8 mg/dL (1.6-2.6); Osmolality,Calculated 297 (280-300); Potassium 3.7 mEq/L (3.5-5.1); Sodium 139 mEq/L (136-145); Triglycerides 89 mg/dL (< 150); eGFR For Non-African Americans > 60 (> 60)
[2018-07-28] MEDS: *HR* Heparin 5,000 UNIT/ML VIAL SQ SCH ×2 (05:25→17:35)
[2018-07-28] MEDS: levETIRAcetam 250 MG TABLET PO SCH ×2 (09:31→21:03)
[2018-07-28] MEDS: hydrALAZINE 25 MG TABLET PO SCH ×2 (09:31→14:36)
[2018-07-28] MEDS: Carbidopa/Levodopa 25/100 TABLET PO SCH ×2 (09:31→21:03)
[2018-07-28] MEDS: Divalproex (12 HR) 500 MG TABLET PO SCH ×2 (09:31→21:03)
[2018-07-28] MEDS: Aspirin 81 MG TAB.CHEW PO SCH (09:32)
[2018-07-28] MEDS: Folic Acid 1 MG TABLET PO SCH (09:32)
[2018-07-28] MEDS: amLODIPine 5 MG TABLET PO SCH (09:32)
[2018-07-28] MEDS: Finasteride 5 MG TABLET PO SCH (09:32)
[2018-07-28] MEDS: Loratadine 10 MG TABLET PO SCH (09:32)
--- NOTE | 2018-07-28 10:13 | Internal Med Progress Note ---
<VasquezHernán - Last Filed: 07/28/18 17:40> Hospitalist Progress Note - Encounter Date of Encounter: 07/28/18 Time of Encounter: 10:10 - Subjective Interval History: Interval history: Mr. Kennedy had a 29 beat run of non-sustained VT noted on telemetry. He denies discomfort overnight or at this time. Beta-rom initiated by cardiology; primary repleting mag and K further He is somnolent at this time but answers questions appropriately. He reports no chest pain currently, but it has been intermittent. Troponins have been down- trending from 0.05 to now <0.03; awaiting echocardiogram report. - Exam Vitals: Temp Pulse Resp BP Pulse Ox 98.6 F 75 17 158/85 94 07/28/18 07:54 07/28/18 07:54 07/28/18 07:54 07/28/18 07:54 07/28/18 07:54 Exam: General: Conversant, No Apparent Distress, slouched in bed but able to prop self upright on prompting HEENT: Atraumatic, Normocephaly, Mucus Membranes Moist Neck: No JVD, Normal carotid pulses Cardiac: Reg Rate and Rhythm, Normal S1 and S2, No Murmur, no chest wall tenderness Lungs: Normal Breath Sounds, No Wheeze, Rales, Rhonchi Neuro: Alert and responsive, No focal deficits noted Abdomen: Soft, Non-Tender Skin: No rashes noted on visualized skin Musculoskeletal: No Chest Wall Tenderness Extremities: No Clubbing, No Cyanosis, No Edema, Normal Pulses - Assessment and Plan (1) Left bundle branch block (LBBB) determined by electrocardiography Current Visit: Yes Status: Acute Assessment and Plan: New finding of LBBB, not seen on previous in Jan 2018 Denies previous cardiac history Patient somnolent this AM, he rouses to verbal prompting, not in acute distress , no dyspnea, intermittent vague reports of chest discomfort Echocardiogram completed/pending report Patient not deciding on cath until results of echo. (2) Elevated troponin Current Visit: Yes Status: Acute Assessment and Plan: Troponin 0.05, 0.04, <0.03 x2 Continuing ASA, statin Cardiology started metoprolol 25mg daily (3) Uncontrolled hypertension Current Visit: Yes Status: Acute Assessment and Plan: Systolic in 130s to 150s with Cozaar 100mg, Norvasc 10mg, and Hydralazine 25mg TID prn systolic >150s Due to unsustained run of Vtach, repleting Mag further to >2 and K+ 4-4.5; Beta- rom initiated per Cardiology Dc'ing hydralazine (4) Non-sustained ventricular tachycardia Current Visit: Yes Status: Acute Assessment and Plan: Found on telemetry, lasting 29 beats, plan as above - Time Spent with Patient Total time spent is greater than 50% in coordination of care (as documented) at patient's floor/unit and/or counseling patient: Internal Medicine: Result - Labs CBC & Chem 7: 07/28/18 04:12 07/28/18 04:12 Labs: Short CBC 07/28/18 Range/Units 04:12 WBC 8.3 (4.3-11.1) K/mcL Hgb 10.5 L (12.9-16.9) g/dL Hct 31.8 L (37.5-50.1) % Plt Count 206 (140-400) K/mcL Neutrophils # 5.2 (1.6-8.9) K/mcL BMP 07/28/18 04:12 Sodium 139 Potassium 3.7 Chloride 107 Carbon Dioxide 26 BUN 37 H Creatinine 0.87 Glucose 103 Calcium 8.9 Cardiac Enzymes 07/27/18 07/27/18 Range/Units 10:40 17:53 Troponin I 0.03 0.03 (< 0.04) ng/mL Liver Function 07/28/18 Range/Units 04:12 Total Bilirubin 0.3 (0.3-1.0) mg/dL AST 26 (13-39) Units/L ALT 5 L (7-52) Units/L Alkaline Phosphatase 106 H (34-104) Units/L Albumin 3.2 L (3.5-5.7) g/dL - ABG Interpretation ABG results: PT/INR, D-dimer PT 11.8 Seconds (9.4-12.1) 07/28/18 04:12 Consult Discharge Plan - Plan Referrals: Cristian Horta MD [Primary Care Provider] - <Tripp Jane - Last Filed: 07/28/18 18:56> Hospitalist Progress Note - Encounter Date of Encounter: 07/28/18 - Exam Vitals: Temp Pulse Resp BP Pulse Ox 98.4 F 77 15 110/78 98 07/28/18 16:00 07/28/18 16:00 07/28/18 16:00 07/28/18 16:00 07/28/18 16:00 - Assessment and Plan (1) Hypertensive urgency Current Visit: Yes Status: Acute (2) DVT prophylaxis Current Visit: Yes Status: Acute (3) Elevated troponin Current Visit: Yes Status: Acute (4) Altered mental status Current Visit: Yes Status: Resolved (5) Uncontrolled hypertension Current Visit: Yes Status: Acute (6) Non-sustained ventricular tachycardia Current Visit: Yes Status: Acute (7) COPD (chronic obstructive pulmonary disease) Current Visit: No Status: Chronic (8) Parkinson disease Current Visit: No Status: Chronic (9) Seizure disorder Current Visit: No Status: Chronic - Time Spent with Patient Total time spent is greater than 50% in coordination of care (as documented) at patient's floor/unit and/or counseling patient: Internal Medicine: Result - Labs CBC & Chem 7: 07/28/18 04:12 07/28/18 04:12 Labs: Short CBC 07/28/18 Range/Units 04:12 WBC 8.3 (4.3-11.1) K/mcL Hgb 10.5 L (12.9-16.9) g/dL Hct 31.8 L (37.5-50.1) % Plt Count 206 (140-400) K/mcL Neutrophils # 5.2 (1.6-8.9) K/mcL BMP 07/28/18 04:12 Sodium 139 Potassium 3.7 Chloride 107 Carbon Dioxide 26 BUN 37 H Creatinine 0.87 Glucose 103 Calcium 8.9 Liver Function 07/28/18 Range/Units 04:12 Total Bilirubin 0.3 (0.3-1.0) mg/dL AST 26 (13-39) Units/L ALT 5 L (7-52) Units/L Alkaline Phosphatase 106 H (34-104) Units/L Albumin 3.2 L (3.5-5.7) g/dL Urine 07/28/18 Range/Units 14:50 Urine Color Dark Yellow (Yellow) Urine Clarity Hazy (Clear) Urine pH 8.5 H (5.0-8.0) pH Units Ur Specific [place] > 1.030 H (1.010-1.025) Urine Protein >=1000 H (Neg-Trace) mg/dL Urine Glucose (UA) Normal (Normal) mg/dL - ABG Interpretation ABG results: PT/INR, D-dimer PT 11.8 Seconds (9.4-12.1) 07/28/18 04:12 - Impressions Impressions Echocardiogram 07/27/18 04:35 Impressions: Technically sub-optimal due to poor echocardiographic windows. LVEF 60%. Not all LV segments were well visualized, but overall LVEF is normal. Normal LV chamber size and function. Mild concentric left ventricular hypertrophy. Normal right ventricular structure and function. Indeterminate diastolic function. Unable to estimate RVSP due to lack of TR jet. No obvious significant valvular dysfunction. Findings: Study Quality * Technically sub-optimal due to poor echocardiographic windows. ECG Findings * Sinus bradycardia. Left Ventricle * LVEF 60%. Not all LV segments were well visualized, but overall LVEF is normal. * Normal LV chamber size and function. * Atypical septal motion c/w a bundle branch block. * Mild concentric left ventricular hypertrophy. * Indeterminate diastolic function. Right Ventricle * Normal right ventricular structure and function. Left Atrium * Mildly dilated left atrium. Right Atrium * Normal right atrial size. Aortic Valve * Aortic valve not well visualized. No obvious significant dysfunction by Doppler. Mitral Valve * Normal mitral valve structure. * No mitral regurgitation. * No mitral stenosis. Tricuspid Valve * Normal tricuspid valve structure and function. * No tricuspid regurgitation. * Unable to estimate RVSP due to lack of TR jet. Pulmonic Valve * Pulmonic valve not well visualized. Aorta * Aortic root not well visualized. Pericardium * The pericardium appears normal. IVC * The IVC is not well evaluated. Pulmonary Artery * Pulmonary artery not well visualized. - Attending Attestation I examined this patient and my medical decision-making was reviewed with the Resident Physician on 07/28/18. I agree with the documented findings, disposition and treatment plan as described except to the extent set forth below. Mr Kennedy is currently in observation due to hypertensive urgency and new LBBB. He was noted to have NSVT last night. He remains moderate to high risk at this time Mr Kennedy is resting comfortably. No chest pain at this time. No fever or chills. Does not want to have LHC. Replacing electrolytes. Exam alert Comfortable Mucus membranes dry Heart reg now No wheeze abd soft I/P 1. HTN urgency 2. LBBB 3. NSVT Further diagnoses and plan as above. 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
[2018-07-28 10:34] LABS: Keppra (Levetiracetam) 9 ug/mL (12-46)
--- NOTE | 2018-07-28 11:30 | Cardiology Progress Note ---
Date of Encounter: 07/28/18 Time of Encounter: 08:45 Assessment and Plan (1) Acute electrocardiogram changes Current Visit: Yes Status: Acute Per cardiology: -Possible new LBBB compared with ECG from January 2018. -No known cardiac history -TTE pending. -Does report some mild chest pain today. Patient is unable to further qualify, possible related to HTN? -Discussed with patient regarding possible LHC, at this point patient does not wish to proceed with LHC. Patient would to discuss possible LHC after TTE resulted. (2) Non-sustained ventricular tachycardia Current Visit: Yes Status: Acute Per cardiology: -Per telemetry, one run of non-sustained VT noted, lasting 29 beats. -TTE pending. -Will start beta rom. -Recommend K >4, Mg >2. (3) Elevated troponin Current Visit: Yes Status: Acute Per cardiology: -Troponins 0.05, 0.04, then negative x2 in the setting of HTN. -Reports some chest pain today, however unable to further qualify. May be related to HTN. -On asa, statin. Started BB. -TTE pending. -Denies previous invasive cardiac testing. -ECG with possible new LBBB. -Currently hemodynamically stable. -Do not suspect NSTEMI at this time, suspect demand ischemia related to above. Further recommendations pending TTE. -BB added. (4) Uncontrolled hypertension Current Visit: Yes Status: Acute Per cardiology: -BP noted to be elevated in 180s systolic -Currently 130-150s -BB added. -Will continue to monitor. Discussion w patient/family: The assessment and plan as outlined above was discussed with the patient who expressed understanding and agreement. All questions were answered. Thank you for involving us in the care of your patient. Please call with any questions. Discussed and reviewed with . Subjective Principal diagnosis: Altered mental status. Interval history: Patient is alert and oriented x3 this am. Reports some mild chest pain, unable to further describe. Denies palpitations or fluttering. Denies syncope or near syncope. Objective Vital Signs, Last 4 Hours Temp Pulse Resp BP Pulse Ox 07/28/18 07:54 98.6 F 75 17 158/85 94 General: Conversant, No Apparent Distress HEENT: Atraumatic, Normocephaly, Mucus Membranes Moist Neck: No JVD, Normal carotid pulses Cardiac: Reg Rate and Rhythm, Normal S1 and S2, No Murmur Lungs: Normal Breath Sounds, No Wheeze, Rales, Rhonchi Neuro: Alert and responsive, No focal deficits noted Abdomen: Soft, Non-Tender Skin: No rashes noted on visualized skin Musculoskeletal: No Chest Wall Tenderness Extremities: No Clubbing, No Cyanosis, No Edema, Normal Pulses Results 07/28/18 04:12 07/28/18 04:12 Lab Results Active Medications Acetaminophen (Tylenol) 650 mg PO Q6HR PRN PRN Reason: Mild Pain/Fever Stop: 01/26/19 04:36 Hydrocodone Bitart/Acetaminophen ([place] 5-325 Mg) 1 tab PO Q6H PRN PRN Reason: Pain Stop: 01/26/19 04:40 Last Admin: 07/27/18 14:31 Dose: 1 tab Amlodipine Besylate (Norvasc) 10 mg PO DAILY [facility] PRN Reason: Protocol Stop: 01/26/19 09:01 Last Admin: 07/28/18 09:32 Dose: 10 mg Aspirin (Aspirin) 81 mg PO DAILY [facility] Stop: 01/26/19 09:01 Last Admin: 07/28/18 09:32 Dose: 81 mg Atorvastatin Calcium (Lipitor) 10 mg PO HS [facility] Stop: 01/26/19 21:01 Last Admin: 07/27/18 22:42 Dose: 10 mg Carbidopa/Levodopa (Sinemet) 1 each PO BID [facility] Stop: 01/26/19 09:01 Last Admin: 07/28/18 09:31 Dose: 1 each Divalproex Sodium (Depakote (12 Hr)) 1,000 mg PO BID [facility] Stop: 01/26/19 09:01 Last Admin: 07/28/18 09:31 Dose: 1,000 mg Finasteride (Proscar) 5 mg PO DAILY [facility] PRN Reason: Protocol Stop: 01/26/19 09:01 Last Admin: 07/28/18 09:32 Dose: 5 mg Folic Acid (Folic Acid) 1 mg PO DAILY [facility] Stop: 01/26/19 09:01 Last Admin: 07/28/18 09:32 Dose: 1 mg Heparin Sodium (Porcine) (Heparin) 5,000 unit SQ Q12HCO [facility] Stop: 01/26/19 06:01 Last Admin: 07/28/18 05:25 Dose: 5,000 unit Hydralazine HCl (Hydralazine) 25 mg PO TID [facility] Stop: 01/26/19 09:01 Last Admin: 07/28/18 09:31 Dose: 25 mg Levetiracetam (Keppra) 500 mg PO BID [facility] Stop: 01/26/19 09:01 Last Admin: 07/28/18 09:31 Dose: 500 mg Loratadine (Claritin) 10 mg PO DAILY [facility] PRN Reason: Protocol Stop: 01/26/19 09:01 Last Admin: 07/28/18 09:32 Dose: 10 mg Losartan Potassium (Cozaar) 100 mg PO DAILY [facility] Stop: 01/26/19 09:01 Last Admin: 07/28/18 09:32 Dose: 100 mg Naloxone HCl (Narcan) 0.4 mg IVP Q2MIN PRN PRN Reason: SEE COMMENTS Stop: 01/26/19 04:36 Omeprazole (Prilosec) 20 mg PO 0800 [facility] PRN Reason: Protocol Stop: 01/26/19 08:01 Last Admin: 07/28/18 09:31 Dose: 20 mg Oxybutynin Chloride (Ditropan) 5 mg PO BID [facility] Stop: 01/26/19 09:01 Last Admin: 07/28/18 09:32 Dose: 5 mg Phenytoin (Dilantin Er) 100 mg PO Q6HR [facility] Stop: 01/26/19 12:01 Last Admin: 07/28/18 05:26 Dose: 100 mg Senna (Senna) 8.6 mg PO BID PRN PRN Reason: Constipation Stop: 01/26/19 04:40 Last Admin: 07/27/18 14:31 Dose: 8.6 mg Tamsulosin HCl (Flomax) 0.4 mg PO HS [facility] PRN Reason: Protocol Stop: 01/26/19 21:01 Last Admin: 07/27/18 22:42 Dose: 0.4 mg Laboratory Tests 07/26/18 07/26/18 07/27/18 22:27 22:27 04:52 Hgb 13.1 Potassium Creatinine Magnesium Troponin I 0.05 H* 0.04 H* 07/27/18 07/27/18 07/27/18 08:17 10:40 17:53 Hgb 10.9 L D Potassium Creatinine Magnesium Troponin I 0.03 0.03 08/28/18 08/28/18 04:12 04:12 Hgb 10.5 L Potassium 3.7 Creatinine 0.87 Magnesium 1.8 Troponin I - Imaging and Cardiology Chest Xray: report reviewed Echo: pending, report reviewed - EKG Interpretation EKG results cardiology: personally reviewed (ECG with SR, LBBB.), other ( Telemetry reviewed with average HR previous 12 hours noted to be 67, SR. PVCs and PACs noted. One run of non-sustained ventricular tachycardia lasting 29 beats.) Consult Discharge Plan - Plan Referrals: Cristian Horta MD [Primary Care Provider] -
[2018-07-28] MEDS: Metoprolol XL (24 HR) Succ 25 MG TAB.ER.24H PO SCH (14:36)
[2018-07-28 15:08] LABS: Bilirubin,Urine Negative (Negative); Blood,Urine Negative (Negative); Color,Urine Dark Yellow (Yellow); Glucose,Urine (UA) Normal (Normal); Ketones,Urine Negative (Negative); Leukocyte Esterase,Urine Large (Negative); Nitrite,Urine Negative (Negative); PH,Urine 8.5 pH Units (5.0-8.0); Protein,Urine >=1000 mg/dL (Neg-Trace); Specific Gravity,Urine > 1.030 (1.010-1.025); Urobilinogen,Urine Normal (Normal)
[2018-07-28 15:11] LABS: Bacteria,Urine None Seen per hpf (None-Few); Hyaline Casts,Urine None Seen per lpf (None-Few); RBC,Urine 15-30 per hpf (0-3); Squamous Epithelial Cell,Urine Many per lpf (None-Few)
[2018-07-28 15:12] LABS: Clarity,Urine Hazy (Clear)
[2018-07-28 15:33] LABS: Triple Phosphate Crystal,Urine Present
[2018-07-28] MEDS: Magnesium Oxide 400 MG TABLET PO SCH (17:35)
[2018-07-29 00:45] LABS: Phenytoin (Dilantin) Free 0.6 ug/mL (1.0-2.5); Phenytoin Dose NOT PROVIDED; Phenytoin Dose Frequency NOT PROVIDED; Phenytoin Route NOT PROVIDED
[2018-07-29] MEDS: *HR* Heparin 5,000 UNIT/ML VIAL SQ SCH ×2 (06:05→17:42)
[2018-07-29 06:14] LABS: Hematocrit 33.3 % (37.5-50.1); Mean Corpuscular Hemoglobin 32.7 pg (28.0-33.3); Mean Corpuscular Volume 99.1 fL (83.0-100.0); Mean Platelet Volume 10.3 fL (9.4-12.4); Platelet Count 206 K/mcL (140-400); Red Blood Count 3.36 M/mcL (4.19-5.50); Red Cell Distribution Width 13.9 % (11.5-14.5)
[2018-07-29 06:34] LABS: BUN/Creatinine Ratio 43 (6-26); Blood Urea Nitrogen 37 mg/dL (8-23); Carbon Dioxide 29 mEq/L (23-29); Chloride 108 mEq/L (98-107); Glucose 111 mg/dL (70-105); Osmolality,Calculated 303 (280-300); Potassium 4.2 mEq/L (3.5-5.1); Sodium 142 mEq/L (136-145); eGFR For Non-African Americans > 60 (> 60)
--- NOTE | 2018-07-29 07:49 | Electrocardiograph Report ---
[address] [address] Test Date: 2018-07-26 Pat Name: Mejia Kennedy Department: EXAM12 Room: 2NE19 Gender: M [employer]: : 1940 Requested By: Greyson Ontiveros Order Number: [id number] Reading MD: Jacque Gutierrez Measurements Intervals [place] Rate: 93 P: 66 OK: 211 QRS: -28 QRSD: 156 T: 124 QT: 409 QTc: 509 Interpretive Statements Sinus rhythm Borderline prolonged OK interval Left bundle branch block Electronically Signed On 07-29-2018 7:48:22 EDT by Jacque Gutierrez
--- NOTE | 2018-07-29 07:57 | Electrocardiograph Report ---
[address] [address] Test Date: 2018-07-27 Pat Name: Mejia Kennedy Department: 111 Room: 2NE19 Gender: M [employer] Dish[employer]her: : 1940 Requested By: Adair Lundberg Order Number: [id number] Reading MD: Jacque Gutierrez Measurements Intervals [place] Rate: 68 P: 1 ID: 193 QRS: -51 QRSD: 168 T: 121 QT: 464 QTc: 482 Interpretive Statements SINUS RHYTHM MARKED LEFT AXIS DEVIATION LEFT BUNDLE BRANCH BLOCK Electronically Signed On 07-29-2018 7:56:05 EDT by Jacque Gutierrez
--- NOTE | 2018-07-29 09:06 | Discharge Summary ---
Orders not resulted at time of discharge: Pending orders 07/27/18 12:31 Keppra (Levetiracetam) Routine Phenytoin Free and Total Routine Date of Encounter: 07/29/18 - Discharge Diagnosis (1) DVT prophylaxis Status: Acute (2) Seizure disorder Status: Chronic (3) COPD (chronic obstructive pulmonary disease) Status: Chronic Qualifiers: COPD type: emphysema Emphysema type: unspecified Qualified Code(s): J43.9 - Emphysema, unspecified (4) Elevated troponin Status: Acute (5) Parkinson disease Status: Chronic (6) Altered mental status Status: Resolved Qualifiers: Altered mental status type: somnolence Qualified Code(s): R40.0 - Somnolence (7) Uncontrolled hypertension Status: Acute (8) Non-sustained ventricular tachycardia Status: Acute (9) Hypertensive urgency Status: Acute Hospital course: Mr. Kennedy is a 77 year old male - Time Spent with Patient Total time spent providing and/or coordinating discharge services: - Discharge Medications Home Medications: Tamsulosin [Flomax] 0.4 mg PO DAILY 12/21/16 [History] Vitamin E Mixed [Vitamin E] 800 unit PO DAILY 12/21/16 [History] Divalproex (12 HR) [Depakote (12 HR)] 1,000 mg PO BID 05/19/17 [History] Loratadine [Claritin] 10 mg PO DAILY #30 tablet 05/21/17 [Rx] Sennosides [Senna] 17.2 mg PO BID 07/16/17 [History] Losartan Potassium [Cozaar] 100 mg PO DAILY 01/14/18 [History] Amlodipine Besylate [Amlodipine Besylate] 10 mg PO DAILY 07/27/18 [History] Calcium Carbonate/Vitamin D3 [Calcium 250+D Tablet] 1 tab PO DAILY 07/27/18 [ History] Carbidopa/Levodopa [Carbidopa-Levodopa 25-100 Tab] 1 tab PO BID 07/27/18 [ History] Finasteride [Proscar] 5 mg PO DAILY 07/27/18 [History] Folic Acid 1 mg PO DAILY 07/27/18 [History] Omeprazole [PriLOSEC] 20 mg PO DAILY 07/27/18 [History] OxyCODONE Immed Rel [Roxicodone 10 MG] 10 mg PO Q6H 07/27/18 [History] Oxybutynin [Ditropan] 5 mg PO BID 07/27/18 [History] Oxycodone HCl [Oxycodone HCl] 5 mg PO Q4H PRN 07/27/18 [History] Phenytoin ER [Dilantin ER] 100 mg PO Q6H 07/27/18 [History] Quetiapine Fumarate [SEROquel] 25 mg PO HS 07/27/18 [History] Venlafaxine [Effexor] 75 mg PO BID 07/27/18 [History] hydrALAZINE [HydrALAZINE] 25 mg PO Q8HR 07/27/18 [History] levETIRAcetam [Keppra] 500 mg PO BID 07/27/18 [History] Allergies/Adverse Reactions: 3 Allergy/AdvReac Type Severity Reaction Status Date / Time No Known Allergies Allergy Verified 07/27/18 10:25 Date of admission: 07/27/18 00:01 Primary care physician: Cristian Horta MD Consults: 07/27/18 01:49 Consult to Nutrition [CONS] Routine Comment: Consulting Provider: NUTRITION Reason for Dietary Consult: MST Score Consult to [employer] [CONS] Routine Reason for SW Consult: Patient is from [place]; will need follow-up after D /C 07/27/18 04:37 Consult to Physician [CONS] Routine Consulting Provider: Kodi Sierra Reason for Consult: troponin elevation; LBBB Call Completed: No 07/27/18 08:57 Consult to Cardiology [CONS] Routine Comment: Consulting Provider: Cardiology [place] Reason for Consult: new LBBB on ECG, adynamic but mildly elevated troponin ( 0.5->0.4) above baseline of <0.3 (intact GFR), somnolence at local [facility]; thank you Call Completed: Yes - Constitutional Vitals: Temp Pulse Resp BP Pulse Ox 98.1 F 66 18 154/83 96 07/29/18 07:42 07/29/18 07:42 07/29/18 07:42 07/29/18 07:42 07/29/18 07:42 General appearance: Present: cooperative, A&O X 3, pleasant, no acute distress, answers questions appropriately - Patient Status Condition: Fair - Discharge Instructions Follow Up With: Cristian Horta MD [Primary Care Provider] -
[2018-07-29] MEDS: Divalproex (12 HR) 500 MG TABLET PO SCH ×2 (10:10→19:34)
[2018-07-29] MEDS: Folic Acid 1 MG TABLET PO SCH (10:11)
[2018-07-29] MEDS: levETIRAcetam 250 MG TABLET PO SCH ×2 (10:11→19:34)
[2018-07-29] MEDS: Aspirin 81 MG TAB.CHEW PO SCH (10:11)
[2018-07-29] MEDS: amLODIPine 5 MG TABLET PO SCH (10:11)
[2018-07-29] MEDS: Metoprolol XL (24 HR) Succ 25 MG TAB.ER.24H PO SCH (10:11)
[2018-07-29] MEDS: Finasteride 5 MG TABLET PO SCH (10:12)
[2018-07-29] MEDS: Loratadine 10 MG TABLET PO SCH (10:12)
[2018-07-29] MEDS: Carbidopa/Levodopa 25/100 TABLET PO SCH ×2 (10:12→19:38)
[2018-07-29] MEDS: Magnesium Oxide 400 MG TABLET PO SCH (10:12)
--- NOTE | 2018-07-29 11:12 | Internal Med Progress Note ---
<Tripp Jane - Last Filed: 07/29/18 18:50> Hospitalist Progress Note - Encounter Date of Encounter: 07/29/18 - Exam Vitals: Temp Pulse Resp BP Pulse Ox 97.9 F 62 16 193/101 96 07/29/18 16:15 07/29/18 16:15 07/29/18 16:15 07/29/18 16:15 07/29/18 16:15 - Assessment and Plan (1) Dysuria Current Visit: Yes Status: Acute (2) Hypertensive urgency Current Visit: Yes Status: Resolved (3) DVT prophylaxis Current Visit: Yes Status: Acute (4) Elevated troponin Current Visit: Yes Status: Acute (5) Altered mental status Current Visit: Yes Status: Resolved (6) Uncontrolled hypertension Current Visit: Yes Status: Acute (7) Non-sustained ventricular tachycardia Current Visit: Yes Status: Acute (8) COPD (chronic obstructive pulmonary disease) Current Visit: No Status: Chronic (9) Parkinson disease Current Visit: No Status: Chronic (10) Seizure disorder Current Visit: No Status: Chronic - Time Spent with Patient Total time spent is greater than 50% in coordination of care (as documented) at patient's floor/unit and/or counseling patient: Internal Medicine: Result - Labs CBC & Chem 7: 07/29/18 05:35 07/29/18 05:35 Labs: Short CBC 07/29/18 Range/Units 05:35 WBC 9.3 (4.3-11.1) K/mcL Hgb 11.0 L (12.9-16.9) g/dL Hct 33.3 L (37.5-50.1) % Plt Count 206 (140-400) K/mcL BMP 07/29/18 05:35 Sodium 142 Potassium 4.2 Chloride 108 H Carbon Dioxide 29 BUN 37 H Creatinine 0.87 Glucose 111 H Calcium 9.0 - ABG Interpretation ABG results: PT/INR, D-dimer PT 11.8 Seconds (9.4-12.1) 07/28/18 04:12 Consult Discharge Plan - Plan Referrals: Cristian Horta MD [Primary Care Provider] - - Attending Attestation I examined this patient and my medical decision-making was reviewed with the Resident Physician on 07/29/18. I agree with the documented findings, disposition and treatment plan as described except to the extent set forth below. Mr Kennedy is currently admitted for new LBBB and hypertensive urgency. He remains moderate to high risk due to potential for worsening clinical status. Mr Kennedy has not chest pain. He is having dysuria since russell out. No fever or chills. No diarrhea. Exam Alert Mod distress due to dysuria - tearful Mucus membranes dry Heart distant and not tachy No wheeze abd soft I/P 1. Dysuria - most likely UTI. Culture sent. Abx started empirically. Pyridium PRN. 2. NSVT Further diagnoses and plan as above. <Carmen Ray N - Last Filed: 07/29/18 21:48> Hospitalist Progress Note - Encounter Date of Encounter: 07/29/18 Time of Encounter: 11:12 - Subjective Interval History: Mr. Kennedy denies any acute problems today. He denies chest pain or shortness of breath. Patient was observed to be uncomfortable while attempting to urinate , with nursing staff reporting dark coloration to his urine. - Exam Vitals: Temp Pulse Resp BP Pulse Ox 98.1 F 66 18 154/83 96 07/29/18 07:42 07/29/18 07:42 07/29/18 07:42 07/29/18 07:42 07/29/18 07:42 Exam: * General: Elderly male in no acute distress. He is seated at the bedside. He is pleasant and answers questions appropriately. * HEENT: Atraumatic and normocephalic. * Cardiovascular: Regular rate and rhythm. S1 and S2 present. No murmurs, gallops, or rubs present. * Respiratory: Decreased breath sounds bilaterally. No wheezes, rales, or rhonchi. * Extremities: No clubbing, cyanosis, or edema. - Assessment and Plan (1) Dysuria Current Visit: Yes Status: Acute Assessment and Plan: Patient had a russell catheter during admission, and has reportedly been experiencing dysuria since removal. Urinalysis demonstrated high leukocyte esterase. Patient has been started on levaquin 500mg for treatment of suspected UTI. Expect that patient will likely be ready for discharge tomorrow. (2) COPD (chronic obstructive pulmonary disease) Current Visit: No Status: Chronic Assessment and Plan: Patient denies shortness of breath or other respiratory difficulties. Will continue current regimen and reassess frequently for signs of worsening respiratory status. (3) Elevated troponin Current Visit: Yes Status: Acute Assessment and Plan: Per cardiology, this is likely secondary to demand ischemia. Patient is planned for outpatient followup for further evaluation. (4) Parkinson disease Current Visit: No Status: Chronic Assessment and Plan: Continuing home medications. (5) Uncontrolled hypertension Current Visit: Yes Status: Acute Assessment and Plan: Patient is currently on metoprolol 25mg, losartan 100mg, and norvasc 10mg. Will continue that regimen at this time. (6) Non-sustained ventricular tachycardia Current Visit: Yes Status: Resolved (7) Hypertensive urgency Current Visit: Yes Status: Resolved (8) DVT prophylaxis Current Visit: Yes Status: Acute Assessment and Plan: Heparain SQ. - Time Spent with Patient Total time spent is greater than 50% in coordination of care (as documented) at patient's floor/unit and/or counseling patient: Internal Medicine: Result - Labs CBC & Chem 7: 07/29/18 05:35 07/29/18 05:35 Labs: Short CBC 07/29/18 Range/Units 05:35 WBC 9.3 (4.3-11.1) K/mcL Hgb 11.0 L (12.9-16.9) g/dL Hct 33.3 L (37.5-50.1) % Plt Count 206 (140-400) K/mcL BMP 07/29/18 05:35 Sodium 142 Potassium 4.2 Chloride 108 H Carbon Dioxide 29 BUN 37 H Creatinine 0.87 Glucose 111 H Calcium 9.0 Urine 07/28/18 Range/Units 14:50 Urine Color Dark Yellow (Yellow) Urine Clarity Hazy (Clear) Urine pH 8.5 H (5.0-8.0) pH Units Ur Specific Orestes > 1.030 H (1.010-1.025) Urine Protein >=1000 H (Neg-Trace) mg/dL Urine Glucose (UA) Normal (Normal) mg/dL - ABG Interpretation ABG results: PT/INR, D-dimer PT 11.8 Seconds (9.4-12.1) 07/28/18 04:12 - Impressions Impressions Echocardiogram 07/27/18 04:35 Impressions: Technically sub-optimal due to poor echocardiographic windows. LVEF 60%. Not all LV segments were well visualized, but overall LVEF is normal. Normal LV chamber size and function. Mild concentric left ventricular hypertrophy. Normal right ventricular structure and function. Indeterminate diastolic function. Unable to estimate RVSP due to lack of TR jet. No obvious significant valvular dysfunction. Findings: Study Quality * Technically sub-optimal due to poor echocardiographic windows. ECG Findings * Sinus bradycardia. Left Ventricle * LVEF 60%. Not all LV segments were well visualized, but overall LVEF is normal. * Normal LV chamber size and function. * Atypical septal motion c/w a bundle branch block. * Mild concentric left ventricular hypertrophy. * Indeterminate diastolic function. Right Ventricle * Normal right ventricular structure and function. Left Atrium * Mildly dilated left atrium. Right Atrium * Normal right atrial size. Aortic Valve * Aortic valve not well visualized. No obvious significant dysfunction by Doppler. Mitral Valve * Normal mitral valve structure. * No mitral regurgitation. * No mitral stenosis. Tricuspid Valve * Normal tricuspid valve structure and function. * No tricuspid regurgitation. * Unable to estimate RVSP due to lack of TR jet. Pulmonic Valve * Pulmonic valve not well visualized. Aorta * Aortic root not well visualized. Pericardium * The pericardium appears normal. IVC * The IVC is not well evaluated. Pulmonary Artery * Pulmonary artery not well visualized. 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
[2018-07-29 11:14] LABS: Phenytoin Type of Draw NOT PROVIDED
--- NOTE | 2018-07-29 11:15 | Cardiology Progress Note ---
Date of Encounter: 07/29/18 Time of Encounter: 09:00 Assessment and Plan (1) Acute electrocardiogram changes Current Visit: Yes Status: Acute Per cardiology: -Possible new LBBB compared with ECG from January 2018. -No known cardiac history -TTE with LVEF preserved. -Patient denies chest pain. -Discussed with patient regarding possible LHC/stress test versus medical management. AT this point, patient prefers medical management with close outpatient follow up. -Cardiology will sign off and will follow in outpatient setting, Follow up set. (2) Non-sustained ventricular tachycardia Current Visit: Yes Status: Acute Per cardiology: -Per telemetry, one run of non-sustained VT noted, lasting 29 beats 07/27/18. -TTE with LVEF preserved. -On BB. -No significant events noted on telemetry. -Recommend K >4, Mg >2. (3) Elevated troponin Current Visit: Yes Status: Acute Per cardiology: -Troponins 0.05, 0.04, then negative x2 in the setting of HTN. -Denies chest pain today. -On asa, statin. Started BB. -TTE with LVEF preserved. -Denies previous invasive cardiac testing. -ECG with possible new LBBB. -Currently hemodynamically stable. -Do not suspect NSTEMI at this time, suspect demand ischemia related to above. No cardiac rehab consult warranted. (4) Uncontrolled hypertension Current Visit: Yes Status: Acute Per cardiology: -BP noted to be elevated in 180s systolic -Currently 110-150s -Will continue to monitor in outpatient setting. Discussion w patient/family: The assessment and plan as outlined above was discussed with the patient who expressed understanding and agreement. All questions were answered. Thank you for involving us in the care of your patient. Please call with any questions. Discussed and reviewed with . Subjective Principal diagnosis: Altered mental status. Interval history: Patient is alert and oriented x3 this am. Patient denies chest pain or shortness of breath. Objective Vital Signs, Last 4 Hours Temp Pulse Resp BP Pulse Ox 07/29/18 07:42 98.1 F 66 18 154/83 96 General: Conversant, No Apparent Distress HEENT: Atraumatic, Normocephaly, Mucus Membranes Moist Neck: No JVD, Normal carotid pulses Cardiac: Reg Rate and Rhythm, Normal S1 and S2, No Murmur Lungs: Normal Breath Sounds, No Wheeze, Rales, Rhonchi Neuro: Alert and responsive, No focal deficits noted Abdomen: Soft, Non-Tender Skin: No rashes noted on visualized skin Musculoskeletal: No Chest Wall Tenderness Extremities: No Clubbing, No Cyanosis, No Edema, Normal Pulses Results 07/29/18 05:35 07/29/18 05:35 Lab Results Impressions Echocardiogram 07/27/18 04:35 Impressions: Technically sub-optimal due to poor echocardiographic windows. LVEF 60%. Not all LV segments were well visualized, but overall LVEF is normal. Normal LV chamber size and function. Mild concentric left ventricular hypertrophy. Normal right ventricular structure and function. Indeterminate diastolic function. Unable to estimate RVSP due to lack of TR jet. No obvious significant valvular dysfunction. Findings: Study Quality * Technically sub-optimal due to poor echocardiographic windows. ECG Findings * Sinus bradycardia. Left Ventricle * LVEF 60%. Not all LV segments were well visualized, but overall LVEF is normal. * Normal LV chamber size and function. * Atypical septal motion c/w a bundle branch block. * Mild concentric left ventricular hypertrophy. * Indeterminate diastolic function. Right Ventricle * Normal right ventricular structure and function. Left Atrium * Mildly dilated left atrium. Right Atrium * Normal right atrial size. Aortic Valve * Aortic valve not well visualized. No obvious significant dysfunction by Doppler. Mitral Valve * Normal mitral valve structure. * No mitral regurgitation. * No mitral stenosis. Tricuspid Valve * Normal tricuspid valve structure and function. * No tricuspid regurgitation. * Unable to estimate RVSP due to lack of TR jet. Pulmonic Valve * Pulmonic valve not well visualized. Aorta * Aortic root not well visualized. Pericardium * The pericardium appears normal. IVC * The IVC is not well evaluated. Pulmonary Artery * Pulmonary artery not well visualized. Active Medications Acetaminophen (Tylenol) 650 mg PO Q6HR PRN PRN Reason: Mild Pain/Fever Stop: 01/26/19 04:36 Hydrocodone Bitart/Acetaminophen ([place] 5-325 Mg) 1 tab PO Q6H PRN PRN Reason: Pain Stop: 01/26/19 04:40 Last Admin: 07/27/18 14:31 Dose: 1 tab Amlodipine Besylate (Norvasc) 10 mg PO DAILY [facility] PRN Reason: Protocol Stop: 01/26/19 09:01 Last Admin: 07/29/18 10:11 Dose: 10 mg Aspirin (Aspirin) 81 mg PO DAILY [facility] Stop: 01/26/19 09:01 Last Admin: 07/29/18 10:11 Dose: 81 mg Atorvastatin Calcium (Lipitor) 10 mg PO HS [facility] Stop: 01/26/19 21:01 Last Admin: 07/28/18 21:03 Dose: 10 mg Carbidopa/Levodopa (Sinemet) 1 each PO BID [facility] Stop: 01/26/19 09:01 Last Admin: 07/29/18 10:12 Dose: 1 each Divalproex Sodium (Depakote (12 Hr)) 1,000 mg PO BID [facility] Stop: 01/26/19 09:01 Last Admin: 07/29/18 10:10 Dose: 1,000 mg Finasteride (Proscar) 5 mg PO DAILY [facility] PRN Reason: Protocol Stop: 01/26/19 09:01 Last Admin: 07/29/18 10:12 Dose: 5 mg Folic Acid (Folic Acid) 1 mg PO DAILY [facility] Stop: 01/26/19 09:01 Last Admin: 07/29/18 10:11 Dose: 1 mg Heparin Sodium (Porcine) (Heparin) 5,000 unit SQ Q12HCO [facility] Stop: 01/26/19 06:01 Last Admin: 07/29/18 06:05 Dose: 5,000 unit Levetiracetam (Keppra) 500 mg PO BID [facility] Stop: 01/26/19 09:01 Last Admin: 07/29/18 10:11 Dose: 500 mg Levofloxacin (Levaquin) 500 mg PO DAILY [facility] PRN Reason: Protocol Stop: 01/28/19 11:16 Loratadine (Claritin) 10 mg PO DAILY [facility] PRN Reason: Protocol Stop: 01/26/19 09:01 Last Admin: 07/29/18 10:12 Dose: 10 mg Losartan Potassium (Cozaar) 100 mg PO DAILY [facility] Stop: 01/26/19 09:01 Last Admin: 07/29/18 10:12 Dose: 100 mg Magnesium Oxide (Mag-Ox) 400 mg PO DAILY [facility] PRN Reason: Protocol Stop: 07/30/18 15:01 Last Admin: 07/29/18 10:12 Dose: 400 mg Metoprolol Succinate (Toprol Xl) 25 mg PO DAILY [facility] Stop: 01/27/19 11:46 Last Admin: 07/29/18 10:11 Dose: 25 mg Naloxone HCl (Narcan) 0.4 mg IVP Q2MIN PRN PRN Reason: SEE COMMENTS Stop: 01/26/19 04:36 Omeprazole (Prilosec) 20 mg PO 0800 [facility] PRN Reason: Protocol Stop: 01/26/19 08:01 Last Admin: 07/29/18 06:05 Dose: 20 mg Oxybutynin Chloride (Ditropan) 5 mg PO BID [facility] Stop: 01/26/19 09:01 Last Admin: 07/29/18 10:11 Dose: 5 mg Phenytoin (Dilantin Er) 100 mg PO Q6HR [facility] Stop: 01/26/19 12:01 Last Admin: 07/29/18 06:05 Dose: 100 mg Potassium Chloride (Potassium Chloride) 40 meq PO DAILY [facility] Stop: 07/30/18 15:01 Last Admin: 07/29/18 10:11 Dose: 40 meq Senna (Senna) 8.6 mg PO BID PRN PRN Reason: Constipation Stop: 01/26/19 04:40 Last Admin: 07/27/18 14:31 Dose: 8.6 mg Tamsulosin HCl (Flomax) 0.4 mg PO HS [facility] PRN Reason: Protocol Stop: 01/26/19 21:01 Last Admin: 07/28/18 21:03 Dose: 0.4 mg Laboratory Tests 07/29/18 07/29/18 05:35 05:35 Hgb 11.0 L Potassium 4.2 Creatinine 0.87 - Imaging and Cardiology Chest Xray: report reviewed Echo: report reviewed - EKG Interpretation EKG results cardiology: other (Telemetry reviewed with average HR previous 12 hours noted to be 67, SR. PVCs and PACs noted. No significant events noted.) Consult Discharge Plan - Plan Referrals: Cristian Horta MD [Primary Care Provider] -
[2018-07-29] MEDS: levoFLOXacin 500 MG TABLET PO SCH (13:14)
[2018-07-30 04:12] LABS: Basophils % 0.2 %; Eosinophils # 0.2 K/mcL (0.0-0.6); Eosinophils % 2.2 %; Hematocrit 33.9 % (37.5-50.1); Hemoglobin 11.1 g/dL (12.9-16.9); Immature Granulocytes % 0.4 % (0-4); Lymphocytes # 1.9 K/mcL (0.6-4.6); Lymphocytes % 20.1 %; Mean Corpuscular HGB Conc 32.7 g/dL (31.6-35.5); Mean Corpuscular Hemoglobin 32.6 pg (28.0-33.3); Mean Corpuscular Volume 99.7 fL (83.0-100.0); Mean Platelet Volume 10.7 fL (9.4-12.4); Monocytes # 0.8 K/mcL (0.0-1.3); Monocytes % 7.8 %; Neutrophils # 6.7 K/mcL (1.6-8.9); Platelet Count 204 K/mcL (140-400); Red Cell Distribution Width 13.9 % (11.5-14.5); Segmented Neutrophils % 69.3 %
[2018-07-30 04:28] LABS: BUN/Creatinine Ratio 41 (6-26); Blood Urea Nitrogen 29 mg/dL (8-23); Calcium 9.1 mg/dL (8.6-10.3); Carbon Dioxide 27 mEq/L (23-29); Chloride 108 mEq/L (98-107); Glucose 79 mg/dL (70-105); Osmolality,Calculated 295 (280-300); Potassium 4.3 mEq/L (3.5-5.1); Sodium 140 mEq/L (136-145); eGFR For Non-African Americans > 60 (> 60)
[2018-07-30] MEDS: amLODIPine 5 MG TABLET PO SCH (05:22)
[2018-07-30] MEDS: *HR* Heparin 5,000 UNIT/ML VIAL SQ SCH (06:57)
[2018-07-30] MEDS: levETIRAcetam 250 MG TABLET PO SCH (08:08)
[2018-07-30] MEDS: levoFLOXacin 500 MG TABLET PO SCH (08:08)
[2018-07-30] MEDS: Carbidopa/Levodopa 25/100 TABLET PO SCH (08:09)
[2018-07-30] MEDS: Magnesium Oxide 400 MG TABLET PO SCH (08:09)
[2018-07-30] MEDS: Metoprolol XL (24 HR) Succ 25 MG TAB.ER.24H PO SCH (08:09)
[2018-07-30] MEDS: Finasteride 5 MG TABLET PO SCH (08:09)
[2018-07-30] MEDS: Folic Acid 1 MG TABLET PO SCH (08:09)
[2018-07-30] MEDS: Aspirin 81 MG TAB.CHEW PO SCH (08:09)
[2018-07-30] MEDS: Loratadine 10 MG TABLET PO SCH (08:10)
[2018-07-30] MEDS: Divalproex (12 HR) 500 MG TABLET PO SCH (08:13)
--- NOTE | 2018-07-30 10:52 | Physician Discharge Referral ---
ExtendedCare Referral Info Transfer To: [facility] Institutional Level of Care: Skilled - Diagnosis (1) Uncontrolled hypertension Priority: Primary Status: Acute (2) Left bundle branch block (LBBB) determined by electrocardiography Priority: Secondary Status: Acute (3) Elevated troponin Priority: Secondary Status: Acute (4) Non-sustained ventricular tachycardia Priority: Secondary Status: Resolved (5) Dysuria Priority: Secondary Status: Acute - Transfer Medications Home Medications: Tamsulosin [Flomax] 0.4 mg PO DAILY 12/21/16 [History] Vitamin E Mixed [Vitamin E] 800 unit PO DAILY 12/21/16 [History] Divalproex (12 HR) [Depakote (12 HR)] 1,000 mg PO BID 05/19/17 [History] Loratadine [Claritin] 10 mg PO DAILY #30 tablet 05/21/17 [Rx] Sennosides [Senna] 17.2 mg PO BID 07/16/17 [History] Losartan Potassium [Cozaar] 100 mg PO DAILY 01/14/18 [History] Amlodipine Besylate [Amlodipine Besylate] 10 mg PO DAILY 07/27/18 [History] Calcium Carbonate/Vitamin D3 [Calcium 250+D Tablet] 1 tab PO DAILY 07/27/18 [ History] Carbidopa/Levodopa [Carbidopa-Levodopa 25-100 Tab] 1 tab PO BID 07/27/18 [ History] Finasteride [Proscar] 5 mg PO DAILY 07/27/18 [History] Folic Acid 1 mg PO DAILY 07/27/18 [History] Omeprazole [PriLOSEC] 20 mg PO DAILY 07/27/18 [History] OxyCODONE Immed Rel [Roxicodone 10 MG] 10 mg PO Q6H 07/27/18 [History] Oxybutynin [Ditropan] 5 mg PO BID 07/27/18 [History] Oxycodone HCl [Oxycodone HCl] 5 mg PO Q4H PRN 07/27/18 [History] Phenytoin ER [Dilantin ER] 100 mg PO Q6H 07/27/18 [History] Quetiapine Fumarate [SEROquel] 25 mg PO HS 07/27/18 [History] Venlafaxine [Effexor] 75 mg PO BID 07/27/18 [History] hydrALAZINE [HydrALAZINE] 25 mg PO Q8HR 07/27/18 [History] levETIRAcetam [Keppra] 500 mg PO BID 07/27/18 [History] Allergies/Adverse Reactions: 3 Allergy/AdvReac Type Severity Reaction Status Date / Time No Known Allergies Allergy Verified 07/27/18 10:25 - Respiratory Orders Smoking Cessation: Smoking cessation has been advised. For more information, call the [place] Tobacco Quit Line at 7-898-EDAO-NOW. - Lab Orders Lab Orders: Other (include drug levels w/frequency) (daily blood pressure readings throughout ECF stay) CERTIFICATION: I certify that the transfer of the above named patient to an Extended Care Facility is necessary for the continuing treatment of the diagnosis listed. The above information is true and accurate reflection of patient's current condition. Confidential - Redisclosure prohibited without a patient's written consent.
--- NOTE | 2018-07-30 10:53 | Discharge Summary ---
<Hernán Ovalle - Last Filed: 07/30/18 19:28> - NOTES TO OUTPATIENT PROVIDER Notes to Outpatient Provider: daily BPs, new med toprol xl 25mg po daily, thank you Orders not resulted at time of discharge: Pending orders 07/29/18 11:00 Culture,Urine [RM] Routine Date of Encounter: 07/30/18 Time of Encounter: 09:30 - Discharge Diagnosis (1) Uncontrolled hypertension Priority: Primary Status: Acute (2) Left bundle branch block (LBBB) determined by electrocardiography Priority: Secondary Status: Acute (3) Elevated troponin Priority: Secondary Status: Acute (4) Non-sustained ventricular tachycardia Priority: Secondary Status: Resolved (5) Dysuria Priority: Secondary Status: Acute Hospital course: Mr. Kennedy is a 77 year old male who presented from local [facility] for somnolence and difficulty to arouse. Admitted for finding of elevated troponin, htn, and new LBBB. Troponin over hospital course was adynamic 0.05-0.04-0.03x2, patient denied chest pain/dyspnea/diaphoresis throughout hospital stay, no witnessed AMS /generalized weakness, echocardiogram show LVEF of 60% with no obvious significant valvular dysfunction. Patient had multiple episodes of hypertensive urgency, responding to a regimen of Cozaar 100mg daily, Norvasc 10mg daily, Metoprolol XR 25mg daily (beta-rom new compared to existing home antihypertensives). Patient complained of dysuria, UA showing +leuk esterase, symptoms of which responded to Levoquin, will be discharged with enough for a 5 day course. Plan is for patient to be discharged to [facility] where he is to receive daily BP measurements. Follow-up has been scheduled through [facility]. Discharge discussed with: patient - Time Spent with Patient Total time spent providing and/or coordinating discharge services: Greater than 30 minutes - Discharge Medications Prescriptions: levoFLOXacin [Levaquin] 250 mg PO DAILY #3 tablet Metoprolol XL (24 HR) Succ [Toprol Xl] 25 mg PO DAILY #30 tab.er.24h Home Medications: Tamsulosin [Flomax] 0.4 mg PO DAILY 12/21/16 [History] Vitamin E Mixed [Vitamin E] 800 unit PO DAILY 12/21/16 [History] Divalproex (12 HR) [Depakote (12 HR)] 1,000 mg PO BID 05/19/17 [History] Loratadine [Claritin] 10 mg PO DAILY #30 tablet 05/21/17 [Rx] Sennosides [Senna] 17.2 mg PO BID 07/16/17 [History] Losartan Potassium [Cozaar] 100 mg PO DAILY 01/14/18 [History] Amlodipine Besylate 10 mg PO DAILY 07/27/18 [History] Calcium Carbonate/Vitamin D3 [Calcium 250+D Tablet] 1 tab PO DAILY 07/27/18 [ History] Carbidopa/Levodopa [Carbidopa-Levodopa 25-100 Tab] 1 tab PO BID 07/27/18 [ History] Finasteride [Proscar] 5 mg PO DAILY 07/27/18 [History] Folic Acid 1 mg PO DAILY 07/27/18 [History] Omeprazole [PriLOSEC] 20 mg PO DAILY 07/27/18 [History] OxyCODONE Immed Rel [Roxicodone 10 MG] 10 mg PO Q6H 07/27/18 [History] Oxybutynin [Ditropan] 5 mg PO BID 07/27/18 [History] Oxycodone HCl 5 mg PO Q4H PRN 07/27/18 [History] Phenytoin ER [Dilantin ER] 100 mg PO Q6H 07/27/18 [History] Quetiapine Fumarate [Seroquel] 25 mg PO HS 07/27/18 [History] Venlafaxine [Effexor] 75 mg PO BID 07/27/18 [History] hydrALAZINE [HydrALAZINE] 25 mg PO Q8HR 07/27/18 [History] levETIRAcetam [Keppra] 500 mg PO BID 07/27/18 [History] Metoprolol XL (24 HR) Succ [Toprol Xl] 25 mg PO DAILY #30 tab.er.24h 07/30/18 [ Rx] levoFLOXacin [Levaquin] 250 mg PO DAILY #3 tablet 07/30/18 [Rx] Allergies/Adverse Reactions: 3 Allergy/AdvReac Type Severity Reaction Status Date / Time No Known Allergies Allergy Verified 07/27/18 10:25 Date of admission: 07/27/18 00:01 Primary care physician: Cristian Horta MD Consults: 07/27/18 01:49 Consult to Nutrition [CONS] Routine Comment: Consulting Provider: NUTRITION Reason for Dietary Consult: MST Score Consult to Car Storer [CONS] Routine Reason for SW Consult: Patient is from [place]; will need follow-up after D /C 07/27/18 04:37 Consult to Physician [CONS] Routine Consulting Provider: Kodi Sierra Reason for Consult: troponin elevation; LBBB Call Completed: No 07/27/18 08:57 Consult to Cardiology [CONS] Routine Comment: Consulting Provider: Cardiology [facility] Reason for Consult: new LBBB on ECG, adynamic but mildly elevated troponin ( 0.5->0.4) above baseline of <0.3 (intact GFR), somnolence at local ECF; thank you Call Completed: Yes Discharging clinician: Hernán Ovalle Anticipated date of discharge: 07/30/18 - Constitutional Vitals: Temp Pulse Resp BP Pulse Ox 97.8 F 68 15 174/91 97 07/30/18 06:53 07/30/18 06:53 07/30/18 06:53 07/30/18 06:53 07/30/18 06:53 Exam: General: Elderly male in no acute distress. He is seated at the bedside. He is pleasant and answers questions appropriately. HEENT: Atraumatic and normocephalic. Cardiovascular: Regular rate and rhythm. S1 and S2 present. No heave, murmurs, gallops, or rubs present. Respiratory: Decreased breath sounds bilaterally. No wheezes, rales, or rhonchi. Extremities: No clubbing, cyanosis, or edema. - Patient Status Disposition: Transfer SNF Condition: Fair Functional capacity at discharge: uses cane/walker Overall status at discharge: patient is progressing back to baseline - Discharge Instructions Follow Up With: Cristian Horta MD [Primary Care Provider] - [facility] [Provider Group] - Diet and Activity Activity: increase activity as tolerated Diet: advance to your usual diet <Tripp Jane - Last Filed: 07/30/18 20:01> Orders not resulted at time of discharge: Pending orders 07/29/18 11:00 Culture,Urine [RM] Routine Date of Encounter: 07/30/18 - Discharge Diagnosis (1) DVT prophylaxis Priority: Secondary Status: Acute (2) COPD (chronic obstructive pulmonary disease) Priority: Secondary Status: 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 Kennedy is a 77 year old male - Time Spent with Patient Total time spent providing and/or coordinating discharge services: Date of admission: 07/27/18 00:01 Primary care physician: Cristian Horta MD Consults: 07/27/18 01:49 Consult to Nutrition [CONS] Routine Comment: Consulting Provider: NUTRITION Reason for Dietary Consult: MST Score Consult to Car Storer [CONS] Routine Reason for SW Consult: Patient is from [place]; will need follow-up after D /C 07/27/18 04:37 Consult to Physician [CONS] Routine Consulting Provider: Kodi Sierra Reason for Consult: troponin elevation; LBBB Call Completed: No 07/27/18 08:57 Consult to Cardiology [CONS] Routine Comment: Consulting Provider: Cardiology Kat Reason for Consult: new LBBB on ECG, adynamic but mildly elevated troponin ( 0.5->0.4) above baseline of <0.3 (intact GFR), somnolence at local ECF; thank you Call Completed: Yes - Constitutional Vitals: Temp Pulse Resp BP Pulse Ox 97.8 F 71 16 160/92 96 07/30/18 11:49 07/30/18 11:49 07/30/18 11:49 07/30/18 11:49 07/30/18 11:49 - Attending Attestation I examined this patient and my medical decision-making was reviewed with the Resident Physician on 07/30/18. I agree with the documented findings, disposition and treatment plan as described except to the extent set forth below. Mr Kennedy has been admitted for hypertensive urgency and new LBBB. He had episodes of NSVT which have improved. He did develop dysuria and has been treated with empiric abx. Today he is afebrile and is ready to return to SNF. Exam Alert Comfortable Mucus membranes dry Heart distant No wheeze abd soft Plan D/C today.
[2018-07-30 11:50] VITALS: BP 160/92
== END 2018-07-30 17:01 ==
LOC: EMEROOARM 21:42 → 2NENU 21:42 → SUATTDRO 07-27 00:01 → 2NENU 07-27 01:01
PROVIDERS: ADMIT Family Medicine; ATTEND Internal Medicine

== ENCOUNTER 2019-01-05 12:46 | Observation (INO) ==
--- NOTE | 2019-01-05 13:11 | Emergency Department Note ---
Disposition Clinical Impression: Seizure-like activity, Elevated troponin, Seizure secondary to subtherapeutic anticonvulsant medication, Avascular necrosis of bone of right hip Fall Qualifiers: Encounter type: initial encounter Qualified Code(s): W19.XXXA - Unspecified fall, initial encounter Disposition: Admitted As Inpatient Condition: Fair Referrals: Cristian Horta MD [Non-Partnered Physician] - Forms: ED Satisfaction Letter Time of Disposition: 16:12 Fall HPI - General Chief Complaint: ED Fall Stated Complaint: Fall, seizure Time Seen by Provider: 01/05/19 12:55 Source: patient, EMS Mode of arrival: EMS Limitations: no limitations Nursing Notes Reviewed: Yes Vital Signs Reviewed: Yes - History of Present Illness HPI Narrative: Patient is a 78-year-old male with past medical history including seizures, CVA, dementia, hypertension, COPD, presenting from [facility] this patient was found on the floor having possible seizure like activity just prior to arrival. History provided to us by emergency medical services. It is limi katherine secondary to the patient's altered mental status and history of dementia. Patient states he does not know what happened today. Patient has been noncompliant with his medications at the nursing facility for the past 3 days. The patient fell and was found to have seizure-like activity for a couple of minutes. EMS. He arrived in a c-collar. He is complaining of left hip and lower back pain. He does have a known left hip fracture s/p ORIF. Patient was recently in the ER for seizure-like activity on 12/03/2018 his Dilantin level was found to be low. He received a loading dose of Dilantin and Keppra at that time and was discharged back to the nursing facility. - Related Data Home Medications Medication Instructions Recorded Confirmed Tamsulosin [Flomax] 0.4 mg PO DAILY 12/21/16 07/27/18 Vitamin E Mixed [Vitamin E] 800 unit PO DAILY 12/21/16 07/27/18 Divalproex (12 HR) [Depakote (12 1,000 mg PO BID 05/19/17 07/27/18 HR)] Sennosides [Senna] 17.2 mg PO BID 07/16/17 07/27/18 Losartan Potassium [Cozaar] 100 mg PO DAILY 01/14/18 07/27/18 Amlodipine Besylate 10 mg PO DAILY 07/27/18 07/27/18 Calcium Carbonate/Vitamin D3 1 tab PO DAILY 07/27/18 07/27/18 [Calcium 250-D Tablet] Carbidopa/Levodopa 1 tab PO BID 07/27/18 07/27/18 [Carbidopa-Levodopa 25-100 Tab] Finasteride [Proscar] 5 mg PO DAILY 07/27/18 07/27/18 Folic Acid 1 mg PO DAILY 07/27/18 07/27/18 Omeprazole [PriLOSEC] 20 mg PO DAILY 07/27/18 07/27/18 OxyCODONE Immed Rel [Roxicodone 10 10 mg PO Q6H 07/27/18 07/27/18 MG] Oxybutynin [Ditropan] 5 mg PO BID 07/27/18 07/27/18 Oxycodone HCl 5 mg PO Q4H PRN 07/27/18 07/27/18 Phenytoin ER [Dilantin ER] 100 mg PO Q6H 07/27/18 07/27/18 Quetiapine Fumarate [Seroquel] 25 mg PO HS 07/27/18 07/27/18 Venlafaxine [Effexor] 75 mg PO BID 07/27/18 07/27/18 hydrALAZINE [HydrALAZINE] 25 mg PO Q8HR 07/27/18 07/27/18 levETIRAcetam [Keppra] 500 mg PO BID 07/27/18 07/27/18 Previous Rx's Medication Instructions Recorded Loratadine [Claritin] 10 mg PO DAILY #30 tablet 05/21/17 Metoprolol XL (24 HR) Succ [Toprol 25 mg PO DAILY #30 tab.er.24h 07/30/18 Xl] levoFLOXacin [Levaquin] 250 mg PO DAILY #3 tablet 07/30/18 Allergies Allergy/AdvReac Type Severity Reaction Status Date / Time No Known Allergies Allergy Verified 07/27/18 10:25 Review of Systems: As Per HPI Limitations: ROS unobtainable due to patients medical condition (dementia) Fall PMH - Past Medical History Medical history: Reports: arthritis, COPD, CVA, dementia, GERD, hyperlipidemia, hypertension, osteoporosis, renal disease, seizures, syncope, TIA Surgical history: Reports: cataract, prostatectomy, other Psychiatric history: Reports: anxiety, depression - Social History Smoking Status: Former smoker Alcohol use: Reports: none Drug use: Reports: none Physical Exam - General Limitations: altered mental status (dementia, not alert to time) General appearance: alert, in no apparent distress - Head Head exam: atraumatic, normocephalic - Eye Eye exam: Present: EOMI, other (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 left pupil reactive to light). Absent: scleral icterus - ENT ENT exam: normal oropharynx, mucous membranes moist - Neck Neck exam: Present: trachea midline, other (cervical collar in place). Absent: tenderness - Chest Chest inspection: Present: normal inspection, symmetric chest wall rise. Absent: tenderness - Respiratory Respiratory exam: Present: normal lung sounds bilaterally. Absent: respiratory distress, wheezes - Cardiovascular Cardiovascular exam: Present: regular rate, normal rhythm, normal heart sounds - Abdominal Exam Abdominal exam: Present: soft, Non-Tender. Absent: distention - Extremities Exam Extremities exam: Present: full ROM, normal capillary refill, other (tenderness to right hip). Absent: pedal edema, calf tenderness - Neurological Exam Neurological exam: Present: alert, other (oriented to person and place, not time. ). Absent: motor sensory deficit - Expanded Neurological Exam Cranial nerves: EOM function (II, III, IV, ): Normal, facial sensation (V): Normal, facial palsy (VII): Normal, spinal accessory function (XI): Normal, tongue deviation (XII): Normal Cerebellar function: finger to nose: Normal Motor strength - LUE: 5/5 Motor strength - RUE: 5/5 Motor strength - LLE: 5/5 Motor strength - RLE: 5/5 Upper motor neuron exam: yamil neglect: Absent bilaterally, pronator drift: Absent bilaterally Sensory exam upper extremity: light touch: Normal Sensory exam lower extremity: light touch: Normal - Psychiatric Psychiatric exam: Present: normal affect, normal mood - Skin Skin exam: Present: warm, dry, intact, normal color Course Vital Signs Temperature 98 F 01/05/19 12:57 Pulse Rate 64 01/05/19 12:57 Respiratory Rate 12 01/05/19 12:57 Blood Pressure 214/113 01/05/19 12:57 O2 Sat by Pulse Oximetry 100 01/05/19 12:57 Temperature 98.2 F 01/05/19 13:13 Pulse Rate 64 01/05/19 15:15 Respiratory Rate 17 01/05/19 15:15 Blood Pressure 178/106 01/05/19 15:15 O2 Sat by Pulse Oximetry 98 01/05/19 15:15 Oxygen Delivery Oxygen Delivery Room Air Fall - [facility] Narrative Medical decision making narrative: Patient presenting fall likely secondary to seizure like activity. He is currently not postictal and not actively seizing. Upon my examination, patient is alert and oriented to person and place but not time. He does have history of dementia. He states he does not know what happened today. He has not been taking his medication for the past 3 days. He should be on Keppra, Dilantin, valproic acid for his seizure per review of records. No focal neurologic deficits that are new. He does have a blown right pupil which the patient states is chronic. No ecchymosis, lacerations or abrasions noted. Cervical collar in place. No gross deformities of the extremities. Patient clinically does not appear to be dehydrated. Possible seizure-like activity at the nursing facility. Patient presenting with fall and seizure-like activity. Patient has not been taking medications for the past 3 days. His seizure medication levels are likely subtherapeutic. We will check a Dilantin level. He unknown the patient hit his head. We will check CT head and cervical spine. C-collar is in place. We will also check EKG, infectious causes and causes for altered mental status including CBC, urinalysis, chest x-ray, BMP, hepatic panel, CK, ammonia level, troponin, TSH. We will also check x-ray of the pelvis as the patient has a known left hip fracture evaluate for any new fractures. 13:35 Patient is afebrile, no leukocytosis. Pelvic x-ray shows no complication status post ORIF of intertrochanteric left hip fracture. There are however subtle fi ndings raising concern for stage II avascular necrosis of the right hip. May 2017 patient had an MRI at that time that showed chronic avascular necrosis of bilateral hips, right greater than left. No acute osseous abnormality of the pelvis otherwise noted. Patient is not complaining of isolated hip pain and there is no tenderness to palpation over the left or right hip. Orthopedic surgery consulted. Chest x-ray without acute cardiopulmonary process. No urinary tract infection. 14:[address] Waldron, orthopedic surgery. There is a concern for fracture, we will image with CT without contrast of the patient's hip to further evaluate. 14:10 Patient's troponin is elevated at 0.12. His EKG from today shows left bundle branch block. No ST segment elevation. Patient denies chest pain at this time. Troponin elevation is possibly secondary to his recent seizure and fall. We will obtain a second EKG. aspirin will be given. Troponin in the past has been elevated to 0.05. Dilantin level is subtherapeutic, 2.3. Valproate level ordered and pending. 14:55 CT imaging reviewed. No acute intracranial abnormality. There is stable chronic lacunar infarcts within the left internal capsule and bilateral cerebellar hemispheres. No acute fracture subluxation of the cervical spine. We will remove the cervical collar. Patient has no displaced right hip fracture. There is a nondisplaced left sacral insufficiency fracture. 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 Patient has no visible fracture and does not complain of pain. Dr. Waldron called back as he reviewed the CT imaging and spoke with Dr. Casanova. As we will be admitting the patient for elevated troponin and seizures off his medications and at subtherapeutic levels, Orthopedic has been consulted to evaluate the patient for his AVN of the right hip. Lower extremity range of motion was repeated. Patient is able to do his right leg off the bed. He is able to flex his hip and knee. He is able to do abduction and adduction. Patient denies any pain in his hips at this time. He also denies chest pain and he has no acute complaints. Again when asking why the patient stopped taking his medication he states "he heard they were bad for him." Repeat EKG was obtained at 1523 shows sinus rhythm with heart rate 63. No acute changes from the patient's prior EKG obtained earlier today. Discussed with Hospitalist, Dr. Mcneil at 15:35. Patient has been accepted for admission. Discussed with him patient's elevated troponin and that he received aspirin. He does not have active chest pain and no acute ischemic changes on EKG. It was also discussed with him that the patient is not actively seizing and he is not postictal. He is at his baseline and alert and oriented to person and place but not time as he has a history of dementia as well. We did not initiate loading doses of his antiseizure medications at this time and did not have to give him any reported seizure medications here. Patient remains stable at this time. - Medical Records Medical records reviewed: Yes I reviewed the patient's medical records. - Lab Data Lab results reviewed: Yes I reviewed the patient's lab results. Result diagrams: 01/05/19 13:17 01/05/19 13:17 Lab Results 01/05/19 01/05/19 01/05/19 Range/Units 13:04 13:17 13:17 WBC 6.0 (4.3-11.1) K/mcL RBC 4.62 (4.19-5.50) M/mcL Hgb 14.2 (12.9-16.9) g/dL Hct 43.5 (37.5-50.1) % MCV 94.2 (83.0-100.0) fL MCH 30.7 (28.0-33.3) pg MCHC 32.6 (31.6-35.5) g/dL RDW 13.0 (11.5-14.5) % Plt Count 220 (140-400) K/mcL MPV 9.6 (9.4-12.4) fL Immature Gran % 0.2 (0-4) % Seg Neutrophils % 66.8 % Lymphocytes % 23.4 % Monocytes % 7.2 % Eosinophils % 1.7 % Basophils % 0.7 % Neutrophils # 4.0 (1.6-8.9) K/mcL Lymphocytes # 1.4 (0.6-4.6) K/mcL Monocytes # 0.4 (0.0-1.3) K/mcL Eosinophils # 0.1 (0.0-0.6) K/mcL Basophils # 0.0 (0.0-0.2) K/mcL PT 11.7 (9.4-12.1) Seconds INR 1.0 APTT 42.7 H (26.0-36.0) Seconds Sodium (136-145) mEq/L Potassium (3.5-5.1) mEq/L Chloride (98-107) mEq/L Carbon Dioxide (23-29) mEq/L BUN (8-23) mg/dL Creatinine (0.70-1.30) mg/dL Est GFR ( Amer) (> 60) Est GFR (Non-Af Amer) (> 60) BUN/Creatinine Ratio (6-26) Glucose (70-105) mg/dL POC Glucose (70-99) mg/dL Calculated Osmolality (280-300) Calcium (8.6-10.3) mg/dL Magnesium (1.6-2.6) mg/dL Total Bilirubin (0.3-1.0) mg/dL Direct Bilirubin (0.0-0.2) mg/dL Indirect Bilirubin (0.0-1.2) mg/dL AST (13-39) Units/L ALT (7-52) Units/L Alkaline Phosphatase (34-104) Units/L Ammonia (16-53) mcmol/L Creatine Kinase (30-223) Units/L Troponin I (< 0.04) ng/mL Serum Total Protein (6.4-8.9) g/dL Albumin (3.5-5.7) g/dL Globulin (2.4-3.5) g/dL Albumin/Globulin Ratio (1.1-2.2) TSH (0.340-5.600) mcIU/mL Urine Color Yellow (Yellow) Urine Clarity Clear (Clear) Urine pH 7.5 (5.0-8.0) pH Units Ur Specific [place] 1.011 (1.010-1.025) Urine Protein Negative (Neg-Trace) mg/dL Urine Glucose (UA) Normal (Normal) mg/dL Urine Ketones Negative (Negative) mg/dL Urine Blood Negative (Negative) Urine Nitrite Negative (Negative) Urine Bilirubin Negative (Negative) Urine Urobilinogen Normal (Normal) mg/dL Ur Leukocyte Esterase Small H (Negative) Urine Microscopic RBC 0-3 (0-3) per hpf Urine Microscopic WBC 5-15 H (0-3) per hpf Ur Squamous Epith Cells Moderate H (None-Few) per lpf Urine Bacteria None Seen (None-Few) per hpf Hyaline Casts None Seen (None-Few) per lpf Ur Culture Indicated? YES A (NO) Phenytoin (10.0-20.0) mcg/mL Valproic Acid (50-100) mcg/mL 01/05/19 01/05/19 01/05/19 Range/Units 13:17 13:17 13:19 WBC (4.3-11.1) K/mcL RBC (4.19-5.50) M/mcL Hgb (12.9-16.9) g/dL Hct (37.5-50.1) % MCV (83.0-100.0) fL MCH (28.0-33.3) pg MCHC (31.6-35.5) g/dL RDW (11.5-14.5) % Plt Count (140-400) K/mcL MPV (9.4-12.4) fL Immature Gran % (0-4) % Seg Neutrophils % % Lymphocytes % % Monocytes % % Eosinophils % % Basophils % % Neutrophils # (1.6-8.9) K/mcL Lymphocytes # (0.6-4.6) K/mcL Monocytes # (0.0-1.3) K/mcL Eosinophils # (0.0-0.6) K/mcL Basophils # (0.0-0.2) K/mcL PT (9.4-12.1) Seconds INR APTT (26.0-36.0) Seconds Sodium 137 (136-145) mEq/L Potassium 3.9 (3.5-5.1) mEq/L Chloride 102 (98-107) mEq/L Carbon Dioxide 28 (23-29) mEq/L BUN 22 (8-23) mg/dL Creatinine 0.77 (0.70-1.30) mg/dL Est GFR ( Amer) > 60 (> 60) Est GFR (Non-Af Amer) > 60 (> 60) BUN/Creatinine Ratio 29 H (6-26) Glucose 119 H (70-105) mg/dL POC Glucose 99 (70-99) mg/dL Calculated Osmolality 288 (280-300) Calcium 9.9 (8.6-10.3) mg/dL Magnesium 1.7 (1.6-2.6) mg/dL Total Bilirubin 0.4 (0.3-1.0) mg/dL Direct Bilirubin 0.1 (0.0-0.2) mg/dL Indirect Bilirubin 0.3 (0.0-1.2) mg/dL AST 42 H (13-39) Units/L ALT 49 (7-52) Units/L Alkaline Phosphatase 117 H (34-104) Units/L Ammonia 52 (16-53) mcmol/L Creatine Kinase 51 (30-223) Units/L Troponin I 0.12 H* (< 0.04) ng/mL Serum Total Protein 7.4 (6.4-8.9) g/dL Albumin 3.9 (3.5-5.7) g/dL Globulin 3.5 (2.4-3.5) g/dL Albumin/Globulin Ratio 1.1 (1.1-2.2) TSH 4.654 (0.340-5.600) mcIU/mL Urine Color (Yellow) Urine Clarity (Clear) Urine pH (5.0-8.0) pH Units Ur Specific [place] (1.010-1.025) Urine Protein (Neg-Trace) mg/dL Urine Glucose (UA) (Normal) mg/dL Urine Ketones (Negative) mg/dL Urine Blood (Negative) Urine Nitrite (Negative) Urine Bilirubin (Negative) Urine Urobilinogen (Normal) mg/dL Ur Leukocyte Esterase (Negative) Urine Microscopic RBC (0-3) per hpf Urine Microscopic WBC (0-3) per hpf Ur Squamous Epith Cells (None-Few) per lpf Urine Bacteria (None-Few) per hpf Hyaline Casts (None-Few) per lpf Ur Culture Indicated? (NO) Phenytoin 2.3 L (10.0-20.0) mcg/mL Valproic Acid 4 L (50-100) mcg/mL - Radiology Data Radiology results reviewed: Yes I reviewed the patient's radiology results. Pelvis X-Ray 01/05/19 13:04 IMPRESSION: 1. No radiographic evidence of complication status post ORIF of an intertrochanteric left hip fracture. 2. Subtle findings raising concern for stage II AVN of the right hip. This could be confirmed by MRI if clinically warranted. 3. Probable osteopenia. 4. No acute osseous abnormality of the pelvis. D/ / Dionte Ulrich MD / Dionte Ulrich MD Interpreting Provider: Dionte Ulrich MD - EKG Data EKG attestation: Yes I reviewed and interpreted this EKG. EKG results narrative: EKG obtained today at 1258 shows sinus rhythm with heart rate 67. MO interval 162. QRS duration 169. QTc 495. There is left bundle branch block. Compared to old EKG on 12/03/2018 which is unchanged. In the new EKG today, there is [address] depression in V5 and V6 which is new. Attestation Statement - Attestation Attestation: I, Syed Casanova DO, examined this patient [id number] and my medical decision-making was reviewed with Dr. Ling Dangelo , Resident Physician. I agree with the documented findings, disposition and treatment plan as described except to the extent set forth below. Please see my progress notes for details.
[2019-01-05 13:20] LABS: Bilirubin,Urine Negative (Negative); Blood,Urine Negative (Negative); Clarity,Urine Clear (Clear); Color,Urine Yellow (Yellow); Glucose,Urine (UA) Normal (Normal); Ketones,Urine Negative (Negative); Leukocyte Esterase,Urine Small (Negative); Nitrite,Urine Negative (Negative); PH,Urine 7.5 pH Units (5.0-8.0); Protein,Urine Negative (Neg-Trace); Specific Gravity,Urine 1.011 (1.010-1.025); Urobilinogen,Urine Normal (Normal)
[2019-01-05 13:21] LABS: Bacteria,Urine None Seen per hpf (None-Few); Hyaline Casts,Urine None Seen per lpf (None-Few); RBC,Urine 0-3 per hpf (0-3); Squamous Epithelial Cell,Urine Moderate per lpf (None-Few)
[2019-01-05 13:30] LABS: Basophils % 0.7 %; Eosinophils # 0.1 K/mcL (0.0-0.6); Eosinophils % 1.7 %; Hematocrit 43.5 % (37.5-50.1); Hemoglobin 14.2 g/dL (12.9-16.9); Immature Granulocytes % 0.2 % (0-4); Lymphocytes # 1.4 K/mcL (0.6-4.6); Lymphocytes % 23.4 %; Mean Corpuscular HGB Conc 32.6 g/dL (31.6-35.5); Mean Corpuscular Hemoglobin 30.7 pg (28.0-33.3); Mean Corpuscular Volume 94.2 fL (83.0-100.0); Mean Platelet Volume 9.6 fL (9.4-12.4); Monocytes # 0.4 K/mcL (0.0-1.3); Monocytes % 7.2 %; Platelet Count 220 K/mcL (140-400); Red Blood Count 4.62 M/mcL (4.19-5.50); Segmented Neutrophils % 66.8 %
[2019-01-05 13:37] LABS: Prothrombin Time 11.7 Seconds (9.4-12.1)
[2019-01-05 13:39] LABS: Activated Partial Thrombo Time 42.7 Seconds (26.0-36.0)
[2019-01-05 13:54] LABS: Alanine Aminotransferase 49 Units/L (7-52); Albumin 3.9 g/dL (3.5-5.7); Albumin/Globulin Ratio 1.1 (1.1-2.2); Alkaline Phosphatase 117 Units/L (34-104); Aspartate Amino Transferase 42 Units/L (13-39); BUN/Creatinine Ratio 29 (6-26); Bilirubin,Direct 0.1 mg/dL (0.0-0.2); Bilirubin,Indirect 0.3 mg/dL (0.0-1.2); Bilirubin,Total 0.4 mg/dL (0.3-1.0); Blood Urea Nitrogen 22 mg/dL (8-23); Calcium 9.9 mg/dL (8.6-10.3); Carbon Dioxide 28 mEq/L (23-29); Chloride 102 mEq/L (98-107); Creatine Kinase 51 Units/L (30-223); Globulin 3.5 g/dL (2.4-3.5); Glucose 119 mg/dL (70-105); Magnesium 1.7 mg/dL (1.6-2.6); Osmolality,Calculated 288 (280-300); Phenytoin (Dilantin) 2.3 mcg/mL (10.0-20.0); Potassium 3.9 mEq/L (3.5-5.1); Sodium 137 mEq/L (136-145); Total Protein 7.4 g/dL (6.4-8.9); eGFR For Non-African Americans > 60 (> 60)
[2019-01-05 14:01] LABS: Troponin I 0.12 ng/mL (< 0.04)
[2019-01-05 14:06] LABS: Thyroid Stimulating Hormone 4.654 mcIU/mL (0.340-5.600)
[2019-01-05] MEDS ORDERED: Aspirin 81 MG TAB.CHEW PO STA (15:05)
--- NOTE | 2019-01-05 15:06 | Emergency Department Note ---
Disposition Clinical Impression: Seizure-like activity, Elevated troponin, Seizure secondary to subtherapeutic anticonvulsant medication, Avascular necrosis of bone of right hip Fall Qualifiers: Encounter type: initial encounter Qualified Code(s): W19.XXXA - Unspecified fall, initial encounter Disposition: Admitted As Inpatient Condition: Fair Referrals: Cristian Horta MD [Primary Care Provider] - Forms: ED Satisfaction Letter Time of Disposition: 16:13 General Adult HPI - General Chief complaint: ED Fall Stated complaint: Fall, seizure Time Seen by Provider: 01/05/19 12:55 Source: patient, EMS Mode of arrival: EMS Limitations: altered mental status (dementia, not alert to time) - History of Present Illness Pain Scale: 6 - Related Data Home Medications Medication Instructions Recorded Confirmed Tamsulosin [Flomax] 0.4 mg PO DAILY 12/21/16 07/27/18 Vitamin E Mixed [Vitamin E] 800 unit PO DAILY 12/21/16 07/27/18 Divalproex (12 HR) [Depakote (12 1,000 mg PO BID 05/19/17 07/27/18 HR)] Sennosides [Senna] 17.2 mg PO BID 07/16/17 07/27/18 Losartan Potassium [Cozaar] 100 mg PO DAILY 01/14/18 07/27/18 Amlodipine Besylate 10 mg PO DAILY 07/27/18 07/27/18 Calcium Carbonate/Vitamin D3 1 tab PO DAILY 07/27/18 07/27/18 [Calcium 250-D Tablet] Carbidopa/Levodopa 1 tab PO BID 07/27/18 07/27/18 [Carbidopa-Levodopa 25-100 Tab] Finasteride [Proscar] 5 mg PO DAILY 07/27/18 07/27/18 Folic Acid 1 mg PO DAILY 07/27/18 07/27/18 Omeprazole [PriLOSEC] 20 mg PO DAILY 07/27/18 07/27/18 OxyCODONE Immed Rel [Roxicodone 10 10 mg PO Q6H 07/27/18 07/27/18 MG] Oxybutynin [Ditropan] 5 mg PO BID 07/27/18 07/27/18 Oxycodone HCl 5 mg PO Q4H PRN 07/27/18 07/27/18 Phenytoin ER [Dilantin ER] 100 mg PO Q6H 07/27/18 07/27/18 Quetiapine Fumarate [Seroquel] 25 mg PO HS 07/27/18 07/27/18 Venlafaxine [Effexor] 75 mg PO BID 07/27/18 07/27/18 hydrALAZINE [HydrALAZINE] 25 mg PO Q8HR 07/27/18 07/27/18 levETIRAcetam [Keppra] 500 mg PO BID 07/27/18 07/27/18 Previous Rx's Medication Instructions Recorded Loratadine [Claritin] 10 mg PO DAILY #30 tablet 05/21/17 Metoprolol XL (24 HR) Succ [Toprol 25 mg PO DAILY #30 tab.er.24h 07/30/18 Xl] levoFLOXacin [Levaquin] 250 mg PO DAILY #3 tablet 07/30/18 Allergies Allergy/AdvReac Type Severity Reaction Status Date / Time No Known Allergies Allergy Verified 07/27/18 10:25 Past Medical History - Past Medical History Medical history: Reports: arthritis, COPD, CVA, dementia, GERD, hyperlipidemia, hypertension, osteoporosis, renal disease, seizures, syncope, TIA Surgical history: Reports: cataract, prostatectomy, other Psychiatric history: Reports: anxiety, depression - Social History Smoking Status: Former smoker Smokeless Tobacco Status: No Alcohol use: Reports: none Drug use: Reports: none Physical Exam - General Limitations: altered mental status (dementia, not alert to time) General appearance: alert, in no apparent distress Course Vital Signs Temperature 98 F 01/05/19 12:57 Pulse Rate 64 01/05/19 12:57 Respiratory Rate 12 01/05/19 12:57 Blood Pressure 214/113 01/05/19 12:57 O2 Sat by Pulse Oximetry 100 01/05/19 12:57 Temperature 98.2 F 01/05/19 13:13 Pulse Rate 64 01/05/19 15:15 Respiratory Rate 17 01/05/19 15:15 Blood Pressure 178/106 01/05/19 15:15 O2 Sat by Pulse Oximetry 98 01/05/19 15:15 Oxygen Delivery Oxygen Delivery Room Air Medical Decision Making - Lab Data Result diagrams: 01/05/19 13:17 01/05/19 13:17 Lab Results 01/05/19 01/05/19 01/05/19 Range/Units 13:04 13:17 13:17 WBC 6.0 (4.3-11.1) K/mcL RBC 4.62 (4.19-5.50) M/mcL Hgb 14.2 (12.9-16.9) g/dL Hct 43.5 (37.5-50.1) % MCV 94.2 (83.0-100.0) fL MCH 30.7 (28.0-33.3) pg MCHC 32.6 (31.6-35.5) g/dL RDW 13.0 (11.5-14.5) % Plt Count 220 (140-400) K/mcL MPV 9.6 (9.4-12.4) fL Immature Gran % 0.2 (0-4) % Seg Neutrophils % 66.8 % Lymphocytes % 23.4 % Monocytes % 7.2 % Eosinophils % 1.7 % Basophils % 0.7 % Neutrophils # 4.0 (1.6-8.9) K/mcL Lymphocytes # 1.4 (0.6-4.6) K/mcL Monocytes # 0.4 (0.0-1.3) K/mcL Eosinophils # 0.1 (0.0-0.6) K/mcL Basophils # 0.0 (0.0-0.2) K/mcL PT 11.7 (9.4-12.1) Seconds INR 1.0 APTT 42.7 H (26.0-36.0) Seconds Sodium (136-145) mEq/L Potassium (3.5-5.1) mEq/L Chloride (98-107) mEq/L Carbon Dioxide (23-29) mEq/L BUN (8-23) mg/dL Creatinine (0.70-1.30) mg/dL Est GFR ( Amer) (> 60) Est GFR (Non-Af Amer) (> 60) BUN/Creatinine Ratio (6-26) Glucose (70-105) mg/dL POC Glucose (70-99) mg/dL Calculated Osmolality (280-300) Calcium (8.6-10.3) mg/dL Magnesium (1.6-2.6) mg/dL Total Bilirubin (0.3-1.0) mg/dL Direct Bilirubin (0.0-0.2) mg/dL Indirect Bilirubin (0.0-1.2) mg/dL AST (13-39) Units/L ALT (7-52) Units/L Alkaline Phosphatase (34-104) Units/L Ammonia (16-53) mcmol/L Creatine Kinase (30-223) Units/L Troponin I (< 0.04) ng/mL Serum Total Protein (6.4-8.9) g/dL Albumin (3.5-5.7) g/dL Globulin (2.4-3.5) g/dL Albumin/Globulin Ratio (1.1-2.2) TSH (0.340-5.600) mcIU/mL Urine Color Yellow (Yellow) Urine Clarity Clear (Clear) Urine pH 7.5 (5.0-8.0) pH Units Ur Specific [place] 1.011 (1.010-1.025) Urine Protein Negative (Neg-Trace) mg/dL Urine Glucose (UA) Normal (Normal) mg/dL Urine Ketones Negative (Negative) mg/dL Urine Blood Negative (Negative) Urine Nitrite Negative (Negative) Urine Bilirubin Negative (Negative) Urine Urobilinogen Normal (Normal) mg/dL Ur Leukocyte Esterase Small H (Negative) Urine Microscopic RBC 0-3 (0-3) per hpf Urine Microscopic WBC 5-15 H (0-3) per hpf Ur Squamous Epith Cells Moderate H (None-Few) per lpf Urine Bacteria None Seen (None-Few) per hpf Hyaline Casts None Seen (None-Few) per lpf Ur Culture Indicated? YES A (NO) Phenytoin (10.0-20.0) mcg/mL Valproic Acid (50-100) mcg/mL 01/05/19 01/05/19 01/05/19 Range/Units 13:17 13:17 13:19 WBC (4.3-11.1) K/mcL RBC (4.19-5.50) M/mcL Hgb (12.9-16.9) g/dL Hct (37.5-50.1) % MCV (83.0-100.0) fL MCH (28.0-33.3) pg MCHC (31.6-35.5) g/dL RDW (11.5-14.5) % Plt Count (140-400) K/mcL MPV (9.4-12.4) fL Immature Gran % (0-4) % Seg Neutrophils % % Lymphocytes % % Monocytes % % Eosinophils % % Basophils % % Neutrophils # (1.6-8.9) K/mcL Lymphocytes # (0.6-4.6) K/mcL Monocytes # (0.0-1.3) K/mcL Eosinophils # (0.0-0.6) K/mcL Basophils # (0.0-0.2) K/mcL PT (9.4-12.1) Seconds INR APTT (26.0-36.0) Seconds Sodium 137 (136-145) mEq/L Potassium 3.9 (3.5-5.1) mEq/L Chloride 102 (98-107) mEq/L Carbon Dioxide 28 (23-29) mEq/L BUN 22 (8-23) mg/dL Creatinine 0.77 (0.70-1.30) mg/dL Est GFR ( Amer) > 60 (> 60) Est GFR (Non-Af Amer) > 60 (> 60) BUN/Creatinine Ratio 29 H (6-26) Glucose 119 H (70-105) mg/dL POC Glucose 99 (70-99) mg/dL Calculated Osmolality 288 (280-300) Calcium 9.9 (8.6-10.3) mg/dL Magnesium 1.7 (1.6-2.6) mg/dL Total Bilirubin 0.4 (0.3-1.0) mg/dL Direct Bilirubin 0.1 (0.0-0.2) mg/dL Indirect Bilirubin 0.3 (0.0-1.2) mg/dL AST 42 H (13-39) Units/L ALT 49 (7-52) Units/L Alkaline Phosphatase 117 H (34-104) Units/L Ammonia 52 (16-53) mcmol/L Creatine Kinase 51 (30-223) Units/L Troponin I 0.12 H* (< 0.04) ng/mL Serum Total Protein 7.4 (6.4-8.9) g/dL Albumin 3.9 (3.5-5.7) g/dL Globulin 3.5 (2.4-3.5) g/dL Albumin/Globulin Ratio 1.1 (1.1-2.2) TSH 4.654 (0.340-5.600) mcIU/mL Urine Color (Yellow) Urine Clarity (Clear) Urine pH (5.0-8.0) pH Units Ur Specific [place] (1.010-1.025) Urine Protein (Neg-Trace) mg/dL Urine Glucose (UA) (Normal) mg/dL Urine Ketones (Negative) mg/dL Urine Blood (Negative) Urine Nitrite (Negative) Urine Bilirubin (Negative) Urine Urobilinogen (Normal) mg/dL Ur Leukocyte Esterase (Negative) Urine Microscopic RBC (0-3) per hpf Urine Microscopic WBC (0-3) per hpf Ur Squamous Epith Cells (None-Few) per lpf Urine Bacteria (None-Few) per hpf Hyaline Casts (None-Few) per lpf Ur Culture Indicated? (NO) Phenytoin 2.3 L (10.0-20.0) mcg/mL Valproic Acid 4 L (50-100) mcg/mL Attestation Statement - Attestation Attestation: I, Syed Casanova DO, examined this patient [id number] and my medical decision-making was reviewed with Dr. Ling Dangelo , Resident Physician. I agree with the documented findings, disposition and treatment plan as described except to the extent set forth below. Please see my progress notes for details. 78-year-old male presents emergency room for evaluation of being found down on the floor. [facility] This morning and went in to find the patient and he was lying on the floor. Nursing staff thought that he may have had a seizure. He has been refusing his medications at the nursing facility. Vital signs are stable during transport. Patient was placed in the c-collar. No visible signs of trauma or injury to the head the face or the neck. No step-offs or deformity to the spinal column. He has no deformity to the chest wall. Abdomen is soft. Lungs are clear. Heart is regular. Does appear to be normal. Extremities do not show any gross deformity of this time. Patient does have tenderness in the left hip. Is also describing pain in his testicles. No visible signs of injury were noted. Patient will have clothing removed in for evaluation will be completed. And a completed genitourinary examination that was unremarkable. Patient is pleasantly confused. He is able to answer questions well here. He does have a known seizure history is noncompliant with his medications. Medication review will be completed established medications exposed beyond. Vital signs otherwise stable. Patient was CT imaging of the head and cervical spine. Chest x-ray will be ordered. Screening labs for infectious etiology will be started. Me dical evaluation to be established and disposition will be determined. We were told on arrival the patient has a chronic left hip fracture that is not fixed. Imaging modality of the pelvis will be ordered to make sure there is no other changes this time. Patient otherwise stable. See detailed documentation the physical exam, medical intervention, medical decision-making and disposition in the resident physician's note. No critical care provider the patient's treatment course at this time. 1400 Conversation was had with the on-call orthopedic physician Dr. Waldron. Review the imaging modality. He recommended CT imaging of the pelvis secondary to the findings of avascular necrosis. Otherwise he had no other concerns at this point. There is any acute findings the patient should require MRI. Patient will be admitted secondary to the troponin. CT imaging of the pelvis was comple katherine. We will discuss admission process at this time. CT imaging the head does not show any acute signs of bleed or fracture. The c-collar was removed. Aspirin will be given. No other acute infectious etiology is noted. Patient has never had a troponin that time the past. He is still denying chest pain. EKG shows stable presentation with a normal bundle branch block with no changes from previous EKG. Hospitalist will be paged at this time for management and the inpatient setting. 1600 Dr. Resendez reviewed the case. No other recommendations or concerns at this point. Admission process to be established. We will monitor here in the emergency department until admission is completed.
[2019-01-05 15:20] LABS: Valproate 4 mcg/mL (50-100)
[2019-01-05] MEDS ORDERED: Acetaminophen 325 MG TABLET PO PRN (16:15)
[2019-01-05] MEDS ORDERED: Naloxone 0.4 MG/ML INJ IVP PRN (16:15)
[2019-01-05] MEDS ORDERED: traMADol 50 MG TABLET PO PRN (16:15)
[2019-01-05] MEDS ORDERED: *HR* LORazepam 2 MG/ML VIAL IVP PRN (16:32)
--- NOTE | 2019-01-05 16:36 | Internal Med History&Physical ---
Date of Encounter: 01/05/19 Time of Encounter: 15:50 Internal Medicine - H&P: HPI Chief complaint: pass out Admitted From: Long-term Nursing Facility Plans for Post Hospital Care: [facility] History of present illness: Mr. Kennedy is a 78 year old male [facility] for "pass out". Past medical history is significant for seizure activity, history of CVA, dementia, hypertension. Patient is awake alert but is a poor historian. History mainly obtained from ER and [facility] transfer documentation. Patient has known seizure hx on seizure medications. However, he refused taking any medication in last 3 days, because he believes "medication is not good". Today patient was found on floor by [facility] staff with seizure-like activity. Lasted about several minutes. Patient was send to emergency room and in ER was found BP is high at 200s. Patient is awake, seems has no postictal confusion. Patient denies chest pain, abdominal pain, complain bilateral hip pain but said "it has been there for a while". Patient was also found elevated troponin. EKG shows unchanged LBBB wh en comparing with previous EKG. CT head/neck/pelvis has been done, which shows nondisplaced fracture and AVN. Patient was admitted for further management. 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 pressure released from brain - Social History Smoking Status: Former smoker Smokeless Tobacco Status: No Alcohol use: none Drug use: none - Family History Father Adopted: Yes Family Member Ethnicity: Non- Living Status: Mother Adopted: Yes Living Status: Internal Medicine - H&P: Meds Tamsulosin [Flomax] 0.4 mg PO DAILY 12/21/16 [History] Vitamin E Mixed [Vitamin E] 800 unit PO DAILY 12/21/16 [History] Divalproex (12 HR) [Depakote (12 HR)] 1,000 mg PO BID 05/19/17 [History] Loratadine [Claritin] 10 mg PO DAILY #30 tablet 05/21/17 [Rx] Sennosides [Senna] 17.2 mg PO BID 07/16/17 [History] Losartan Potassium [Cozaar] 100 mg PO DAILY 01/14/18 [History] Amlodipine Besylate 10 mg PO DAILY 07/27/18 [History] Calcium Carbonate/Vitamin D3 [Calcium 250-D Tablet] 1 tab PO DAILY 07/27/18 [History] Carbidopa/Levodopa [Carbidopa-Levodopa 25-100 Tab] 1 tab PO BID 07/27/18 [History] Finasteride [Proscar] 5 mg PO DAILY 07/27/18 [History] Folic Acid 1 mg PO DAILY 07/27/18 [History] Omeprazole [PriLOSEC] 20 mg PO DAILY 07/27/18 [History] OxyCODONE Immed Rel [Roxicodone 10 MG] 10 mg PO Q6H 07/27/18 [History] Oxybutynin [Ditropan] 5 mg PO BID 07/27/18 [History] Oxycodone HCl 5 mg PO Q4H PRN 07/27/18 [History] Phenytoin ER [Dilantin ER] 100 mg PO Q6H 07/27/18 [History] Quetiapine Fumarate [Seroquel] 25 mg PO HS 07/27/18 [History] Venlafaxine [Effexor] 75 mg PO BID 07/27/18 [History] hydrALAZINE [HydrALAZINE] 25 mg PO Q8HR 07/27/18 [History] levETIRAcetam [Keppra] 500 mg PO BID 07/27/18 [History] Metoprolol XL (24 HR) Succ [Toprol Xl] 25 mg PO DAILY #30 tab.er.24h 07/30/18 [Rx] levoFLOXacin [Levaquin] 250 mg PO DAILY #3 tablet 07/30/18 [Rx] Allergy/AdvReac Type Severity Reaction Status Date / Time No Known Allergies Allergy Verified 07/27/18 10:25 All Systems PM: A 10-system review of systems was performed and is negative for pertinent findings except as documented above in the HPI. - Constitutional Vitals: Temp Pulse Resp BP Pulse Ox 98.2 F 64 17 178/106 98 01/05/19 13:13 01/05/19 15:15 01/05/19 15:15 01/05/19 15:15 01/05/19 15:15 Exam: Pt is AAO x 2, in NAD HEENT: NC/AT, PERRL Neck: Supple, no JVD, no LAD Lungs: CTA b/l Heart: S1S2, RRR Abd: Soft, nontender, BS present Ext: ROM wnl, no pedal edema Neuro: No focal deficit Internal Med - H&P Results - Labs CBC & Chem 7: 01/05/19 13:17 01/05/19 13:17 Labs: Short CBC 01/05/19 Range/Units 13:17 WBC 6.0 (4.3-11.1) K/mcL Hgb 14.2 (12.9-16.9) g/dL Hct 43.5 (37.5-50.1) % Plt Count 220 (140-400) K/mcL Neutrophils # 4.0 (1.6-8.9) K/mcL BMP 01/05/19 13:17 Sodium 137 Potassium 3.9 Chloride 102 Carbon Dioxide 28 BUN 22 Creatinine 0.77 Glucose 119 H Calcium 9.9 Cardiac Enzymes 01/05/19 Range/Units 13:17 Troponin I 0.12 H* (< 0.04) ng/mL Liver Function 01/05/19 Range/Units 13:17 Total Bilirubin 0.4 (0.3-1.0) mg/dL Direct Bilirubin 0.1 (0.0-0.2) mg/dL AST 42 H (13-39) Units/L ALT 49 (7-52) Units/L Alkaline Phosphatase 117 H (34-104) Units/L Albumin 3.9 (3.5-5.7) g/dL Urine 01/05/19 Range/Units 13:04 Urine Color Yellow (Yellow) Urine Clarity Clear (Clear) Urine pH 7.5 (5.0-8.0) pH Units Ur Specific [place] 1.011 (1.010-1.025) Urine Protein Negative (Neg-Trace) mg/dL Urine Glucose (UA) Normal (Normal) mg/dL - Impressions ITS Impressions Cervical Spine CT 01/05/19 12:55 IMPRESSION: 1. No acute intracranial abnormality. 2. Stable chronic lacunar infarcts within the left internal capsule and bilateral cerebellar hemispheres. 3. Stable chronic small vessel ischemic white matter disease. 4. Chronic paranasal sinusitis. 5. No acute fracture or subluxation of the cervical spine. D/ 01/05/2019 14:40:05 Denver Bailey MD / uma Interpreting Provider: Denver Bailey MD Chest X-Ray 01/05/19 12:55 IMPRESSION: Stable chest with no acute cardiopulmonary process. D/ / Dionte Ulrich MD / Dionte Ulrich MD Interpreting Provider: Dionte Ulrich MD Head CT 01/05/19 12:55 IMPRESSION: 1. No acute intracranial abnormality. 2. Stable chronic lacunar infarcts within the left internal capsule and bilateral cerebellar hemispheres. 3. Stable chronic small vessel ischemic white matter disease. 4. Chronic paranasal sinusitis. 5. No acute fracture or subluxation of the cervical spine. D/ 01/05/2019 14:40:05 Denver Bailey MD / uma Interpreting Provider: Denver Bailey MD Pelvis X-Ray 01/05/19 13:04 IMPRESSION: 1. No radiographic evidence of complication status post ORIF of an intertrochanteric left hip fracture. 2. Subtle findings raising concern for stage II AVN of the right hip. This could be confirmed by MRI if clinically warranted. 3. Probable osteopenia. 4. No acute osseous abnormality of the pelvis. D/ / Dionte Ulrich MD / Dionte Ulrich MD Interpreting Provider: Dionte Ulrich MD Hip CT 01/05/19 14:05 IMPRESSION: 1. Osteopenia. No displaced right hip fracture. 2. Nondisplaced left sacral insufficiency fracture. 3. 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 No subchondral fracture or articular surface collapse. Given the degree of osteopenia, nondisplaced fractures may be occult at CT imaging. If pain or concern for fracture persists, consider MR imaging. D/ / 01/05/2019 14:54:57 Nam Holden MD / aislinn Interpreting Provider: Nam Holden MD - Assessment and plan (1) DVT prophylaxis Current Visit: No Status: Acute Assessment and plan: Heparin subcutaneously (2) Seizure disorder Current Visit: No Status: Chronic Assessment and plan: Patient had seizure-like activity today. Noncompliant with seizure medication. Level of Dilantin and valproic acid level low. Possibly seizure. - Discussed with neurology consult, will place patient back on home seizure medication, seizure precaution, ativan IV as needed for seizure activity. - Neurology consult will see patient. (3) Syncope Current Visit: No Status: Acute Assessment and plan: Also need to rule out syncope - Continuous cardiac monitoring to rule out ACS/arrhythmia - Echo and duplex carotid Qualifiers: Syncope type: unspecified Qualified Code(s): R55 - Syncope and collapse (4) Elevated troponin Current Visit: Yes Status: Acute Assessment and plan: Patient has a mild elevated troponin with possible syncope episode. Need to rule out ACS. Patient denies chest pain. - Continue cardiac monitoring - Track 3 sets of troponin - Echocardiogram (5) Hypertensive urgency Current Visit: No Status: Resolved Assessment and plan: Patient did not take blood pressure medication for 3 days. High blood pressure possibly due to medication noncompliance. - Place back patient's home medications metoprolol and losartan - Hydralazine IV when necessary (6) Avascular necrosis of bone of right hip Current Visit: Yes Status: Acute Assessment and plan: Orthopedic consult was called by ER. Will see patient. Continue pain managem ent (7) Hip fracture Current Visit: Yes Status: Acute Assessment and plan: Orthopedic consult on case Qualifiers: Encounter type: initial encounter Fracture type: closed Laterality: left Qualified Code(s): S72.002A - Fracture of unspecified part of neck of left femur, initial encounter for closed fracture - Time Spent With Patient Total time spent is greater than 50% in coordination of care (as documented) at patient's floor/unit and/or counseling patient: 40 minutes Greater than 35 minutes
[2019-01-05] MEDS ORDERED: Perflutren Lipid Microsphere 1.3 ML in 0.9 % Sodium Chloride 8.7 ML IVP ONE (18:50)
--- NOTE | 2019-01-05 19:44 | Orthopedic Consult Note ---
Date of Encounter: 01/05/19 Time of Encounter: 17:30 Assessment and Plan (1) Fracture of sacrum Current Visit: Yes Status: Acute I did have a discussion with the patient regarding the diagnosis. Based on the CT scan and clinical findings, i.e. the absence of groin pain with motion of the right hip or axial loading of the right thigh I do not have concern for a hip fracture. Regarding the sacral ala fracture described by the radiologist my recommendation is for nonoperative management, weightbearing as tolerated on the bilateral lower extremities and therapy when able from a medical standpoint. I will follow clinically with you in house. She did develop pain in the right hip or groin we would consider MRI for further evaluation of the hip. Qualifiers: Qualified Code(s): S32.10XA - Unspecified fracture of sacrum, initial encounter for closed fracture History of Present Illness HPI: Mr. Kennedy is a 78 year old male who is a jail resident and admitted after a seizure and an apparent fall as well as elevated troponins. I was asked to evaluate the pelvis and right hip. The patient complains of generalized body aches but is not able to provide any significant history. The history is mostly gleaned from the chart. He does have a history of a left hip fracture which has been fixed remotely with a left femoral nail. He apparently had recovered from this well the patient is not able to provide any history on when this was performed and I do not have records of the surgery. He is currently denying any groin pain on either side. He does not report any injuries. He denies numbness, tingling, and any other associated signs or symptoms. No modifying factors. 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 pressure released from brain - Social History Smoking Status: Former smoker Smokeless Tobacco Status: No Alcohol use: none Drug use: none - Family History Father Adopted: Yes Family Member Ethnicity: Non- Living Status: Mother Adopted: Yes Living Status: Medications and Allergies Tamsulosin [Flomax] 0.4 mg PO DAILY 12/21/16 [History] Vitamin E Mixed [Vitamin E] 800 unit PO DAILY 12/21/16 [History] Divalproex (12 HR) [Depakote (12 HR)] 1,000 mg PO BID 05/19/17 [History] Loratadine [Claritin] 10 mg PO DAILY #30 tablet 05/21/17 [Rx] Sennosides [Senna] 17.2 mg PO BID 07/16/17 [History] Losartan Potassium [Cozaar] 100 mg PO DAILY 01/14/18 [History] Amlodipine Besylate 10 mg PO DAILY 07/27/18 [History] Calcium Carbonate/Vitamin D3 [Calcium 250-D Tablet] 1 tab PO DAILY 07/27/18 [History] Carbidopa/Levodopa [Carbidopa-Levodopa 25-100 Tab] 1 tab PO BID 07/27/18 [His tory] Finasteride [Proscar] 5 mg PO DAILY 07/27/18 [History] Folic Acid 1 mg PO DAILY 07/27/18 [History] Omeprazole [PriLOSEC] 20 mg PO DAILY 07/27/18 [History] OxyCODONE Immed Rel [Roxicodone 10 MG] 10 mg PO Q6H 07/27/18 [History] Oxybutynin [Ditropan] 5 mg PO BID 07/27/18 [History] Oxycodone HCl 5 mg PO Q4H PRN 07/27/18 [History] Phenytoin ER [Dilantin ER] 100 mg PO Q6H 07/27/18 [History] Quetiapine Fumarate [Seroquel] 25 mg PO HS 07/27/18 [History] Venlafaxine [Effexor] 75 mg PO BID 07/27/18 [History] hydrALAZINE [HydrALAZINE] 25 mg PO Q8HR 07/27/18 [History] levETIRAcetam [Keppra] 500 mg PO BID 07/27/18 [History] Metoprolol XL (24 HR) Succ [Toprol Xl] 25 mg PO DAILY #30 tab.er.24h 07/30/18 [Rx] levoFLOXacin [Levaquin] 250 mg PO DAILY #3 tablet 07/30/18 [Rx] Allergy/AdvReac Type Severity Reaction Status Date / Time No Known Allergies Allergy Verified 07/27/18 10:25 All Systems Reviewed: Constitutional -The patient denies any fevers, chills, or feelings of illness Neurologic -The patient denies any numbness, tingling, or burning pains Physical Exam - Constitutional Vitals: Temp Pulse Resp BP Pulse Ox 98.2 F 61 17 188/123 97 01/05/19 19:05 01/05/19 19:05 01/05/19 19:05 01/05/19 19:05 01/05/19 19:05 Constitutional -Vitals reviewed -The patient is well developed and well nourished. -Mood is pleasant. -The patient is well groomed. Psychiatric -Confusion. A and O x 2; Not orientated to place. Respiratory: -Respiratory effort normal Abdomen: -Soft abdomen -Non tender -Non distended: Pelvis: -Stable to compression at the anterior superior iliac spines and over the symphysis pubis -Mild tenderness over the symphysis. Left upper extremity: -No deformities. The overlying skin is intact. No obvious signs of acute trauma. -No tenderness to palpation throughout. -No significant pain with passive motion of the shoulder, elbow, wrist, and fingers within the limits of the bed. -Able to make an "OK" sign, cross the index and long fingers, and extend the thumb. -Sensation grossly intact to light touch throughout the median, radial, and ulnar distributions. -Radial pulse is present; Fingers have good capillary refill. Right upper extremity: -No deformities. The overlying skin is intact. No obvious signs of acute trauma. -No tenderness to palpation throughout. -No significant pain with passive motion of the shoulder, elbow, wrist, and fingers within the limits of the bed. -Able to make an "OK" sign, cross the index and long fingers, and extend the thumb. -Sensation grossly intact to light touch throughout the median, radial, and ulnar distributions. -Radial pulse is present; Fingers have good capillary refill. Left lower extremity: -No deformities. Well-healed surgical incisions from the left hip nail. The overlying skin is intact. No obvious signs of acute trauma. -No tenderness to palpation throughout. -No pain with passive motion of the hip, knee, ankle, and toes within the limits of the bed. -No pain with axial loading of the thigh. -Able to dorsiflex and plantarflex the ankle and toes. -Sensation is grossly intact to light touch throughout the sural, saphenous, superficial peroneal, and deep peroneal distributions. -Toes have good capillary refill. Right lower extremity: -No deformities. The overlying skin is intact. No obvious signs of acute trauma. -No tenderness to palpation throughout. -No pain with passive motion of the hip, knee, ankle, and toes within the limits of the bed. -No pain with axial loading of the thigh. -Able to dorsiflex and plantarflex the ankle and toes. -Sensation is grossly intact to light touch throughout the sural, saphenous, superficial peroneal, and deep peroneal distributions. -Toes have good capillary refill. Diagnostic Imaging: I did personally review and interpret x-rays of the right pelvis which show rotation of the right hip without fracture. I did review the CT scan which does not show any fractures of the right hip. Radiologist did not comment on a sacral alar insufficiency fracture on the left without displacement. Results - Labs Result Diagrams: 01/05/19 13:17 01/05/19 13:17 Labs: Abnormal lab results APTT 42.7 Seconds (26.0-36.0) H 01/05/19 13:17 BUN/Creatinine Ratio 29 (6-26) H 01/05/19 13:17 Glucose 119 mg/dL (70-105) H 01/05/19 13:17 AST 42 Units/L (13-39) H 01/05/19 13:17 Alkaline Phosphatase 117 Units/L (34-104) H 01/05/19 13:17 Troponin I 0.12 ng/mL (< 0.04) H* 01/05/19 13:17 Ur Leukocyte Esterase Small (Negative) H 01/05/19 13:04 Urine Microscopic WBC 5-15 per hpf (0-3) H 01/05/19 13:04 Ur Squamous Epith Cells Moderate per lpf (None-Few) H 01/05/19 13:04 Ur Culture Indicated? YES (NO) A 01/05/19 13:04 Phenytoin 2.3 mcg/mL (10.0-20.0) L 01/05/19 13:17 Valproic Acid 4 mcg/mL (50-100) L 01/05/19 13:17 H & H 01/05/19 Range/Units 13:17 Hgb 14.2 (12.9-16.9) g/dL Hct 43.5 (37.5-50.1) % All other labs normal. Consult Discharge Plan - Plan Referrals: Cristian Horta MD [Primary Care Provider] -
[2019-01-05] MEDS: Metoprolol XL (24 HR) Succ 25 MG TAB.ER.24H PO SCH (20:09)
[2019-01-05] MEDS: *HR* Heparin 5,000 UNIT/ML VIAL SQ SCH (20:10)
[2019-01-05] MEDS: levETIRAcetam 250 MG TABLET PO SCH (20:40)
[2019-01-05] MEDS: Divalproex (12 HR) 500 MG TABLET PO SCH (20:54)
--- NOTE | 2019-01-05 23:26 | Electrocardiograph Report ---
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
[2019-01-06 02:10] LABS: Basophils % 0.4 %; Eosinophils # 0.1 K/mcL (0.0-0.6); Hematocrit 34.7 % (37.5-50.1); Immature Granulocytes % 0.5 % (0-4); Lymphocytes # 2.2 K/mcL (0.6-4.6); Lymphocytes % 27.1 %; Mean Corpuscular HGB Conc 34.3 g/dL (31.6-35.5); Mean Corpuscular Hemoglobin 31.3 pg (28.0-33.3); Mean Corpuscular Volume 91.3 fL (83.0-100.0); Mean Platelet Volume 9.4 fL (9.4-12.4); Monocytes # 0.7 K/mcL (0.0-1.3); Monocytes % 8.4 %; Platelet Count 238 K/mcL (140-400); Red Cell Distribution Width 12.8 % (11.5-14.5); Segmented Neutrophils % 62.6 %
[2019-01-06 02:20] LABS: Hemoglobin 11.9 g/dL (12.9-16.9)
[2019-01-06 02:41] LABS: BUN/Creatinine Ratio 33 (6-26); Blood Urea Nitrogen 24 mg/dL (8-23); Calcium 9.1 mg/dL (8.6-10.3); Carbon Dioxide 25 mEq/L (23-29); Chloride 105 mEq/L (98-107); Glucose 123 mg/dL (70-105); Magnesium 1.6 mg/dL (1.6-2.6); Osmolality,Calculated 287 (280-300); Potassium 3.8 mEq/L (3.5-5.1); Sodium 136 mEq/L (136-145); eGFR For Non-African Americans > 60 (> 60)
[2019-01-06] MEDS: *HR* Heparin 5,000 UNIT/ML VIAL SQ SCH (05:50)
[2019-01-06] MEDS: Metoprolol XL (24 HR) Succ 25 MG TAB.ER.24H PO SCH (08:56)
[2019-01-06] MEDS: Divalproex (12 HR) 500 MG TABLET PO SCH (08:57)
[2019-01-06] MEDS: levETIRAcetam 250 MG TABLET PO SCH (08:58)
--- NOTE | 2019-01-06 09:40 | Neurology - Consult Note ---
<Chaparro Palma N - Last Filed: 01/06/19 11:37> Date of Encounter: 01/06/19 Time of Encounter: 09:40 Assessment and Plan (1) Seizure-like activity Current Visit: Yes Status: Acute This is a 78-year-old male with a history of seizures on 3 antiepileptic medications. Suspect the patient has been noncompliant with his medications as he has had subtherapeutic levels of Depakote and Dilantin during this admission as well as during outpatient lab draw in December 2018. Patient is a resident of a [place] [facility] facility and it is reported that he is refusing his anti- epileptic medications. Since admission patient has not experienced any further seizure episodes, his medications have been restarted. We will obtain an EEG to assess for any abnormalities or epileptiform activity. We will also obtain MRI as patient has had previous CVAs and experienced a fall prior to the onset of his reported seizure-like activity this time. Since patient has been noncompliant with his medications we will decrease his antiepileptic regimen to single medication treatment with Depakote 1000mg twice a day to improve adherence to his antiepileptic regimen, as well as decrease adverse effects from the multiple medications as it appears that patient's recurrent seizures may be secondary to noncompliance breath and breakthrough seizures. the patient has outpatient follow-up with Dr. Ritchie and his anticonvulsants can be adjusted as needed on an outpatient basis at that time. -Reported seizure-like activity following a fall -Patient has been noncompliant with his seizure medications evidenced by subtherapeutic Dilantin and Depakote levels on outpatient lab draw as well as during this admission -Obtaining EEG -Obtaining MRI -We will discontinue Keppra and Dilantin and only continue Depakote 1000 mg twice a day -Obtaining B12 and folate. TSH within range History of Present Illness Chief complaint: Fall, seizure-like activity HPI: Mr. Kennedy is a 78 year old male with a reported history of seizures, Parkinson's disease, and prior multiple CVAs who was admitted the hospital after a fall at his intermediate followed by seizure-like activity. Patient is a poor historian and does not recall events surrounding his admission, this history was collected mainly from records. There is no indication of the patient to maintain tongue biting or loss of urine or bowel. In the emergency primary he was not noted to be postictal and he did not experience any further seizure like activity. 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 Patient is on multiple medications for control of his seizure disorder which the patient states occurred after a traumatic injury in 1987. Per [facility] records patient is on Dilantin 100 mg every 6 hours, Keppra 500 mg by mouth twice a day, and Depakote 1000 mg twice a day. Patient follows , neurology, as an outpatient and on [facility] records patient is supposed to be on Dilantin 100 3 times a day, Depakote 1000 twice a day, and Keppra 1000 twice a day. ED admission records state that patient has been noncompliant with his medications over the past 3 days as he has been refusing his antiepilptic medications, and this was confirmed by lab studies that revealed subtherapeutic levels of Dilantin and Depakote. Patient was evaluated by Dr. Ritchie on 12/18/2018 for breakthrough seizures and lab work at that time also revealed subtherapeutic levels of Dilantin and Depakote.Thus patient may have been without his antiepileptic medications for a prolonged period of time. On history collection, patient is awake and alert but not completely oriented. He answers all questions appropriately and his only complaint is of low back pain. He has not experienced any seizure-like activity overnight. His medications have been restarted. 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 pressure released from brain - Social History Smoking Status: Former smoker Smokeless Tobacco Status: No Alcohol use: none Drug use: none - Family History Father Adopted: Yes Family Member Ethnicity: Non- Living Status: Mother Adopted: Yes Living Status: Medications and Allergies Tamsulosin [Flomax] 0.4 mg PO DAILY 12/21/16 [History] Vitamin E Mixed [Vitamin E] 800 unit PO DAILY 12/21/16 [History] Divalproex (12 HR) [Depakote (12 HR)] 1,000 mg PO BID 05/19/17 [History] Loratadine [Claritin] 10 mg PO DAILY #30 tablet 05/21/17 [Rx] Sennosides [Senna] 17.2 mg PO BID 07/16/17 [History] Losartan Potassium [Cozaar] 100 mg PO DAILY 01/14/18 [History] Amlodipine Besylate 10 mg PO DAILY 07/27/18 [History] Calcium Carbonate/Vitamin D3 [Calcium 250-D Tablet] 1 tab PO DAILY 07/27/18 [Hi story] Carbidopa/Levodopa [Carbidopa-Levodopa 25-100 Tab] 1 tab PO BID 07/27/18 [History] Finasteride [Proscar] 5 mg PO DAILY 07/27/18 [History] Folic Acid 1 mg PO DAILY 07/27/18 [History] Omeprazole [PriLOSEC] 20 mg PO DAILY@0730 07/27/18 [History] Oxybutynin [Ditropan] 5 mg PO BID 07/27/18 [History] Oxycodone HCl 10 mg PO Q6H PRN 07/27/18 [History] Phenytoin ER [Dilantin ER] 100 mg PO Q6H 07/27/18 [History] Quetiapine Fumarate [Seroquel] 25 mg PO HS 07/27/18 [History] Venlafaxine [Effexor] 75 mg PO BID 07/27/18 [History] hydrALAZINE [HydrALAZINE] 25 mg PO TID 07/27/18 [History] levETIRAcetam [Keppra] 500 mg PO BID 07/27/18 [History] Metoprolol XL (24 HR) Succ [Toprol Xl] 25 mg PO DAILY #30 tab.er.24h 07/30/18 [Rx] Allergy/AdvReac Type Severity Reaction Status Date / Time No Known Allergies Allergy Verified 07/27/18 10:25 All Systems: The remainder of the systems were reviewed and are negative - Constitutional Constitutional ROS IM: no headache(s) - Eyes Eyes: right: decreased vision - Ears Ears: bilateral: decreased hearing - Nose, Mouth, Throat Nose, mouth and throat: abnormal hearing - Cardiovascular Cardiovascular ROS IM: no chest pain - Respiratory Respiratory IM: no dyspnea - Gastrointestinal Gastrointestinal: constipation, no abdominal pain - Musculoskeletal Musculoskeletal ROS IM: back pain - Integumentary Integumentary IM: no rash - Neurological Neurological ROS: abnormal gait, abnormal hearing, confusion, frequent falls, loss of vision (right eye) - Endocrine Endocrine IM: no fatigue - Hematologic/Lymphatic Hematologic/Lymphatic pediatric: no easy bruising Physical Examination - Vital Signs Vital Signs: Initial Vital Signs Temp Pulse Resp BP Pulse Ox 98 F 64 12 214/113 100 01/05/19 12:57 01/05/19 12:57 01/05/19 12:57 01/05/19 12:57 01/05/19 12:57 - Exam Exam: Constitutional: Patient is awake, he is oriented to self and place but not to time. He cannot recall the tourist guide. He is in no acute distress. HEENT: Pupils are unequal as the right eye is enlarged and irregular in appearance which the patient states is chronic since his injury 1987. His extraoccularmuscles are intact. Oropharynx is clear without lesions. No nuchal rigidity. Neck: No JVD, normal to inspection, trachea midline Chest: Symmetrical chest wall rise, no tenderness to palpation Cardiovascular: Regular rate and rhythm no murmurs Respiratory: Clear to auscultation bilaterally Abdomen: Soft nontender no guarding or rigidity Neurological: - General: Patient has difficulty with memory recall and he is not completely oriented. - Cranial nerves: Vision decreased in right eye which is chronic, bilateral hearing impairment. Extraocular muscles are intact. Pupils are unequal in the right eye is irregular in appearance. Pupils do react to light with right eye having minimal response. Facial sensation is intact. No facial asymmetry. No dysarthria. Tongue protrudes midline. Uvula midline. Normal SCM and trapezius muscle strength. - Upper extremities: Strength is 5 out of 5 bilaterally throughout. No pronator drift. Finger to nose is normal. Biceps reflexes 2+ bilaterally. - Lower extremities: Strength is 3 out of 5 bilaterally and equal. Patient complains of pain in his head when raising legs off bed. Plantar flexion and dorsiflexion strength is 5 out of 5 bilaterally. Patellar reflexes 1+ bilaterally. Babinski negative. Results - Laboratory Findings CBC and BMP: 01/06/19 01:51 01/06/19 01:51 Abnormal lab findings: Abnormal lab results RBC 3.80 M/mcL (4.19-5.50) L 01/06/19 01:51 Hgb 11.9 g/dL (12.9-16.9) L D 01/06/19 01:51 Hct 34.7 % (37.5-50.1) L 01/06/19 01:51 APTT 42.7 Seconds (26.0-36.0) H 01/05/19 13:17 BUN 24 mg/dL (8-23) H 01/06/19 01:51 BUN/Creatinine Ratio 33 (6-26) H 01/06/19 01:51 Glucose 123 mg/dL (70-105) H 01/06/19 01:51 AST 42 Units/L (13-39) H 01/05/19 13:17 Alkaline Phosphatase 117 Units/L (34-104) H 01/05/19 13:17 Troponin I 0.09 ng/mL (< 0.04) H* 01/06/19 01:51 Ur Leukocyte Esterase Small (Negative) H 01/05/19 13:04 Urine Microscopic WBC 5-15 per hpf (0-3) H 01/05/19 13:04 Ur Squamous Epith Cells Moderate per lpf (None-Few) H 01/05/19 13:04 Ur Culture Indicated? YES (NO) A 01/05/19 13:04 Phenytoin 2.3 mcg/mL (10.0-20.0) L 01/05/19 13:17 Valproic Acid 4 mcg/mL (50-100) L 01/05/19 13:17 Consult Discharge Plan - Plan Referrals: Cristian Horta MD [Primary Care Provider] - <Edith Holley I - Last Filed: 01/06/19 12:53> Date of Encounter: 01/06/19 Assessment and Plan (1) Seizure-like activity Current Visit: Yes Status: Acute Pt was seen and examined, my medical decision was reviewed with the Resident Physician, I agree with the documented findings, disposition and treatment plan, as described except to the extent set forth below NV had a history of dementia questionable parkinsonism as well as history of seizure disorder but no recent seizures for quite some time had been seen by Dr. Ritchie in our practice as an outpatient with the concern of polypharmacy as per records he is on 3 different anti-convulsant medication with low levels of all of them. And apparently not taking any medication for the last few days. Seemed like his Dilantin and Depakote level has been low for a while even if he was taking the medication As his level is been continuously low I do not think that we need to continue him on 3 anticonvulsive medication I have suggested only to use Depakote 500 mg twice a day for a week and after that increased 2000 mg twice a day and check his Depakote level in one week, that could also help stabilize his mood, he also has underlying dementia. We can discontinue Keppra and Dilantin check other metabolic abnormalities that may be contributing to his symptoms. Other treatment is as per primary team after discharge patient to be follow-up with Dr. Ritchie as an outpatient Edith Holley MD History of Present Illness HPI: Mr. Kennedy is a 78 year old male All Systems: The remainder of the systems were reviewed and are negative Physical Examination - Vital Signs Vital Signs: Initial Vital Signs Temp Pulse Resp BP Pulse Ox 98 F 64 12 214/113 100 01/05/19 12:57 01/05/19 12:57 01/05/19 12:57 01/05/19 12:57 01/05/19 12:57 Results - Laboratory Findings CBC and BMP: 01/06/19 01:51 01/06/19 01:51 Abnormal lab findings: Abnormal lab results RBC 3.80 M/mcL (4.19-5.50) L 01/06/19 01:51 Hgb 11.9 g/dL (12.9-16.9) L D 01/06/19 01:51 Hct 34.7 % (37.5-50.1) L 01/06/19 01:51 APTT 42.7 Seconds (26.0-36.0) H 01/05/19 13:17 BUN 24 mg/dL (8-23) H 01/06/19 01:51 BUN/Creatinine Ratio 33 (6-26) H 01/06/19 01:51 Glucose 123 mg/dL (70-105) H 01/06/19 01:51 AST 42 Units/L (13-39) H 01/05/19 13:17 Alkaline Phosphatase 117 Units/L (34-104) H 01/05/19 13:17 Troponin I 0.05 ng/mL (< 0.04) H* 01/06/19 12:00 Ur Leukocyte Esterase Small (Negative) H 01/05/19 13:04 Urine Microscopic WBC 5-15 per hpf (0-3) H 01/05/19 13:04 Ur Squamous Epith Cells Moderate per lpf (None-Few) H 01/05/19 13:04 Ur Culture Indicated? YES (NO) A 01/05/19 13:04 Phenytoin 2.3 mcg/mL (10.0-20.0) L 01/05/19 13:17 Valproic Acid 4 mcg/mL (50-100) L 01/05/19 13:17
[2019-01-06 12:08] VITALS: BP 136/78
--- NOTE | 2019-01-06 12:49 | EEG/EMG/Oth Biometrics Report ---
EEG Procedure Report EEG Procedure: Routine EEG Procedure Note: This is a routine 21 channel digital EEG performed utilizing 10- 20 international electrode placement system. FINDINGS: Patient has a predominant waking background frequency that is average voltage 8 to 10 Hertz alpha activity in the posterior region, normal amplitude symmetrical over the both hemispheres reactive to eyes opening and closing record continued to show alpha activity intermixed with some theta off and on, no abnormal activity recorded, predominantly no evidence of any spike wave discharges or any lateralizing abnormalities, Photic stimulation did not produce any convulsive response. Intermittent EMG artifacts were noted. Stage II sleep was not achieved. Impression: Normal awake drowsy electroencephalogram. No epileptiform discharges or any other paroxysmal activities noted. ( Please note that normal EEG does not exclude the diagnosis of seizures or epilepsy, clinical correlation is suggested)
[2019-01-06 12:58] LABS: Vitamin B12 954 pg/mL (250-1100)
[2019-01-06 13:03] LABS: Folate > 22.3 ng/mL (3.0-16.0)
--- NOTE | 2019-01-06 13:12 | Discharge Summary ---
- NOTES TO OUTPATIENT PROVIDER Notes to Outpatient Provider: Follow-up with neurology within 1-2 weeks of hospital discharge. Date of Encounter: 01/06/19 Time of Encounter: 13:09 - Discharge Diagnosis (1) Seizure disorder Priority: Primary Status: Chronic (2) Syncope Priority: Secondary Status: Resolved Qualifiers: Syncope type: unspecified Qualified Code(s): R55 - Syncope and collapse (3) Elevated troponin Priority: Secondary Status: Acute (4) Hypertensive urgency Priority: Secondary Status: Resolved (5) Avascular necrosis of bone of right hip Priority: Secondary Status: Acute (6) Hip fracture Priority: Secondary Status: Acute Qualifiers: Encounter type: initial encounter Fracture type: closed Laterality: left Qualified Code(s): S72.002A - Fracture of unspecified part of neck of left femur, initial encounter for closed fracture (7) DVT prophylaxis Priority: Secondary Status: Acute Hospital course: Mr. Kennedy is a 78 year old male past medical history of rthritis, COPD, CVA, dementia, GERD, hyperlipidemia, hypertension, osteoporosis, renal disease, seizures, syncope, TIA patient was brought to the hospital following a syncopal episode, and seizure-like activity a assisted. Patient admitted to this hospital due to possible seizures, hypertensive urgency BP of 214/113 on presentation. Brain MRI was done showed no acute abnormalities. Stable small old infarctions in the bilateral cerebellar hemispheres and posterior left frontal lobe. Stable small old lacunar infarct in the left basal ganglia. EEG: Normal awake drowsy electroencephalogram. No epileptiform discharges or any other paroxysmal activities noted. Neurology consulted recommended to continue his antiseizures medications and to follow up in the outpatient settings. Ortho was consulted due to: fracture of the sacrum: recommended nonoperative management. Patient acute symptoms have resolved. BP is well controlled on his home mediations. Patient is hemodynamically stable to be discharged. - Time Spent with Patient Total time spent providing and/or coordinating discharge services: Greater than 30 minutes (45) - Discharge Medications Prescriptions: Aspirin Enteric Coated [Aspirin EC] 81 mg PO DAILY 30 Days #30 tablet.dr Colton Medications: Tamsulosin [Flomax] 0.4 mg PO DAILY 12/21/16 [History] Vitamin E Mixed [Vitamin E] 800 unit PO DAILY 12/21/16 [History] Divalproex (12 HR) [Depakote (12 HR)] 1,000 mg PO BID 05/19/17 [History] Loratadine [Claritin] 10 mg PO DAILY #30 tablet 05/21/17 [Rx] Sennosides [Senna] 17.2 mg PO BID 07/16/17 [History] Losartan Potassium [Cozaar] 100 mg PO DAILY 01/14/18 [History] Amlodipine Besylate 10 mg PO DAILY 07/27/18 [History] Calcium Carbonate/Vitamin D3 [Calcium 250-D Tablet] 1 tab PO DAILY 07/27/18 [History] Carbidopa/Levodopa [Carbidopa-Levodopa 25-100 Tab] 1 tab PO BID 07/27/18 [History] Finasteride [Proscar] 5 mg PO DAILY 07/27/18 [History] Folic Acid 1 mg PO DAILY 07/27/18 [History] Omeprazole [PriLOSEC] 20 mg PO DAILY@0730 07/27/18 [History] Oxybutynin [Ditropan] 5 mg PO BID 07/27/18 [History] Oxycodone HCl 10 mg PO Q6H PRN 07/27/18 [History] Phenytoin ER [Dilantin ER] 100 mg PO Q6H 07/27/18 [History] Quetiapine Fumarate [Seroquel] 25 mg PO HS 07/27/18 [History] Venlafaxine [Effexor] 75 mg PO BID 07/27/18 [History] hydrALAZINE [HydrALAZINE] 25 mg PO TID 07/27/18 [History] levETIRAcetam [Keppra] 500 mg PO BID 07/27/18 [History] Metoprolol XL (24 HR) Succ [Toprol Xl] 25 mg PO DAILY #30 tab.er.24h 07/30/18 [Rx] Aspirin Enteric Coated [Aspirin EC] 81 mg PO DAILY 30 Days #30 tablet. 01/06/19 [Rx] Allergies/Adverse Reactions: Allergy/AdvReac Type Severity Reaction Status Date / Time No Known Allergies Allergy Verified 07/27/18 10:25 Date of admission: 01/05/19 17:01 Primary care physician: Cristian Horta MD Consults: 01/05/19 15:06 Consult to Orthopedic Surgery [CONS] Stat Consulting Provider: Orth[facility] Reason for Consult: AVN R hip Call Completed: Yes 01/05/19 16:25 Consult to Neurology [CONS] Routine Consulting Provider: Neurology [facility] Reason for Consult: Seizure activity Call Completed: Yes 01/05/19 21:02 Consult to Nutrition [CONS] Routine Comment: Consulting Provider: NUTRITION Reason for Dietary Consult: MST Score Consult to Pastoral Services [CONS] Routine Comment: 01/06/19 08:44 Consult to Ob/Gyn Physician [CONS] Routine Reason for SW Consult: return to [facility] 01/06/19 10:49 Consult to Interpret Exam [CONS] Routine Consulting Provider: Edith Holley I Consult to Interpret Exam: Interpret EEG - Constitutional Vitals: Temp Pulse Resp BP Pulse Ox 98.7 F 63 18 136/78 95 01/06/19 12:03 01/06/19 12:03 01/06/19 12:03 01/06/19 12:03 01/06/19 12:03 Exam: Vitals: reviewed. General: Alert and oriented x4. In no acute distress. Skin: Normal color, no rash, no lesions. HEENT: EOM, pupils equal, round and reactive. Cardiovascular: RRR, normal S1 & S2, no rubs, murmurs or gallops. No JVD. Pulse regular. Lungs: CTA b/l, no wheezes or crackles. Abdomen: Soft, non-tender, no rigidity. Extremities: No deformity, no edema or tenderness, no joint swelling or clubbing. Neurological: Normal cognition Rest of the physical exam is non contributory - Patient Status Disposition: Transfer SNF Condition: Good Functional capacity at discharge: uses cane/walker Overall status at discharge: patient is back to baseline - Discharge Instructions Follow Up With: Cristian Horta MD [Primary Care Provider] - - Diet and Activity Activity: resume usual activities as tolerated Diet: advance to your usual diet
--- NOTE | 2019-01-06 13:21 | Physician Discharge Referral ---
ExtendedCare Referral Info Transfer To: snf - Diagnosis (1) Seizure disorder Priority: Primary Status: Chronic (2) Syncope Priority: Secondary Status: Resolved (3) Elevated troponin Priority: Secondary Status: Acute (4) Hypertensive urgency Priority: Secondary Status: Resolved (5) Avascular necrosis of bone of right hip Priority: Secondary Status: Acute (6) Hip fracture Priority: Secondary Status: Acute (7) DVT prophylaxis Priority: Secondary Status: Acute Prognosis: Fair Aware of Diagnosis: Patient Aware of Prognosis: Patient - Transfer Medications Prescriptions: Aspirin Enteric Coated [Aspirin EC] 81 mg PO DAILY 30 Days #30 tablet. Home Medications: Tamsulosin [Flomax] 0.4 mg PO DAILY 12/21/16 [History] Vitamin E Mixed [Vitamin E] 800 unit PO DAILY 12/21/16 [History] Divalproex (12 HR) [Depakote (12 HR)] 1,000 mg PO BID 05/19/17 [History] Loratadine [Claritin] 10 mg PO DAILY #30 tablet 05/21/17 [Rx] Sennosides [Senna] 17.2 mg PO BID 07/16/17 [History] Losartan Potassium [Cozaar] 100 mg PO DAILY 01/14/18 [History] Amlodipine Besylate 10 mg PO DAILY 07/27/18 [History] Calcium Carbonate/Vitamin D3 [Calcium 250-D Tablet] 1 tab PO DAILY 07/27/18 [History] Carbidopa/Levodopa [Carbidopa-Levodopa 25-100 Tab] 1 tab PO BID 07/27/18 [History] Finasteride [Proscar] 5 mg PO DAILY 07/27/18 [History] Folic Acid 1 mg PO DAILY 07/27/18 [History] Omeprazole [PriLOSEC] 20 mg PO DAILY@0730 07/27/18 [History] Oxybutynin [Ditropan] 5 mg PO BID 07/27/18 [History] Oxycodone HCl 10 mg PO Q6H PRN 07/27/18 [History] Phenytoin ER [Dilantin ER] 100 mg PO Q6H 07/27/18 [History] Quetiapine Fumarate [Seroquel] 25 mg PO HS 07/27/18 [History] Venlafaxine [Effexor] 75 mg PO BID 07/27/18 [History] hydrALAZINE [HydrALAZINE] 25 mg PO TID 07/27/18 [History] levETIRAcetam [Keppra] 500 mg PO BID 07/27/18 [History] Metoprolol XL (24 HR) Succ [Toprol Xl] 25 mg PO DAILY #30 tab.er.24h 07/30/18 [Rx] Aspirin Enteric Coated [Aspirin EC] 81 mg PO DAILY 30 Days #30 tablet. 01/06/19 [Rx] Allergies/Adverse Reactions: Allergy/AdvReac Type Severity Reaction Status Date / Time No Known Allergies Allergy Verified 07/27/18 10:25 - Respiratory Orders None Smoking Cessation: Smoking cessation has been advised. For more information, call the [place] Tobacco Quit Line at 1-073-NZWV-NOW. - Advance Directives Code Status: Full Code - Mobility Orders Ambulate - Rehabiliation Orders Rehab Potential: Fair Rehab Orders: Evaluation for Physical Therapy, Evaluation for Occupational Therapy - Diet Orders Regular CERTIFICATION: I certify that the transfer of the above named patient to an Extended Care Facility is necessary for the continuing treatment of the diagnosis listed. The above information is true and accurate reflection of patient's current condition. Confidential - Redisclosure prohibited without a patient's written consent.
--- NOTE | 2019-01-09 12:55 | Electrocardiograph Report ---
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
== END 2019-01-06 15:10 ==
LOC: EMEROOARM 12:46 → 2ANU 12:46 → SUATTDRO 17:01 → 2ANU 18:33
PROVIDERS: ADMIT Student in an Organized Health Care Education/Training Program; ATTEND Internal Medicine

== ENCOUNTER 2019-07-10 11:27 | Inpatient (IN) ==
--- NOTE | 2019-07-10 11:54 | Emergency Department Note ---
Disposition Clinical Impression: Generalized weakness, Elevated troponin Cardiac arrhythmia Qualifiers: Arrhythmia type: ventricular tachycardia Qualified Code(s): I47.2 - Ventricular tachycardia Hypertension Qualifiers: Hypertension type: unspecified Qualified Code(s): I10 - Essential (primary) hypertension Disposition: Admitted As Inpatient Condition: Fair Time of Disposition: 15:10 Altered Mental Status HPI - General Chief Complaint: ED Altered Mental Status Stated Complaint: AMS Time Seen by Provider: 07/10/19 11:43 Source: patient, EMS Limitations: altered mental status, physical limitation - History of Present Illness HPI Narrative: 78-year-old male with history of dementia, seizure presents with mental status change. Patient was sent from a group home. Per EMS report, patient was found on the floor covered by a blanket by nursing staff. Patient was not responsive to questions. When EMS came, patient reported it is hurting in his private area. Patient does not have complaining of other area hurting. No chills and a fever. MD complaint: altered mental status, confusion, other (private area pain) - Related Data Home Medications Medication Instructions Recorded Confirmed Tamsulosin [Flomax] 0.4 mg PO DAILY 12/21/16 01/06/19 Vitamin E Mixed [Vitamin E] 800 unit PO DAILY 12/21/16 01/06/19 Divalproex (12 HR) [Depakote (12 1,000 mg PO BID 05/19/17 01/06/19 HR)] Sennosides [Senna] 17.2 mg PO BID 07/16/17 01/06/19 Losartan Potassium [Cozaar] 100 mg PO DAILY 01/14/18 01/06/19 Amlodipine Besylate 10 mg PO DAILY 07/27/18 01/06/19 Calcium Carbonate/Vitamin D3 1 tab PO DAILY 07/27/18 01/06/19 [Calcium 250-D Tablet] Carbidopa/Levodopa 1 tab PO BID 07/27/18 01/06/19 [Carbidopa-Levodopa 25-100 Tab] Finasteride [Proscar] 5 mg PO DAILY 07/27/18 01/06/19 Folic Acid 1 mg PO DAILY 07/27/18 01/06/19 Omeprazole [PriLOSEC] 20 mg PO DAILY@0730 07/27/18 01/06/19 Oxybutynin [Ditropan] 5 mg PO BID 07/27/18 01/06/19 Phenytoin ER [Dilantin ER] 100 mg PO Q6H 07/27/18 01/06/19 Quetiapine Fumarate [Seroquel] 25 mg PO HS 07/27/18 01/06/19 Venlafaxine [Effexor] 75 mg PO BID 07/27/18 01/06/19 hydrALAZINE [HydrALAZINE] 25 mg PO TID 07/27/18 01/06/19 Aspirin [Lo-Dose Aspirin EC] 81 mg PO DAILY 07/10/19 07/10/19 LevETIRAcetam [Keppra] 500 mg PO BID 07/10/19 07/10/19 Previous Rx's Medication Instructions Recorded Loratadine [Claritin] 10 mg PO DAILY #30 tablet 05/21/17 Metoprolol XL (24 HR) Succ [Toprol 25 mg PO DAILY #30 tab.er.24h 07/30/18 Xl] Allergies Allergy/AdvReac Type Severity Reaction Status Date / Time No Known Allergies Allergy Verified 07/10/19 17:35 Constitutional: Denies: fever, chills Eyes: Denies: eye pain ENT ED: Denies: ear pain Cardiovascular: Denies: chest pain Respiratory: Denies: cough Gastrointestinal: Denies: abdominal pain Genitourinary: Denies: urgency Musculoskeletal: Denies: back pain Integumentary: Denies: rash Neurological: Denies: headache Psychiatric: Denies: anxiety Endocrine: Denies: fatigue Hematological/Lymphatic: Denies: easy bleeding Allergic/Immunologic: Denies: facial swelling Past Medical History - Past Medical History Medical history: Reports: arthritis, COPD, CVA, dementia, GERD, hyperlipidemia, hypertension, osteoporosis, renal disease, seizures, syncope, TIA Surgical history: Reports: cataract, prostatectomy, other Psychiatric history: Reports: anxiety, depression - Social History Smoking Status: Former smoker Smokeless Tobacco Status: No Alcohol use: Reports: none Drug use: Reports: none Physical Exam - General Limitations: altered mental status, physical limitation General appearance: alert - Head Head exam: atraumatic - Eye Eye exam: Present: normal appearance - ENT ENT exam: normal exam - Neck Neck exam: Present: normal inspection - Chest Chest inspection: Present: normal inspection - Respiratory Respiratory exam: Present: normal lung sounds bilaterally. Absent: respiratory distress, wheezes - Cardiovascular Cardiovascular exam: Present: regular rate - Abdominal Exam Abdominal exam: Present: soft, Non-Tender - Male exam: Absent: circumcised, penile swelling, lesions, perineal induration, testicular tenderness, scrotal swelling - Extremities Exam Extremities exam: Present: normal inspection, full ROM. Absent: tenderness - Back Exam Back exam: Present: normal inspection, full ROM. Absent: tenderness - Neurological Exam Neurological exam: Present: alert, oriented X3 - Psychiatric Psychiatric exam: Present: normal affect - Skin Skin exam: Present: warm, intact Course Vital Signs Temperature 97.7 F 07/10/19 11:32 Pulse Rate 59 07/10/19 11:32 Respiratory Rate 18 07/10/19 11:32 Blood Pressure 237/109 07/10/19 11:32 O2 Sat by Pulse Oximetry 93 07/10/19 11:32 Temperature 97.7 F 07/10/19 11:32 Pulse Rate 57 07/10/19 17:16 Respiratory Rate 16 07/10/19 17:16 Blood Pressure 168/113 07/10/19 17:16 O2 Sat by Pulse Oximetry 96 07/10/19 17:16 Oxygen Delivery Oxygen Delivery Room Air Altered Mental Status - MDM Narrative Medical decision making narrative: 78 year old male from group home presents with mental status change and fell this morning. Pt complained of private area pain when EMS arrived. Cardiac work up started, EKG, chest xray, cervical and head CT ordered. central line started in ER. 12:00 pt suddenly ran V-Tach for less than 30 seconds. Pt lost consciousness and response at the mean time. No seizure activity. less than 30 seconds later patient spontaneously returned back to baseline rhyme. Pt is alert and oriented. Pt's labs indicated : normal white cell, troponin elevated to 0.17. Repeat EKG indicated left bundle blockage which was similar to pt's old EKG. I spoke with [employer] Dr. Lewis and sent V-tach strip to him. After reviewing the stripe, Dr. Lewis agrees to admit patient to medical floor with cardiac consult. Nitroglycerine started in ER due to elevated Troponin and elevated BP. Pt's ab domen CT: no acute change. Spoke with hospitalist Dr. Tee , pt is accepted. - Lab Data Lab results reviewed: Yes I reviewed the patient's lab results. Result diagrams: 07/10/19 14:30 07/10/19 13:07 Lab Results 07/10/19 07/10/19 07/10/19 Range/Units 12:43 13:07 14:30 WBC 7.0 (4.3-11.1) K/mcL RBC 4.03 L (4.19-5.50) M/mcL Hgb 12.5 L (12.9-16.9) g/dL Hct 37.5 (37.5-50.1) % MCV 93.1 (83.0-100.0) fL MCH 31.0 (28.0-33.3) pg MCHC 33.3 (31.6-35.5) g/dL RDW 13.2 (11.5-14.5) % Plt Count 175 (140-400) K/mcL MPV 9.9 (9.4-12.4) fL Immature Gran % 0.3 (0-4) % Seg Neutrophils % 68.0 % Lymphocytes % 21.3 % Monocytes % 8.5 % Eosinophils % 1.6 % Basophils % 0.3 % Neutrophils # 4.7 (1.6-8.9) K/mcL Lymphocytes # 1.5 (0.6-4.6) K/mcL Monocytes # 0.6 (0.0-1.3) K/mcL Eosinophils # 0.1 (0.0-0.6) K/mcL Basophils # 0.0 (0.0-0.2) K/mcL PT (9.4-12.1) Seconds INR APTT (26.0-36.0) Seconds Sodium 137 (136-145) mEq/L Potassium 3.8 (3.5-5.1) mEq/L Chloride 103 (98-107) mEq/L Carbon Dioxide 24 (23-29) mEq/L BUN 18 (8-23) mg/dL Creatinine 0.69 L (0.70-1.30) mg/dL Est GFR ( Amer) > 60 (> 60) Est GFR (Non-Af Amer) > 60 (> 60) BUN/Creatinine Ratio 26 (6-26) Glucose 132 H (70-105) mg/dL Calculated Osmolality 288 (280-300) Lactic Acid (0.5-2.2) mmol/L Calcium 9.1 (8.6-10.3) mg/dL Magnesium 1.7 (1.6-2.6) mg/dL Total Bilirubin 0.3 (0.3-1.0) mg/dL AST 36 (13-39) Units/L ALT 32 (7-52) Units/L Alkaline Phosphatase 92 (34-104) Units/L Creatine Kinase 35 (30-223) Units/L Troponin I 0.17 H* (< 0.04) ng/mL Serum Total Protein 7.2 (6.4-8.9) g/dL Albumin 3.8 (3.5-5.7) g/dL Globulin 3.4 (2.4-3.5) g/dL Albumin/Globulin Ratio 1.1 (1.1-2.2) Urine Color Yellow (Yellow) Urine Clarity Clear (Clear) Urine pH 7.5 (5.0-8.0) pH Units Ur Specific [place] 1.010 (1.010-1.025) Urine Protein Negative (Neg-Trace) mg/dL Urine Glucose (UA) Normal (Normal) mg/dL Urine Ketones Negative (Negative) mg/dL Urine Blood Negative (Negative) Urine Nitrite Negative (Negative) Urine Bilirubin Negative (Negative) Urine Urobilinogen Normal (Normal) mg/dL Ur Leukocyte Esterase Negative (Negative) Ur Culture Indicated? NO (NO) Levetiracetam (6 - 46) mcg/mL 07/10/19 07/10/19 07/10/19 Range/Units 14:30 14:30 14:30 WBC (4.3-11.1) K/mcL RBC (4.19-5.50) M/mcL Hgb (12.9-16.9) g/dL Hct (37.5-50.1) % MCV (83.0-100.0) fL MCH (28.0-33.3) pg MCHC (31.6-35.5) g/dL RDW (11.5-14.5) % Plt Count (140-400) K/mcL MPV (9.4-12.4) fL Immature Gran % (0-4) % Seg Neutrophils % % Lymphocytes % % Monocytes % % Eosinophils % % Basophils % % Neutrophils # (1.6-8.9) K/mcL Lymphocytes # (0.6-4.6) K/mcL Monocytes # (0.0-1.3) K/mcL Eosinophils # (0.0-0.6) K/mcL Basophils # (0.0-0.2) K/mcL PT 11.7 (9.4-12.1) Seconds INR 1.0 APTT 33.1 (26.0-36.0) Seconds Sodium (136-145) mEq/L Potassium (3.5-5.1) mEq/L Chloride (98-107) mEq/L Carbon Dioxide (23-29) mEq/L BUN (8-23) mg/dL Creatinine (0.70-1.30) mg/dL Est GFR ( Amer) (> 60) Est GFR (Non-Af Amer) (> 60) BUN/Creatinine Ratio (6-26) Glucose (70-105) mg/dL Calculated Osmolality (280-300) Lactic Acid 0.8 (0.5-2.2) mmol/L Calcium (8.6-10.3) mg/dL Magnesium (1.6-2.6) mg/dL Total Bilirubin (0.3-1.0) mg/dL AST (13-39) Units/L ALT (7-52) Units/L Alkaline Phosphatase (34-104) Units/L Creatine Kinase (30-223) Units/L Troponin I (< 0.04) ng/mL Serum Total Protein (6.4-8.9) g/dL Albumin (3.5-5.7) g/dL Globulin (2.4-3.5) g/dL Albumin/Globulin Ratio (1.1-2.2) Urine Color (Yellow) Urine Clarity (Clear) Urine pH (5.0-8.0) pH Units Ur Specific [place] (1.010-1.025) Urine Protein (Neg-Trace) mg/dL Urine Glucose (UA) (Normal) mg/dL Urine Ketones (Negative) mg/dL Urine Blood (Negative) Urine Nitrite (Negative) Urine Bilirubin (Negative) Urine Urobilinogen (Normal) mg/dL Ur Leukocyte Esterase (Negative) Ur Culture Indicated? (NO) Levetiracetam < 3 L (6 - 46) mcg/mL - Radiology Data Radiology results reviewed: Yes I reviewed the patient's radiology results. CT/CT abd pelvis wo no iv no oral IMPRESSION: 1. No CT evidence of an acute intra-abdominal or intrapelvic process. 2. Diverticulosis coli without CT evidence of acute diverticulitis. 3. Mild intra and extrahepatic bile duct dilatation status post cholecystectomy typical of reservoir effect. 4. Calcific atherosclerotic disease aorta. D/ / Lukasz Oropeza / Lukasz Orpoeza Interpreting Provider: Lukasz Oropeza ORY: ORDERING SYSTEM PROVIDED HISTORY: mental status change, fall FINDINGS: There is a fat pole seen overlying the right hemithorax there is no pneumothorax. The lungs are clear. The aorta is mildly ectatic. The cardiac silhouette is normal. There is no alveolar infiltrate or effusion. There are no acute bony abnormalities XR/XR chest 1V portable IMPRESSION: No acute cardiopulmonary process seen. D/ / Nazario Mcguire MD / Nazario Mcguire MD Interpreting Provider: Nazario Mcguire MD RY: ORDERING SYSTEM PROVIDED HISTORY: mental status change FINDINGS: BRAIN: There is mild age-appropriate atrophy seen throughout the brain parenchyma. There is periventricular white matter changes seen to be present consistent with small vessel ischemic disease. There is mild ex vacuo dilatation of the ventricular system. There is no intra-axial or extra-axial bleed. There is no evidence for mass or mass effect. The sinuses are clear without disease. There are no acute bony abnormality seen. There several old yogesh hole seen within the skull CT/CT head/brain wo con IMPRESSION: No acute intracranial abnormality. D/ / Nazario Mcguire MD / Nazario Mcguire MD Interpreting Provider: Nazario Mcguire MD ORY: ORDERING SYSTEM PROVIDED HISTORY: mental status change FINDINGS: BONES/ALIGNMENT: There is no evidence of an acute cervical spine fracture. There is normal alignment of the cervical spine. DEGENERATIVE CHANGES: No significant degenerative changes. SOFT TISSUES: There is no prevertebral soft tissue swelling. CT/CT cervical spine wo con IMPRESSION: No acute abnormality of the cervical spine. D/ / Nazario Mcguire MD / Nazario Mcguire MD Interpreting Provider: Nazario Mcguire MD Checklist - LKW: 3-4.5 hrs Add. Warnings/Precautions Patient/family understanding: The patient/family members have been counseled and understood the risk, benefit, and alternatives of treatment. Attestation Statement - Attestation Attestation: I, Syed Casanova DO have provided [id number] time during the care of this patient. Detailed review the presentation, symptoms, medical history were discussed and reviewed with the advanced practice provider Frederic Syed PA-C/SENIOR AUTOMATION ENGINEER. Medical intervention labs and imaging studies were reviewed in detail. See full documentation of physical exam and course of care in the advanced practice provider's note. I agree with the determined course of care, medical intervention and disposition put forth by the advanced practice provider. See below documentation for changes or alterations in documentation.
[2019-07-10] MEDS ORDERED: Nitroglycerin 25 MG/250 ML INFUS..BTL IVC SCH (12:30)
[2019-07-10 13:33] LABS: Bilirubin,Urine Negative (Negative); Blood,Urine Negative (Negative); Clarity,Urine Clear (Clear); Color,Urine Yellow (Yellow); Glucose,Urine (UA) Normal (Normal); Ketones,Urine Negative (Negative); Leukocyte Esterase,Urine Negative (Negative); Nitrite,Urine Negative (Negative); PH,Urine 7.5 pH Units (5.0-8.0); Protein,Urine Negative (Neg-Trace); Urobilinogen,Urine Normal (Normal)
[2019-07-10 13:37] LABS: Alanine Aminotransferase 32 Units/L (7-52); Albumin 3.8 g/dL (3.5-5.7); Albumin/Globulin Ratio 1.1 (1.1-2.2); Alkaline Phosphatase 92 Units/L (34-104); Aspartate Amino Transferase 36 Units/L (13-39); BUN/Creatinine Ratio 26 (6-26); Bilirubin,Total 0.3 mg/dL (0.3-1.0); Blood Urea Nitrogen 18 mg/dL (8-23); Calcium 9.1 mg/dL (8.6-10.3); Carbon Dioxide 24 mEq/L (23-29); Chloride 103 mEq/L (98-107); Globulin 3.4 g/dL (2.4-3.5); Glucose 132 mg/dL (70-105); Osmolality,Calculated 288 (280-300); Potassium 3.8 mEq/L (3.5-5.1); Sodium 137 mEq/L (136-145); Total Protein 7.2 g/dL (6.4-8.9); eGFR For African Americans > 60 (> 60); eGFR For Non-African Americans > 60 (> 60)
--- NOTE | 2019-07-10 13:53 | Emergency Department Note ---
Disposition Clinical Impression: Generalized weakness Disposition: Still a Patient Condition: Critical Referrals: Cristian Horta MD [Primary Care Provider] - Forms: ED Satisfaction Letter Time of Disposition: 13:54 General Adult HPI - General Chief complaint: ED Altered Mental Status Stated complaint: AMS Time Seen by Provider: 07/10/19 11:43 Source: patient, EMS Limitations: altered mental status, physical limitation - History of Present Illness Pain Scale: 8 - Related Data Home Medications Medication Instructions Recorded Confirmed Tamsulosin [Flomax] 0.4 mg PO DAILY 12/21/16 01/06/19 Vitamin E Mixed [Vitamin E] 800 unit PO DAILY 12/21/16 01/06/19 Divalproex (12 HR) [Depakote (12 1,000 mg PO BID 05/19/17 01/06/19 HR)] Sennosides [Senna] 17.2 mg PO BID 07/16/17 01/06/19 Losartan Potassium [Cozaar] 100 mg PO DAILY 01/14/18 01/06/19 Amlodipine Besylate 10 mg PO DAILY 07/27/18 01/06/19 Calcium Carbonate/Vitamin D3 1 tab PO DAILY 07/27/18 01/06/19 [Calcium 250-D Tablet] Carbidopa/Levodopa 1 tab PO BID 07/27/18 01/06/19 [Carbidopa-Levodopa 25-100 Tab] Finasteride [Proscar] 5 mg PO DAILY 07/27/18 01/06/19 Folic Acid 1 mg PO DAILY 07/27/18 01/06/19 Omeprazole [PriLOSEC] 20 mg PO DAILY@0730 07/27/18 01/06/19 Oxybutynin [Ditropan] 5 mg PO BID 07/27/18 01/06/19 Oxycodone HCl 10 mg PO Q6H PRN 07/27/18 01/06/19 Phenytoin ER [Dilantin ER] 100 mg PO Q6H 07/27/18 01/06/19 Quetiapine Fumarate [Seroquel] 25 mg PO HS 07/27/18 01/06/19 Venlafaxine [Effexor] 75 mg PO BID 07/27/18 01/06/19 hydrALAZINE [HydrALAZINE] 25 mg PO TID 07/27/18 01/06/19 levETIRAcetam [Keppra] 500 mg PO BID 07/27/18 01/06/19 Previous Rx's Medication Instructions Recorded Loratadine [Claritin] 10 mg PO DAILY #30 tablet 05/21/17 Metoprolol XL (24 HR) Succ [Toprol 25 mg PO DAILY #30 tab.er.24h 07/30/18 Xl] Allergies Allergy/AdvReac Type Severity Reaction Status Date / Time No Known Allergies Allergy Verified 07/27/18 10:25 Past Medical History - Past Medical History Medical history: Reports: arthritis, COPD, CVA, dementia, GERD, hyperlipidemia, hypertension, osteoporosis, renal disease, seizures, syncope, TIA Surgical history: Reports: cataract, prostatectomy, other Psychiatric history: Reports: anxiety, depression - Social History Smoking Status: Former smoker Smokeless Tobacco Status: No Alcohol use: Reports: none Drug use: Reports: none Physical Exam - General Limitations: altered mental status, physical limitation General appearance: alert Course Vital Signs Temperature 97.7 F 07/10/19 11:32 Pulse Rate 59 07/10/19 11:32 Respiratory Rate 18 07/10/19 11:32 Blood Pressure 237/109 07/10/19 11:32 O2 Sat by Pulse Oximetry 93 07/10/19 11:32 Temperature 97.7 F 07/10/19 11:32 Pulse Rate 59 07/10/19 11:32 Respiratory Rate 18 07/10/19 11:32 Blood Pressure 237/109 07/10/19 11:32 O2 Sat by Pulse Oximetry 93 07/10/19 11:32 Oxygen Delivery Oxygen Delivery Room Air Procedures - Central Line Placement Right Femoral Central Line Inserted*: Yes Central Line Catheter Replacement*: No Central Line Insertion: emergent Consent Obtained: verbal consent Procedural Pause: verify patient name and date of , timeout performed per policy, frandy and assess the site, assemble equipment and verify supplies, perform hand hygiene Patient Placed on Monitor/Pulse Ox: Yes During the Procedure: clinician is wearing sterile gloves, cap, mask,& gown during insertion, sterile field and sterile technique are maintained, patient's face is covered with drape or mask and wearing a cap, everyone in room is wearing a mask Central Line Prep: Chlorhexidine scrub Prep the Procedure Site: apply chloraprep to the skin using a back and forth scrubbing motion, apply chloraprep for 30 seconds (upper body), 1-2 min (femoral sites), allow prep to dry, drape the patient with a full body drape Local Anesthetic: lidocaine 1% Amount of anesthesia used (mL): 3 Ultrasound Used for Placement: Yes Central Line Lumen Inserted: triple Post Procedure: sutured in place, good blood return, all ports aspirated, flushed, capped, sterile dressing applied, guide wire removed and visualized, dressing is dated Patient Tolerated Procedure: well, no complications Complications: none Date: 07/10/19 Time: 13:53 Medical Decision Making - Lab Data Result diagrams: 07/10/19 13:07 Lab Results 07/10/19 07/10/19 Range/Units 12:43 13:07 Sodium 137 (136-145) mEq/L Potassium 3.8 (3.5-5.1) mEq/L Chloride 103 (98-107) mEq/L Carbon Dioxide 24 (23-29) mEq/L BUN 18 (8-23) mg/dL Creatinine 0.69 L (0.70-1.30) mg/dL Est GFR ( Amer) > 60 (> 60) Est GFR (Non-Af Amer) > 60 (> 60) BUN/Creatinine Ratio 26 (6-26) Glucose 132 H (70-105) mg/dL Calculated Osmolality 288 (280-300) Calcium 9.1 (8.6-10.3) mg/dL Total Bilirubin 0.3 (0.3-1.0) mg/dL AST 36 (13-39) Units/L ALT 32 (7-52) Units/L Alkaline Phosphatase 92 (34-104) Units/L Serum Total Protein 7.2 (6.4-8.9) g/dL Albumin 3.8 (3.5-5.7) g/dL Globulin 3.4 (2.4-3.5) g/dL Albumin/Globulin Ratio 1.1 (1.1-2.2) Urine Color Yellow (Yellow) Urine Clarity Clear (Clear) Urine pH 7.5 (5.0-8.0) pH Units Ur Specific [place] 1.010 (1.010-1.025) Urine Protein Negative (Neg-Trace) mg/dL Urine Glucose (UA) Normal (Normal) mg/dL Urine Ketones Negative (Negative) mg/dL Urine Blood Negative (Negative) Urine Nitrite Negative (Negative) Urine Bilirubin Negative (Negative) Urine Urobilinogen Normal (Normal) mg/dL Ur Leukocyte Esterase Negative (Negative) Ur Culture Indicated? NO (NO) Attestation Statement - Attestation Attestation: I, Syed Casanova DO, examined this patient [id number] and my medical decision-making was reviewed with Dr. Luiza Joy , Resident Physician. I agree with the documented findings, disposition and treatment plan as described except to the extent set forth below. I personally supervised and was present for the daly/critical portions of the procedures completed by the resident documented below. Please see my progress notes for details.
--- NOTE | 2019-07-10 14:02 | Emergency Department Note ---
Disposition Clinical Impression: Generalized weakness, Cardiac arrhythmia, Hypertension Disposition: Admitted As Inpatient Condition: Fair Time of Disposition: 17:33 General Adult HPI - General Chief complaint: ED Altered Mental Status Stated complaint: AMS Time Seen by Provider: 07/10/19 11:43 Source: patient, EMS Limitations: altered mental status, physical limitation - History of Present Illness Pain Scale: 8 - Related Data Home Medications Medication Instructions Recorded Confirmed Tamsulosin [Flomax] 0.4 mg PO DAILY 12/21/16 01/06/19 Vitamin E Mixed [Vitamin E] 800 unit PO DAILY 12/21/16 01/06/19 Divalproex (12 HR) [Depakote (12 1,000 mg PO BID 05/19/17 01/06/19 HR)] Sennosides [Senna] 17.2 mg PO BID 07/16/17 01/06/19 Losartan Potassium [Cozaar] 100 mg PO DAILY 01/14/18 01/06/19 Amlodipine Besylate 10 mg PO DAILY 07/27/18 01/06/19 Calcium Carbonate/Vitamin D3 1 tab PO DAILY 07/27/18 01/06/19 [Calcium 250-D Tablet] Carbidopa/Levodopa 1 tab PO BID 07/27/18 01/06/19 [Carbidopa-Levodopa 25-100 Tab] Finasteride [Proscar] 5 mg PO DAILY 07/27/18 01/06/19 Folic Acid 1 mg PO DAILY 07/27/18 01/06/19 Omeprazole [PriLOSEC] 20 mg PO DAILY@0730 07/27/18 01/06/19 Oxybutynin [Ditropan] 5 mg PO BID 07/27/18 01/06/19 Oxycodone HCl 10 mg PO Q6H PRN 07/27/18 01/06/19 Phenytoin ER [Dilantin ER] 100 mg PO Q6H 07/27/18 01/06/19 Quetiapine Fumarate [Seroquel] 25 mg PO HS 07/27/18 01/06/19 Venlafaxine [Effexor] 75 mg PO BID 07/27/18 01/06/19 hydrALAZINE [HydrALAZINE] 25 mg PO TID 07/27/18 01/06/19 levETIRAcetam [Keppra] 500 mg PO BID 07/27/18 01/06/19 Previous Rx's Medication Instructions Recorded Loratadine [Claritin] 10 mg PO DAILY #30 tablet 05/21/17 Metoprolol XL (24 HR) Succ [Toprol 25 mg PO DAILY #30 tab.er.24h 07/30/18 Xl] Allergies Allergy/AdvReac Type Severity Reaction Status Date / Time No Known Allergies Allergy Verified 07/27/18 10:25 Past Medical History - Past Medical History Medical history: Reports: arthritis, COPD, CVA, dementia, GERD, hyperlipidemia, hypertension, osteoporosis, renal disease, seizures, syncope, TIA Surgical history: Reports: cataract, prostatectomy, other Psychiatric history: Reports: anxiety, depression - Social History Smoking Status: Former smoker Smokeless Tobacco Status: No Alcohol use: Reports: none Drug use: Reports: none Physical Exam - General Limitations: altered mental status, physical limitation General appearance: alert Course Vital Signs Temperature 97.7 F 07/10/19 11:32 Pulse Rate 59 07/10/19 11:32 Respiratory Rate 18 07/10/19 11:32 Blood Pressure 237/109 07/10/19 11:32 O2 Sat by Pulse Oximetry 93 07/10/19 11:32 Temperature 97.7 F 07/10/19 11:32 Pulse Rate 57 07/10/19 17:16 Respiratory Rate 16 07/10/19 17:16 Blood Pressure 168/113 07/10/19 17:16 O2 Sat by Pulse Oximetry 96 07/10/19 17:16 Oxygen Delivery Oxygen Delivery Room Air Medical Decision Making - Lab Data Result diagrams: 07/10/19 14:30 07/10/19 13:07 Lab Results 07/10/19 07/10/19 07/10/19 Range/Units 12:43 13:07 14:30 WBC 7.0 (4.3-11.1) K/mcL RBC 4.03 L (4.19-5.50) M/mcL Hgb 12.5 L (12.9-16.9) g/dL Hct 37.5 (37.5-50.1) % MCV 93.1 (83.0-100.0) fL MCH 31.0 (28.0-33.3) pg MCHC 33.3 (31.6-35.5) g/dL RDW 13.2 (11.5-14.5) % Plt Count 175 (140-400) K/mcL MPV 9.9 (9.4-12.4) fL Immature Gran % 0.3 (0-4) % Seg Neutrophils % 68.0 % Lymphocytes % 21.3 % Monocytes % 8.5 % Eosinophils % 1.6 % Basophils % 0.3 % Neutrophils # 4.7 (1.6-8.9) K/mcL Lymphocytes # 1.5 (0.6-4.6) K/mcL Monocytes # 0.6 (0.0-1.3) K/mcL Eosinophils # 0.1 (0.0-0.6) K/mcL Basophils # 0.0 (0.0-0.2) K/mcL PT (9.4-12.1) Seconds INR APTT (26.0-36.0) Seconds Sodium 137 (136-145) mEq/L Potassium 3.8 (3.5-5.1) mEq/L Chloride 103 (98-107) mEq/L Carbon Dioxide 24 (23-29) mEq/L BUN 18 (8-23) mg/dL Creatinine 0.69 L (0.70-1.30) mg/dL Est GFR ( Amer) > 60 (> 60) Est GFR (Non-Af Amer) > 60 (> 60) BUN/Creatinine Ratio 26 (6-26) Glucose 132 H (70-105) mg/dL Calculated Osmolality 288 (280-300) Lactic Acid (0.5-2.2) mmol/L Calcium 9.1 (8.6-10.3) mg/dL Magnesium 1.7 (1.6-2.6) mg/dL Total Bilirubin 0.3 (0.3-1.0) mg/dL AST 36 (13-39) Units/L ALT 32 (7-52) Units/L Alkaline Phosphatase 92 (34-104) Units/L Creatine Kinase 35 (30-223) Units/L Troponin I 0.17 H* (< 0.04) ng/mL Serum Total Protein 7.2 (6.4-8.9) g/dL Albumin 3.8 (3.5-5.7) g/dL Globulin 3.4 (2.4-3.5) g/dL Albumin/Globulin Ratio 1.1 (1.1-2.2) Urine Color Yellow (Yellow) Urine Clarity Clear (Clear) Urine pH 7.5 (5.0-8.0) pH Units Ur Specific [place] 1.010 (1.010-1.025) Urine Protein Negative (Neg-Trace) mg/dL Urine Glucose (UA) Normal (Normal) mg/dL Urine Ketones Negative (Negative) mg/dL Urine Blood Negative (Negative) Urine Nitrite Negative (Negative) Urine Bilirubin Negative (Negative) Urine Urobilinogen Normal (Normal) mg/dL Ur Leukocyte Esterase Negative (Negative) Ur Culture Indicated? NO (NO) Levetiracetam (6 - 46) mcg/mL 07/10/19 07/10/19 07/10/19 Range/Units 14:30 14:30 14:30 WBC (4.3-11.1) K/mcL RBC (4.19-5.50) M/mcL Hgb (12.9-16.9) g/dL Hct (37.5-50.1) % MCV (83.0-100.0) fL MCH (28.0-33.3) pg MCHC (31.6-35.5) g/dL RDW (11.5-14.5) % Plt Count (140-400) K/mcL MPV (9.4-12.4) fL Immature Gran % (0-4) % Seg Neutrophils % % Lymphocytes % % Monocytes % % Eosinophils % % Basophils % % Neutrophils # (1.6-8.9) K/mcL Lymphocytes # (0.6-4.6) K/mcL Monocytes # (0.0-1.3) K/mcL Eosinophils # (0.0-0.6) K/mcL Basophils # (0.0-0.2) K/mcL PT 11.7 (9.4-12.1) Seconds INR 1.0 APTT 33.1 (26.0-36.0) Seconds Sodium (136-145) mEq/L Potassium (3.5-5.1) mEq/L Chloride (98-107) mEq/L Carbon Dioxide (23-29) mEq/L BUN (8-23) mg/dL Creatinine (0.70-1.30) mg/dL Est GFR ( Amer) (> 60) Est GFR (Non-Af Amer) (> 60) BUN/Creatinine Ratio (6-26) Glucose (70-105) mg/dL Calculated Osmolality (280-300) Lactic Acid 0.8 (0.5-2.2) mmol/L Calcium (8.6-10.3) mg/dL Magnesium (1.6-2.6) mg/dL Total Bilirubin (0.3-1.0) mg/dL AST (13-39) Units/L ALT (7-52) Units/L Alkaline Phosphatase (34-104) Units/L Creatine Kinase (30-223) Units/L Troponin I (< 0.04) ng/mL Serum Total Protein (6.4-8.9) g/dL Albumin (3.5-5.7) g/dL Globulin (2.4-3.5) g/dL Albumin/Globulin Ratio (1.1-2.2) Urine Color (Yellow) Urine Clarity (Clear) Urine pH (5.0-8.0) pH Units Ur Specific [place] (1.010-1.025) Urine Protein (Neg-Trace) mg/dL Urine Glucose (UA) (Normal) mg/dL Urine Ketones (Negative) mg/dL Urine Blood (Negative) Urine Nitrite (Negative) Urine Bilirubin (Negative) Urine Urobilinogen (Normal) mg/dL Ur Leukocyte Esterase (Negative) Ur Culture Indicated? (NO) Levetiracetam < 3 L (6 - 46) mcg/mL Critical Care Time Critical Care Time: Yes Total Critical Care Time: 60 Attestation: Critical care performed: Time is exclusive of separately billable procedures. Time includes: direct patient care, patient reassessment, coordination of patient care, interpretation of data (laboratory data, radiology data, and respiratory data), review of enriqueta renee's medical records, medical consultation and documentation of patient care. Procedures included in critical care time: Procedures excluded from critical care time: Attestation Statement - Attestation Attestation: Jadyn, Syed Casanova DO have provided [id number] time during the care of this patient. Detailed review the presentation, symptoms, medical history were discussed and reviewed with the advanced practice provider Frederic Syed PA-C/[employer]. Medical intervention labs and imaging studies were reviewed in detail. See full documentation of physical exam and course of care in the advanced practice provider's note. I agree with the determined course of care, medical intervention and disposition put forth by the advanced practice provider. See below documentation for changes or alterations in documentation. 78-year-old male presents emergency room from a nursing facility for evaluation of being found on the floor and unresponsive. Patient does have a seizure history and dementia baseline. They were concerned that he may have fallen and that he has altered mentation. Patient is awake and answering questions on arrival here. Patient denies any symptoms or complaints. He has no chest pain shortness of breath fevers or chills. He does not have a headache or vision change. Lungs are clear heart is regular abdomen is soft. Extremities otherwise normal. No other visible signs of injury or abnormality at this time. CT imaging the head and cervical spine will be completed along with screening labs. IV access will be obtained and symptoms will be controlled. Patient in itial blood pressure is elevated. Unknown whether or not this is a contributing factor to the patient's described issues at this time. Patient is otherwise in no distress. EKG is reviewed by myself documented advanced practice provider's note. No other acute findings during this workup or treatment course. See detailed documentation the physical exam, medical intervention, medical decision-making and disposition in the advanced practice provider's note. No critical care applied the patient's treatment course at this time. 1245 Patient had 52 second run of what appeared to be ventricular tachycardia. He had his eyes roll up and his had stopped conversing. Etiology to the ventricular tachycardia is unknown. IV access is been difficult to obtain at this time. We have attempted multiple ultrasound-guided access attempts as well as peripheral IVs. At that point is determined because of the patient's ventricular tachycardia stable line would be reasonable. Patient is unable to consent this point but his CODE STATUS is a full code. Right femoral central venous catheter was completed by the resident physician under my direct supervision with no complications. Procedure note is documented. Blood will be drawn off this catheter and the remainder the symptomatically control be completed to this area this time. Patient will be started on nitroglycerin drip to help with his blood pressure and stabilize remainder of his condition. Patient is on Keppra at baseline and a level will be added. Will be due to monitor here as symptomatic control is established and disposition is determined. 1600 Patient was discussed with the instructional design specialist Dr. Lewis. We reviewed the case at length including all the EKGs. EKG that is present at this time shows stable rhythm in comparison to all this previous EKGs. Troponin was elevated at 0.15. Heparin was not requested at this point the patient will be admitted. CT imaging the abdomen was added on because the patient is complaining of rectal pain and lower abdominal discomfort on my repeat evaluation at the bedside. Once this is completed the hospitals will be paged for admission. 60 minutes of critical care provider the patient's treatment course secondary to multidisciplinary intervention medical management stabilization of potentially life-threatening cardiac arrhythmia 1730 Patient was discussed and reviewed with the hospitals. His blood pressures come down into normal range. Patient will be admitted for what appears to be hypertension, confusion, cardiac arrhythmia. Patient is cardiology consultation hospitals group involved. See detailed documentation of the physical exam and discussions in the advanced practice provider's note.
[2019-07-10 14:24] LABS: Troponin I 0.17 ng/mL (< 0.04)
[2019-07-10] MEDS ORDERED: Aspirin 81 MG TAB.CHEW PO STA (14:35)
[2019-07-10 14:41] LABS: Creatine Kinase 35 Units/L (30-223); Magnesium 1.7 mg/dL (1.6-2.6)
[2019-07-10 14:53] LABS: Basophils % 0.3 %; Eosinophils # 0.1 K/mcL (0.0-0.6); Eosinophils % 1.6 %; Hematocrit 37.5 % (37.5-50.1); Hemoglobin 12.5 g/dL (12.9-16.9); Immature Granulocytes % 0.3 % (0-4); Lymphocytes # 1.5 K/mcL (0.6-4.6); Lymphocytes % 21.3 %; Mean Corpuscular HGB Conc 33.3 g/dL (31.6-35.5); Mean Corpuscular Volume 93.1 fL (83.0-100.0); Mean Platelet Volume 9.9 fL (9.4-12.4); Monocytes # 0.6 K/mcL (0.0-1.3); Monocytes % 8.5 %; Neutrophils # 4.7 K/mcL (1.6-8.9); Platelet Count 175 K/mcL (140-400); Red Blood Count 4.03 M/mcL (4.19-5.50); Red Cell Distribution Width 13.2 % (11.5-14.5)
[2019-07-10 15:01] LABS: Prothrombin Time 11.7 Seconds (9.4-12.1)
[2019-07-10 15:04] LABS: Activated Partial Thrombo Time 33.1 Seconds (26.0-36.0)
[2019-07-10] MEDS ORDERED: Naloxone 0.4 MG/ML INJ IVP PRN (18:13)
--- NOTE | 2019-07-10 18:21 | Internal Med History&Physical ---
Date of Encounter: 07/10/19 Time of Encounter: 18:19 Internal Medicine - H&P: HPI History of present illness: Mr. Kennedy is a 78 year old male with a past medical history of CVA with residual left-sided weakness, CKD, osteoarthritis, seizures, syncopal attacks, GERD, osteoporosis, COPD, hypertension, hyperlipidemia, TIA, anxiety and depression. Patient was [facility] in [facility] his [facility] today was found on the floor of his room unresponsive. When he came to he complained that he had sign ificant groin and penile pain. On arrival in the ER patient was witnessed losing consciousness with a recorded 52 second run of V. tach on this monitor. He was also found to have severely elevated blood pressure. He regained consciousness before any resuscitative measures could be started. He is being admitted for further evaluation of underlying cause of his V. tach. He currently denies chest pain, shortness of breath, palpitations and lightheadedness. He still admits the penile pain and says it is worse when he tries to urinate. 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 pressure released from brain - Social History Smoking Status: Former smoker Smokeless Tobacco Status: No Alcohol use: none Drug use: none - Family History Father Adopted: Yes Family Member Ethnicity: Non- Living Status: Mother Adopted: Yes Living Status: - Additional Family History Additional family history: Noncontributory Internal Medicine - H&P: Meds Tamsulosin [Flomax] 0.4 mg PO DAILY 12/21/16 [History] Vitamin E Mixed [Vitamin E] 800 unit PO DAILY 12/21/16 [History] Divalproex (12 HR) [Depakote (12 HR)] 1,000 mg PO BID 05/19/17 [History] Loratadine [Claritin] 10 mg PO DAILY #30 tablet 05/21/17 [Rx] Sennosides [Senna] 17.2 mg PO BID 07/16/17 [History] Losartan Potassium [Cozaar] 100 mg PO DAILY 01/14/18 [History] Amlodipine Besylate 10 mg PO DAILY 07/27/18 [History] Calcium Carbonate/Vitamin D3 [Calcium 250-D Tablet] 1 tab PO DAILY 07/27/18 [History] Carbidopa/Levodopa [Carbidopa-Levodopa 25-100 Tab] 1 tab PO BID 07/27/18 [History] Finasteride [Proscar] 5 mg PO DAILY 07/27/18 [History] Folic Acid 1 mg PO DAILY 07/27/18 [History] Omeprazole [PriLOSEC] 20 mg PO DAILY@0730 07/27/18 [History] Oxybutynin [Ditropan] 5 mg PO BID 07/27/18 [History] Phenytoin ER [Dilantin ER] 200 mg PO DAILY 07/27/18 [History] Quetiapine Fumarate [Seroquel] 25 mg PO HS 07/27/18 [History] Venlafaxine [Effexor] 75 mg PO BID 07/27/18 [History] hydrALAZINE [HydrALAZINE] 25 mg PO TID 07/27/18 [History] Metoprolol XL (24 HR) Succ [Toprol Xl] 25 mg PO DAILY #30 tab.er.24h 07/30/18 [Rx] Aspirin [Lo-Dose Aspirin EC] 81 mg PO DAILY 07/10/19 [History] LevETIRAcetam [Keppra] 500 mg PO BID 07/10/19 [History] Allergy/AdvReac Type Severity Reaction Status Date / Time No Known Allergies Allergy Verified 07/10/19 17:35 All Systems PM: A 10-system review of systems was performed and is negative for pertinent findings except as documented above in the HPI. Review of systems: GENERAL: Denies generalized weakness, fever and chills HEENT: No rhinorrhea, No sore throat, No ear pain or discharge, No dysphagia or odynophagia PULMONARY: No cough, No chest pain, No Sputum production, No dyspnea on exertion CARDIOVASCULAR: No chest pain, no palpitations, No shortness of breath, No PND, No orthopnea GASTROINTESTINAL: No abdominal pain, No nausea, No vomiting, No constipation, No DIARRHEA, No hematemesis, No hematochezia GENITOURINARY: Admits penie pain and dysuria. MUSKULOSKELETAL: No edema, No swelling, No pain INTEGUMENTARY: No new skin lesions NERVOUS SYSTEM: No Dizziness, No weakness, No slurred speech, No diplopia or blurred/ loss vision, No numbness, No tinglng sensation. - Constitutional Vitals: Temp Pulse Resp BP Pulse Ox 36.5 C 57 16 168/113 96 07/10/19 11:32 07/10/19 17:16 07/10/19 17:16 07/10/19 17:16 07/10/19 17:16 Exam: GENERAL: Not in distress. Alert and Oriented x 3 HEENT: EOMI, PERRLA MOUTH: Moist oral mucosa NECK:No JVD, No lymph nodes. CHEST AND LUNGS: Normal breath sounds, no wheezes or crackles HEART: S1 and S2 normal, no murmurs ABDOMEN: Soft, nontender, no organomegaly GENITOURINARY: No inguinal lymph nodes, no penile discharge observed, no lesions on penis. SKIN: Normal color, no rahses, no lesions EXTREMITIES: No deformity, no edema, no tenderness, no joint swelling or clubbing NEUROLOGICAL: Power is 4/5 in LLE. 5/5 in all other extremities. Sensation is intact. Internal Med - H&P Results - Labs CBC & Chem 7: 07/10/19 14:30 07/10/19 13:07 Labs: Short CBC 07/10/19 Range/Units 14:30 WBC 7.0 (4.3-11.1) K/mcL Hgb 12.5 L (12.9-16.9) g/dL Hct 37.5 (37.5-50.1) % Plt Count 175 (140-400) K/mcL Neutrophils # 4.7 (1.6-8.9) K/mcL BMP 07/10/19 13:07 Sodium 137 Potassium 3.8 Chloride 103 Carbon Dioxide 24 BUN 18 Creatinine 0.69 L Glucose 132 H Calcium 9.1 Cardiac Enzymes 07/10/19 Range/Units 13:07 Troponin I 0.17 H* (< 0.04) ng/mL Liver Function 07/10/19 Range/Units 13:07 Total Bilirubin 0.3 (0.3-1.0) mg/dL AST 36 (13-39) Units/L ALT 32 (7-52) Units/L Alkaline Phosphatase 92 (34-104) Units/L Albumin 3.8 (3.5-5.7) g/dL Urine 07/10/19 Range/Units 12:43 Urine Color Yellow (Yellow) Urine Clarity Clear (Clear) Urine pH 7.5 (5.0-8.0) pH Units Ur Specific [place] 1.010 (1.010-1.025) Urine Protein Negative (Neg-Trace) mg/dL Urine Glucose (UA) Normal (Normal) mg/dL - Impressions ITS Impressions Cervical Spine CT 07/10/19 11:43 IMPRESSION: No acute abnormality of the cervical spine. D/ / Nazario Mcguire MD / Nazario Mcguire MD Interpreting Provider: Nazario Mcguire MD Head CT 07/10/19 11:43 IMPRESSION: No acute intracranial abnormality. D/ / Nazario Mcguire MD / Nazario Mcguire MD Interpreting Provider: Nazario Mcguire MD Chest X-Ray 07/10/19 11:44 IMPRESSION: No acute cardiopulmonary process seen. D/ / Nazario Mcguire MD / Nazario Mcguire MD Interpreting Provider: Nazario Mcguire MD Abdomen/Pelvis CT 07/10/19 16:00 IMPRESSION: 1. No CT evidence of an acute intra-abdominal or intrapelvic process. 2. Diverticulosis coli without CT evidence of acute diverticulitis. 3. Mild intra and extrahepatic bile duct dilatation status post cholecystectomy typical of reservoir effect. 4. Calcific atherosclerotic disease aorta. D/ / Lukasz Oropeza / Lukasz Oropeza Interpreting Provider: Lukasz Oropeza - Assessment and Plan (1) Sustained ventricular tachycardia Current Visit: Yes Status: Acute Assessment and plan: Patient was witnessed losing consciousness and recording a sustained V. tach 52 seconds on telemetry Regained consciousness spontaneously without intervention Troponin of 0.17 Presenting blood pressure 237/[address] T wave changes Cardiology consult for further evaluation for possible cardiac cause of V. tach Echo ordered Will resume home metoprolol Admit to telemetry floor (2) Penile pain Current Visit: Yes Status: Acute Assessment and plan: Patient complains of penile pain which is about 6 out of 10 and worsened with urination No penile discharge No inguinal lymph nodes and no penile lesions observed Urinalysis normal Will give analgesia (3) Hypertensive emergency Current Visit: Yes Status: Acute Assessment and plan: Patient presented with a blood pressure of 237/109 Had a troponin leak of 0.[address] T wave changes Was started on a nitro drip in the ER Blood pressure at time of my encounter was 138/90 We will stop nitro drip Resume home blood pressure meds Monitor patient (4) Constipation Current Visit: No Status: Chronic Assessment and plan: Patient states he has not had a bowel movement in about a week He denies abdominal discomfort Physical exam revealed a soft and nontender abdomen Will give patient a laxative to aid bowel movement Qualifiers: Constipation type: unspecified constipation type Qualified Code(s): K59.00 - Constipation, unspecified (5) Seizure Current Visit: No Status: Chronic Assessment and plan: Patient has a history of seizures, He is supposed to be on Keppra Low Keppra levels on labs Will monitor patient and resume Keppra - Time Spent With Patient Total time spent is greater than 50% in coordination of care (as documented) at patient's floor/unit and/or counseling patient:
[2019-07-10] MEDS: *HR* Heparin 5,000 UNIT/ML VIAL SQ SCH (21:06)
[2019-07-10] MEDS: Metoprolol XL (24 HR) Succ 25 MG TAB.ER.24H PO SCH (21:06)
[2019-07-10] MEDS: hydrALAZINE 25 MG TABLET PO SCH (21:06)
[2019-07-10] MEDS: levETIRAcetam 250 MG TABLET PO SCH (21:06)
[2019-07-11 00:38] LABS: Basophils % 0.3 %; Eosinophils # 0.1 K/mcL (0.0-0.6); Eosinophils % 1.2 %; Hematocrit 37.4 % (37.5-50.1); Hemoglobin 12.5 g/dL (12.9-16.9); Immature Granulocytes % 0.4 % (0-4); Lymphocytes # 1.6 K/mcL (0.6-4.6); Lymphocytes % 20.4 %; Mean Corpuscular HGB Conc 33.4 g/dL (31.6-35.5); Mean Corpuscular Hemoglobin 31.3 pg (28.0-33.3); Mean Corpuscular Volume 93.7 fL (83.0-100.0); Mean Platelet Volume 10.1 fL (9.4-12.4); Monocytes # 0.7 K/mcL (0.0-1.3); Neutrophils # 5.3 K/mcL (1.6-8.9); Platelet Count 187 K/mcL (140-400); Red Blood Count 3.99 M/mcL (4.19-5.50); Red Cell Distribution Width 13.2 % (11.5-14.5); Segmented Neutrophils % 68.7 %; White Blood Count 7.7 K/mcL (4.3-11.1)
[2019-07-11 00:44] LABS: BUN/Creatinine Ratio 32 (6-26); Blood Urea Nitrogen 26 mg/dL (8-23); Calcium 8.8 mg/dL (8.6-10.3); Carbon Dioxide 26 mEq/L (23-29); Chloride 106 mEq/L (98-107); Glucose 136 mg/dL (70-105); Osmolality,Calculated 297 (280-300); Potassium 3.9 mEq/L (3.5-5.1); Sodium 140 mEq/L (136-145); eGFR For African Americans > 60 (> 60); eGFR For Non-African Americans > 60 (> 60)
[2019-07-11] MEDS: *HR* Heparin 5,000 UNIT/ML VIAL SQ SCH ×3 (05:51→23:40)
[2019-07-11] MEDS: levETIRAcetam 250 MG TABLET PO SCH ×2 (09:04→20:04)
[2019-07-11] MEDS: Aspirin Enteric Coated 81 MG Tablet PO SCH (09:04)
[2019-07-11] MEDS: Metoprolol XL (24 HR) Succ 25 MG TAB.ER.24H PO SCH (09:04)
[2019-07-11] MEDS: hydrALAZINE 25 MG TABLET PO SCH ×3 (09:04→20:05)
[2019-07-11] MEDS: amLODIPine 5 MG TABLET PO SCH (09:04)
--- NOTE | 2019-07-11 11:04 | Internal Med Progress Note ---
Hospitalist Progress Note - Encounter Date of Encounter: 07/11/19 Time of Encounter: 11:01 - Subjective Interval History: No acute events overnight. Patient complains of constipation. Denies chest pain, SOB and palpitations. - Exam Vitals: Temp Pulse Resp BP Pulse Ox 36.8 C 61 12 161/89 96 07/11/19 06:28 07/11/19 06:28 07/11/19 06:28 07/11/19 06:28 07/11/19 06:28 Exam: GENERAL: Not in distress. Alert and Oriented x 3 HEENT: EOMI, PERRLA MOUTH: Moist oral mucosa NECK:No JVD, No lymph nodes. CHEST AND LUNGS: Normal breath sounds, no wheezes or crackles HEART: S1 and S2 normal, no murmurs ABDOMEN: Soft, nontender, no organomegaly GENITOURINARY: No inguinal lymph nodes, no penile discharge observed, no lesions on penis. SKIN: Normal color, no rashes, no lesions EXTREMITIES: No deformity, no edema, no tenderness, no joint swelling or clubbing NEUROLOGICAL: Power is 4/5 in LLE. 5/5 in all other extremities. Sensation is intact. - Assessment and Plan (1) Sustained ventricular tachycardia Current Visit: Yes Status: Acute Assessment and Plan: No VTach reported overnight. Patient denies chest pain, palpitations and SOB HR in 60s and regular at time of encounter Troponin 0.03 Awaiting echo report Cardio consulted (2) Penile pain Current Visit: Yes Status: Resolved Assessment and Plan: Patient states oain has subsided now. Will monitor. (3) Hypertensive emergency Current Visit: Yes Status: Resolved Assessment and Plan: Current BP 161/89 All home antihypertensives resumed Monitor (4) Constipation Current Visit: Yes Status: Chronic Assessment and Plan: Patient still complains of abdominal discomfort secondary to constipation. Will give a one time dose of mag citrate. (5) Seizure Current Visit: No Status: Chronic Assessment and Plan: Patient has a history of seizures, Low Keppra levels on labs at presentation Keppra resumed (6) Benign prostate hyperplasia Current Visit: Yes Status: Acute Assessment and Plan: Patient complained of some penile pain especially when urinating. Likely irritative symptoms of BPH Resume Flomax. - Time Spent with Patient Total time spent is greater than 50% in coordination of care (as documented) at patient's floor/unit and/or counseling patient: Internal Medicine: Result - Labs CBC & Chem 7: 07/11/19 00:14 07/11/19 00:14 Labs: Short CBC 07/10/19 07/11/19 Range/Units 14:30 00:14 WBC 7.0 7.7 (4.3-11.1) K/mcL Hgb 12.5 L 12.5 L (12.9-16.9) g/dL Hct 37.5 37.4 L (37.5-50.1) % Plt Count 175 187 (140-400) K/mcL Neutrophils # 4.7 5.3 (1.6-8.9) K/mcL BMP 07/10/19 07/11/19 13:07 00:14 Sodium 137 140 Potassium 3.8 3.9 Chloride 103 106 Carbon Dioxide 24 26 BUN 18 26 H Creatinine 0.69 L 0.82 Glucose 132 H 136 H Calcium 9.1 8.8 Cardiac Enzymes 07/10/19 07/11/19 07/11/19 Range/Units 13:07 00:14 05:03 Troponin I 0.17 H* < 0.03 0.03 (< 0.04) ng/mL Liver Function 07/10/19 Range/Units 13:07 Total Bilirubin 0.3 (0.3-1.0) mg/dL AST 36 (13-39) Units/L ALT 32 (7-52) Units/L Alkaline Phosphatase 92 (34-104) Units/L Albumin 3.8 (3.5-5.7) g/dL Urine 07/10/19 Range/Units 12:43 Urine Color Yellow (Yellow) Urine Clarity Clear (Clear) Urine pH 7.5 (5.0-8.0) pH Units Ur Specific [place] 1.010 (1.010-1.025) Urine Protein Negative (Neg-Trace) mg/dL Urine Glucose (UA) Normal (Normal) mg/dL - ABG Interpretation ABG results: PT/INR, D-dimer PT 11.7 Seconds (9.4-12.1) 07/10/19 14:30 - Impressions Impressions Cervical Spine CT 07/10/19 11:43 IMPRESSION: No acute abnormality of the cervical spine. D/ / Nazario Mcguire MD / Nazario Mcguire MD Interpreting Provider: Nazario Mcguire MD Head CT 07/10/19 11:43 IMPRESSION: No acute intracranial abnormality. D/ / Nazario Mcguire MD / Nazario Mcguire MD Interpreting Provider: Nazario Mcguire MD Chest X-Ray 07/10/19 11:44 IMPRESSION: No acute cardiopulmonary process seen. D/ / Nazario Mcguire MD / Nazario Mcguire MD Interpreting Provider: Nazario Mcguire MD Abdomen/Pelvis CT 07/10/19 16:00 IMPRESSION: 1. No CT evidence of an acute intra-abdominal or intrapelvic process. 2. Diverticulosis coli without CT evidence of acute diverticulitis. 3. Mild intra and extrahepatic bile duct dilatation status post cholecystectomy typical of reservoir effect. 4. Calcific atherosclerotic disease aorta. D/ / Lukasz Oropeza / Lukasz Oropeza Interpreting Provider: Lukasz Oropeza Consult Discharge Plan - Plan Referrals: Cristian Horta MD [Primary Care Provider] - (4) Constipation Qualifiers: Constipation type: unspecified constipation type Qualified Code(s): K59.00 - Constipation, unspecified
--- NOTE | 2019-07-11 15:34 | Cardiology Consult Note ---
Date of Encounter: 07/11/19 Time of Encounter: 11:30 Assessment and Plan (1) NSVT (nonsustained ventricular tachycardia) Current Visit: Yes Status: Acute ho NSVT , declined LHC. No definitive VT on available tracing this admission. No VT on inpatient Tele. Preserved LVEF, no sig structural abn on 2017 TTE - need to d/w pt again regarding LHC - c/w BB (2) LBBB (left bundle branch block) Current Visit: Yes Status: Acute intermittent, with high or low VR. Chronic. Etiology unclear. (3) Elevated troponin Current Visit: Yes Status: Acute mild, peak 0.2. mismatch due to HTN crisis vs other etiology. LHC reasonable given ho NSVT, intermittent LBBB - pt considering LHC (4) Hypertensive crisis Current Visit: Yes Status: Acute BP improving. (5) CVA, old, cognitive deficits Current Visit: No Status: Chronic Discussion w patient/family: The assessment and plan as outlined above was discussed with the patient and/or family members who expressed understanding and agreement. All questions were answered. Thank you for involving us in the care of your patient. Please call with any questions. History of Present Illness Consult date: 07/11/19 Requesting physician: Hayley Clemons Consult reason: "VT" Chief complaint: AMS History of present illness: Mr. Kennedy is a 78 year old male from SNF, ho NSVT and intermittent LBBB since consult declined LHC, CKD, CVA, HTN, dementia, GERD. P/w AMS from SNF. BP >200/100 with penile pain in ED, head CT no ICH. Reportedly had one episode of "non-sustained VT" with transient AMS during IV insertion. Review of available ED tele strip: noise and artifact predominant with sinus andria R wave marching through half of tracing. Serial ECG showed intermittent SR with LBBB/IVCD, persistent LAD. Tele on floor SR with intermittent LBBB and PVCs. Trop peak 0.17, no SHELBI. Pt c/o penile pain, denied chest pain, dyspnea, palpitations, edema. [id number] TTE LVEF 60-65%. Moderate concentric left ventricular hypertrophy. Normal right ventricular structure and function. [id number] TTE Technically sub-optimal due to poor echocardiographic windows. LVEF 60%. Not all LV segments were well visualized, but overall LVEF is normal. Normal LV chamber size and function. Mild concentric left ventricular hypertrophy. Normal right ventricular structure and function. Indeterminate diastolic function. Unable to estimate RVSP due to lack of TR jet. No obvious significant valvular dysfunction. Past Med Surg Social Fam HX - Past Medical History Medical history: arthritis, COPD, CVA, dementia, GERD, hyperlipidemia, hypertension, osteoporosis, renal disease, seizures, syncope, TIA Additional medical history: BLIND IN RIGHT EYE, BPH, Psychiatric history: anxiety, depression - Past Surgical History Surgical History: cataract, prostatectomy, other Additional surgical history: eye surgery. pressure released from brain - Social History Smoking Status: Former smoker Smokeless Tobacco Status: No Alcohol use: none Drug use: none - Family History Father Adopted: Yes Family Member Ethnicity: Non- Living Status: Mother Adopted: Yes Living Status: - Additional Family History Additional family history: non-contributory Medications and Allergies Tamsulosin [Flomax] 0.4 mg PO DAILY 12/21/16 [History] Vitamin E Mixed [Vitamin E] 800 unit PO DAILY 12/21/16 [History] Divalproex (12 HR) [Depakote (12 HR)] 1,000 mg PO BID 05/19/17 [History] Loratadine [Claritin] 10 mg PO DAILY #30 tablet 05/21/17 [Rx] Sennosides [Senna] 17.2 mg PO BID 07/16/17 [History] Losartan Potassium [Cozaar] 100 mg PO DAILY 01/14/18 [History] Amlodipine Besylate 10 mg PO DAILY 07/27/18 [History] Calcium Carbonate/Vitamin D3 [Calcium 250-D Tablet] 1 tab PO DAILY 07/27/18 [History] Carbidopa/Levodopa [Carbidopa-Levodopa 25-100 Tab] 1 tab PO BID 07/27/18 [History] Finasteride [Proscar] 5 mg PO DAILY 07/27/18 [History] Folic Acid 1 mg PO DAILY 07/27/18 [History] Omeprazole [PriLOSEC] 20 mg PO DAILY@0730 07/27/18 [History] Oxybutynin [Ditropan] 5 mg PO BID 07/27/18 [History] Phenytoin ER [Dilantin ER] 200 mg PO DAILY 07/27/18 [History] Quetiapine Fumarate [Seroquel] 25 mg PO HS 07/27/18 [History] Venlafaxine [Effexor] 75 mg PO BID 07/27/18 [History] hydrALAZINE [HydrALAZINE] 25 mg PO TID 07/27/18 [History] Metoprolol XL (24 HR) Succ [Toprol Xl] 25 mg PO DAILY #30 tab.er.24h 07/30/18 [Rx] Aspirin [Lo-Dose Aspirin EC] 81 mg PO DAILY 07/10/19 [History] LevETIRAcetam [Keppra] 500 mg PO BID 07/10/19 [History] Allergy/AdvReac Type Severity Reaction Status Date / Time No Known Allergies Allergy Verified 07/10/19 17:35 All Systems Review: The remainder of the systems were reviewed and are negative - EENT Eyes: no blurred vision - Cardiovascular Cardiovascular: as per HPI - Respiratory Respiratory: no dyspnea - Hematological/Lymphatic Hematologic/Lymphatic: no easy bleeding Physical Examination Vital Signs, Last 4 Hours Temp Pulse Resp BP Pulse Ox 07/11/19 12:00 98.3 F 62 12 120/68 93 Other: General: NAD, alert, tangential HEENT: anicteric Neck: no JVD, no bruits Chest: CTA B/L, no W/R/C Heart: RR, S1/S2, no S3/S4, no M/G/R Abdominal: BS +, soft, ND, NT Peripheral Pulses: radial pulse 2+ B/L, DP 1+ B/L Skin/Extremities: no cyanosis, no LE edema Neurological: deferred Results 07/11/19 00:14 07/11/19 00:14 Lab Results 07/11/19 07/11/19 07/11/19 00:14 00:14 00:14 WBC 7.7 Hgb 12.5 L Hct 37.4 L Plt Count 187 Sodium 140 Potassium 3.9 Chloride 106 Carbon Dioxide 26 BUN 26 H Creatinine 0.82 Glucose 136 H Calcium 8.8 Troponin I < 0.03 07/11/19 05:03 WBC Hgb Hct Plt Count Sodium Potassium Chloride Carbon Dioxide BUN Creatinine Glucose Calcium Troponin I 0.03 - Imaging and Cardiology Echo: report reviewed, image reviewed Other Results: Tele reviewed - EKG Interpretation EKG results cardiology: personally reviewed Consult Discharge Plan - Plan Referrals: Cristian Horta MD [Primary Care Provider] -
[2019-07-11] MEDS ORDERED: Acetaminophen 325 MG TABLET PO PRN (19:46)
[2019-07-12 00:51] LABS: Basophils % 0.7 %; Eosinophils # 0.1 K/mcL (0.0-0.6); Eosinophils % 1.8 %; Hematocrit 34.6 % (37.5-50.1); Hemoglobin 11.4 g/dL (12.9-16.9); Immature Granulocytes % 0.3 % (0-4); Lymphocytes % 32.7 %; Mean Corpuscular HGB Conc 32.9 g/dL (31.6-35.5); Mean Corpuscular Hemoglobin 31.8 pg (28.0-33.3); Mean Corpuscular Volume 96.6 fL (83.0-100.0); Mean Platelet Volume 10.3 fL (9.4-12.4); Monocytes # 0.5 K/mcL (0.0-1.3); Neutrophils # 3.3 K/mcL (1.6-8.9); Platelet Count 167 K/mcL (140-400); Red Blood Count 3.58 M/mcL (4.19-5.50); Red Cell Distribution Width 13.7 % (11.5-14.5); Segmented Neutrophils % 55.5 %
[2019-07-12 01:07] LABS: BUN/Creatinine Ratio 30 (6-26); Blood Urea Nitrogen 39 mg/dL (8-23); Calcium 8.4 mg/dL (8.6-10.3); Carbon Dioxide 26 mEq/L (23-29); Chloride 105 mEq/L (98-107); Glucose 160 mg/dL (70-105); Osmolality,Calculated 301 (280-300); Potassium 4.1 mEq/L (3.5-5.1); Sodium 139 mEq/L (136-145); eGFR For African Americans > 60 (> 60); eGFR For Non-African Americans 54 (> 60)
[2019-07-12] MEDS: *HR* Heparin 5,000 UNIT/ML VIAL SQ SCH ×2 (05:33→13:56)
[2019-07-12] MEDS: levETIRAcetam 250 MG TABLET PO SCH (09:01)
[2019-07-12] MEDS: amLODIPine 5 MG TABLET PO SCH (09:01)
[2019-07-12] MEDS: Aspirin Enteric Coated 81 MG Tablet PO SCH (09:01)
[2019-07-12] MEDS: hydrALAZINE 25 MG TABLET PO SCH ×2 (09:01→13:57)
[2019-07-12] MEDS: Metoprolol XL (24 HR) Succ 25 MG TAB.ER.24H PO SCH (09:02)
--- NOTE | 2019-07-12 11:59 | Internal Med Progress Note ---
Hospitalist Progress Note - Encounter Date of Encounter: 07/12/19 Time of Encounter: 11:57 - Subjective Interval History: No acute events overnight. Patient states that he would rather not have a cardiac cath and wants to go back home. He denies chest pain, SOB, palpitations and lightheadedness. - Exam Vitals: Temp Pulse Resp BP Pulse Ox 36.7 C 50 20 152/98 95 07/12/19 07:27 07/12/19 07:27 07/12/19 07:27 07/12/19 07:27 07/12/19 07:27 Exam: GENERAL: Not in distress. Alert and Oriented x 3 HEENT: EOMI, PERRLA MOUTH: Moist oral mucosa NECK:No JVD, No lymph nodes. CHEST AND LUNGS: Normal breath sounds, no wheezes or crackles HEART: S1 and S2 normal, no murmurs ABDOMEN: Soft, nontender, no organomegaly GENITOURINARY: No inguinal lymph nodes, no penile discharge observed, no lesions on penis. SKIN: Normal color, no rashes, no lesions EXTREMITIES: No deformity, no edema, no tenderness, no joint swelling or clubbing NEUROLOGICAL: Power is 4/5 in LLE. 5/5 in all other extremities. Sensation is intact. - Assessment and Plan (1) Sustained ventricular tachycardia Current Visit: Yes Status: Acute (2) Penile pain Current Visit: Yes Status: Resolved (3) Hypertensive emergency Current Visit: Yes Status: Resolved (4) Constipation Current Visit: Yes Status: Chronic (5) Seizure Current Visit: No Status: Chronic (6) Benign prostate hyperplasia Current Visit: Yes Status: Acute - Time Spent with Patient Total time spent is greater than 50% in coordination of care (as documented) at patient's floor/unit and/or counseling patient: Internal Medicine: Result - Labs CBC & Chem 7: 07/12/19 00:27 07/12/19 00:27 Labs: Short CBC 07/12/19 Range/Units 00:27 WBC 6.0 (4.3-11.1) K/mcL Hgb 11.4 L (12.9-16.9) g/dL Hct 34.6 L (37.5-50.1) % Plt Count 167 (140-400) K/mcL Neutrophils # 3.3 (1.6-8.9) K/mcL BMP 07/12/19 00:27 Sodium 139 Potassium 4.1 Chloride 105 Carbon Dioxide 26 BUN 39 H Creatinine 1.29 Glucose 160 H Calcium 8.4 L - ABG Interpretation ABG results: PT/INR, D-dimer PT 11.7 Seconds (9.4-12.1) 07/10/19 14:30 - Impressions Impressions Echocardiogram Limited Views 07/10/19 18:16 Impressions: LVEF 60-65%. Moderate concentric left ventricular hypertrophy. Normal right ventricular structure and function. Left Ventricular Wall Motion: Rest Echo Findings All wall segments showed normal motion. Findings: Study Quality * Technically adequate exam. ECG Findings * Sinus bradycardia. * Sinus rhythm with BBB. Left Ventricle * LVEF 60-65%. * Normal LV chamber size. * Moderate concentric left ventricular hypertrophy. * Atypical septal motion consistent with bundle branch block. Right Ventricle * Normal right ventricular structure and function. Left Atrium * Normal left atrial size. Right Atrium * Normal right atrial size. Consult Discharge Plan - Plan Referrals: Cristian Horta MD [Primary Care Provider] - (4) Constipation Qualifiers: Constipation type: unspecified constipation type Qualified Code(s): K59.00 - Constipation, unspecified
[2019-07-12 12:23] VITALS: BP 153/94
--- NOTE | 2019-07-12 13:01 | Cardiology Progress Note ---
Date of Encounter: 07/12/19 Time of Encounter: 13:00 Assessment and Plan (1) NSVT (nonsustained ventricular tachycardia) Current Visit: Yes Status: Chronic Per Cardiology: Previous records reviewed: "H/o NSVT, declined LHC. No definitive VT on available tracing this admission. No VT on inpatient Tele". Telemetry reviewed no episodes of ventricular tachycardia noted, occasional PVCs. Echo showed EF preserved. On beta rom. (2) Elevated troponin Current Visit: Yes Status: Acute Per Cardiology: Initial troponin 0.17, subsequent troponins negative 2. Denies any chest pain. Do not suspect non-STEMI, suspect type to demand ischemia. No cardiac rehabilitation Consult warranted. Echo showed EF preserved. Patient has declined left heart catheterization prefers to go home. On aspirin and beta rom. (3) LBBB (left bundle branch block) Current Visit: Yes Status: Acute Per Cardiology: "intermittent, with high or low VR. Chronic. Etiology unclear". Again, patient declines further ischemic evaluation. Cardiology signing off, reconsult as needed, follow-up arranged. Discussion w patient/family: The assessment and plan as outlined above was discussed with the patient and/or family members who expressed understanding and agreement. All questions were answered. Thank you for involving us in the care of your patient. Please call with any questions. Subjective Principal diagnosis: Concern for nonsustained VT Interval history: Patient denies any chest pain, shortness of breath, palpitations currently. Reports desire to "return home ". No family at bedside. Patient indicates does not wish to proceed with catheterization at this time. Objective Vital Signs, Last 4 Hours Temp Pulse Resp BP Pulse Ox 07/12/19 12:22 98.2 F 57 16 153/94 94 General: Conversant, No Apparent Distress HEENT: Atraumatic, Normocephaly, Mucus Membranes Moist Neck: No JVD, Normal carotid pulses Cardiac: Reg Rate and Rhythm, Normal S1 and S2, No Murmur Lungs: Normal Breath Sounds, No Wheeze, Rales, Rhonchi Neuro: Alert and responsive, No focal deficits noted Abdomen: Soft, Non-Tender Skin: No rashes noted on visualized skin Musculoskeletal: No Chest Wall Tenderness Extremities: No Clubbing, No Cyanosis, No Edema, Normal Pulses Results 07/12/19 00:27 07/12/19 00:27 Lab Results Laboratory Tests 07/10/19 07/10/19 07/11/19 13:07 14:30 00:14 Hgb Hct INR 1.0 Potassium Creatinine Magnesium 1.7 Troponin I 0.17 H* < 0.03 07/11/19 07/12/19 07/12/19 05:03 00:27 00:27 Hgb 11.4 L Hct 34.6 L INR Potassium 4.1 Creatinine 1.29 Magnesium Troponin I 0.03 ITS Impressions Cervical Spine CT 07/10/19 11:43 IMPRESSION: No acute abnormality of the cervical spine. D/ / Nazario Mcguire MD / Nazario Mcguire MD Interpreting Provider: Nazario Mcguire MD Head CT 07/10/19 11:43 IMPRESSION: No acute intracranial abnormality. D/ / Nazario Mcguire MD / Nazario Mcguire MD Interpreting Provider: Nazario Mcguire MD Chest X-Ray 07/10/19 11:44 IMPRESSION: No acute cardiopulmonary process seen. D/ / Nazario Mcguire MD / Nazario Mcguire MD Interpreting Provider: Nazario Mcguire MD Abdomen/Pelvis CT 07/10/19 16:00 IMPRESSION: 1. No CT evidence of an acute intra-abdominal or intrapelvic process. 2. Diverticulosis coli without CT evidence of acute diverticulitis. 3. Mild intra and extrahepatic bile duct dilatation status post cholecystectomy typical of reservoir effect. 4. Calcific atherosclerotic disease aorta. D/ / Lukasz Oropeza / Lukasz Oropeza Interpreting Provider: Lukasz Oropeza Echocardiogram Limited Views 07/10/19 18:16 Impressions: LVEF 60-65%. Moderate concentric left ventricular hypertrophy. Normal right ventricular structure and function. Left Ventricular Wall Motion: Rest Echo Findings All wall segments showed normal motion. Findings: Study Quality * Technically adequate exam. ECG Findings * Sinus bradycardia. * Sinus rhythm with BBB. Left Ventricle * LVEF 60-65%. * Normal LV chamber size. * Moderate concentric left ventricular hypertrophy. * Atypical septal motion consistent with bundle branch block. Right Ventricle * Normal right ventricular structure and function. Left Atrium * Normal left atrial size. Right Atrium * Normal right atrial size. Active Medications Acetaminophen (Tylenol) 650 mg PO Q6HR PRN PRN Reason: Pain Stop: 01/10/20 19:47 Last Admin: 07/11/19 20:04 Dose: 650 mg Documented by: Amlodipine Besylate (Norvasc) 10 mg PO DAILY [facility] Stop: 01/10/20 09:01 Last Admin: 07/12/19 09:01 Dose: 10 mg Documented by: Aspirin (Aspirin Ec) 81 mg PO DAILY [facility] Stop: 01/10/20 09:01 Last Admin: 07/12/19 09:01 Dose: 81 mg Documented by: Carbidopa/Levodopa (Sinemet) 1 each PO BID [facility] Stop: 01/11/20 21:01 Finasteride (Proscar) 5 mg PO DAILY [facility]; Protocol Stop: 01/12/20 09:01 Folic Acid (Folic Acid) 1 mg PO DAILY [facility] Stop: 01/12/20 09:01 Heparin Sodium (Porcine) (Heparin) 5,000 unit SQ Q8HCO [facility]; Protocol Stop: 01/09/20 22:01 Last Admin: 07/12/19 05:33 Dose: 5,000 unit Documented by: Hydralazine HCl (Hydralazine) 25 mg PO TID [facility] Stop: 01/09/20 21:01 Last Admin: 07/12/19 09:01 Dose: 25 mg Documented by: Levetiracetam (Keppra) 500 mg PO BID [facility] Stop: 01/09/20 21:01 Last Admin: 07/12/19 09:01 Dose: 500 mg Documented by: Loratadine (Claritin) 10 mg PO DAILY [facility]; Protocol Stop: 01/12/20 09:01 Losartan Potassium (Cozaar) 100 mg PO DAILY [facility] Stop: 01/10/20 09:01 Last Admin: 07/12/19 09:01 Dose: 100 mg Documented by: Metoprolol Succinate (Toprol Xl) 25 mg PO DAILY [facility] Stop: 01/09/20 19:01 Last Admin: 07/12/19 09:02 Dose: 25 mg Documented by: Naloxone HCl (Narcan) 0.4 mg IVP Q2MPRN PRN PRN Reason: SEE COMMENTS Stop: 01/09/20 18:14 Non-Formulary Medication (Calcium Carbonate/Vitamin D3 [Calcium 250-D Tablet]) 1 tab PO DAILY [facility] Stop: 01/12/20 09:01 Non-Formulary Medication (Vitamin E Mixed [Vitamin E]) 800 unit PO DAILY [facility] Stop: 01/12/20 09:01 Omeprazole (Prilosec) 20 mg PO DAILY@0730 [facility]; Protocol Stop: 01/12/20 07:31 Phenytoin (Dilantin Er) 200 mg PO DAILY [facility] Stop: 01/12/20 09:01 Polyethylene Glycol (Miralax) 17 gm PO BID PRN PRN Reason: Constipation Stop: 01/10/20 02:36 Last Admin: 07/11/19 20:05 Dose: 17 gm Documented by: Quetiapine Fumarate (Seroquel) 25 mg PO HS [facility]; Protocol Stop: 01/11/20 21:01 Tamsulosin HCl (Flomax) 0.4 mg PO DAILY [facility]; Protocol Stop: 01/10/20 09:01 Last Admin: 07/12/19 09:01 Dose: 0.4 mg Documented by: Venlafaxine HCl (Effexor) 75 mg PO BID [facility] Stop: 01/11/20 21:01 - Imaging and Cardiology Echo: report reviewed Consult Discharge Plan - Plan Referrals: Cristian Horta MD [Primary Care Provider] -
--- NOTE | 2019-07-12 13:44 | Discharge Summary ---
Orders not resulted at time of discharge: Pending orders 07/10/19 14:30 Culture,Blood [BC] Stat Date of Encounter: 07/12/19 Time of Encounter: 09:20 - Discharge Diagnosis (1) Sustained ventricular tachycardia Priority: Primary Status: Acute (2) Hypertensive emergency Priority: Secondary Status: Resolved (3) Penile pain Priority: Secondary Status: Resolved (4) Constipation Priority: Secondary Status: Chronic Qualifiers: Constipation type: unspecified constipation type Qualified Code(s): K59.00 - Constipation, unspecified (5) Seizure Priority: Secondary Status: Chronic (6) Benign prostate hyperplasia Priority: Secondary Status: Chronic Qualifiers: Lower urinary tract symptom presence: symptoms present Lower urinary tract symptom detail: urinary hesitancy Qualified Code(s): N40.1 - Benign prostatic hyperplasia with lower urinary tract symptoms; R39.11 - Hesitancy of micturition Hospital course: Mr. Kennedy is a 78 year old male with a past medical history of CVA with residual left-sided weakness, CKD, osteoarthritis, seizures, syncopal attacks, GERD, osteoporosis, COPD, hypertension, hyperlipidemia, TIA, anxiety and depression. Patient was brought in from his senior living after hewas found on the floor of his room unresponsive. When he came to he complained that he had significant groin and penile pain. On arrival in the ER patient was witnessed losing consciousness with a recorded 52 second run of V. tach on this monitor. He was also found to have severely elevated blood pressure. He regained consciousness before any resuscitative measures could be started. He was admitted for further evaluation of his VTach. Echo showed a normal ventricle and patient did not have any more episodes of Vtach on admission. He declined a left heart cath and will be discharged home to continue on his regular medications. It seems that patient has not been compliant with his antihypertensives and so he was counseled on this. Discharge discussed with: patient, nurse - Time Spent with Patient Total time spent providing and/or coordinating discharge services: Time spent: Greater than 30 minutes (40) - Discharge Medications Prescriptions: Continued Tamsulosin [Flomax] 0.4 mg PO DAILY Vitamin E Mixed [Vitamin E] 800 unit PO DAILY Divalproex (12 HR) [Depakote (12 HR)] 1,000 mg PO BID Loratadine [Claritin] 10 mg PO DAILY #30 tablet Losartan Potassium [Cozaar] 100 mg PO DAILY Venlafaxine [Effexor] 75 mg PO BID Quetiapine Fumarate [Seroquel] 25 mg PO HS Finasteride [Proscar] 5 mg PO DAILY Phenytoin ER [Dilantin ER] 200 mg PO DAILY Oxybutynin [Ditropan] 5 mg PO BID Folic Acid 1 mg PO DAILY Carbidopa/Levodopa [Carbidopa-Levodopa 25-100 Tab] 1 tab PO BID Omeprazole [PriLOSEC] 20 mg PO DAILY@0730 hydrALAZINE [HydrALAZINE] 25 mg PO TID Amlodipine Besylate 10 mg PO DAILY Calcium Carbonate/Vitamin D3 [Calcium 250-D Tablet] 1 tab PO DAILY Metoprolol XL (24 HR) Succ [Toprol Xl] 25 mg PO DAILY #30 tab.er.24h Aspirin [Lo-Dose Aspirin EC] 81 mg PO DAILY LevETIRAcetam [Keppra] 500 mg PO BID No Action Sennosides [Senna] 17.2 mg PO BID Home Medications: Tamsulosin [Flomax] 0.4 mg PO DAILY 12/21/16 [History] Vitamin E Mixed [Vitamin E] 800 unit PO DAILY 12/21/16 [History] Divalproex (12 HR) [Depakote (12 HR)] 1,000 mg PO BID 05/19/17 [History] Loratadine [Claritin] 10 mg PO DAILY #30 tablet 05/21/17 [Rx] Sennosides [Senna] 17.2 mg PO BID 07/16/17 [History] Losartan Potassium [Cozaar] 100 mg PO DAILY 01/14/18 [History] Amlodipine Besylate 10 mg PO DAILY 07/27/18 [History] Calcium Carbonate/Vitamin D3 [Calcium 250-D Tablet] 1 tab PO DAILY 07/27/18 [History] Carbidopa/Levodopa [Carbidopa-Levodopa 25-100 Tab] 1 tab PO BID 07/27/18 [History] Finasteride [Proscar] 5 mg PO DAILY 07/27/18 [History] Folic Acid 1 mg PO DAILY 07/27/18 [History] Omeprazole [PriLOSEC] 20 mg PO DAILY@0730 07/27/18 [History] Oxybutynin [Ditropan] 5 mg PO BID 07/27/18 [History] Phenytoin ER [Dilantin ER] 200 mg PO DAILY 07/27/18 [History] Quetiapine Fumarate [Seroquel] 25 mg PO HS 07/27/18 [History] Venlafaxine [Effexor] 75 mg PO BID 07/27/18 [History] hydrALAZINE [HydrALAZINE] 25 mg PO TID 07/27/18 [History] Metoprolol XL (24 HR) Succ [Toprol Xl] 25 mg PO DAILY #30 tab.er.24h 07/30/18 [Rx] Aspirin [Lo-Dose Aspirin EC] 81 mg PO DAILY 07/10/19 [History] LevETIRAcetam [Keppra] 500 mg PO BID 07/10/19 [History] Allergies/Adverse Reactions: Allergy/AdvReac Type Severity Reaction Status Date / Time No Known Allergies Allergy Verified 07/10/19 17:35 Date of admission: 07/10/19 17:23 Primary care physician: Cristian Horta MD Consults: 07/10/19 20:28 Consult to Nutrition [CONS] Routine Comment: Consulting Provider: NUTRITION Reason for Dietary Consult: MST Score 07/11/19 11:00 Consult to Cardiology [CONS] Routine Comment: Consulting Provider: Cardiology Bliss Reason for Consult: Witnessed Sustained Vtach in ER Call Completed: No - Constitutional Vitals: Temp Pulse Resp BP Pulse Ox 36.8 C 57 16 153/94 94 07/12/19 12:22 07/12/19 12:22 07/12/19 12:22 07/12/19 12:22 07/12/19 12:22 Exam: GENERAL: Not in distress. Alert and Oriented HEENT: EOM, PERRLA MOUTH: Good oral hygiene NECK:No JVD, No lymph nodes. CHEST AND LUNGS: Normal breath sounds, no wheezes or crackles HEART: S1 and S2 normal, no murmurs ABDOMEN: Soft, nontender, no organomegaly GENITOURINARY: SKIN: Normal color, no rahses, no lesions EXTREMITIES: No deformity, no edema, no tenderness, no joint swelling or clubbing NEUROLOGICAL: Normal cognition, power of 4/5 in LLE. 5/5 in all extremities. - Patient Status Disposition: Transfer SNF Condition: Good Functional capacity at discharge: uses cane/walker Overall status at discharge: patient is back to baseline - Discharge Instructions Follow Up With: Cristian Horta MD [Primary Care Provider] - Cardiology [facility] [Provider Group] - Diet and Activity Activity: increase activity as tolerated Diet: advance to your usual diet
[2019-07-12] MEDS ORDERED: Carbidopa/Levodopa 25/100 TABLET PO SCH (21:00)
[2019-07-13] MEDS ORDERED: Folic Acid 1 MG TABLET PO SCH (09:00)
[2019-07-13] MEDS ORDERED: Cholecalciferol (D-3) 1,000 UNIT (25MCG) TABLET PO SCH (09:00)
[2019-07-13] MEDS ORDERED: Finasteride 5 MG TABLET PO SCH (09:00)
[2019-07-13] MEDS ORDERED: Loratadine 10 MG TABLET PO SCH (09:00)
[2019-07-13] MEDS ORDERED: Vitamin E 200 UNIT (90MG) CAPSULE PO SCH (09:00)
--- NOTE | 2019-07-15 14:37 | Electrocardiograph Report ---
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
--- NOTE | 2019-07-15 14:46 | Electrocardiograph Report ---
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
== END 2019-07-12 15:53 | DRG 309 ==
LOC: EMEROOARM 11:27 → 2NENU 17:23 → SUATTDRO 17:23 → 2NENU 18:39
PROVIDERS: ADMIT Internal Medicine; ATTEND Internal Medicine

== ENCOUNTER 2021-08-26 01:04 | Observation (INO) ==
[2021-08-26 05:34] LABS: BUN/Creatinine Ratio 30 (6-26); Blood Urea Nitrogen 36 mg/dL (8-23); Calcium 9.5 mg/dL (8.6-10.3); Carbon Dioxide 26 mEq/L (23-29); Chloride 106 mEq/L (98-107); Glucose 117 mg/dL (70-105); Osmolality,Calculated 297 (280-300); Potassium 3.9 mEq/L (3.5-5.1); Sodium 139 mEq/L (136-145); eGFR For African Americans > 60 (> 60); eGFR For Non-African Americans 57 (> 60)
[2021-08-26 05:56] LABS: Basophils # 0.1 K/mcL (0.0-0.2); Basophils % 0.6 %; Eosinophils # 0.3 K/mcL (0.0-0.6); Eosinophils % 3.5 %; Hematocrit 40.1 % (37.5-50.1); Hemoglobin 13.1 g/dL (12.9-16.9); Immature Granulocytes % 0.4 % (0-4); Lymphocytes # 2.1 K/mcL (0.6-4.6); Lymphocytes % 26.4 %; Mean Corpuscular HGB Conc 32.7 g/dL (31.6-35.5); Mean Corpuscular Hemoglobin 30.3 pg (28.0-33.3); Mean Corpuscular Volume 92.8 fL (83.0-100.0); Mean Platelet Volume 10.7 fL (9.4-12.4); Monocytes # 0.7 K/mcL (0.0-1.3); Monocytes % 9.1 %; Neutrophils # 4.7 K/mcL (1.6-8.9); Platelet Count 188 K/mcL (140-400); Red Blood Count 4.32 M/mcL (4.19-5.50); White Blood Count 7.8 K/mcL (4.3-11.1)
[2021-08-26 06:32] LABS: Bilirubin,Urine Negative (Negative); Blood,Urine Negative (Negative); Clarity,Urine Clear (Clear); Color,Urine Yellow (Yellow); Glucose,Urine (UA) Normal (Normal); Ketones,Urine Negative (Negative); Leukocyte Esterase,Urine Negative (Negative); Nitrite,Urine Negative (Negative); Protein,Urine Trace mg/dL (Neg-Trace); Specific Gravity,Urine 1.025 (1.010-1.025); Urobilinogen,Urine Normal (Normal)
[2021-08-26] MEDS ORDERED: Tdap (Boostrix) Vaccine 0.5 ML SYRINGE IM ONE (06:43)
[2021-08-26] MEDS ORDERED: Lidocaine -MPF 1% 2 ML VIAL ID ONE (07:48)
[2021-08-26] MEDS ORDERED: Lidocaine -MPF 1% 2 ML VIAL ONE (07:54)
[2021-08-26] MEDS ORDERED: Ondansetron 4 MG/2 ML VIAL IVP PRN (10:36)
[2021-08-26] MEDS ORDERED: Naloxone 0.4 MG/ML INJ IVP PRN (10:36)
[2021-08-26] MEDS ORDERED: 0.9 % Sodium Chloride 1,000 ML IVC SCH (10:45)
[2021-08-26] MEDS ORDERED: Perflutren Lipid Microsphere 1.3 ML in 0.9 % Sodium Chloride 8.7 ML IVP PRN (10:46)
[2021-08-26] MEDS: *HR* Heparin 5,000 UNIT/ML VIAL SQ SCH (13:29)
[2021-08-26] MEDS ORDERED: MOM Conc 10 ML UD.LIQ PO PRN (14:00)
[2021-08-26] MEDS ORDERED: Acetaminophen 325 MG TABLET PO PRN (14:00)
[2021-08-26] MEDS ORDERED: hydrALAZINE 10 MG TABLET PO PRN (14:02)
[2021-08-26 17:12] LABS: INR 1.1; Prothrombin Time 11.9 Seconds (9.4-12.1)
[2021-08-26 17:15] LABS: Activated Partial Thrombo Time 32.2 Seconds (26.0-36.0)
[2021-08-26 17:50] LABS: Thyroid Stimulating Hormone 1.922 mcIU/mL (0.340-5.600); Troponin I < 0.03 ng/mL (< 0.04)
[2021-08-26 18:14] LABS: Magnesium 1.9 mg/dL (1.6-2.6)
[2021-08-26] MEDS: Divalproex (12 HR) 250 MG TABLET PO SCH (19:49)
[2021-08-26] MEDS: levETIRAcetam 250 MG TABLET PO SCH (20:02)
[2021-08-26] MEDS: Sennosides/Docusate Sodium TABLET PO SCH (20:02)
[2021-08-26] MEDS: QUEtiapine Fumarate 25 MG TABLET PO SCH (20:03)
[2021-08-26] MEDS: Carbidopa/Levodopa 25/100 TABLET PO SCH (20:08)
[2021-08-27] MEDS: *HR* Heparin 5,000 UNIT/ML VIAL SQ SCH ×4 (00:24→21:45)
[2021-08-27] MEDS ORDERED: Metoprolol XL (24 HR) Succ 25 MG TAB.ER.24H PO SCH (09:00)
[2021-08-27] MEDS: Loratadine 10 MG TABLET PO SCH (09:50)
[2021-08-27] MEDS: Carbidopa/Levodopa 25/100 TABLET PO SCH ×2 (09:50→21:42)
[2021-08-27] MEDS: Divalproex (12 HR) 250 MG TABLET PO SCH ×2 (09:50→21:42)
[2021-08-27] MEDS: Aspirin Enteric Coated 81 MG Tablet PO SCH (09:50)
[2021-08-27] MEDS: Folic Acid 1 MG TABLET PO SCH (09:50)
[2021-08-27] MEDS: amLODIPine 5 MG TABLET PO SCH (09:50)
[2021-08-27] MEDS: Multivit/Ca/Min/Fe/FA 1 TAB TABLET PO SCH (09:50)
[2021-08-27] MEDS: Sennosides/Docusate Sodium TABLET PO SCH ×2 (09:51→21:41)
[2021-08-27] MEDS: levETIRAcetam 250 MG TABLET PO SCH ×2 (09:51→21:39)
[2021-08-27] MEDS: Finasteride 5 MG TABLET PO SCH (09:51)
[2021-08-27 14:23] LABS: Basophils % 0.6 %; Eosinophils # 0.2 K/mcL (0.0-0.6); Eosinophils % 3.4 %; Hematocrit 42.1 % (37.5-50.1); Immature Granulocytes % 0.3 % (0-4); Lymphocytes # 1.2 K/mcL (0.6-4.6); Lymphocytes % 19.4 %; Mean Corpuscular HGB Conc 33.3 g/dL (31.6-35.5); Mean Corpuscular Hemoglobin 30.4 pg (28.0-33.3); Mean Corpuscular Volume 91.5 fL (83.0-100.0); Mean Platelet Volume 10.5 fL (9.4-12.4); Monocytes # 0.5 K/mcL (0.0-1.3); Monocytes % 7.7 %; Neutrophils # 4.4 K/mcL (1.6-8.9); Platelet Count 184 K/mcL (140-400); Red Cell Distribution Width 13.8 % (11.5-14.5); Segmented Neutrophils % 68.6 %; White Blood Count 6.4 K/mcL (4.3-11.1)
[2021-08-27 14:50] LABS: Alanine Aminotransferase < 3 Units/L (7-52); Albumin 3.9 g/dL (3.5-5.7); Albumin/Globulin Ratio 1.2 (1.1-2.2); Alkaline Phosphatase 77 Units/L (34-104); Aspartate Amino Transferase 21 Units/L (13-39); BUN/Creatinine Ratio 27 (6-26); Bilirubin,Total 0.5 mg/dL (0.3-1.0); Blood Urea Nitrogen 24 mg/dL (8-23); Carbon Dioxide 25 mEq/L (23-29); Chloride 105 mEq/L (98-107); Globulin 3.2 g/dL (2.4-3.5); Glucose 119 mg/dL (70-105); Osmolality,Calculated 289 (280-300); Potassium 3.7 mEq/L (3.5-5.1); Sodium 137 mEq/L (136-145); Total Protein 7.1 g/dL (6.4-8.9); eGFR For African Americans > 60 (> 60); eGFR For Non-African Americans > 60 (> 60)
[2021-08-27] MEDS: hydrALAZINE 25 MG TABLET PO SCH (21:43)
[2021-08-27] MEDS: QUEtiapine Fumarate 25 MG TABLET PO SCH (21:43)
[2021-08-28 06:22] LABS: Hematocrit 41.6 % (37.5-50.1); Hemoglobin 13.6 g/dL (12.9-16.9); Mean Corpuscular HGB Conc 32.7 g/dL (31.6-35.5); Mean Corpuscular Hemoglobin 30.1 pg (28.0-33.3); Mean Platelet Volume 10.6 fL (9.4-12.4); Platelet Count 181 K/mcL (140-400); Red Blood Count 4.52 M/mcL (4.19-5.50); Red Cell Distribution Width 13.7 % (11.5-14.5); White Blood Count 5.3 K/mcL (4.3-11.1)
[2021-08-28] MEDS: *HR* Heparin 5,000 UNIT/ML VIAL SQ SCH (06:24)
[2021-08-28 06:27] LABS: INR 1.1; Prothrombin Time 11.7 Seconds (9.4-12.1)
[2021-08-28 06:43] LABS: BUN/Creatinine Ratio 27 (6-26); Blood Urea Nitrogen 26 mg/dL (8-23); Calcium 9.3 mg/dL (8.6-10.3); Carbon Dioxide 25 mEq/L (23-29); Chloride 105 mEq/L (98-107); Glucose 109 mg/dL (70-105); Osmolality,Calculated 293 (280-300); Potassium 3.4 mEq/L (3.5-5.1); Sodium 139 mEq/L (136-145); eGFR For African Americans > 60 (> 60); eGFR For Non-African Americans > 60 (> 60)
[2021-08-28 07:15] LABS: Activated Partial Thrombo Time 48.9 Seconds (26.0-36.0)
[2021-08-28] MEDS: Aspirin Enteric Coated 81 MG Tablet PO SCH (10:30)
[2021-08-28] MEDS: Loratadine 10 MG TABLET PO SCH (10:31)
[2021-08-28] MEDS: Divalproex (12 HR) 250 MG TABLET PO SCH (10:34)
[2021-08-28] MEDS: Folic Acid 1 MG TABLET PO SCH (10:36)
[2021-08-28] MEDS: hydrALAZINE 25 MG TABLET PO SCH (10:37)
[2021-08-28] MEDS: levETIRAcetam 250 MG TABLET PO SCH (10:37)
[2021-08-28] MEDS: amLODIPine 5 MG TABLET PO SCH (10:39)
[2021-08-28] MEDS: Finasteride 5 MG TABLET PO SCH (10:40)
[2021-08-28] MEDS: Carbidopa/Levodopa 25/100 TABLET PO SCH (10:40)
[2021-08-28] MEDS: Multivit/Ca/Min/Fe/FA 1 TAB TABLET PO SCH (10:42)
[2021-08-28] MEDS: Sennosides/Docusate Sodium TABLET PO SCH (10:42)
[2021-08-28 16:44] VITALS: BP 169/84; PULSE 75; TEMP 97.9; O2SAT 96
[2021-08-28] MEDS ORDERED: Apixaban 5 MG TABLET PO SCH (21:00)
== END 2021-08-28 17:13 ==
LOC: EMEROOARM 01:04 → 3BNU 01:04 → SUATTDRO 10:05 → 3BNU 11:21
PROVIDERS: ADMIT General Practice; ATTEND Internal Medicine

== ENCOUNTER 2022-02-17 12:23 | Observation (INO) ==
[2022-02-17 13:39] LABS: Hematocrit 42.4 % (37.5-50.1); Hemoglobin 14.3 g/dL (12.9-16.9); Immature Granulocytes % 0.3 % (0-4); Lymphocytes % 16.8 %; Mean Corpuscular HGB Conc 33.7 g/dL (31.6-35.5); Mean Corpuscular Hemoglobin 31.5 pg (28.0-33.3); Mean Corpuscular Volume 93.4 fL (83.0-100.0); Mean Platelet Volume 10.2 fL (9.4-12.4); Monocytes % 7.4 %; Platelet Count 216 K/mcL (140-400); Red Blood Count 4.54 M/mcL (4.19-5.50); Red Cell Distribution Width 13.3 % (11.5-14.5); White Blood Count 6.7 K/mcL (4.3-11.1)
[2022-02-17 13:40] LABS: Basophils % 0.5 %; Eosinophils # 0.1 K/mcL (0.0-0.6); Lymphocytes # 1.1 K/mcL (0.6-4.6); Monocytes # 0.5 K/mcL (0.0-1.3); Neutrophils # 4.9 K/mcL (1.6-8.9)
[2022-02-17 14:02] LABS: Alanine Aminotransferase 4 Units/L (7-52); Albumin 3.9 g/dL (3.5-5.7); Albumin/Globulin Ratio 1.2 (1.1-2.2); Alkaline Phosphatase 63 Units/L (34-104); Aspartate Amino Transferase 17 Units/L (13-39); BUN/Creatinine Ratio 24 (6-26); Bilirubin,Indirect 0.4 mg/dL (0.0-1.0); Bilirubin,Total 0.4 mg/dL (0.3-1.0); Blood Urea Nitrogen 25 mg/dL (8-23); Calcium 9.5 mg/dL (8.6-10.3); Carbon Dioxide 29 mEq/L (23-29); Chloride 102 mEq/L (98-107); Ethanol < 10 mg/dL (Less than 10); Globulin 3.2 g/dL (2.4-3.5); Glucose 133 mg/dL (70-105); Osmolality,Calculated 290 (280-300); Potassium 4.1 mEq/L (3.5-5.1); Sodium 137 mEq/L (136-145); Total Protein 7.1 g/dL (6.4-8.9); Troponin I < 0.03 ng/mL (< 0.04); Valproate 7 mcg/mL (50-100); eGFR For African Americans > 60 (> 60); eGFR For Non-African Americans > 60 (> 60)
[2022-02-17 16:24] LABS: Bilirubin,Urine Negative (Negative); Blood,Urine Moderate (Negative); Clarity,Urine Turbid (Clear); Color,Urine Light-Yellow (Yellow); Glucose,Urine (UA) Normal (Normal); Ketones,Urine Negative (Negative); Leukocyte Esterase,Urine Small (Negative); Mucus,Urine Few per lpf (None-Few); Nitrite,Urine Negative (Negative); PH,Urine 7.5 pH Units (5.0-8.0); Protein,Urine 30 mg/dL (Neg-Trace); RBC,Urine TNTC per hpf (0-3); Specific Gravity,Urine 1.018 (1.010-1.025); Squamous Epithelial Cell,Urine Few per hpf (None-Few); Urobilinogen,Urine Normal (Normal)
[2022-02-17 16:31] LABS: Amphetamine Screen,Urine Negative ng/mL (Cutoff=1000); Barbiturate Screen,Urine Negative ng/mL (Cutoff=200); Benzodiazepines Screen,Urine Negative ng/mL (Cutoff=200); Cannabinoid Screen,Urine Negative ng/mL (Cutoff = 50); Cocaine Screen,Urine Negative ng/mL (Cutoff= 300); Opiate Screen,Urine Negative ng/mL (Cutoff=300); Phencyclidine Screen,Urine Negative ng/mL (Cutoff=25)
[2022-02-17] MEDS ORDERED: Divalproex (12 HR) 500 MG TABLET PO STA (16:35)
[2022-02-17] MEDS ORDERED: Melatonin 3 MG TABLET PO PRN (16:38)
[2022-02-17] MEDS ORDERED: Ondansetron ODT 4 MG TAB.RAPDIS SL PRN (16:38)
[2022-02-17] MEDS ORDERED: Naloxone 0.4 MG/ML INJ IVP PRN (16:38)
[2022-02-17] MEDS ORDERED: MOM Conc 10 ML UD.LIQ PO PRN (17:27)
[2022-02-17] MEDS: Divalproex (12 HR) 250 MG TABLET PO SCH (20:14)
[2022-02-17] MEDS: Carbidopa/Levodopa 25/100 TABLET PO SCH (20:15)
[2022-02-17] MEDS: Sennosides/Docusate Sodium TABLET PO SCH (20:15)
[2022-02-17] MEDS: levETIRAcetam 250 MG TABLET PO SCH (20:15)
[2022-02-17] MEDS: hydrALAZINE 25 MG TABLET PO SCH (20:15)
[2022-02-17] MEDS: Apixaban 5 MG TABLET PO SCH (20:15)
[2022-02-17] MEDS: QUEtiapine Fumarate 25 MG TABLET PO SCH (20:15)
[2022-02-18 03:37] LABS: Basophils % 0.4 %; Eosinophils # 0.2 K/mcL (0.0-0.6); Eosinophils % 1.9 %; Hematocrit 38.9 % (37.5-50.1); Hemoglobin 13.3 g/dL (12.9-16.9); Immature Granulocytes % 0.3 % (0-4); Lymphocytes # 1.9 K/mcL (0.6-4.6); Mean Corpuscular HGB Conc 34.2 g/dL (31.6-35.5); Mean Corpuscular Hemoglobin 31.5 pg (28.0-33.3); Mean Corpuscular Volume 92.2 fL (83.0-100.0); Mean Platelet Volume 10.4 fL (9.4-12.4); Monocytes # 0.6 K/mcL (0.0-1.3); Monocytes % 7.4 %; Neutrophils # 5.3 K/mcL (1.6-8.9); Platelet Count 202 K/mcL (140-400); Red Blood Count 4.22 M/mcL (4.19-5.50); Red Cell Distribution Width 13.2 % (11.5-14.5)
[2022-02-18 03:58] LABS: BUN/Creatinine Ratio 24 (6-26); Blood Urea Nitrogen 24 mg/dL (8-23); Calcium 9.2 mg/dL (8.6-10.3); Carbon Dioxide 26 mEq/L (23-29); Chloride 103 mEq/L (98-107); Chol/HDL Ratio 4.7 (0-4.9); Cholesterol 155 mg/dL (< 200); Glucose 113 mg/dL (70-105); HDL Cholesterol 33 mg/dL (40-59); LDL Cholesterol,Calculated 89 mg/dL (< 100); Magnesium 1.9 mg/dL (1.6-2.6); Osmolality,Calculated 289 (280-300); Potassium 4.1 mEq/L (3.5-5.1); Sodium 137 mEq/L (136-145); Triglycerides 164 mg/dL (< 150); eGFR For African Americans > 60 (> 60); eGFR For Non-African Americans > 60 (> 60)
[2022-02-18] MEDS: amLODIPine 5 MG TABLET PO SCH (08:15)
[2022-02-18] MEDS: levETIRAcetam 250 MG TABLET PO SCH ×2 (08:15→20:08)
[2022-02-18] MEDS: Folic Acid 1 MG TABLET PO SCH (08:15)
[2022-02-18] MEDS: Carbidopa/Levodopa 25/100 TABLET PO SCH ×2 (08:15→20:08)
[2022-02-18] MEDS: Sennosides/Docusate Sodium TABLET PO SCH ×2 (08:15→20:09)
[2022-02-18] MEDS: Loratadine 10 MG TABLET PO SCH (08:15)
[2022-02-18] MEDS: Aspirin Enteric Coated 81 MG Tablet PO SCH (08:15)
[2022-02-18] MEDS: Divalproex (12 HR) 250 MG TABLET PO SCH (08:16)
[2022-02-18] MEDS: Apixaban 5 MG TABLET PO SCH ×2 (08:16→20:08)
[2022-02-18] MEDS: Finasteride 5 MG TABLET PO SCH (08:16)
[2022-02-18] MEDS: hydrALAZINE 25 MG TABLET PO SCH ×2 (08:16→20:08)
[2022-02-18] MEDS: 0.9 % Sodium Chloride 1,000 ML IVC SCH (13:21)
[2022-02-18] MEDS: Divalproex (12 HR) 500 MG TABLET PO SCH (20:08)
[2022-02-18] MEDS: QUEtiapine Fumarate 25 MG TABLET PO SCH (20:09)
[2022-02-19] MEDS: 0.9 % Sodium Chloride 1,000 ML IVC SCH (01:44)
[2022-02-19 03:42] VITALS: TEMP 97.6; O2SAT 97
[2022-02-19] MEDS ORDERED: Acetaminophen 325 MG TABLET PO PRN (07:37)
[2022-02-19 08:14] VITALS: BP 104/73; PULSE 58
[2022-02-19] MEDS ORDERED: levETIRAcetam 250 MG TABLET PO SCH ×2 (09:00→21:00)
[2022-02-19] MEDS: Divalproex (12 HR) 500 MG TABLET PO SCH (09:06)
[2022-02-19] MEDS: amLODIPine 5 MG TABLET PO SCH (09:06)
[2022-02-19] MEDS: Loratadine 10 MG TABLET PO SCH (09:07)
[2022-02-19] MEDS: Carbidopa/Levodopa 25/100 TABLET PO SCH (09:07)
[2022-02-19] MEDS: Aspirin Enteric Coated 81 MG Tablet PO SCH (09:07)
[2022-02-19] MEDS: Finasteride 5 MG TABLET PO SCH (09:07)
[2022-02-19] MEDS: Folic Acid 1 MG TABLET PO SCH (09:07)
[2022-02-19] MEDS: Sennosides/Docusate Sodium TABLET PO SCH (09:07)
[2022-02-19] MEDS: Apixaban 5 MG TABLET PO SCH (09:07)
[2022-02-19] MEDS: hydrALAZINE 25 MG TABLET PO SCH (09:07)
== END 2022-02-19 12:21 ==
LOC: 3BNU 12:23 → EMEROOARM 12:23 → SUATTDRO 16:47 → 3BNU 19:36
PROVIDERS: ADMIT Internal Medicine; ATTEND Internal Medicine